=== PATIENT | female | born 1945 | race Caucasian/White ===

== ENCOUNTER 2020-01-14 10:13 | Emergency (ER) | payer MEDICARE, SELFPAY ==
--- NOTE | 2020-01-14 | ECG_ITS ---
Test Reason : SOB Blood Pressure : / mmHG Vent. Rate : 075 BPM Atrial Rate : 075 BPM P-R Int : 136 ms QRS Dur : 084 ms QT Int : 400 ms P-R-T Axes : 026 039 035 degrees QTc Int : 446 ms Normal sinus rhythm Nonspecific ST abnormality Abnormal ECG Heart rate has increased Referred By: Debi Joy Electronically Signed By:LINDA GONZALES MD
[2020-01-14 10:20] VITALS: BP 129/84; BP 142/75; PULSE 88; RESP 13; TEMP 36.6; O2SAT 100; O2SAT 99; BMI 34.0
--- NOTE | 2020-01-14 10:29 | CT_ITS ---
EXAMINATION: CT HEAD WITHOUT CONTRAST CLINICAL INFORMATION: Dizziness since Saturday. Palpitations. COMPARISON: Brain MRI from 12/04/2017. TECHNIQUE: Contiguous axial imaging was performed from the skull base to vertex without intravenous administration of contrast. This CT examination was performed using dose optimization techniques as appropriate, variously including the following: *Automated exposure control *Adjustment of mA and/or kV according to patient size (this includes techniques or standardized protocols for targeted exams where dose is matched to indication/reason for exam; i.e. extremities or head) *Use of iterative reconstruction technique DLP: 624 mGy-cm FINDINGS: The brain parenchyma has normal attenuation with well-preserved sheppard-white matter differentiation. No evidence of cerebral edema, hemorrhage, extra-axial fluid collection, focal mass effect or midline shift. The ventricles have normal size and configuration; no hydrocephalus. There is mild tonsillar ectopia, as noted on brain MRI of 12/04/2017. Otherwise, cerebellum and brainstem are unremarkable. The calvarium is intact. The visualized paranasal sinuses, mastoid air cells and middle ear cavities are well aerated. The orbits, globes and temporomandibular joints are unremarkable. CT/CT head/brain wo con IMPRESSION: No acute intracranial pathology compared to 12/04/2017.
--- NOTE | 2020-01-14 10:33 | XR_ITS ---
EXAMINATION: XR CHEST CLINICAL INFORMATION: Dizziness with associated palpitations. COMPARISON: Most recent chest radiograph is dated 08/12/2019 TECHNIQUE: 2 views of the chest were obtained. FINDINGS: The cardiomediastinal silhouette is unchanged. Heart size is not significantly enlarged. Redemonstration of tortuosity of the descending thoracic aorta. The hilar contours are unremarkable. The lungs are well expanded. No focal consolidation or pulmonary edema. No evidence of pleural effusion or pneumothorax. No acute osseous findings. There are surgical clips overlying the upper abdomen, possibly from prior cholecystectomy. XR/XR chest 2V IMPRESSION: No acute pulmonary disease.
--- NOTE | 2020-01-14 10:43 | ED.DIZZY ---
HPI - Dizziness General Chief Complaint: Dizziness Stated Complaint: dizzy, weakness Time Seen by Provider: 01/14/20 10:15 Source: patient and EMS Mode of arrival: EMS Limitations: no limitations History of Present Illness HPI Narrative: 73yoF c PMH of HTN, HLD, CKD stage 3, Meniere's disease, hypothyroidism, anxiety disorder, chronic GERD and Harper's esophagus presenting to the ED via EMS c c/o intermittent dizziness, pressure in the occipital aspect of her head and palpitations since Saturday. with associated nausea. Reports worse with standing. Patient reports she was recently seen by her pipefitter welder and had her atenolol changed to hydrochlorothiazide due to having low heart rate on the atenolol. Denies any fevers, changes in vision, vomiting, Jaw pain, paresthesias, chest pain, shortness of breath, dyspnea on exertion, extremity edema, abdominal pain, back pain, dysuria, diarrhea ear and constipation. Denies recent falls or head injury or any other symptoms complaints or concerns at this time. Denies being on any blood thinners. Reports is taking her medications as prescribed. Related Data Home Medications Medication Instructions Recorded Confirmed atenolol 25 mg tablet 25 mg PO DAILY 11/24/19 11/24/19 famotidine 20 mg tablet 20 mg PO BEDTIME 11/24/19 11/24/19 hydralazine 25 mg tablet 25 mg PO BID tab 11/24/19 11/24/19 lansoprazole 15 mg capsule,delayed 15 mg PO DAILY 11/24/19 11/24/19 release levothyroxine 75 mcg tablet 75 mcg PO DAILY 11/24/19 11/24/19 rosuvastatin 5 mg tablet 5 mg PO DAILY 11/24/19 11/24/19 Previous Rx's Medication Instructions Recorded buspirone 5 mg tablet 5 mg PO ONCE 30 Days #30 tab 11/24/19 lisinopril 30 mg tablet 30 mg PO DAILY #90 cap 12/24/19 Allergies Allergy/AdvReac Type Severity Reaction Status Date / Time Iodinated Contrast Media Allergy Severe TACHYCARDIA,DIFFICULTY Unverified 11/05/19 14:56 [IV CONTRAST] BREATHING amoxicillin [Prevpac] Allergy Unknown Verified 04/25/18 00:00 clarithromycin [Prevpac] Allergy Unknown Verified 04/25/18 00:00 escitalopram [From LEXAPRO] Allergy Unknown CHEST PAIN Unverified 11/05/19 14:56 lansoprazole [Prevpac] Allergy Unknown Verified 04/25/18 00:00 lovastatin Allergy Unknown myalgia Verified 08/26/19 00:00 omeprazole [From Prilosec] Allergy Unknown CHEST Unverified 11/05/19 14:56 PAIN,DIFFICULTY BREATHING pravastatin Allergy Unknown myalgia Verified 08/26/19 00:00 shellfish derived Allergy Unknown UNKOWN Unverified 11/05/19 14:56 [SHELLFISH DERIVED] iv contrast dye Allergy Unknown Uncoded 08/26/19 00:00 iv dye/ shellfish Allergy Unknown Uncoded 04/25/18 00:00 Prilosec Allergy Unknown Chest pain Uncoded 08/26/19 00:00 Review of Systems Review of Systems: Constitutional : No Fever, No Chills, No Night Sweats, No Fatigue, No Malaise ENT/Mouth : No Ear Pain, No Nasal Congestion, No Sinus Pain, No sore throat, No Rhinorrhea Eyes: No Eye Pain, No Swelling, No Redness, No Foreign Body, No Discharge, No Vision Changes Cardiovascular : No Chest Pain, No SOB, No Dyspnea on Exertion, No Orthopnea, + Palpitations Respiratory : No Cough, No Sputum, No Wheezing, No Dyspnea Gastrointestinal : + Nausea, No Vomiting, No Diarrhea, No Constipation, No abdominal Pain, No Hematochezia, No Melena Genitourinary : No Dysuria, No Urinary Frequency, No Urinary Incontinence, No Urgency, No Flank Pain Musculoskeletal : No joint pain, No Myalgias Skin : No lacerations Neuro : No Numbness, No Paresthesias, No Loss of Consciousness, + Dizziness, + Headache Yes all other systems are reviewed and are negative [facility] Past Medical History Attestation statement: The following information was validated with the patient. Medical History (Updated 01/14/20 @ 16:12 by SERGIO Martinez) Allergies Anxiety, generalized Chronic GERD Hypertension, essential Lipid disorder Surgical History H/O LEEP (2007) Family History Family History Father Heart disease Mother Heart disease Maternal Uncle Colon cancer Heart failure Social History Social History Smoking Status: Never smoker Use of substances other than those prescribed or required for medical reasons: No Advance Directives: No Advance Directives Information Provided: No Physical Exam Vital Signs: Vital Signs: Last Vital Signs Temp 98.0 F 01/14/20 14:20 Pulse 79 01/14/20 14:20 Resp 16 01/14/20 14:20 BP 141/60 H 01/14/20 14:20 Pulse Ox 98 01/14/20 14:20 Body Mass Index 34.0 Vital signs have been reviewed as normal and appeared to be correct. Blood pressure normal. Heart rate normal. Respiration rate normal. Temperature normal. Oxygen saturation normal. Appearance: Alert. Oriented X3. No acute distress. Head: Normal external exam. Normocephalic. Atraumatic. Able to rotate head bilaterally. Eyes: PERRLA. EOMI. No nystagmus noted. Conjunctiva and sclera normal. Eyelids normal. Corneal reflex normal. ENT: EAC normal. TM's Normal. Hearing normal. Pharynx normal. Uvula midline. tongue midline. Moist mucous membranes. No trismus noted. No drooling noted. No muffled voice noted. Neck: Normal inspection. Neck supple. FROM. No adenopathy. Thyroid Normal. No meningeal signs. No neck mass noted. CVS: Normal heart rate and rhythm. Heart sound normal. No murmurs noted. Pulses normal throughout. Respiratory: No respiratory distress. Painless inspiration. Breath sounds normal. No wheezes/rales/rhonchi noted. Chest nontender. No accessory muscle usage noted or decreased air movement noted. Abdomen: Soft and nontender. Bowel sounds normal in all 4 quadrants. No distention noted. No organomegaly noted. No visible injury noted. Back: No CVA tenderness. Full range of motion noted. Skin: Skin warm and dry. Normal skin color. Normal skin turgor. No rashes/lesions/lacerations noted. Extremities: No lower extremity edema. Extremities exhibit normal range of motion. Extremities nontender. Able to shrug shoulders bilaterally and keep up against resistance. Neuro: Oriented X 3. No motor deficit. No sensory deficit. Reflexes normal. Moving all extremities. No focal motor deficits. Cranial nerves II-XI intact bilaterally. Facial strength normal. Normal cognition. Speech normal. Gait normal. Strength 5/5 throughout. No pronator drift. No tremor noted. No fasciculations noted. Muscle tone normal throughout. No asterixis noted. Icolqh-lj-[id number] test normal. Heel to chavez test normal. Tandem gait normal. Does not sway with eyes open. Romberg test negative. Rapid alternating movement upper extremity normal. Rapid alternating movement lower extremity normal. Hand drop from overhead-Misses face. No rigidity noted. NIHSS score 0. Course Course Course Narrative: 10:46 - 73yoF c PMH of HTN, HLD, CKD stage 3, Meniere's disease, hypothyroidism, anxiety disorder, chronic GERD and Harper's esophagus presenting to the ED via EMS c c/o intermittent dizziness, pressure in the occipital aspect of her head and palpitations since Saturday c associated nausea and recent Blood pressure medication changed. Worse with standing. - on exam patient is neuro intact. Alert and oriented x3. No focal neuro deficits noted. NIH SS score 0. tPA not indicated as patient's symptoms started on Saturday therefore it has been 4 days. Also patient has non disabling symptoms. - Concern for CVA vs Vertigo vs electrolyte abnormalities - Plan: Labs, CT sca of brain, CXR, EKG, orthostatic vitals. provide a L of IV fluids and re-evaluate. Reevaluation(s) Reevaluation #1: - Patient's D-dimer elevated at 916. Patient's BUN and creatinine at 23/1.46. Last comparison was on 08/12/2019 which was 17/1.26. All other labs are within normal limits. EKG normal sinus rhythm no acute ischemic change in similar when compared to prior. - Therefore will give a L of IV fluids at this time. due to the patient's elevated D-dimer and being allergic to IV contrast will obtain a V/Q scan to evaluate for possible PE. Time: 11:50 Reevaluation #2: Patient just returned from V/Q scan awaiting results at this time. Time: 16:12 [facility] - Dizziness Medical Records Attestation: I reviewed the patient's medical records. Lab Data Attestation: I reviewed the patient's lab results. Result diagrams: 01/14/20 10:46 01/14/20 10:46 Labs: Lab Results 01/14/20 01/14/20 01/14/20 Range/Units 10:46 10:46 10:46 WBC 8.2 (4.8-10.8) X10*3/uL RBC 4.75 (4.20-5.50) X10*6/uL Hgb 14.1 (12.0-16.0) g/dl Hct 43.2 (37-47) % MCV 90.9 (80-98) fL MCH 29.7 (27.0-33.0) pg MCHC 32.6 (31.0-35.0) g/dl RDW 13.1 (11.0-16.0) % Plt Count 171 (160-400) X10*3/uL MPV 10.2 (9.4-12.3) fL Immature Gran % (Auto) 0.4 (0.0-0.4) % Neut % (Auto) 74.5 H (45-73) % Lymph % (Auto) 16.2 L (20-40) % Gillespie % (Auto) 7.8 (2-11) % Eos % (Auto) 0.6 (0-4) % Baso % (Auto) 0.5 (0-2) % Lymph # (Auto) 1.3 (1.2-4.9) X10*3/uL Gillespie # (Auto) 0.6 (0.1-1.2) X10*3/uL Eos # (Auto) 0.1 (0.0-0.4) X10*3/uL Baso # (Auto) 0.0 (0.0-0.2) X10*3/uL Abs Immat Gran (auto) 0.03 (0.00-0.03) X10*3/uL Absolute Neuts (auto) 6.1 (2.0-8.3) X10*3/uL Absolute Nucleated RBC 0.000 (0.0-0.012) X10*3/uL Nucleated RBC % (auto) 0.0 (0.0-0.2) /100WBC PT 12.7 (10.8-13.0) SEC INR 1.1 (0.9-1.1) APTT 29.7 (24.1-38.0) SEC D-Dimer NG/ML Sodium 141 (135-145) mmol/L Potassium 4.8 (3.3-5.1) mmol/l Chloride 104 (96-108) mmol/L Carbon Dioxide 28 (22-29) mmol/L Anion Gap 14 (12-20) BUN 23 H (9-16) mg/dL Creatinine 1.46 H (0.5-1.4) mg/dL Estim Creat Clear Calc 32.7 Estimated GFR 35 Random Glucose 105 (60-115) mg/dL Calcium 9.5 (8.4-10.2) mg/dL Total Bilirubin 0.5 (0.0-1.0) mg/dL AST 25 (5-31) U/L ALT 21 (0-31) U/L Alkaline Phosphatase 86 (39-117) U/L Troponin I High Sens (<3.5-17.0) ng/L Total Protein 6.7 (6.5-8.0) g/dL Albumin 3.9 (3.5-5.0) g/dL Urine Color Urine Appearance Urine pH (5.0-8.0) Ur Specific [place] (1.005-1.025) Urine Protein (NEG-TRACE) MG/DL Urine Glucose (UA) (NEG) MG/DL Urine Ketones (NEG) MG/DL Urine Blood (NEG) Urine Nitrite (NEG) Ur Leukocyte Esterase (NEG) 01/14/20 01/14/20 01/14/20 Range/Units 10:46 10:46 15:10 WBC (4.8-10.8) X10*3/uL RBC (4.20-5.50) X10*6/uL Hgb (12.0-16.0) g/dl Hct (37-47) % MCV (80-98) fL MCH (27.0-33.0) pg MCHC (31.0-35.0) g/dl RDW (11.0-16.0) % Plt Count (160-400) X10*3/uL MPV (9.4-12.3) fL Immature Gran % (Auto) (0.0-0.4) % Neut % (Auto) (45-73) % Lymph % (Auto) (20-40) % Gillespie % (Auto) (2-11) % Eos % (Auto) (0-4) % Baso % (Auto) (0-2) % Lymph # (Auto) (1.2-4.9) X10*3/uL [place]pie # (Auto) (0.1-1.2) X10*3/uL Eos # (Auto) (0.0-0.4) X10*3/uL Baso # (Auto) (0.0-0.2) X10*3/uL Abs Immat Gran (auto) (0.00-0.03) X10*3/uL Absolute Neuts (auto) (2.0-8.3) X10*3/uL Absolute Nucleated RBC (0.0-0.012) X10*3/uL Nucleated RBC % (auto) (0.0-0.2) /100WBC PT (10.8-13.0) SEC INR (0.9-1.1) APTT (24.1-38.0) SEC D-Dimer 916 NG/ML Sodium (135-145) mmol/L Potassium (3.3-5.1) mmol/l Chloride (96-108) mmol/L Carbon Dioxide (22-29) mmol/L Anion Gap (12-20) BUN (9-16) mg/dL Creatinine (0.5-1.4) mg/dL Estim Creat Clear Calc Estimated GFR Random Glucose (60-115) mg/dL Calcium (8.4-10.2) mg/dL Total Bilirubin (0.0-1.0) mg/dL AST (5-31) U/L ALT (0-31) U/L Alkaline Phosphatase (39-117) U/L Troponin I High Sens < 3.5 (<3.5-17.0) ng/L Total Protein (6.5-8.0) g/dL Albumin (3.5-5.0) g/dL Urine Color YELLOW Urine Appearance CLEAR Urine pH 6.0 (5.0-8.0) Ur Specific [place] 1.010 (1.005-1.025) Urine Protein NEG (NEG-TRACE) MG/DL Urine Glucose (UA) NEG (NEG) MG/DL Urine Ketones 5 (NEG) MG/DL Urine Blood NEG (NEG) Urine Nitrite NEG (NEG) Ur Leukocyte Esterase NEG (NEG) ECG Data Attestation: I personally reviewed and interpreted this ECG as follows: ECG interpretation date: 01/14/20 ECG interpretation time: 10:33 Interpretation: normal sinus rhythm with ventricular rate of [address] abnormality with a normal QRS QT/QTc no acute ischemic changes. Discharge Plan Discharge Clinical Impression: Dizziness Prescriptions: No Action lisinopril 30 mg tablet 30 mg PO DAILY Qty: 90 RF: 0 buspirone 5 mg tablet 5 mg PO ONCE 30 Days Qty: 30 RF: 1 famotidine [Pepcid] 20 mg tablet 20 mg PO BEDTIME RF: 0 lansoprazole [Prevacid] 15 mg capsule,delayed release(DR/EC) 15 mg PO DAILY RF: 0 hydralazine 25 mg tablet 25 mg PO BID RF: 0 atenolol 25 mg tablet 25 mg PO DAILY RF: 0 rosuvastatin [Crestor] 5 mg tablet 5 mg PO DAILY RF: 0 levothyroxine 75 mcg tablet 75 mcg PO DAILY RF: 0
[2020-01-14 10:58] LABS: Basophils Percent Auto 0.5 % (0-2); Eosinophils Absolute Auto 0.1 X10*3/uL (0.0-0.4); Eosinophils Percent Auto 0.6 % (0-4); Hematocrit 43.2 % (37-47); Hemoglobin 14.1 g/dl (12.0-16.0); Imm Gran Abs Auto 0.03 X10*3/uL (0.00-0.03); Imm Gran Pct Auto 0.4 % (0.0-0.4); Lymphocytes Absolute Auto 1.3 X10*3/uL (1.2-4.9); Lymphocytes Percent Auto 16.2 % (20-40); MANUAL DIFF FLAG NO; Mean Corpuscular HGB Conc 32.6 g/dl (31.0-35.0); Mean Corpuscular Hemoglobin 29.7 pg (27.0-33.0); Mean Corpuscular Volume 90.9 fL (80-98); Mean Platelet Volume 10.2 fL (9.4-12.3); Monocytes Absolute Auto 0.6 X10*3/uL (0.1-1.2); Monocytes Percent Auto 7.8 % (2-11); Neutrophils Absolute Auto 6.1 X10*3/uL (2.0-8.3); Neutrophils Percent Auto 74.5 % (45-73); Platelet Count 171 X10*3/uL (160-400); Red Blood Count 4.75 X10*6/uL (4.20-5.50); Red Cell Distribution Width 13.1 % (11.0-16.0); White Blood Count 8.2 X10*3/uL (4.8-10.8)
[2020-01-14 11:10] LABS: INTERNATIONAL NORM RATIO 1.1 (0.9-1.1); Prothrombin Time 12.7 SEC (10.8-13.0)
[2020-01-14 11:13] LABS: Partial Thromboplastin Time 29.7 SEC (24.1-38.0)
[2020-01-14 11:14] LABS: D Dimer 916 NG/ML
[2020-01-14 11:30] LABS: Alanine Aminotransferase 21 U/L (0-31); Albumin Level 3.9 g/dL (3.5-5.0); Alkaline Phosphatase 86 U/L (39-117); Anion Gap 14 (12-20); Aspartate Amino Transferase 25 U/L (5-31); Bilirubin Total 0.5 mg/dL (0.0-1.0); Blood Urea Nitrogen 23 mg/dL (9-16); Calcium 9.5 mg/dL (8.4-10.2); Carbon Dioxide 28 mmol/L (22-29); Chloride 104 mmol/L (96-108); Creatinine Clr Calc Pharmacy 32.7; Estimated Glomerular Filt Rate 35; Glucose Random 105 mg/dL (60-115); Potassium 4.8 mmol/l (3.3-5.1); Sodium 141 mmol/L (135-145); Total Protein 6.7 g/dL (6.5-8.0)
--- NOTE | 2020-01-14 11:33 | NM_ITS ---
EXAMINATION: KS LUNG IMAGE PERFUSION CLINICAL INFORMATION: Dizziness and palpitations. Elevated D-dimer. COMPARISON: Chest radiograph from 01/14/2020. TECHNIQUE: Perfusion scintigraphy examination was performed using 4.0 mCi of Tc-99m MAA intravenously. Multiplanar imaging performed. FINDINGS: There is normal distribution of the radiotracer within each lung. No evidence of small, moderate or large segmental defects. No evidence of pulmonary embolism. KS/KS pul perfusion IMPRESSION: Normal perfusion scan of the lungs.
[2020-01-14 11:36] LABS: Troponin-I High Sensitivity < 3.5 ng/L (<3.5-17.0)
[2020-01-14] MEDS: 0.9 % Sodium Chloride 1,000 ML 999 ML IVCONT (11:44)
[2020-01-14 12:00] VITALS: BP 149/74; PULSE 93; RESP 14; TEMP 36.7; O2SAT 98
[2020-01-14 13:02] VITALS: BP 145/88; BP 150/77; PULSE 85; PULSE 93
[2020-01-14 13:04] VITALS: BP 142/94; PULSE 100
[2020-01-14] MEDS: Meclizine HCl 25 MG TABLET 50 MG PO (13:11)
--- NOTE | 2020-01-14 13:23 | PC.NURSE ---
pt's family members updated in the waiting room area - per pt.
[2020-01-14 14:20] VITALS: BP 141/60; PULSE 79; RESP 16; TEMP 36.7; O2SAT 98
[2020-01-14 15:29] LABS: Glucose Urine UA NEG (NEG); Leukocyte Esterase Urine NEG (NEG); Nitrite Urine NEG (NEG); Urine Blood NEG (NEG); Urine Ketones 5 MG/DL (NEG); Urine Protein NEG (NEG-TRACE)
[2020-01-14 15:30] LABS: Appearance Urine CLEAR; Color Urine YELLOW
== END 2020-01-14 18:39 | disposition home or self-care (01) ==
PROVIDERS: Physician Assistant Medical; Emergency Provider Emergency Medicine Emergency Medical Services; PCP Internal Medicine
DX: H81.03 Meniere's disease, bilateral (principal); I12.9 Hypertensive chronic kidney disease with stage 1 through stage 4 chronic kidney disease, or unspecified chronic kidney disease; N18.30 Chronic kidney disease, stage 3 unspecified; F41.1 Generalized anxiety disorder; F43.0 Acute stress reaction; Z79.899 Other long term (current) drug therapy
CPT/HCPCS: 36415; 70450; 71046; 78580; 80053; 81003; 84484; 85025; 85379; 85610; 85730; 93005; 96361; 96374; 99284; A9540

== ENCOUNTER 2020-05-12 09:05 | Emergency (ER) | payer MEDICARE, SELFPAY ==
--- NOTE | ~2020-05-12 | CT_ITS ---
EXAMINATION: CT ABDOMEN AND PELVIS WITHOUT CONTRAST CLINICAL INFORMATION: Left-sided abdominal pain with history of diverticular disease COMPARISON: June 08, 2017 TECHNIQUE: Multidetector volumetric imaging was performed from the superior aspect of the liver through the pubic symphysis. Sagittal and coronal reformatted images were obtained on the technologist's workstation. This CT examination was performed using dose optimization techniques as appropriate, variously including the following: *Automated exposure control *Adjustment of mA and/or kV according to patient size (this includes techniques or standardized protocols for targeted exams where dose is matched to indication/reason for exam; i.e. extremities or head) *Use of iterative reconstruction technique DLP: 772 mGy-cm FINDINGS: LUNG BASES: No significant base disease identified. No pleural or pericardial effusion. LIVER, GALLBLADDER, AND BILIARY TREE: Pneumobilia is present. No focal mass or intrahepatic bile duct dilatation identified. Gallbladder is Surgically removed PANCREAS: Unremarkable. No mass or peripancreatic inflammatory change. SPLEEN: Unremarkable. ADRENAL GLANDS: Unremarkable. KIDNEYS AND URETERS: Right: There are 2, 2 mm nonobstructing calculi seen in the interpolar region of the right kidney. No hydronephrosis is evident. No focal mass appreciated. Right ureter appears unremarkable. There is an extrarenal pelvis. Left: Parapelvic cysts are present as well as extrarenal pelvis. No calculi or focal solid mass is identified. Left ureter appears unremarkable. BLADDER: Unremarkable. GASTROINTESTINAL TRACT: There is a small hiatal hernia. No dilated loops of large or small bowel are evident. No free air appreciated. There is prominent sigmoid diverticular disease with mild diverticulosis of the remainder of the colon. There is a small amount of fluid adjacent to the sigmoid colon without appreciable collection and may be related to acute or early sigmoid diverticulitis. The remainder of the colon does not have any pericolonic inflammatory change. No abscess collection appreciated. The appendix appears unremarkable. ABDOMINAL WALL: There is a small fat-containing umbilical hernia. LYMPH NODES: No lymphadenopathy appreciated. VASCULAR: There is mild calcified plaque within the aortoiliac system. No abdominal aortic aneurysm. PELVIC VISCERA: There is a 3 x 2.5 cm right adnexal cyst. OSSEOUS STRUCTURES: There is a T8 vertebral body hemangioma present. No suspicious destructive bony lesion identified. Degenerative change of both hips evident. Degenerative disc disease L5-S1 is seen. CT/CT abdomen pelvis wo con IMPRESSION: Mild,/early sigmoid acute diverticulitis. Prominent sigmoid diverticulosis. 3 x 2.5 cm right adnexal cyst for which follow-up is recommended with ultrasound Right nephrolithiasis without obstructive uropathy.
[2020-05-12 09:14] VITALS: BP 163/80; PULSE 105; RESP 16; TEMP 36.8; O2SAT 98; BMI 34.9
[2020-05-12 09:23] VITALS: BP 163/80; PULSE 98; RESP 16; TEMP 36.9; O2SAT 99
--- NOTE | 2020-05-12 09:25 | ED_ITS ---
HPI - Abdominal Pain General Chief Complaint: Abdominal Pain <Armani Sunshine NP - Last Filed: 05/27/20 14:15> Stated Complaint: abd pain <Armani Sunshine NP - Last Filed: 05/27/20 14:15> Time Seen by Provider: 05/12/20 09:24 <Armani Sunshine NP - Last Filed: 05/27/20 14:15> Source: patient <Armani Sunshine NP - Last Filed: 05/27/20 14:15> Mode of arrival: ambulatory <Armani Sunshine NP - Last Filed: 05/27/20 14:15> Limitations: no limitations <Armani Sunshine NP - Last Filed: 05/27/20 14:15> History of Present Illness HPI narrative: This is a pleasant 74-year-old female who presents ambulatory with past medical history as noted below including history of hypertension, hyperlipidemia , chronic kidney disease stage 3, Meniere's disease, hypothyroidism, anxiety disorder, chronic GERD and Harper's esophagus she presents epigastric/left side abdominal pain for the past couple days or so started have abdominal pain periumbilical region and the left side with some more and dry he meant states her symptoms consistent with her prior diverticular episode states she went to urgent care and was advised for home care and not come to the ED. denies diarrhea, vomiting positive dry heaving. <Armani Sunshine NP - Last Filed: 05/27/20 14:15> MD elicited complaint: abdominal pain <Armani Sunshine NP - Last Filed: 05/27/20 14:15> Onset (ago): day(s) <Armani Sunshine NP - Last Filed: 05/27/20 14:15> Location: diffuse <Armani Sunshine NP - Last Filed: 05/27/20 14:15> Severity: mild <Armani Sunshine NP - Last Filed: 05/27/20 14:15> Quality: aching <Armani Sunshine NP - Last Filed: 05/27/20 14:15> Radiation: none <Armani Sunshine NP - Last Filed: 05/27/20 14:15> Migration to: no migration <Armani Sunshine NP - Last Filed: 05/27/20 14:15> Exacerbating factors: nothing <Armani Sunshine NP - Last Filed: 05/27/20 14:15> Associated symptoms: denies other symptoms <Armani Sunshine NP - Last Filed: 05/27/20 14:15> Related Data Home Medications: Home Medications Medication Instructions Recorded Confirmed atenolol 25 mg tablet 25 mg PO DAILY 11/24/19 05/24/20 famotidine 20 mg tablet 20 mg PO BEDTIME 11/24/19 05/24/20 hydralazine 25 mg tablet 25 mg PO BID tab 11/24/19 05/24/20 lansoprazole 15 mg capsule,delayed 15 mg PO DAILY 11/24/19 05/24/20 release rosuvastatin 5 mg tablet 5 mg PO DAILY 11/24/19 05/24/20 rosuvastatin 10 mg tablet 10 mg PO DAILY 05/24/20 05/24/20 Previous Rx's Medication Instructions Recorded meclizine 50 mg PO BID PRN #14 tab 01/14/20 Levoxyl 75 mcg tablet 75 mcg PO QAM #90 cap NS 03/07/20 buspirone 5 mg tablet 5 mg PO DAILY #30 cap 03/07/20 lisinopril 30 mg tablet 30 mg PO DAILY #90 cap 03/22/20 levofloxacin 500 mg PO DAILY 7 Days #7 tab 05/12/20 metronidazole [Flagyl] 500 mg PO BID 7 Days #14 tab 05/12/20 ondansetron HCl [Zofran] 4 mg PO Q8H PRN #10 tab 05/12/20 <Armani Sunshine NP - Last Filed: 05/27/20 14:15> Allergies/Adverse Reactions: Allergies Allergy/AdvReac Type Severity Reaction Status Date / Time Iodinated Contrast Media Allergy Severe TACHYCARDIA,DIFFICULTY Unverified 08/08 15:36 [IV CONTRAST] BREATHING amoxicillin [Prevpac] Allergy Unknown Unknown Verified 05/24/20 15:36 clarithromycin [Prevpac] Allergy Unknown Unknown Verified 05/24/20 15:36 escitalopram [From LEXAPRO] Allergy Unknown CHEST PAIN Unverified 05/24/20 15:36 lansoprazole [Prevpac] Allergy Unknown unknown Verified 05/24/20 15:36 lovastatin Allergy Unknown myalgia Verified 05/24/20 15:36 omeprazole [From Prilosec] Allergy Unknown CHEST Unverified 05/24/20 15:36 PAIN,DIFFICULTY BREATHING pravastatin Allergy Unknown myalgia Verified 05/24/20 15:36 shellfish derived Allergy Unknown UNKOWN Unverified 05/24/20 15:36 [SHELLFISH DERIVED] iv contrast dye Allergy Unknown unknown Uncoded 05/24/20 15:36 iv dye/ shellfish Allergy Unknown unknown Uncoded 05/24/20 15:36 Prilosec Allergy Unknown Chest pain Uncoded 05/24/20 15:36 <Armani Sunshine NP - Last Filed: 05/27/20 14:15> Review of Systems Review of Systems Constitutional: No Weight loss, No Fever, No Chills, No Night Sweats, No Fatigue, No Malaise ENT/Mouth: No Hearing loss, No Ear Pain, No Nasal Congestion, No Sinus Pain, No Hoarseness, No sore throat, No Rhinorrhea, No Swallowing Difficulty Eyes: No Eye Pain, No Swelling, No Redness, No Foreign Body, No Discharge, No Vision Changes Cardiovascular: No Chest Pain, No SOB, No Dyspnea on Exertion, No Orthopnea, No Edema, No Palpitations Respiratory: No Cough, No Sputum, No Wheezing, No Smoke Exposure, No Dyspnea Gastrointestinal: + Nausea, No Vomiting, No Diarrhea, No Constipation, + abdominal Pain, No Hematochezia, No Melena Genitourinary: no irregular bleeding, No Dysuria, No Urinary Frequency, No Hematuria, No Urinary Incontinence, No Urgency, No Flank Pain, No Urinary Flow Changes, No Hesitancy Musculoskeletal: No joint pain, No Myalgias, No Joint Swelling Skin: No Skin Lesions, No rash Neuro: No Weakness, No Numbness, No Paresthesias, No Loss of Consciousness, No Dizziness, No Headache Psych: No Social Issues Heme/Lymph: No Bruising, No Bleeding,No Lymphadenopathy Endocrine: No Polyuria, No Polydipsia, No Temperature Intolerance <Armani Sunshine NP - Last Filed: 05/27/20 14:15> Yes all other systems are reviewed and are negative <Armani Sunshine NP - Last Filed: 05/27/20 14:15> Physical Exam Vital Signs: Vital Signs: Last Vital Signs Temp 98.3 F 05/12/20 13:48 Pulse 88 05/12/20 13:48 Resp 16 05/12/20 13:48 BP 137/68 05/12/20 13:48 Pulse Ox 98 05/12/20 13:48 Body Mass Index 34.9 Reviewed <Armani Sunshine NP - Last Filed: 05/27/20 14:15> Vital Signs: Last Vital Signs Temp 98.3 F 05/12/20 13:48 Pulse 88 05/12/20 13:48 Resp 16 05/12/20 13:48 BP 137/68 05/12/20 13:48 Pulse Ox 98 05/12/20 13:48 Body Mass Index 34.9 <Donald Hyde MD - Last Filed: 06/07/20 09:24> Const: General: cooperative and healthy appearing; No acute distress or intoxicated appearing <Armani Sunshine NP - Last Filed: 05/27/20 14:15> Nutritional Appearance: average body habitus <Armani Sunshine NP - Last Filed: 05/27/20 14:15> Orientation/consciousness: patient oriented x3 <Armani Sunshine NP - Last Filed: 05/27/20 14:15> HENMT: Head: Yes normal to inspection <Armani Sunshine NP - Last Filed: 05/27/20 14:15> Ears: hearing grossly normal bilaterally <Armani Sunshine NP - Last Filed: 05/27/20 14:15> Eyes: General: appearance normal, both eyes and all related structures <Armani Sunshine NP - Last Filed: 05/27/20 14:15> Visual Silva: normal visual silva by confrontation <Armani Sunshine NP - Last Filed: 05/27/20 14:15> Neck: Neck: Yes normal visual inspection, No positive Brudzinski's sign, No positive Kernig's sign and No tender <Armaniarcelia Sunshine NP - Last Filed: 05/27/20 14:15> Thyroid: Thyroid normal <Armani Sunshine NP - Last Filed: 05/27/20 14:15> Chest: Chest palpation & inspection: normal inspection of the chest <Armani Sunshine NP - Last Filed: 05/27/20 14:15> Resp: Effort & Inspection: normal respiratory effort <Armani Sunshine NP - Last Filed: 05/27/20 14:15> Auscultation: clear to auscultation bilaterally <[facility] Sunshine, MEAT STOCKER - Last Filed: 05/27/20 14:15> Cardio: Jugular venous distension: no JVD <[facility] Sunshine, ME[employer] STOCKER - Last Filed: 05/27/20 14:15> Rhythm: regular rhythm <[facility] Sunshine, ME[employer] STOCKER - Last Filed: 05/27/20 14:15> Heart sounds: S1 normal heart sound present and S2 normal heart sound present <[facility] Sunshine, ME[employer] STOCKER - Last Filed: 05/27/20 14:15> GI: Inspection: Yes normal to inspection <[facility] Sunshine, - Last Filed: 05/27/20 14:15> Palpation (GI): Soft to palpation <[facility] Bita - Last Filed: 05/27/20 14:15> Percussion: Yes normal to percussion <[facility] Bita - Last Filed: 05/27/20 14:15> Auscultation: normal bowel sounds <[facility] Bita MEAT STOCKER - Last Filed: 05/27/20 14: 15> : General: Yes no CVA tenderness <[facility] Sunshine, ME[employer] STOCKER - Last Filed: 05/27/20 14:15> Back/Spine/Pelvis: Back: no CVA tenderness <[facility] BERTHA Sunshine - Last Filed: 05/27/20 14:15> Skin: General skin exam: no rashes or lesions noted <[facility] Bita ME[employer] STOCKER - Last Filed: 05/27/20 14:15> Neuro: General: patient oriented x3 <Armani BERTHA Sunshine - Last Filed: 05/27/20 14:15> Extrem: General: Yes normal to inspection <[facility] Bita ME[employer] STOCKER - Last Filed: 05/27/20 14:15> Course Course Course Narrative: I have reviewed the chart <Donald Hyde MD - Last Filed: 06/07/20 09:24> MDM - Abdominal Pain MDM Narrative Medical decision making narrative: Feels better after IV fluids and antiemetic. No complaints of discomfort or pain. CT findings reviewed given history go ahead and empirically treat. Feels comfortable plan. Will discharge home include precaution return follow-up instructions. Stable for discharge. <Armaniarcelia Sunshine NP - Last Filed: 05/27/20 14:15> Differential Diagnosis Differential diagnosis: Likely abdominal pain, constipation, diverticulitis and gastroenteritis; Unlikely aortic dissection, acute appendicitis, bowel perforation, calculus of kidney, endometriosis, gastritis, mesenteric ischemia, ovarian cyst, pancreatitis, peptic ulcer disease, renal colic and small bowel obstruction <Armaniarcelia Sunshine NP - Last Filed: 05/27/20 14:15> Medical Records Attestation: I reviewed the patient's medical records. <Armani Sunshine NP - Last Filed: 05/27/20 14:15> Lab Data Attestation: I reviewed the patient's lab results. <Armani Sunshine NP - Last Filed: 05/27/20 14:15> Result diagrams: : 05/12/20 10:24 05/12/20 10:24 <Armani Sunshine NP - Last Filed: 05/27/20 14:15> Labs: Lab Results 05/12/20 05/12/20 05/12/20 Range/Units 10:24 10:24 10:24 WBC 7.1 (4.8-10.8) X10*3/uL RBC 4.60 (4.20-5.50) X10*6/uL Hgb 13.0 (12.0-16.0) g/dl Hct 41.1 (37-47) % MCV 89.3 (80-98) fL MCH 28.3 (27.0-33.0) pg MCHC 31.6 (31.0-35.0) g/dl RDW 13.0 (11.0-16.0) % Plt Count 184 (160-400) X10*3/uL MPV 9.9 (9.4-12.3) fL Immature Gran % (Auto) 0.3 (0.0-0.4) % Neut % (Auto) 79.3 H (45-73) % Lymph % (Auto) 13.0 L (20-40) % [place] % (Auto) 6.3 (2-11) % Eos % (Auto) 0.7 (0-4) % Baso % (Auto) 0.4 (0-2) % Lymph # (Auto) 0.9 L (1.2-4.9) X10*3/uL [place] # (Auto) 0.5 (0.1-1.2) X10*3/uL Eos # (Auto) 0.1 (0.0-0.4) X10*3/uL Baso # (Auto) 0.0 (0.0-0.2) X10*3/uL Abs Immat Gran (auto) 0.02 (0.00-0.03) X10*3/uL Absolute Neuts (auto) 5.7 (2.0-8.3) X10*3/uL Absolute Nucleated RBC 0.000 (0.0-0.012) X10*3/uL Nucleated RBC % (auto) 0.0 (0.0-0.2) /100WBC PT 12.7 (10.8-13.0) SEC INR 1.1 (0.9-1.1) APTT 30.3 (24.1-38.0) SEC Sodium 145 (135-145) mmol/L Potassium 4.8 (3.3-5.1) mmol/L Chloride 109 H (96-108) mmol/L Carbon Dioxide 25 (22-29) mmol/L Anion Gap 16 (12-20) BUN 19 H (9-16) mg/dL Creatinine 1.26 (0.5-1.4) mg/dL Estim Creat Clear Calc 38.4 Estimated GFR 42 Random Glucose 101 (60-115) mg/dL Calcium 9.2 (8.4-10.2) mg/dL Total Bilirubin 0.4 (0.0-1.0) mg/dL AST 33 H (5-31) U/L ALT 23 (0-31) U/L Alkaline Phosphatase 82 (39-117) U/L Troponin I High Sens (<3.5-17.0) ng/L Total Protein 6.5 (6.5-8.0) g/dL Albumin 3.8 (3.5-5.0) g/dL Urine Color Urine Appearance Urine pH (5.0-8.0) Ur Specific [place] (1.005-1.025) Urine Protein (NEG-TRACE) MG/DL Urine Glucose (UA) (NEG) MG/DL Urine Ketones (NEG) MG/DL Urine Blood (NEG) Urine Nitrite (NEG) Ur Leukocyte Esterase (NEG) Urine RBC (0) /HPF Urine WBC (0-4) /HPF Ur Squamous Epith Cells /LPF Urine Bacteria /LPF COVID-19 (LITA) (Negative) COVID-19 Clin Com 05/12/20 05/12/20 05/12/20 Range/Units 10:24 10:24 10:55 WBC (4.8-10.8) X10*3/uL RBC (4.20-5.50) X10*6/uL Hgb (12.0-16.0) g/dl Hct (37-47) % MCV (80-98) fL MCH (27.0-33.0) pg MCHC (31.0-35.0) g/dl RDW (11.0-16.0) % Plt Count (160-400) X10*3/uL MPV (9.4-12.3) fL Immature Gran % (Auto) (0.0-0.4) % Neut % (Auto) (45-73) % Lymph % (Auto) (20-40) % [place] % (Auto) (2-11) % Eos % (Auto) (0-4) % Baso % (Auto) (0-2) % Lymph # (Auto) (1.2-4.9) X10*3/uL [place] # (Auto) (0.1-1.2) X10*3/uL Eos # (Auto) (0.0-0.4) X10*3/uL Baso # (Auto) (0.0-0.2) X10*3/uL Abs Immat Gran (auto) (0.00-0.03) X10*3/uL Absolute Neuts (auto) (2.0-8.3) X10*3/uL Absolute Nucleated RBC (0.0-0.012) X10*3/uL Nucleated RBC % (auto) (0.0-0.2) /100WBC PT (10.8-13.0) SEC INR (0.9-1.1) APTT (24.1-38.0) SEC Sodium (135-145) mmol/L Potassium (3.3-5.1) mmol/L Chloride (96-108) mmol/L Carbon Dioxide (22-29) mmol/L Anion Gap (12-20) BUN (9-16) mg/dL Creatinine (0.5-1.4) mg/dL Estim Creat Clear Calc Estimated GFR Random Glucose (60-115) mg/dL Calcium (8.4-10.2) mg/dL Total Bilirubin (0.0-1.0) mg/dL AST (5-31) U/L ALT (0-31) U/L Alkaline Phosphatase (39-117) U/L Troponin I High Sens 5.6 D (<3.5-17.0) ng/L Total Protein (6.5-8.0) g/dL Albumin (3.5-5.0) g/dL Urine Color YELLOW Urine Appearance CLEAR Urine pH 7.0 (5.0-8.0) Ur Specific [place] 1.010 (1.005-1.025) Urine Protein NEG (NEG-TRACE) MG/DL Urine Glucose (UA) NEG (NEG) MG/DL Urine Ketones NEG (NEG) MG/DL Urine Blood NEG (NEG) Urine Nitrite NEG (NEG) Ur Leukocyte Esterase NEG (NEG) Urine RBC 0 (0) /HPF Urine WBC 0-2 (0-4) /HPF Ur Squamous Epith Cells 1+ /LPF Urine Bacteria NONE /LPF COVID-19 (LITA) Negative (Negative) COVID-19 Clin Com See Note 05/12/20 Range/Units 13:04 WBC (4.8-10.8) X10*3/uL RBC (4.20-5.50) X10*6/uL Hgb (12.0-16.0) g/dl Hct (37-47) % MCV (80-98) fL MCH (27.0-33.0) pg MCHC (31.0-35.0) g/dl RDW (11.0-16.0) % Plt Count (160-400) X10*3/uL MPV (9.4-12.3) fL Immature Gran % (Auto) (0.0-0.4) % Neut % (Auto) (45-73) % Lymph % (Auto) (20-40) % [place] % (Auto) (2-11) % Eos % (Auto) (0-4) % Baso % (Auto) (0-2) % Lymph # (Auto) (1.2-4.9) X10*3/uL [place] # (Auto) (0.1-1.2) X10*3/uL Eos # (Auto) (0.0-0.4) X10*3/uL Baso # (Auto) (0.0-0.2) X10*3/uL Abs Immat Gran (auto) (0.00-0.03) X10*3/uL Absolute Neuts (auto) (2.0-8.3) X10*3/uL Absolute Nucleated RBC (0.0-0.012) X10*3/uL Nucleated RBC % (auto) (0.0-0.2) /100WBC PT (10.8-13.0) SEC INR (0.9-1.1) APTT (24.1-38.0) SEC Sodium (135-145) mmol/L Potassium (3.3-5.1) mmol/L Chloride (96-108) mmol/L Carbon Dioxide (22-29) mmol/L Anion Gap (12-20) BUN (9-16) mg/dL Creatinine (0.5-1.4) mg/dL Estim Creat Clear Calc Estimated GFR Random Glucose (60-115) mg/dL Calcium (8.4-10.2) mg/dL Total Bilirubin (0.0-1.0) mg/dL AST (5-31) U/L ALT (0-31) U/L Alkaline Phosphatase (39-117) U/L Troponin I High Sens 7.1 (<3.5-17.0) ng/L Total Protein (6.5-8.0) g/dL Albumin (3.5-5.0) g/dL Urine Color Urine Appearance Urine pH (5.0-8.0) Ur Specific [place] (1.005-1.025) Urine Protein (NEG-TRACE) MG/DL Urine Glucose (UA) (NEG) MG/DL Urine Ketones (NEG) MG/DL Urine Blood (NEG) Urine Nitrite (NEG) Ur Leukocyte Esterase (NEG) Urine RBC (0) /HPF Urine WBC (0-4) /HPF Ur Squamous Epith Cells /LPF Urine Bacteria /LPF COVID-19 (LITA) (Negative) COVID-19 Clin Com <Armani Sunshine, MEAT STOCKER - Last Filed: 05/27/20 14:15> Lab Results 05/12/20 05/12/20 05/12/20 Range/Units 10:24 10:24 10:24 WBC 7.1 (4.8-10.8) X10*3/uL RBC 4.60 (4.20-5.50) X10*6/uL Hgb 13.0 (12.0-16.0) g/dl Hct 41.1 (37-47) % MCV 89.3 (80-98) fL MCH 28.3 (27.0-33.0) pg MCHC 31.6 (31.0-35.0) g/dl RDW 13.0 (11.0-16.0) % Plt Count 184 (160-400) X10*3/uL MPV 9.9 (9.4-12.3) fL Immature Gran % (Auto) 0.3 (0.0-0.4) % Neut % (Auto) 79.3 H (45-73) % Lymph % (Auto) 13.0 L (20-40) % [place] % (Auto) 6.3 (2-11) % Eos % (Auto) 0.7 (0-4) % Baso % (Auto) 0.4 (0-2) % Lymph # (Auto) 0.9 L (1.2-4.9) X10*3/uL [place] # (Auto) 0.5 (0.1-1.2) X10*3/uL Eos # (Auto) 0.1 (0.0-0.4) X10*3/uL Baso # (Auto) 0.0 (0.0-0.2) X10*3/uL Abs Immat Gran (auto) 0.02 (0.00-0.03) X10*3/uL Absolute Neuts (auto) 5.7 (2.0-8.3) X10*3/uL Absolute Nucleated RBC 0.000 (0.0-0.012) X10*3/uL Nucleated RBC % (auto) 0.0 (0.0-0.2) /100WBC PT 12.7 (10.8-13.0) SEC INR 1.1 (0.9-1.1) APTT 30.3 (24.1-38.0) SEC Sodium 145 (135-145) mmol/L Potassium 4.8 (3.3-5.1) mmol/L Chloride 109 H (96-108) mmol/L Carbon Dioxide 25 (22-29) mmol/L Anion Gap 16 (12-20) BUN 19 H (9-16) mg/dL Creatinine 1.26 (0.5-1.4) mg/dL Estim Creat Clear Calc 38.4 Estimated GFR 42 Random Glucose 101 (60-115) mg/dL Calcium 9.2 (8.4-10.2) mg/dL Total Bilirubin 0.4 (0.0-1.0) mg/dL AST 33 H (5-31) U/L ALT 23 (0-31) U/L Alkaline Phosphatase 82 (39-117) U/L Troponin I High Sens (<3.5-17.0) ng/L Total Protein 6.5 (6.5-8.0) g/dL Albumin 3.8 (3.5-5.0) g/dL Urine Color Urine Appearance Urine pH (5.0-8.0) Ur Specific [place] (1.005-1.025) Urine Protein (NEG-TRACE) MG/DL Urine Glucose (UA) (NEG) MG/DL Urine Ketones (NEG) MG/DL Urine Blood (NEG) Urine Nitrite (NEG) Ur Leukocyte Esterase (NEG) Urine RBC (0) /HPF Urine WBC (0-4) /HPF Ur Squamous Epith Cells /LPF Urine Bacteria /LPF COVID-19 (LITA) (Negative) COVID-19 Clin Com 05/12/20 05/12/20 05/12/20 Range/Units 10:24 10:24 10:55 WBC (4.8-10.8) X10*3/uL RBC (4.20-5.50) X10*6/uL Hgb (12.0-16.0) g/dl Hct (37-47) % MCV (80-98) fL MCH (27.0-33.0) pg MCHC (31.0-35.0) g/dl RDW (11.0-16.0) % Plt Count (160-400) X10*3/uL MPV (9.4-12.3) fL Immature Gran % (Auto) (0.0-0.4) % Neut % (Auto) (45-73) % Lymph % (Auto) (20-40) % [place] % (Auto) (2-11) % Eos % (Auto) (0-4) % Baso % (Auto) (0-2) % Lymph # (Auto) (1.2-4.9) X10*3/uL [place] # (Auto) (0.1-1.2) X10*3/uL Eos # (Auto) (0.0-0.4) X10*3/uL Baso # (Auto) (0.0-0.2) X10*3/uL Abs Immat Gran (auto) (0.00-0.03) X10*3/uL Absolute Neuts (auto) (2.0-8.3) X10*3/uL Absolute Nucleated RBC (0.0-0.012) X10*3/uL Nucleated RBC % (auto) (0.0-0.2) /100WBC PT (10.8-13.0) SEC INR (0.9-1.1) APTT (24.1-38.0) SEC Sodium (135-145) mmol/L Potassium (3.3-5.1) mmol/L Chloride (96-108) mmol/L Carbon Dioxide (22-29) mmol/L Anion Gap (12-20) BUN (9-16) mg/dL Creatinine (0.5-1.4) mg/dL Estim Creat Clear Calc Estimated GFR Random Glucose (60-115) mg/dL Calcium (8.4-10.2) mg/dL Total Bilirubin (0.0-1.0) mg/dL AST (5-31) U/L ALT (0-31) U/L Alkaline Phosphatase (39-117) U/L Troponin I High Sens 5.6 D (<3.5-17.0) ng/L Total Protein (6.5-8.0) g/dL Albumin (3.5-5.0) g/dL Urine Color YELLOW Urine Appearance CLEAR Urine pH 7.0 (5.0-8.0) Ur Specific [place] 1.010 (1.005-1.025) Urine Protein NEG (NEG-TRACE) MG/DL Urine Glucose (UA) NEG (NEG) MG/DL Urine Ketones NEG (NEG) MG/DL Urine Blood NEG (NEG) Urine Nitrite NEG (NEG) Ur Leukocyte Esterase NEG (NEG) Urine RBC 0 (0) /HPF Urine WBC 0-2 (0-4) /HPF Ur Squamous Epith Cells 1+ /LPF Urine Bacteria NONE /LPF COVID-19 (LITA) Negative (Negative) COVID-19 Clin Com See Note 05/12/20 Range/Units 13:04 WBC (4.8-10.8) X10*3/uL RBC (4.20-5.50) X10*6/uL Hgb (12.0-16.0) g/dl Hct (37-47) % MCV (80-98) fL MCH (27.0-33.0) pg MCHC (31.0-35.0) g/dl RDW (11.0-16.0) % Plt Count (160-400) X10*3/uL MPV (9.4-12.3) fL Immature Gran % (Auto) (0.0-0.4) % Neut % (Auto) (45-73) % Lymph % (Auto) (20-40) % [place] % (Auto) (2-11) % Eos % (Auto) (0-4) % Baso % (Auto) (0-2) % Lymph # (Auto) (1.2-4.9) X10*3/uL [place] # (Auto) (0.1-1.2) X10*3/uL Eos # (Auto) (0.0-0.4) X10*3/uL Baso # (Auto) (0.0-0.2) X10*3/uL Abs Immat Gran (auto) (0.00-0.03) X10*3/uL Absolute Neuts (auto) (2.0-8.3) X10*3/uL Absolute Nucleated RBC (0.0-0.012) X10*3/uL Nucleated RBC % (auto) (0.0-0.2) /100WBC PT (10.8-13.0) SEC INR (0.9-1.1) APTT (24.1-38.0) SEC Sodium (135-145) mmol/L Potassium (3.3-5.1) mmol/L Chloride (96-108) mmol/L Carbon Dioxide (22-29) mmol/L Anion Gap (12-20) BUN (9-16) mg/dL Creatinine (0.5-1.4) mg/dL Estim Creat Clear Calc Estimated GFR Random Glucose (60-115) mg/dL Calcium (8.4-10.2) mg/dL Total Bilirubin (0.0-1.0) mg/dL AST (5-31) U/L ALT (0-31) U/L Alkaline Phosphatase (39-117) U/L Troponin I High Sens 7.1 (<3.5-17.0) ng/L Total Protein (6.5-8.0) g/dL Albumin (3.5-5.0) g/dL Urine Color Urine Appearance Urine pH (5.0-8.0) Ur Specific [place] (1.005-1.025) Urine Protein (NEG-TRACE) MG/DL Urine Glucose (UA) (NEG) MG/DL Urine Ketones (NEG) MG/DL Urine Blood (NEG) Urine Nitrite (NEG) Ur Leukocyte Esterase (NEG) Urine RBC (0) /HPF Urine WBC (0-4) /HPF Ur Squamous Epith Cells /LPF Urine Bacteria /LPF COVID-19 (LITA) (Negative) COVID-19 Clin Com <Donald Hyde MD - Last Filed: 06/07/20 09:24> Imaging Data Abdominal/pelvis CT: Radiologist's impression: Lindsey Cotto 74 F [address] Scan ReportSigned with Addenda Patient: Contreras Cotto#: [id number]: 6Acct:[id number]/Sex: 74 / FADM Date: 05/12/20Loc: [facility] Rolle: Ordering Physician: Armani Sunshine NP Date of Service: 05/12/20 Procedure(s): CT abdomen pelvis wo con Accession Number(s): [id number] cc: Armani Sunshine [employer]~ ADDENDUMThere is bilateral facet arthropathy L4-S1. Addendum Dictated By:JAXON CARDENAS MDAddendum Signed By:<Electronically signed by JAXON CARDENAS MD in [place]>05/12/20 1103Addendum Cosigned By:DD/ /0935TD/TT: / EXAMINATION: CT ABDOMEN AND PELVIS WITHOUT CONTRAST CLINICAL INFORMATION: Left-sided abdominal pain with history of diverticular disease COMPARISON: June 08, 2017 TECHNIQUE: Multidetector volumetric imaging was performed from the superior aspect of the liver through the pubic symphysis. Sagittal and coronal reformatted images were obtained on the technologist's workstation. This CT examination was performed using dose optimization techniques as appropriate, variously including the following: *Automated exposure control *Adjustment of mA and/or kV according to patient size (this includes techniques or standardized protocols for targeted exams where dose is matched to indication/reason for exam; i.e. extremities or head) *Use of iterative reconstruction technique DLP: 772 mGy-cm FINDINGS: LUNG BASES: No significant base disease identified. No pleural or pericardial effusion. LIVER, GALLBLADDER, AND BILIARY TREE: Pneumobilia is present. No focal mass or intrahepatic bile duct dilatation identified. Gallbladder is Surgically removed PANCREAS: Unremarkable. No mass or peripancreatic inflammatory change. SPLEEN: Unremarkable. ADRENAL GLANDS: Unremarkable. KIDNEYS AND URETERS: Right: There are 2, 2 mm nonobstructing calculi seen in the interpolar region of the right kidney. No hydronephrosis is evident. No focal mass appreciated. Right ureter appears unremarkable. There is an extrarenal pelvis. Left: Parapelvic cysts are present as well as extrarenal pelvis. No calculi or focal solid mass is identified. Left ureter appears unremarkable. BLADDER: Unremarkable. GASTROINTESTINAL TRACT: There is a small hiatal hernia. No dilated loops of large or small bowel are evident. No free air appreciated. There is prominent sigmoid diverticular disease with mild diverticulosis of the remainder of the colon. There is a small amount of fluid adjacent to the sigmoid colon without appreciable collection and may be related to acute or early sigmoid diverticulitis. The remainder of the colon does not have any pericolonic inflammatory change. No abscess collection appreciated. The appendix appears unremarkable. ABDOMINAL WALL: There is a small fat-containing umbilical hernia. LYMPH NODES: No lymphadenopathy appreciated. VASCULAR: There is mild calcified plaque within the aortoiliac system. No abdominal aortic aneurysm. PELVIC VISCERA: There is a 3 x 2.5 cm right adnexal cyst. OSSEOUS STRUCTURES: There is a T8 vertebral body hemangioma present. No suspicious destructive bony lesion identified. Degenerative change of both hips evident. Degenerative disc disease L5-S1 is seen. CT/CT abdomen pelvis wo con IMPRESSION: Mild,/early sigmoid acute diverticulitis. Prominent sigmoid diverticulosis. 3 x 2.5 cm right adnexal cyst for which follow-up is recommended with ultrasound Right nephrolithiasis without obstructive uropathy. Dictated By:JAXON CARDENASigned By:<Electronically signed by JAXON CARDENAS MD in [place]>05/12/20 1044 DD/ 0935TD/TT: Centrifugal Station Operator: HENRY <Armani Sunshine NP - Last Filed: 05/27/20 14:15> Discharge Plan Discharge Clinical Impression: Diverticulitis <Armani Sunshine NP - Last Filed: 05/27/20 14:15> Patient Disposition: Home, Self-Care <Armani Sunshine NP - Last Filed: 05/27/20 14:15> Instructions: Diverticulitis (ED), Diverticulitis Diet (ED) <Armani Sunshine NP - Last Filed: 05/27/20 14:15> Additional Instructions: [place] diet Gradually increase her diet as tolerated Dietary precautions provided Take medication as prescribed Return if any concerns or worsening symptoms Schedule follow-up with primary care doctor as discussed Thank you <Armani Sunshine NP - Last Filed: 05/27/20 14:15> Prescriptions: New metronidazole [Flagyl] 500 mg tablet 500 mg PO BID 7 Days Qty: 14 RF: 0 levofloxacin 500 mg tablet 500 mg PO DAILY 7 Days Qty: 7 RF: 0 ondansetron HCl [Zofran] 4 mg tablet 4 mg PO Q8H PRN (Reason: nausea and vomiting) Qty: 10 RF: 0 No Action buspirone 5 mg tablet 5 mg PO DAILY Qty: 30 RF: 1 levothyroxine [Levoxyl] 75 mcg tablet 75 mcg PO QAM Qty: 90 RF: 1 lisinopril 30 mg tablet 30 mg PO DAILY Qty: 90 RF: 0 meclizine 25 mg tablet 50 mg PO BID PRN (Reason: dizziness) Qty: 14 RF: 0 rosuvastatin [Crestor] 10 mg tablet 10 mg PO DAILY RF: 0 famotidine [Pepcid] 20 mg tablet 20 mg PO BEDTIME RF: 0 lansoprazole [Prevacid] 15 mg capsule,delayed release(DR/EC) 15 mg PO DAILY RF: 0 hydralazine 25 mg tablet 25 mg PO BID RF: 0 atenolol 25 mg tablet 25 mg PO DAILY RF: 0 rosuvastatin [Crestor] 5 mg tablet 5 mg PO DAILY RF: 0 <Armani Sunshine NP - Last Filed: 05/27/20 14:15> Referrals: Jaret Louise MD [Primary Care Provider] - 3 days <Armani Sunshine NP - Last Filed: 05/27/20 14:15> Interventions: ED Discharge Assessment Last Done: 05/12/20 14:36 <Armani Sunshine NP - Last Filed: 05/27/20 14:15> Discharge Date/Time: 05/12/20 14:38 <Armani Sunshine NP - Last Filed: 05/27/20 14:15> [facility] Past Medical History Medical History: Medical History Allergies Anxiety, generalized Chronic GERD Hypertension, essential Lipid disorder <Armani Sunshine NP - Last Filed: 05/27/20 14:15> Surgical History: Surgical History H/O LEEP (2007) <Armani Sunshine NP - Last Filed: 05/27/20 14:15> Family History Family History: Family History Father Heart disease Mother Heart disease Maternal Uncle Colon cancer Heart failure <Armani Sunshine NP - Last Filed: 05/27/20 14:15> Social History Social History: Social History Alcohol intake: never Smoking Status: Never smoker <Armnai Sunshine NP - Last Filed: 05/27/20 14:15>
--- NOTE | 2020-05-12 09:35 | ECG_ITS ---
Test Reason : EPIGASTRIC PAIN Blood Pressure : / mmHG Vent. Rate : 092 BPM Atrial Rate : 092 BPM P-R Int : 136 ms QRS Dur : 082 ms QT Int : 370 ms P-R-T Axes : 046 042 027 degrees QTc Int : 457 ms Normal sinus rhythm Nonspecific ST abnormality Borderline ECG When compared with ECG of 14-JAN-2020 10:33, No significant change was found Referred By: Armani Sunshine Electronically Signed By:VICKI LEDESMA
--- NOTE | 2020-05-12 10:05 | PC.NURSE ---
pt arrives to ED with left sided abdominal pain. pt states she went to urgent care a few days ago and was sent back home and woke up this morning with worsening abdominal pain and dry heaving. pt is alert and oriented x3. verbal response and eye contact appropriate for setting. lung sounds clear bilaterally, respiratory rate is even and unlabored. abdominal sounds active x4. no evidence of discoloration or bruising on abdomen, no deformities or distension noted. abdomen is tender to touch in ULQ and LLQ. pt denies pain radiating to back, no rash or discoloration noted on back. pt denies any back pain. current abdominal pain level is 5/10. pt states she reveived the Donal&Donal covid vaccine on 04/30/2020. [employer] at bedside during assessment. pt aware of plan of care. call carrasco in reach.
[2020-05-12 10:31] LABS: MANUAL DIFF FLAG NO
[2020-05-12] MEDS: 0.9 % Sodium Chloride 500 ML IV (10:31)
[2020-05-12] MEDS: ondansetron HCL 4 MG/2 ML VIAL IVPUSH (10:32)
[2020-05-12 10:33] LABS: Basophils Percent Auto 0.4 % (0-2); Eosinophils Absolute Auto 0.1 X10*3/uL (0.0-0.4); Eosinophils Percent Auto 0.7 % (0-4); Hematocrit 41.1 % (37-47); Imm Gran Abs Auto 0.02 X10*3/uL (0.00-0.03); Imm Gran Pct Auto 0.3 % (0.0-0.4); Lymphocytes Absolute Auto 0.9 X10*3/uL (1.2-4.9); Mean Corpuscular HGB Conc 31.6 g/dl (31.0-35.0); Mean Corpuscular Hemoglobin 28.3 pg (27.0-33.0); Mean Corpuscular Volume 89.3 fL (80-98); Mean Platelet Volume 9.9 fL (9.4-12.3); Monocytes Absolute Auto 0.5 X10*3/uL (0.1-1.2); Monocytes Percent Auto 6.3 % (2-11); Neutrophils Absolute Auto 5.7 X10*3/uL (2.0-8.3); Neutrophils Percent Auto 79.3 % (45-73); Platelet Count 184 X10*3/uL (160-400); White Blood Count 7.1 X10*3/uL (4.8-10.8)
[2020-05-12 10:37] LABS: INTERNATIONAL NORM RATIO 1.1 (0.9-1.1); Prothrombin Time 12.7 SEC (10.8-13.0)
[2020-05-12 10:40] LABS: Partial Thromboplastin Time 30.3 SEC (24.1-38.0)
[2020-05-12 10:43] LABS: COVID-19 Test Negative (Negative)
[2020-05-12 11:04] LABS: Alanine Aminotransferase 23 U/L (0-31); Albumin Level 3.8 g/dL (3.5-5.0); Alkaline Phosphatase 82 U/L (39-117); Anion Gap 16 (12-20); Aspartate Amino Transferase 33 U/L (5-31); Bilirubin Total 0.4 mg/dL (0.0-1.0); Blood Urea Nitrogen 19 mg/dL (9-16); Calcium 9.2 mg/dL (8.4-10.2); Carbon Dioxide 25 mmol/L (22-29); Chloride 109 mmol/L (96-108); Creatinine Clr Calc Pharmacy 38.4; Estimated Glomerular Filt Rate 42; Glucose Random 101 mg/dL (60-115); Potassium 4.8 mmol/L (3.3-5.1); Sodium 145 mmol/L (135-145); Total Protein 6.5 g/dL (6.5-8.0)
[2020-05-12 11:08] LABS: Troponin-I High Sensitivity 5.6 ng/L (<3.5-17.0)
[2020-05-12 11:11] LABS: Glucose Urine UA NEG (NEG); Leukocyte Esterase Urine NEG (NEG); Nitrite Urine NEG (NEG); Urine Blood NEG (NEG); Urine Ketones NEG (NEG); Urine Protein NEG (NEG-TRACE)
[2020-05-12 11:14] LABS: Appearance Urine CLEAR; Color Urine YELLOW
[2020-05-12 11:21] LABS: RBC Urine 0 /HPF (0); Squamous Epithelial Cell Urine 1+ /LPF; WBC Urine 0-2 /HPF (0-4)
[2020-05-12 12:57] VITALS: BP 144/63; PULSE 100; RESP 16; TEMP 36.8; O2SAT 98
[2020-05-12 13:45] LABS: Troponin-I High Sensitivity 7.1 ng/L (<3.5-17.0)
[2020-05-12 13:48] VITALS: BP 137/68; PULSE 88; RESP 16; TEMP 36.8; O2SAT 98
== END 2020-05-12 14:38 | disposition home or self-care (01) ==
PROVIDERS: Nurse Practitioner Primary Care; Emergency Provider Emergency Medicine; PCP Internal Medicine
DX: K57.32 Diverticulitis of large intestine without perforation or abscess without bleeding (principal); Z20.822 Contact with and (suspected) exposure to COVID-19; I12.9 Hypertensive chronic kidney disease with stage 1 through stage 4 chronic kidney disease, or unspecified chronic kidney disease; N18.30 Chronic kidney disease, stage 3 unspecified; E78.5 Hyperlipidemia, unspecified; K21.9 Gastro-esophageal reflux disease without esophagitis; Z79.82 Long term (current) use of aspirin; Z79.899 Other long term (current) drug therapy
CPT/HCPCS: 36415; 74176; 80053; 81001; 84484; 85025; 85610; 85730; 87635; 93005; 96361; 96374; 99284; J2405

== ENCOUNTER 2020-05-31 15:46 | Outpatient (REF) | payer MEDICARE, SELFPAY ==
--- NOTE | ~2020-05-31 | US_ITS ---
EXAMINATION: US PELVIS CLINICAL INFORMATION: Cyst on the right side. COMPARISON: None TECHNIQUE: Ultrasound of the pelvis is performed using both transabdominal and transvaginal transducers along with Doppler. Transvaginal imaging is performed due to inadequate visualization transabdominally. FINDINGS: Uterus: The uterus is anteverted and anteflexed measuring 5.1 cm in length, 2.2 cm in AP and 2.9 cm in transverse dimension. The endometrium is not well visualized. Both ovaries are not seen well. There is a right adnexal cyst measuring 3.5 x 2.6 x 3.2 cm likely a paraovarian cyst. There is no free fluid in the cul-de-sac. US/US pelvic complete IMPRESSION: Endometrium is not seen. Otherwise the uterus is unremarkable. Both ovaries are not seen well. Right paraovarian 3.5 cm cyst.
== END 2020-05-31 15:47 | disposition home or self-care (01) ==
LOC: HO.US 15:46
PROVIDERS: PCP Internal Medicine; Visit Provider Internal Medicine
DX: N94.9 Unspecified condition associated with female genital organs and menstrual cycle (principal)
CPT/HCPCS: 76856

== ENCOUNTER 2020-07-06 10:12 | Outpatient (REF) | payer MEDICARE, SELFPAY ==
[2020-07-06 14:27] LABS: Free T4 (Free Thyroxine) 1.31 ng/dL (0.71-1.85); Thyroid Stimulating Hormone 0.79 uIU/mL (0.32-4.0)
== END 2020-07-06 10:13 | disposition home or self-care (01) ==
LOC: HO.10HDL 10:12
PROVIDERS: PCP Internal Medicine; Visit Provider Internal Medicine Endocrinology, Diabetes & Metabolism
DX: E03.8 Other specified hypothyroidism (principal); E06.3 Autoimmune thyroiditis; E04.2 Nontoxic multinodular goiter; Z79.899 Other long term (current) drug therapy
CPT/HCPCS: 36415; 84439; 84443; 99212

== ENCOUNTER 2020-07-13 13:21 | Outpatient (REF) | payer MEDICARE, SELFPAY ==
--- NOTE | ~2020-07-13 | US_ITS ---
EXAMINATION: US THYROID CLINICAL INFORMATION: Nontoxic multinodular goiter. COMPARISON: Thyroid ultrasound 11/04/2017 and 11/28/2016. TECHNIQUE: Linear transducer grayscale and color Doppler examination with attention to the region of the thyroid. FINDINGS: SIZE: Measurements of the thyroid lobes and nodules are given in sagittal, anteroposterior and transverse dimensions respectively. Right Thyroid Lobe: 3.9 x 1.3 x 1.1 cm, volume 2.8 mL. Previously 3.3 x 1.2 x 1.1 cm, volume 2.3 mL. Parenchyma: The gland echotexture is heterogeneous. Thyroid vascularity is normal. Left Thyroid Lobe: 3.4 x 2.4 x 0.9 cm, volume 3.7 mL. Previously 2.7 x 1.0 x 1.0 cm, volume 1.4 mL. Parenchyma: The gland echotexture is heterogeneous. Thyroid vascularity is normal. Isthmus: 0.3 cm in maximum AP dimension. Previously 0.2 cm. Comparison with previous exam is difficult. Estimated total number of nodules greater than or equal to 1 cm: 0. Chair Spring Assembler nodules are described as follows: 1. Location: Right mid pole. Size: 0.4 x 0.2 x 0.3 cm, volume 0.01 mL. Previously: Not documented. Nodule characteristics: Composition: Solid/almost completely solid (2). Echogenicity: Hypoechoic (2). Shape: Not taller than wide (0). Margins: Smooth (0). Echogenic Foci: None (0). ACR TI-RADS total points: 4 ACR TI-RADS category: 4 2. Location: Left upper pole. Size: 0.5 x 0.3 x 0.5 cm, volume 0.04 mL. Previously: Not documented. Nodule characteristics: Composition: Solid/almost completely solid (2). Echogenicity: Hypoechoic (2). Shape: Not taller than wide (0). Margins: Ill-defined (0). Echogenic Foci: None (0). ACR TI-RADS total points: 4 Previous: ACR TI-RADS category: 4 NODES: No lymphadenopathy is seen in the tissue surrounding the thyroid gland. US/US thyroid IMPRESSION: Small thyroid gland. Small bilateral thyroid nodules. ACR TI-RADS RECOMMENDATION REFERENCE: Ultrasound-guided fine-needle aspiration, followup ultrasound, no further follow up. * TR1 (0 point) and TR 2 (2 points): No FNA or follow up * TR3 (3 points): FNA if more than or equal to 2.5 cm in maximum dimension, followup ultrasound in 1, 3 and 5 years if 1.5 to 2.4 cm in maximum dimension. * TR4 (4-6 points): FNA if more than or equal to 1.5 cm in maximum dimension, followup ultrasound in 1, 2, 3 and 5 years if 1 to 1.4 cm in maximum dimension. * TR5 (more than or equal to 7 points): FNA if more than or equal to 1 cm in maximum dimension, followup ultrasound every year for 5 years if 0.5 to 0.9 cm in maximum dimension. * TR3, TR4 or TR5 nodules that are below the size threshold for follow up receive no follow up.
== END 2020-07-13 13:22 | disposition home or self-care (01) ==
LOC: HO.US 13:21
PROVIDERS: PCP Internal Medicine; Visit Provider Internal Medicine Endocrinology, Diabetes & Metabolism
DX: E04.2 Nontoxic multinodular goiter (principal)
CPT/HCPCS: 76536

== ENCOUNTER 2020-09-25 22:47 | Emergency (ER) | payer MEDICARE, SELFPAY | END 2020-09-25 23:45 | disposition left against medical advice (07) | PROVIDERS: Emergency Provider Emergency Medicine | DX: R10.9 Unspecified abdominal pain (principal) ==

== ENCOUNTER 2020-10-19 12:01 | Emergency (ER) | payer MEDICARE, SELFPAY ==
[2020-10-19 12:20] VITALS: BP 158/82; PULSE 99; RESP 16; TEMP 36.1; O2SAT 98; BMI 32.8
--- NOTE | 2020-10-19 13:11 | ED.ABDPAIN ---
HPI - Abdominal Pain General Chief Complaint: Abdominal Pain Stated Complaint: abd pain Time Seen by Provider: 10/19/20 12:26 Source: patient Mode of arrival: ambulatory Limitations: no limitations History of Present Illness HPI narrative: 75-year-old female who presents emergency department for evaluation of epigastric pain. Patient states that she has been having abdominal pain for 2-3 weeks. She states the pain is constant but waxes and wanes in intensity. She points to her epigastric area when asked to localize the pain. She describes the pain as an achiness. The pain ranges from 4/10 to 8/10. She states that she was constipated and did not have a bowel movement for several days but to do colitis yesterday and had a bowel movement. Patient states that she is on a Paleo diet since July of 2020 and has lost 20 lb intentionally. Patient does take Prevacid and Tylenol for pain but she states that she is not getting any relief. The patient was seen at [facility] on September 30, 2020 for epigastric pain and had a laboratory evaluation which was unremarkable. Patient states that she did have a CT scan of her abdomen pelvis several months ago secondary to diverticulitis but she states that the pain that she is experiencing now is different than her diverticulitis pain. Patient states she was up all night with her pain and was not getting any relief, therefore she came to the emergency department for evaluation. She denied fever, chills, nausea, vomiting, chest pain, shortness of breath, dyspnea on exertion. She has had some slight urgency but no dysuria. Patient does have a history of a hiatal hernia, stomach ulcers and Harper's esophagitis, she is followed by Dr. Brown and she states that she has an appointment to see Dr. Brown at the end of October. Related Data Home Medications Medication Instructions Recorded Confirmed hydralazine 25 mg tablet 25 mg PO BID tab 11/24/19 07/06/20 lansoprazole 15 mg capsule,delayed 15 mg PO DAILY 11/24/19 07/06/20 release (Prevacid) rosuvastatin 10 mg tablet (Crestor) 10 mg PO DAILY 05/24/20 07/06/20 Previous Rx's Medication Instructions Recorded meclizine 25 mg tablet 50 mg PO BID PRN #14 tab 01/14/20 ondansetron HCl 4 mg tablet 4 mg PO Q8H PRN #10 tab 05/12/20 (Zofran) sulfamethoxazole 800 1 tab PO BID #14 tab 08/11/20 mg-trimethoprim 160 mg tablet (Bactrim DS) buspirone 5 mg tablet 5 mg PO .daily 90 Days #90 tab 09/02/20 Levoxyl 75 mcg tablet 75 mcg PO QAM 90 Days #90 cap NS 09/08/20 (levothyroxine) lisinopril 30 mg tablet 30 mg PO DAILY #90 cap 09/20/20 Allergies Allergy/AdvReac Type Severity Reaction Status Date / Time Iodinated Contrast Media Allergy Severe TACHYCARDIA,DIFFICULTY Verified 10/19/20 13:29 [IV CONTRAST] BREATHING amoxicillin [Prevpac] Allergy Unknown Unknown Verified 10/19/20 13:29 clarithromycin [Prevpac] Allergy Unknown Unknown Verified 10/19/20 13:29 escitalopram [From LEXAPRO] Allergy Unknown CHEST PAIN Verified 10/19/20 13:29 lansoprazole [Prevpac] Allergy Unknown unknown Verified 10/19/20 13:29 lovastatin Allergy Unknown myalgia Verified 10/19/20 13:29 omeprazole [From Prilosec] Allergy Unknown CHEST Verified 10/19/20 13:29 PAIN,DIFFICULTY BREATHING pravastatin Allergy Unknown myalgia Verified 10/19/20 13:29 shellfish derived Allergy Unknown UNKOWN Verified 10/19/20 13:29 [SHELLFISH DERIVED] iv contrast dye Allergy Unknown unknown Uncoded 10/19/20 13:29 iv dye/ shellfish Allergy Unknown unknown Uncoded 10/19/20 13:29 Prilosec Allergy Unknown Chest pain Uncoded 10/19/20 13:29 Review of Systems Review of Systems Yes all other systems are reviewed and are negative Physical Exam Vital Signs: Vital Signs: Last Vital Signs Temp 97.9 F 10/19/20 13:42 Pulse 62 10/19/20 14:11 Resp 16 10/19/20 14:11 BP 149/74 H 10/19/20 14:11 Pulse Ox 98 10/19/20 14:11 Body Mass Index 32.8 Const: General: cooperative and no acute distress Orientation/consciousness: oriented to person and oriented to place Limitations: no limitations HENMT: Head: Yes normal to inspection, Yes normocephalic and Yes atraumatic Ears: external ears normal General nose exam: Normal external nose present Face and sinus: Yes normal facial exam Mouth: Normal oral and palatal mucosa present Throat: Yes posterior oropharynx normal Eyes: General: appearance normal, both eyes and all related structures Pupils: Equal, round and reactive pupils present Neck: Neck: Yes normal visual inspection, Yes no lymphadenopathy, Yes trachea midline and Yes supple Chest: Chest palpation & inspection: normal inspection of the chest and normal palpation of entire chest wall Resp: Effort & Inspection: normal respiratory effort and able to speak in complete sentences Auscultation: clear to auscultation bilaterally Cardio: Rate: regular rate Rhythm: regular rhythm Heart sounds: S1 normal heart sound present, S2 normal heart sound present and no murmurs GI: Inspection: Yes normal to inspection Palpation (GI): Soft to palpation, Tenderness to palpation present (GI) in the epigastrum (Moderate) and no guarding Auscultation: normal bowel sounds : General: Yes no CVA tenderness Back/Spine/Pelvis: Back: no CVA tenderness Skin: General skin exam: no rashes or lesions noted Neuro: General: oriented to person and oriented to place Cranial nerves: Yes CN's II-XII intact bilaterally and Yes Equal, round and reactive pupils present Cognition (Neuro): normal cognition Motor exam (neuro): 5/5 motor strength present throughout Extrem: General: Yes normal to inspection Psych: Appearance: grossly normal Speech and movement: Normal speech and movement present Affect: normal affect Attitude: cooperative Thought process: Normal thought process present Thought content: Normal thought content present Course Course Course Narrative: 75-year-old female who presents emergency department for evaluation of 2-3 weeks epigastric pain which has been constant but waxes and wanes in intensity. Patient's pain was worse overnight therefore she came to the emergency department for evaluation. She does have a history of Harper's esophagitis, stomach ulcers and GERD. Patient does take Prevacid and Tylenol with no relief for pain. Vital signs revealed an elevated blood pressure of 158/82 otherwise were unremarkable. Physical examination did reveal moderate epigastric tenderness otherwise was unremarkable. I did order laboratory evaluation on the patient. Patient's pain was treated with Maalox 30 cc orally, viscous lidocaine 10 cc orally and a 10 cc orally. 1500: The patient's laboratory evaluation was unremarkable with a normal H&H of 12.4 and 38.2. The patient did get improvement with the above medications. At this time I do not think that she needs any imaging studies, her symptoms are more consistent with gastritis versus esophagitis.. She was advised to continue taking her Prevacid. She was also advised to take Gaviscon 4 times a day as directed to see if this improves her symptoms. She was discharged home.The patient was given verbal and printed instructions prior to discharge. The patient was advised to follow-up with her PCP in 2 days and to return to the emergency department if her symptoms get worse or if she develops any new symptoms that are concerning to her. MDM - Abdominal Pain Lab Data Result diagrams: 10/19/20 13:26 10/19/20 13:26 Labs: Lab Results 10/19/20 10/19/20 10/19/20 Range/Units 13:26 13:26 13:46 WBC 5.5 (4.8-10.8) X10*3/uL RBC 4.21 (4.20-5.50) X10*6/uL Hgb 12.4 (12.0-16.0) g/dl Hct 38.2 (37-47) % MCV 90.7 (80-98) fL MCH 29.5 (27.0-33.0) pg MCHC 32.5 (31.0-35.0) g/dl RDW 13.2 (11.0-16.0) % Plt Count 180 (160-400) X10*3/uL MPV 9.9 (9.4-12.3) fL Immature Gran % (Auto) 0.4 (0.0-0.4) % Neut % (Auto) 75.7 H (45-73) % Lymph % (Auto) 14.0 L (20-40) % [place] % (Auto) 8.3 (2-11) % Eos % (Auto) 0.9 (0-4) % Baso % (Auto) 0.7 (0-2) % Lymph # (Auto) 0.8 L (1.2-4.9) X10*3/uL [place] # (Auto) 0.5 (0.1-1.2) X10*3/uL Eos # (Auto) 0.1 (0.0-0.4) X10*3/uL Baso # (Auto) 0.0 (0.0-0.2) X10*3/uL Abs Immat Gran (auto) 0.02 (0.00-0.03) X10*3/uL Absolute Neuts (auto) 4.2 (2.0-8.3) X10*3/uL Absolute Nucleated RBC 0.000 (0.0-0.012) X10*3/uL Nucleated RBC % (auto) 0.0 (0.0-0.2) /100WBC Sodium 142 (135-145) mmol/L Potassium 4.5 (3.3-5.1) mmol/L Chloride 109 H (96-108) mmol/L Carbon Dioxide 25 (22-29) mmol/L Anion Gap 13 (12-20) BUN 16 (9-16) mg/dL Creatinine 1.14 (0.5-1.4) mg/dL Estim Creat Clear Calc 40.5 Estimated GFR 46 Random Glucose 103 (60-115) mg/dL Calcium 9.6 (8.4-10.2) mg/dL Total Bilirubin 0.4 (0.0-1.0) mg/dL AST 21 (5-31) U/L ALT 14 (0-31) U/L Alkaline Phosphatase 79 (39-117) U/L Total Protein 6.1 L (6.5-8.0) g/dL Albumin 3.8 (3.5-5.0) g/dL Lipase 16 (8-78) U/L Urine Color YELLOW Urine Appearance CLEAR Urine pH 6.0 (5.0-8.0) Ur Specific [place] <= 1.005 (1.005-1.025) Urine Protein NEG (NEG-TRACE) MG/DL Urine Glucose (UA) NEG (NEG) MG/DL Urine Ketones NEG (NEG) MG/DL Urine Blood NEG (NEG) Urine Nitrite NEG (NEG) Ur Leukocyte Esterase NEG (NEG) Discharge Plan Discharge Clinical Impression: Abdominal pain Patient Disposition: Home, Self-Care Instructions: Gastritis (ED) Additional Instructions: Your laboratory evaluation was normal which is reassuring. Your exam did reveal tenderness with palpation of the epigastric area (the stomach area) suggesting that your pain is probably caused from your stomach for your esophagus Continue taking her Prevacid as prescribed by your doctor. Take Gaviscon extra-strength 4 times a day as directed. Follow-up with your doctor in 2 days. Please return to the emergency department if your symptoms get worse or if you develop any symptoms that are concerning to you. Prescriptions: No Action buspirone 5 mg tablet 5 mg PO .daily 90 Days Qty: 90 RF: 0 levothyroxine [Levoxyl] 75 mcg tablet 75 mcg PO QAM 90 Days Qty: 90 RF: 3 lisinopril 30 mg tablet 30 mg PO DAILY Qty: 90 RF: 0 meclizine 25 mg tablet 50 mg PO BID PRN (Reason: dizziness) Qty: 14 RF: 0 ondansetron HCl [Zofran] 4 mg tablet 4 mg PO Q8H PRN (Reason: nausea and vomiting) Qty: 10 RF: 0 rosuvastatin [Crestor] 10 mg tablet 10 mg PO DAILY RF: 0 lansoprazole [Prevacid] 15 mg capsule,delayed release(DR/EC) 15 mg PO DAILY RF: 0 hydralazine 25 mg tablet 25 mg PO BID RF: 0 sulfamethoxazole-trimethoprim [Bactrim DS] 800-160 mg tablet 1 tab PO BID Qty: 14 RF: 0 PMFSH Past Medical History PMFSH Narrative: Past surgical history: Cholecystectomy. Social history: She denies tobacco use. She denies alcohol use. She denies drug use. Medical History Allergies Anxiety, generalized Harper esophagus Chronic GERD Hypertension, essential Lipid disorder Non-toxic multinodular goiter Surgical History H/O GOLDY (2007) Family History Family History Father Heart disease Mother Heart disease Maternal Uncle Colon cancer Heart failure Social History Social History Alcohol intake: never Smoked in Last 30 Days: No Use of substances other than those prescribed or required for medical reasons: No Advance Directives: Yes Advance Directives Information Provided: Yes Advance Directives on File: No
[2020-10-19] MEDS: Magnesium Hydrox/Alum Hydrox 30 ML ORAL.SUSP PO (13:29)
[2020-10-19] MEDS: Lidocaine HCl Viscous 2 % 15 ML SOLUTION 10 ML MUCOUS MEM (13:29)
[2020-10-19] MEDS: PHENobarb/Hyoscy/Atropine/Scop 10 ML ELIXIR PO (13:30)
[2020-10-19 13:31] LABS: MANUAL DIFF FLAG NO
[2020-10-19 13:32] LABS: Basophils Percent Auto 0.7 % (0-2); Eosinophils Absolute Auto 0.1 X10*3/uL (0.0-0.4); Eosinophils Percent Auto 0.9 % (0-4); Hematocrit 38.2 % (37-47); Hemoglobin 12.4 g/dl (12.0-16.0); Imm Gran Abs Auto 0.02 X10*3/uL (0.00-0.03); Imm Gran Pct Auto 0.4 % (0.0-0.4); Lymphocytes Absolute Auto 0.8 X10*3/uL (1.2-4.9); Mean Corpuscular HGB Conc 32.5 g/dl (31.0-35.0); Mean Corpuscular Hemoglobin 29.5 pg (27.0-33.0); Mean Corpuscular Volume 90.7 fL (80-98); Mean Platelet Volume 9.9 fL (9.4-12.3); Monocytes Absolute Auto 0.5 X10*3/uL (0.1-1.2); Monocytes Percent Auto 8.3 % (2-11); Neutrophils Absolute Auto 4.2 X10*3/uL (2.0-8.3); Neutrophils Percent Auto 75.7 % (45-73); Platelet Count 180 X10*3/uL (160-400); Red Blood Count 4.21 X10*6/uL (4.20-5.50); Red Cell Distribution Width 13.2 % (11.0-16.0); White Blood Count 5.5 X10*3/uL (4.8-10.8)
[2020-10-19 13:42] VITALS: BP 169/88; PULSE 81; RESP 16; TEMP 36.6; O2SAT 99
[2020-10-19 13:54] LABS: Alanine Aminotransferase 14 U/L (0-31); Albumin Level 3.8 g/dL (3.5-5.0); Alkaline Phosphatase 79 U/L (39-117); Anion Gap 13 (12-20); Aspartate Amino Transferase 21 U/L (5-31); Bilirubin Total 0.4 mg/dL (0.0-1.0); Blood Urea Nitrogen 16 mg/dL (9-16); Calcium 9.6 mg/dL (8.4-10.2); Carbon Dioxide 25 mmol/L (22-29); Chloride 109 mmol/L (96-108); Creatinine Clr Calc Pharmacy 40.5; Estimated Glomerular Filt Rate 46; Glucose Random 103 mg/dL (60-115); Lipase 16 U/L (8-78); Potassium 4.5 mmol/L (3.3-5.1); Sodium 142 mmol/L (135-145); Total Protein 6.1 g/dL (6.5-8.0)
[2020-10-19 13:57] LABS: Glucose Urine UA NEG (NEG); Leukocyte Esterase Urine NEG (NEG); Nitrite Urine NEG (NEG); Specific Gravity - Urine <= 1.005 (1.005-1.025); Urine Blood NEG (NEG); Urine Ketones NEG (NEG); Urine Protein NEG (NEG-TRACE)
[2020-10-19 14:01] LABS: Appearance Urine CLEAR; Color Urine YELLOW
[2020-10-19 14:11] VITALS: BP 149/74; PULSE 62; RESP 16; O2SAT 98
== END 2020-10-19 15:41 | disposition home or self-care (01) ==
PROVIDERS: Emergency Provider Emergency Medicine Emergency Medical Services; PCP Nurse Practitioner Family
DX: R10.9 Unspecified abdominal pain (principal); I12.9 Hypertensive chronic kidney disease with stage 1 through stage 4 chronic kidney disease, or unspecified chronic kidney disease; N18.30 Chronic kidney disease, stage 3 unspecified; Z79.899 Other long term (current) drug therapy
CPT/HCPCS: 36415; 80053; 81003; 83690; 85025; 99283; 99284

== ENCOUNTER 2020-12-08 06:22 | Emergency (ER) | payer MEDICARE, SELFPAY ==
--- NOTE | ~2020-12-08 | CT_ITS ---
EXAMINATION: CT HEAD WITHOUT CONTRAST CLINICAL INFORMATION: Vision changes for 1 day. Headache. COMPARISON: Noncontrast CT head 01/14/2020. TECHNIQUE: Contiguous axial imaging was performed from the skull base to vertex without intravenous administration of contrast. Additional 2-D coronal and sagittal reformatted images are generated on the CT workstation and uploaded to PACS. This CT examination was performed using dose optimization techniques as appropriate, variously including the following: *Automated exposure control *Adjustment of mA and/or kV according to patient size (this includes techniques or standardized protocols for targeted exams where dose is matched to indication/reason for exam; i.e. extremities or head) *Use of iterative reconstruction technique DLP: 644 mGy-cm FINDINGS: There is no intracranial hemorrhage, hematoma, or extra-axial fluid collection. The ventricles are normal in size. There is no hydrocephalus, edema, or mass effect. The sheppard-white matter differentiation appears symmetric. The midbrain is stable. Suprasellar cistern unremarkable. The globes and retrobulbar soft tissues are unremarkable. There is no visible acute territorial infarct or mass lesion. The calvarium appears intact. There is no pneumocephalus or orbital emphysema. There is hyperostosis frontalis as incidental finding again seen. The sinuses and middle ears and mastoids show no air-fluid levels. No significant mucosal thickening. CT/CT head/brain wo con IMPRESSION: No acute intracranial abnormality on noncontrast CT.
[2020-12-08 06:26] VITALS: BP 176/85; PULSE 107; RESP 16; TEMP 37.1; O2SAT 97; BMI 33.4
[2020-12-08 06:53] LABS: COVID-19 Test Negative (Negative)
--- NOTE | 2020-12-08 08:23 | ED.HA ---
HPI - Headache General Chief Complaint: Headache Stated Complaint: Headache Dry Heaves Time Seen by Provider: 12/08/20 08:00 Source: patient Mode of arrival: ambulatory Limitations: no limitations History of Present Illness HPI Narrative: 75-year-old female past medical history significant for hypertension, TIA, migranes, hyperlipidemia, CKD stage 3, Meniere's disease, hypothyroidism, anxiety disorder, chronic GERD and Harper's esophagus presents to the emergency department with a headache that awoke her from her sleep this morning. She states last night she was feeling a bit dizzy, like she could not balance very well. However this morning she awoke with a severe 10/10 headache. She also states that she has been having blurred vision, and it feels like there is water coming down her eyes. She also states that there was a lot of pressure behind both eyes. She notes that this is not like her typical migraine, she states she usually gets nausea, vomiting, photophobia with her typical migraines, however this time she just feels nauseous. The pain is all over her head but mostly frontal. She denies chest pain, shortness of breath, fevers, chills, vomiting, diarrhea, abdominal pain, weakness. MD elicited complaint: headache Pertinent past history: migraines and hypertension Onset (ago): hour(s) (3) Onset description: suddenly Location: generalized Severity: severe Pain scale (0-10): 10 Quality & Timing: constant, progressively worsening and different than previous headaches (localized behind bilateral eyes and all over her head.) Exacerbating factors: none Relieving factors: nothing Context: occurred at rest Associated symptoms: nausea and other (anxiety, lacrimation) Treatments prior to arrival: none Related Data Home Medications Medication Instructions Recorded Confirmed hydralazine 25 mg tablet 25 mg PO BID tab 11/24/19 07/06/20 lansoprazole 15 mg capsule,delayed 15 mg PO DAILY 11/24/19 07/06/20 release (Prevacid) rosuvastatin 10 mg tablet (Crestor) 10 mg PO DAILY 05/24/20 07/06/20 Previous Rx's Medication Instructions Recorded meclizine 25 mg tablet 50 mg PO BID PRN #14 tab 01/14/20 ondansetron HCl 4 mg tablet 4 mg PO Q8H PRN #10 tab 05/12/20 (Zofran) sulfamethoxazole 800 1 tab PO BID #14 tab 08/11/20 mg-trimethoprim 160 mg tablet (Bactrim DS) buspirone 5 mg tablet 5 mg PO .daily 90 Days #90 tab 09/02/20 Levoxyl 75 mcg tablet 75 mcg PO QAM 90 Days #90 cap NS 09/08/20 (levothyroxine) lisinopril 30 mg tablet 30 mg PO DAILY #90 cap 09/20/20 hxupbkhxbm-zavjvefgwkgkz-dhewiqvy 1 cap PO Q8H PRN #14 cap 12/08/20 50 mg-300 mg-40 mg capsule (Fioricet) ondansetron 4 mg disintegrating 4 mg PO ONCE PRN #7 tab 12/08/20 tablet Allergies Allergy/AdvReac Type Severity Reaction Status Date / Time Iodinated Contrast Media Allergy Severe TACHYCARDIA,DIFFICULTY Verified 10/19/20 13:29 [IV CONTRAST] BREATHING amoxicillin [Prevpac] Allergy Unknown Unknown Verified 10/19/20 13:29 clarithromycin [Prevpac] Allergy Unknown Unknown Verified 10/19/20 13:29 escitalopram [From LEXAPRO] Allergy Unknown CHEST PAIN Verified 10/19/20 13:29 lansoprazole [Prevpac] Allergy Unknown unknown Verified 10/19/20 13:29 lovastatin Allergy Unknown myalgia Verified 10/19/20 13:29 omeprazole [From Prilosec] Allergy Unknown CHEST Verified 10/19/20 13:29 PAIN,DIFFICULTY BREATHING pravastatin Allergy Unknown myalgia Verified 10/19/20 13:29 shellfish derived Allergy Unknown UNKOWN Verified 10/19/20 13:29 [SHELLFISH DERIVED] iv contrast dye Allergy Unknown unknown Uncoded 10/19/20 13:29 iv dye/ shellfish Allergy Unknown unknown Uncoded 10/19/20 13:29 Prilosec Allergy Unknown Chest pain Uncoded 10/19/20 13:29 Review of Systems Review of Systems: Constitutional: No Fever, No Chills ENT/Mouth: No sore throat, No Rhinorrhea, No Swallowing Difficulty Eyes: No Eye Pain, No Swelling, No Redness, + lacrimation, +blurred vision Cardiovascular: No Chest Pain, No SOB, No Orthopnea, No Edema Respiratory: No Cough, No Sputum, No Wheezing, No dyspnea Gastrointestinal: + Nausea, No Vomiting, No Diarrhea, No abdominal Pain, No Hematochezia, No Melena Genitourinary: No Dysuria, No Urinary Frequency, No Hematuria Musculoskeletal: No joint pain, No Myalgias Skin: No Skin Lesions, No rash Neuro: No Weakness, No Numbness, + Dizziness, + Headache Psych: + Anxiety/Panic, No Depression [facility] Past Medical History Attestation statement: The following information was validated with the patient. Source: old records reviewed and nursing notes reviewed Medical History Allergies Anxiety, generalized Harper esophagus Chronic GERD Hypertension, essential Lipid disorder Non-toxic multinodular goiter Surgical History H/O YAMILKAP (2007) Family History Family History Father Heart disease Mother Heart disease Maternal Uncle Colon cancer Heart failure Social History Social History Alcohol intake: never Patient Tobacco Use Status: Never used Tobacco Use of substances other than those prescribed or required for medical reasons: No Advance Directives: Yes Advance Directives Information Provided: Yes Advance Directives on File: No Physical Exam Vital Signs: Vital Signs: Last Vital Signs Temp 98.7 F 12/08/20 06:26 Pulse 107 H 12/08/20 06:26 Resp 16 12/08/20 06:26 BP 176/85 H 12/08/20 06:26 Pulse Ox 97 12/08/20 06:26 Body Mass Index 33.4 Appearance: Alert. Oriented X3. No acute distress. Eyes: Pupils equal, round and reactive to light. ENT: Pharynx normal. Neck: Normal inspection. Neck supple. CVS: Normal heart rate and rhythm. Pulses normal. Respiratory: No respiratory distress. Breath sounds normal. Abdomen: Soft and nontender. +BS x4 Skin: Skin warm and dry. Normal skin color. Normal skin turgor. No rashes. Extremities: No lower extremity edema. 5/5 strength to upper and lower extremities. Neuro: Oriented X 3. No motor deficit. No sensory deficit. Finger to nose normal, tandem gate normal, heel to chavez normal Course Course Course Narrative: 75-year-old female presenting to the emergency department with headache that awoke her from her sleep accompanied with nausea, lacrimation, and pressure to bilateral eyes since this AM. No on blood thinners. Plan at this time is to obtain basic labs, EKG, CT of head and brain, UA. She will also be given Fioricet for the headache. An be given oxygen via nasal cannula 6L incase this is a cluster headache. Will rule out ICH with CT of head and brain. Reevaluation(s) Reevaluation #1: CT shows no acute findings. Lab workup is largely unremarkable. She reports her headache is significantly improved, now or 2 or 04/27. She is safe for discharge home, with follow-up with Dr. Louise. She will be discharged on Fioricet, and Zofran. MDM - Headache MDM Narrative Medical decision making narrative: Ventricular rate 95, NM interval normal QRS normal QT/QTC normal. EKG shows normal sinus rhythm. Q-wave noted in lead III, inverted T-wave in V1. NO ENRIKE. No acute ischemia. No significant changes when compared to EKG from 05/12/2020. Lab Data Result diagrams: 12/08/20 09:37 12/08/20 09:37 Labs: Lab Results 12/08/20 12/08/20 12/08/20 Range/Units 06:32 09:37 09:37 WBC 8.2 (4.8-10.8) X10*3/uL RBC 3.96 L (4.20-5.50) X10*6/uL Hgb 11.9 L (12.0-16.0) g/dl Hct 36.2 L (37-47) % MCV 91.4 (80-98) fL MCH 30.1 (27.0-33.0) pg MCHC 32.9 (31.0-35.0) g/dl RDW 12.8 (11.0-16.0) % Plt Count 190 (160-400) X10*3/uL MPV 10.0 (9.4-12.3) fL Immature Gran % (Auto) 0.2 (0.0-0.4) % Neut % (Auto) 83.1 H (45-73) % Lymph % (Auto) 11.4 L (20-40) % [place] % (Auto) 4.7 (2-11) % Eos % (Auto) 0.1 (0-4) % Baso % (Auto) 0.5 (0-2) % Lymph # (Auto) 0.9 L (1.2-4.9) X10*3/uL [place] # (Auto) 0.4 (0.1-1.2) X10*3/uL Eos # (Auto) 0.0 (0.0-0.4) X10*3/uL Baso # (Auto) 0.0 (0.0-0.2) X10*3/uL Abs Immat Gran (auto) 0.02 (0.00-0.03) X10*3/uL Absolute Neuts (auto) 6.8 (2.0-8.3) X10*3/uL Absolute Nucleated RBC 0.000 (0.0-0.012) X10*3/uL Nucleated RBC % (auto) 0.0 (0.0-0.2) /100WBC Sodium 142 (135-145) mmol/L Potassium 5.1 (3.3-5.1) mmol/L Chloride 111 H (96-108) mmol/L Carbon Dioxide 25 (22-29) mmol/L Anion Gap 11 L (12-20) BUN 18 H (9-16) mg/dL Creatinine 1.31 (0.5-1.4) mg/dL Estim Creat Clear Calc 35.5 Estimated GFR 40 Random Glucose 114 (60-115) mg/dL Calcium 9.1 (8.4-10.2) mg/dL Magnesium 1.9 (1.6-2.6) mg/dL COVID-19 (LITA) Negative (Negative) COVID-19 Clin Com See Note Discharge Plan Discharge Clinical Impression: Nausea Headache Qualifiers: Headache type: unspecified Headache chronicity pattern: unspecified pattern Intractability: not intractable Qualified Code(s): R51.9 - Headache, unspecified Patient Disposition: Home, Self-Care Instructions: Acute Headache (ED), Acute Nausea and Vomiting (ED) Additional Instructions: Follow-up with your primary care provider in 2 days. Follow up with Take your medications as prescribed Return to the emergency department new or worsening symptoms. Prescriptions: New ondansetron 4 mg tablet,disintegrating 4 mg PO ONCE PRN (Reason: nausea and vomiting) Qty: 7 RF: 0 vquodzsqtc-ubcvxbpzysdvi-scol [Fioricet] 50-300-40 mg capsule 1 cap PO Q8H PRN (Reason: pain) Qty: 14 RF: 0 No Action buspirone 5 mg tablet 5 mg PO .daily 90 Days Qty: 90 RF: 0 levothyroxine [Levoxyl] 75 mcg tablet 75 mcg PO QAM 90 Days Qty: 90 RF: 3 lisinopril 30 mg tablet 30 mg PO DAILY Qty: 90 RF: 0 meclizine 25 mg tablet 50 mg PO BID PRN (Reason: dizziness) Qty: 14 RF: 0 ondansetron HCl [Zofran] 4 mg tablet 4 mg PO Q8H PRN (Reason: nausea and vomiting) Qty: 10 RF: 0 rosuvastatin [Crestor] 10 mg tablet 10 mg PO DAILY RF: 0 lansoprazole [Prevacid] 15 mg capsule,delayed release(DR/EC) 15 mg PO DAILY RF: 0 hydralazine 25 mg tablet 25 mg PO BID RF: 0 sulfamethoxazole-trimethoprim [Bactrim DS] 800-160 mg tablet 1 tab PO BID Qty: 14 RF: 0 Referrals: Ruth Hamm, [facility] [Primary Care Provider] - 2 days Stand Alone Forms: Work/School Release Interventions: ED Discharge Assessment Last Done: 12/08/20 10:43 Discharge Date/Time: 12/08/20 10:44
--- NOTE | 2020-12-08 08:30 | ECG_ITS ---
Test Reason : FAUST Blood Pressure : / mmHG Vent. Rate : 095 BPM Atrial Rate : 095 BPM P-R Int : 150 ms QRS Dur : 080 ms QT Int : 358 ms P-R-T Axes : 034 037 024 degrees QTc Int : 449 ms Normal sinus rhythm Normal ECG No significant changes seen Referred By: Danita Gregg Electronically Signed By:LINDA GONZALES MD
[2020-12-08] MEDS: Ondansetron ODT 4 MG TAB.RAPDIS TRANSLINGU (08:49)
[2020-12-08] MEDS: Butalb/Acetamin/Caff 50/325/40 TABLET 1 TAB PO (08:49)
[2020-12-08 09:41] LABS: Basophils Percent Auto 0.5 % (0-2); Eosinophils Percent Auto 0.1 % (0-4); Hematocrit 36.2 % (37-47); Hemoglobin 11.9 g/dl (12.0-16.0); Imm Gran Abs Auto 0.02 X10*3/uL (0.00-0.03); Imm Gran Pct Auto 0.2 % (0.0-0.4); Lymphocytes Absolute Auto 0.9 X10*3/uL (1.2-4.9); Lymphocytes Percent Auto 11.4 % (20-40); MANUAL DIFF FLAG NO; Mean Corpuscular HGB Conc 32.9 g/dl (31.0-35.0); Mean Corpuscular Hemoglobin 30.1 pg (27.0-33.0); Mean Corpuscular Volume 91.4 fL (80-98); Monocytes Absolute Auto 0.4 X10*3/uL (0.1-1.2); Monocytes Percent Auto 4.7 % (2-11); Neutrophils Absolute Auto 6.8 X10*3/uL (2.0-8.3); Neutrophils Percent Auto 83.1 % (45-73); Platelet Count 190 X10*3/uL (160-400); Red Blood Count 3.96 X10*6/uL (4.20-5.50); Red Cell Distribution Width 12.8 % (11.0-16.0); White Blood Count 8.2 X10*3/uL (4.8-10.8)
[2020-12-08 10:08] LABS: Anion Gap 11 (12-20); Blood Urea Nitrogen 18 mg/dL (9-16); Calcium 9.1 mg/dL (8.4-10.2); Carbon Dioxide 25 mmol/L (22-29); Chloride 111 mmol/L (96-108); Creatinine Clr Calc Pharmacy 35.5; Estimated Glomerular Filt Rate 40; Glucose Random 114 mg/dL (60-115); Magnesium 1.9 mg/dL (1.6-2.6); Potassium 5.1 mmol/L (3.3-5.1); Sodium 142 mmol/L (135-145)
== END 2020-12-08 10:44 | disposition home or self-care (01) ==
PROVIDERS: Physician Assistant; Emergency Provider Emergency Medicine Emergency Medical Services; PCP Nurse Practitioner Family
DX: R51.9 Headache, unspecified (principal); R11.0 Nausea; Z20.822 Contact with and (suspected) exposure to COVID-19; Z79.899 Other long term (current) drug therapy
CPT/HCPCS: 36415; 70450; 80048; 83735; 85025; 87635; 93005; 99284; 99285

== ENCOUNTER 2021-02-07 22:48 | Observation (INO) | payer MEDICARE, SELFPAY ==
--- NOTE | ~2021-02-07 | NM_ITS ---
EXAMINATION: PULMONARY PERFUSION STUDY CLINICAL INFORMATION: Positive d-dimer COMPARISON: The previous lung scan dated 01/14/2020 is available for comparison. A radiograph the chest dated 02/08/2021, the same date as this lung scan, is also available for comparison. TECHNIQUE: Following the intravenous injection of 4.0 mCi Tc-99m MAA, an 8-view perfusion study was performed using a gamma scintillation camera. FINDINGS: No segmental perfusion defects are present. There is homogeneous distribution of activity bilaterally. There are no focal anatomic appearing perfusion defects present. Compared to the previous lung scan dated 01/14/2020 there has not been any change. NM/NM pul perfusion IMPRESSION: Normal radionuclide lung perfusion scan.
--- NOTE | ~2021-02-07 | XR_ITS ---
EXAMINATION: XR CHEST CLINICAL INFORMATION: Chest pain COMPARISON: 01/14/2020 TECHNIQUE: Frontal view of the chest was obtained. FINDINGS: Minor discoid atelectasis left base. Unfolding of thoracic aorta unchanged. No significant abnormality is noted involving the heart, lungs, mediastinum, bony thorax or soft tissues. XR/XR chest 1V IMPRESSION: No significant abnormality as above. No significant change from baseline.
[2021-02-07 22:59] VITALS: BP 153/78; PULSE 108; RESP 20; TEMP 36.6; O2SAT 98; BMI 33.6
--- NOTE | 2021-02-07 23:02 | ECG_ITS ---
Test Reason : chest pain Blood Pressure : / mmHG Vent. Rate : 097 BPM Atrial Rate : 097 BPM P-R Int : 106 ms QRS Dur : 088 ms QT Int : 362 ms P-R-T Axes : -15 043 025 degrees QTc Int : 459 ms Baseline artifact Normal sinus rhythm Likely normal EKG When compared with ECG of 08-DEC-2020 09:23, No significant change was found Referred By: Generic ED Physician Electronically Signed By:VICKI LEDESMA
--- NOTE | 2021-02-07 23:28 | PC.NURSE ---
Pt difficult blood draw, unable to obtain specimen. Pt has good veins in hands but no butterflies in department to use on patient.
[2021-02-08 00:53] VITALS: BP 161/75; PULSE 89; RESP 15; O2SAT 98
[2021-02-08 00:56] LABS: Basophils Absolute Auto 0.1 X10*3/uL (0.0-0.2); Basophils Percent Auto 0.7 % (0-2); Eosinophils Absolute Auto 0.1 X10*3/uL (0.0-0.4); Eosinophils Percent Auto 1.2 % (0-4); Hematocrit 41.9 % (37.0-47.0); Hemoglobin 13.4 g/dl (12.0-16.0); Imm Gran Abs Auto 0.01 X10*3/uL (0.00-0.03); Imm Gran Pct Auto 0.1 % (0.0-0.4); Lymphocytes Absolute Auto 2.1 X10*3/uL (1.2-4.9); Lymphocytes Percent Auto 24.9 % (20-40); MANUAL DIFF FLAG NO; Mean Corpuscular Volume 90.7 fL (80.0-98.0); Mean Platelet Volume 10.1 fL (9.4-12.3); Monocytes Absolute Auto 0.8 X10*3/uL (0.1-1.2); Monocytes Percent Auto 9.4 % (2-11); Neutrophils Absolute Auto 5.5 x10*3/uL (2.0-8.3); Neutrophils Percent Auto 63.7 % (45-73); Platelet Count 207 X10*3/uL (160-400); Red Blood Count 4.62 X10*6/uL (4.20-5.50); Red Cell Distribution Width 12.8 % (11.0-16.0); White Blood Count 8.6 X10*3/uL (4.8-10.8)
--- NOTE | 2021-02-08 01:04 | ED.GENADULT ---
HPI - General Adult General Chief complaint: General Medical Stated complaint: chest pain Time Seen by Provider: 02/08/21 01:04 Source: patient Mode of arrival: ambulatory Limitations: no limitations History of Present Illness HPI narrative: Patient history of frequent chest pains usually comes and goes which is happening for last few days but over last for 24 hours patient feel chest pain continuously had midsternal level feel like pressure does not increase on exertion or ambulation no pressure with respiration no radiation of the pain no jaw pain no diaphoresis or nausea vomiting no shortness of breath or cough patient been evaluated multiple times in the past including endoscopy and stress test was negative. Patient feels very anxious patient does have history of Harper's esophagus Related Data Home Medications Medication Instructions Recorded Confirmed buspirone 5 mg tablet 5 mg PO DAILY 02/08/21 02/08/21 hydralazine 50 mg tablet 50 mg PO DAILY 02/08/21 02/08/21 levothyroxine 75 mcg tablet 75 mcg PO QAM 02/08/21 02/08/21 (Levoxyl) lisinopril 30 mg tablet 30 mg PO DAILY 02/08/21 02/08/21 pantoprazole 20 mg tablet,delayed 20 mg PO DAILY 02/08/21 02/08/21 release Allergies Allergy/AdvReac Type Severity Reaction Status Date / Time Iodinated Contrast Media Allergy Severe TACHYCARDIA,DIFFICULTY Verified 10/19/20 13:29 [IV CONTRAST] BREATHING amoxicillin [Prevpac] Allergy Unknown Unknown Verified 10/19/20 13:29 clarithromycin [Prevpac] Allergy Unknown Unknown Verified 10/19/20 13:29 escitalopram [From LEXAPRO] Allergy Unknown CHEST PAIN Verified 10/19/20 13:29 lansoprazole [Prevpac] Allergy Unknown unknown Verified 10/19/20 13:29 lovastatin Allergy Unknown myalgia Verified 10/19/20 13:29 omeprazole [From Prilosec] Allergy Unknown CHEST Verified 10/19/20 13:29 PAIN,DIFFICULTY BREATHING pravastatin Allergy Unknown myalgia Verified 10/19/20 13:29 shellfish derived Allergy Unknown UNKOWN Verified 10/19/20 13:29 [SHELLFISH DERIVED] iv contrast dye Allergy Unknown unknown Uncoded 10/19/20 13:29 iv dye/ shellfish Allergy Unknown unknown Uncoded 10/19/20 13:29 Prilosec Allergy Unknown Chest pain Uncoded 10/19/20 13:29 Review of Systems Review of Systems: Yes all other systems are reviewed and are negative [facility] Past Medical History Medical History Allergies Anxiety, generalized Harper esophagus Chronic GERD Hypertension, essential Lipid disorder Non-toxic multinodular goiter Surgical History H/O LEEP (2008) Family History Family History Father Heart disease Mother Heart disease Maternal Uncle Colon cancer Heart failure Social History Social History Alcohol intake: never Patient Tobacco Use Status: Never used Tobacco Advance Directives: No Physical Exam Vital Signs: Vital Signs: Last Vital Signs Temp 97.8 F 02/07/21 22:59 Pulse 91 02/08/21 06:14 Resp 12 02/08/21 06:14 BP 140/72 H 02/08/21 06:14 Pulse Ox 97 02/08/21 06:14 BMI result Body Mass Index 33.6 Appearance: Alert. Oriented X3. No acute distress. Eyes: No pallor or icterus ENT: Pharynx normal. Oral Mucosa moist Neck: Normal inspection. Neck supple. CVS: Normal heart rate and rhythm. Pulses normal. Respiratory: No respiratory distress. Equal air entry bilateral, no wheezing/rales/rhonchi Abdomen: Soft and nontender. Bowel sounds are present, no mass palpable, no CVA tenderness Skin: Skin warm and dry. Normal skin color. Normal skin turgor. Extremities: No lower extremity edema. No calf tenderness Neuro: Oriented X 3. No motor deficit. Medical Decision Making MDM Narrative Medical decision making narrative: Patient with atypical midsternal chest pain etiology not very clear lab workup showed normal high sensitive troponin EKG without any acute ST T wave or ischemic changes D-dimer was elevated unable to do CTA chest as patient is allergic to IV contrast with significant shortness of breath. Will admit patient for chest pain and rule out PE will give prophylactic Lovenox patient already received 2 baby aspirin earlier Lab Data Lab results reviewed: Yes I reviewed the patient's lab results. Result diagrams: 02/08/21 04:22 02/08/21 04:22 Labs: Lab Results 02/08/21 02/08/21 02/08/21 Range/Units 00:48 00:48 00:48 WBC 8.6 (4.8-10.8) X10*3/uL RBC 4.62 (4.20-5.50) X10*6/uL Hgb 13.4 (12.0-16.0) g/dl Hct 41.9 (37.0-47.0) % MCV 90.7 (80.0-98.0) fL MCH 29.0 (27.0-33.0) pg MCHC 32.0 (31.0-35.0) g/dl RDW 12.8 (11.0-16.0) % Plt Count 207 (160-400) X10*3/uL MPV 10.1 (9.4-12.3) fL Immature Gran % (Auto) 0.1 (0.0-0.4) % Neut % (Auto) 63.7 (45-73) % Lymph % (Auto) 24.9 (20-40) % [place] % (Auto) 9.4 (2-11) % Eos % (Auto) 1.2 (0-4) % Baso % (Auto) 0.7 (0-2) % Lymph # (Auto) 2.1 (1.2-4.9) X10*3/uL [place] # (Auto) 0.8 (0.1-1.2) X10*3/uL Eos # (Auto) 0.1 (0.0-0.4) X10*3/uL Baso # (Auto) 0.1 (0.0-0.2) X10*3/uL Abs Immat Gran (auto) 0.01 (0.00-0.03) X10*3/uL Absolute Neuts (auto) 5.5 (2.0-8.3) x10*3/uL Absolute Nucleated RBC 0.000 (0.0-0.012) X10*3/uL Nucleated RBC % (auto) 0.0 (0.0-0.2) /100WBC PT (9.9-13.0) SEC INR (0.9-1.1) APTT (24.1-38.0) SEC D-Dimer High Sensitivty NG/ML Sodium 143 (135-145) mmol/L Potassium 4.3 (3.3-5.1) mmol/L Chloride 109 H (96-108) mmol/L Carbon Dioxide 23 (22-29) mmol/L Anion Gap 15 (12-20) BUN 20 H (9-16) mg/dL Creatinine 1.28 (0.5-1.4) mg/dL Estim Creat Clear Calc 36.6 Estimated GFR 41 Random Glucose 102 (60-115) mg/dL Calcium 9.7 D (8.4-10.2) mg/dL Total Bilirubin 0.3 (0.0-1.0) mg/dL AST 22 (5-31) U/L ALT 16 (0-31) U/L Alkaline Phosphatase 86 (39-117) U/L Troponin I High Sens < 3.5 (<3.5-17.0) ng/L Total Protein 7.0 (6.5-8.0) g/dL Albumin 4.2 (3.5-5.0) g/dL 02/08/21 Range/Units 02:02 WBC (4.8-10.8) X10*3/uL RBC (4.20-5.50) X10*6/uL Hgb (12.0-16.0) g/dl Hct (37.0-47.0) % MCV (80.0-98.0) fL MCH (27.0-33.0) pg MCHC (31.0-35.0) g/dl RDW (11.0-16.0) % Plt Count (160-400) X10*3/uL MPV (9.4-12.3) fL Immature Gran % (Auto) (0.0-0.4) % Neut % (Auto) (45-73) % Lymph % (Auto) (20-40) % [place] % (Auto) (2-11) % Eos % (Auto) (0-4) % Baso % (Auto) (0-2) % Lymph # (Auto) (1.2-4.9) X10*3/uL [place] # (Auto) (0.1-1.2) X10*3/uL Eos # (Auto) (0.0-0.4) X10*3/uL Baso # (Auto) (0.0-0.2) X10*3/uL Abs Immat Gran (auto) (0.00-0.03) X10*3/uL Absolute Neuts (auto) (2.0-8.3) x10*3/uL Absolute Nucleated RBC (0.0-0.012) X10*3/uL Nucleated RBC % (auto) (0.0-0.2) /100WBC PT 12.3 (9.9-13.0) SEC INR 1.1 (0.9-1.1) APTT 30.1 (24.1-38.0) SEC D-Dimer High Sensitivty 986 NG/ML Sodium (135-145) mmol/L Potassium (3.3-5.1) mmol/L Chloride (96-108) mmol/L Carbon Dioxide (22-29) mmol/L Anion Gap (12-20) BUN (9-16) mg/dL Creatinine (0.5-1.4) mg/dL Estim Creat Clear Calc Estimated GFR Random Glucose (60-115) mg/dL Calcium (8.4-10.2) mg/dL Total Bilirubin (0.0-1.0) mg/dL AST (5-31) U/L ALT (0-31) U/L Alkaline Phosphatase (39-117) U/L Troponin I High Sens (<3.5-17.0) ng/L Total Protein (6.5-8.0) g/dL Albumin (3.5-5.0) g/dL ECG Data Attestation: I personally reviewed and interpreted this ECG as follows: Interpretation: Normal sinus rhythm heart rate 97 beats per minute short MI interval, normal axis no acute STT wave changes no acute ischemia Discharge Plan Discharge Clinical Impression: Elevated d-dimer Chest pain Qualifiers: Chest pain type: precordial pain Qualified Code(s): R07.2 - Precordial pain Patient Disposition: Admitted As Inpatient
[2021-02-08 01:16] LABS: Troponin-I High Sensitivity < 3.5 ng/L (<3.5-17.0)
[2021-02-08 01:18] LABS: Alanine Aminotransferase 16 U/L (0-31); Albumin Level 4.2 g/dL (3.5-5.0); Alkaline Phosphatase 86 U/L (39-117); Anion Gap 15 (12-20); Aspartate Amino Transferase 22 U/L (5-31); Bilirubin Total 0.3 mg/dL (0.0-1.0); Blood Urea Nitrogen 20 mg/dL (9-16); Calcium 9.7 mg/dL (8.4-10.2); Carbon Dioxide 23 mmol/L (22-29); Chloride 109 mmol/L (96-108); Creatinine Clr Calc Pharmacy 36.6; Estimated Glomerular Filt Rate 41; Glucose Random 102 mg/dL (60-115); Potassium 4.3 mmol/L (3.3-5.1); Sodium 143 mmol/L (135-145)
[2021-02-08 02:16] LABS: INTERNATIONAL NORM RATIO 1.1 (0.9-1.1); Prothrombin Time 12.3 SEC (9.9-13.0)
[2021-02-08 02:18] LABS: D Dimer High Sensitivity 986 NG/ML
[2021-02-08 02:19] LABS: Partial Thromboplastin Time 30.1 SEC (24.1-38.0)
--- NOTE | 2021-02-08 03:09 | PM.IMHP ---
History of Present Illness Date of Service: 02/08/21 Chief Complaint: Chest pain 75-year-old female with a past medical history of hypertension, hyperlipidemia, GERD, Harper's esophagus, anxiety, CKD, hypothyroidism presented to the hospital today with a chief complaint of chest pain. Patient reports that she been having chest pain which is located in the center of the chest, pressure-like in nature, nonradiating, worsens with exertion; no associated lightheadedness dizziness sweating or diaphoresis. Mentions that she has intermittent episodes of chest pain but over the past 1 week; worse over the past day and has been having more frequent episodes.mentions that she has anxiety-> and atributes pain to anxiety. denies any relation to food. Denies any difficulty swallowing, denies any pain during swallowing. Denies any nausea vomiting or diarrhea. Denies any fever chills cough. Review of all other systems is negative except mentioned above ER course: Per ER team patient was given pain medications with no significant improvement in the pain; EKG was nonischemic; troponin was negative; admitted to the hospital to rule out ACS. Patient also noted to have elevated D-dimer; able to do CT scan given contrast allergy. Given therapeutic Lovenox for possible V/Q scan in the morning. [facility] Medical History Allergies Anxiety, generalized Harper esophagus Chronic GERD Hypertension, essential Lipid disorder Non-toxic multinodular goiter Family History Father Heart disease Mother Heart disease Maternal Uncle Colon cancer Heart failure Surgical History H/O LEEP (2007) Social History Alcohol intake: never Patient Tobacco Use Status: Never used Tobacco Advance Directives: No Meds Allergies Allergy/AdvReac Type Severity Reaction Status Date / Time Iodinated Contrast Media Allergy Severe TACHYCARDIA,DIFFICULTY Verified 10/19/20 13:29 [IV CONTRAST] BREATHING amoxicillin [Prevpac] Allergy Unknown Unknown Verified 10/19/20 13:29 clarithromycin [Prevpac] Allergy Unknown Unknown Verified 10/19/20 13:29 escitalopram [From LEXAPRO] Allergy Unknown CHEST PAIN Verified 10/19/20 13:29 lansoprazole [Prevpac] Allergy Unknown unknown Verified 10/19/20 13:29 lovastatin Allergy Unknown myalgia Verified 10/19/20 13:29 omeprazole [From Prilosec] Allergy Unknown CHEST Verified 10/19/20 13:29 PAIN,DIFFICULTY BREATHING pravastatin Allergy Unknown myalgia Verified 10/19/20 13:29 shellfish derived Allergy Unknown UNKOWN Verified 10/19/20 13:29 [SHELLFISH DERIVED] iv contrast dye Allergy Unknown unknown Uncoded 10/19/20 13:29 iv dye/ shellfish Allergy Unknown unknown Uncoded 10/19/20 13:29 Prilosec Allergy Unknown Chest pain Uncoded 10/19/20 13:29 Active Medications: Current Medications Acetaminophen (Acetaminophen 325 Mg Tablet) 650 mg PO Q6H PRN PRN Reason: Pain, Mild (Pain Scale 1-3) Enoxaparin Sodium (Enoxaparin Sodium 40 Mg/0.4 Ml Syringe) 80 mg SUBCUT Q12H NIRU Famotidine (Famotidine/Pf 20 Mg/2 Ml Vial) 20 mg IVPUSH BID NIRU Melatonin (Melatonin 3 Mg Tablet) 6 mg PO BEDTIME PRN PRN Reason: Insomnia Nitroglycerin (Nitroglycerin 0.4 Mg Tab.Subl) 0.4 mg SUBLINGUAL Q5MX3 PRN PRN Reason: Chest Pain Senna (Sennosides 8.6 Mg Tablet) 17.2 mg PO BEDTIME PRN PRN Reason: Constipation Sodium Chloride (0.9 % Sodium Chloride Flush 3 Ml Syringe) 3 ml IVFLUSH QSHIFT [facility] Home Medications Medication Instructions Recorded Confirmed Last Taken Type hydralazine 25 mg tablet 25 mg PO BID tab 11/24/19 07/06/20 Unknown History lansoprazole 15 mg capsule,delayed 15 mg PO DAILY 11/24/19 07/06/20 Unknown History release (Prevacid) rosuvastatin 10 mg tablet (Crestor) 10 mg PO DAILY 05/24/20 07/06/20 Unknown History Physical Exam Vital Signs and Narrative: Vital Signs: Last Vital Signs Temp 97.8 F 02/07/21 22:59 Pulse 89 02/08/21 00:53 Resp 15 02/08/21 00:53 BP 161/75 H 02/08/21 00:53 Pulse Ox 98 02/08/21 00:53 BMI result Body Mass Index 33.6 Results Labs CBC and Chem 7: 02/08/21 04:22 02/08/21 04:22 Labs: Laboratory Results - last 24 hr 02/08/21 02/08/21 02/08/21 00:48 00:48 00:48 MCV 90.7 MCH 29.0 MCHC 32.0 RDW 12.8 Plt Count 207 MPV 10.1 Immature Gran % (Auto) 0.1 Neut % (Auto) 63.7 Lymph % (Auto) 24.9 Dickens % (Auto) 9.4 Eos % (Auto) 1.2 Baso % (Auto) 0.7 Lymph # (Auto) 2.1 Dickens # (Auto) 0.8 Eos # (Auto) 0.1 Baso # (Auto) 0.1 Abs Immat Gran (auto) 0.01 Absolute Neuts (auto) 5.5 Absolute Nucleated RBC 0.000 Nucleated RBC % (auto) 0.0 PT INR APTT D-Dimer High Sensitivty Anion Gap 15 Estim Creat Clear Calc 36.6 Estimated GFR 41 Random Glucose 102 Calcium 9.7 D Total Bilirubin 0.3 AST 22 ALT 16 Alkaline Phosphatase 86 Troponin I High Sens < 3.5 Total Protein 7.0 Albumin 4.2 02/08/21 02:02 MCV MCH MCHC RDW Plt Count MPV Immature Gran % (Auto) Neut % (Auto) Lymph % (Auto) Dickens % (Auto) Eos % (Auto) Baso % (Auto) Lymph # (Auto) Dickens # (Auto) Eos # (Auto) Baso # (Auto) Abs Immat Gran (auto) Absolute Neuts (auto) Absolute Nucleated RBC Nucleated RBC % (auto) PT 12.3 INR 1.1 APTT 30.1 D-Dimer High Sensitivty 986 Anion Gap Estim Creat Clear Calc Estimated GFR Random Glucose Calcium Total Bilirubin AST ALT Alkaline Phosphatase Troponin I High Sens Total Protein Albumin Assessment and Plan (1) Chest pain: Qualifiers: Chest pain type: precordial pain Qualified Code(s): R07.2 - Precordial pain Status: Acute (2) Barretts esophagus: Status: Acute (3) Elevated d-dimer: Status: Acute 75-year-old female with a past medical history of hypertension, hyperlipidemia, GERD, Harper's esophagus, anxiety, CKD, hypothyroidism presented to the hospital today with a chief complaint of chest pain. Chest pain: Patient continued to have low-grade chest pain. EKG nonischemic. Initial troponins negative. Repeat troponin pending. Atypical. Cardiology consult: Sublingual nitroglycerin p.r.n. Elevated D-dimer: Patient on empiric Lovenox. V/Q scan in the morning. Patient has multiple allergies including contrast-unable to do CT scan. Anxiety: atarax prn History of GERD/Harper's esophagus: Patient denies any dysphagia or odynophagia. Given continued chest pain concern for any esophageal spasm. Patient on sublingual nitroglycerin p.r.n.. Will also consult Gastroenterology for further recommendations. History of hypothyroidism: Continue home levothyroxine. Hypertension/hyperlipidemia: Continue home lisinopril, statin (pending med rec) DVT prophylaxis: Patient on Lovenox GI prophylaxis: Pepcid Code status: Full code Quality Stroke Does the patient have a stroke diagnosis?: No VTE Prior VTE?: No VTE Risk Level:: Medical - moderate - high VTE Device Contraindication: Treatment Not Indicated VTE Drug Contraindication: N/A - Med Ordered
[2021-02-08 03:25] VITALS: BP 187/97; PULSE 105
[2021-02-08] MEDS: Nitroglycerin 2 % Oint 1 GM Packet 0.5 INCH TRANSDERMA (03:25)
[2021-02-08] MEDS: Enoxaparin Sodium 80 MG/0.8 ML SYRINGE SUBCUT (03:56)
[2021-02-08 04:16] LABS: COVID-19 Test Negative (Negative); IDNOW Serial# 9DD0AD1C
[2021-02-08 04:28] LABS: MANUAL DIFF FLAG NO
[2021-02-08 04:30] LABS: Basophils Percent Auto 0.5 % (0-2); Eosinophils Absolute Auto 0.1 X10*3/uL (0.0-0.4); Eosinophils Percent Auto 0.8 % (0-4); Hemoglobin 12.7 g/dl (12.0-16.0); Imm Gran Abs Auto 0.02 X10*3/uL (0.00-0.03); Imm Gran Pct Auto 0.2 % (0.0-0.4); Lymphocytes Absolute Auto 2.4 X10*3/uL (1.2-4.9); Lymphocytes Percent Auto 27.9 % (20-40); Mean Corpuscular HGB Conc 32.6 g/dl (31.0-35.0); Mean Corpuscular Hemoglobin 29.2 pg (27.0-33.0); Mean Corpuscular Volume 89.7 fL (80.0-98.0); Mean Platelet Volume 10.2 fL (9.4-12.3); Monocytes Absolute Auto 0.7 X10*3/uL (0.1-1.2); Monocytes Percent Auto 8.7 % (2-11); Neutrophils Absolute Auto 5.3 x10*3/uL (2.0-8.3); Neutrophils Percent Auto 61.9 % (45-73); Platelet Count 189 X10*3/uL (160-400); Red Blood Count 4.35 X10*6/uL (4.20-5.50); Red Cell Distribution Width 12.7 % (11.0-16.0); White Blood Count 8.5 X10*3/uL (4.8-10.8)
[2021-02-08 04:47] LABS: Anion Gap 14 (12-20); Blood Urea Nitrogen 19 mg/dL (9-16); Calcium 9.5 mg/dL (8.4-10.2); Carbon Dioxide 21 mmol/L (22-29); Chloride 112 mmol/L (96-108); Creatinine Clr Calc Pharmacy 37.4; Estimated Glomerular Filt Rate 42; Glucose Random 100 mg/dL (60-115); Potassium 4.4 mmol/L (3.3-5.1); Sodium 143 mmol/L (135-145)
[2021-02-08 04:57] LABS: Troponin-I High Sensitivity 5.3 ng/L (<3.5-17.0)
[2021-02-08 06:14] VITALS: BP 140/72; PULSE 91; RESP 12; O2SAT 97
--- NOTE | 2021-02-08 06:22 | PC.NURSE ---
Med rec completed with PT at bed side.
[2021-02-08] MEDS: LORazepam 0.5 MG TABLET PO (06:26)
[2021-02-08 08:35] VITALS: BP 141/85; PULSE 89; RESP 17; O2SAT 97
--- NOTE | 2021-02-08 09:04 | MHC.CM.PN ---
pt lives in apt c her daughter. she reports that she is independent in her care. she does not use any AD c ambulation and has no svcs in the home. she no longer drives a car so she depends on her children for transportation. in total she has 6 children all of which live in the area and can help her if she needs it. her daughter will provide transportation at home. pt would like [facility] to seen her for nsg when she is dc'd. a ref. has been made to [facility]. dc plan is for patient to return home c vna. cm to cont. to follow.
[2021-02-08] MEDS: hydrOXYzine HCL 25 MG TABLET PO (09:32)
--- NOTE | 2021-02-08 09:42 | PHA.MEDREC ---
Pharmacy Consult ? Medication Reconciliation Pharmacy has completed the medication reconciliation. Patient reports that she takes rosuvastatin only when she remembers instead of every night. Iva Eldridge, PharmD
--- NOTE | 2021-02-08 10:35 | PM.CNCAR ---
History of Present Illness History of Present Illness Date of Service: 02/08/21 Chief complaint: Chest pain Narrative: This is a cardiology consultation regarding chest pain. Patient states that she does have a lot of anxiety at baseline and gets chest pains. These are fairly random without any specific provoking factors. In fact when she tries to exert herself like vacuuming or climbing stairs she does not get them but when she is resting she may get a discomfort in the lower substernal area. She has had this for a long time but in the last few days she has felt this much more prominently and somewhat continuously which led to this hospitalization. However, workup including EKG as well as 2 sets of high sensitivity troponins are so far negative. No prior history of any coronary disease, myocardial infarction or any cardiomyopathy or in fact any other cardiac issues. Not a known diabetic but she has a history of hypertension. Nonsmoker. Review of Systems Review of Systems: Yes all other systems are reviewed and are negative Cardiovascular: Cardiovascular: Reports as per HPI, Reports no additional cardiovascular complaints, Denies acrocyanosis, Denies cool extremities, Denies painful fingertips, Reports chest pain, Reports chest pain at rest, Denies diaphoresis, Denies syncope, Denies irregular heart rhythm, Denies claudication, Denies leg edema, Denies lightheadedness, Denies palpitations and Denies dyspnea Respiratory: Respiratory: Denies dyspnea Neurologic: Denies syncope Endocrine: Endocrine: Denies palpitations PMFSH Past Medical History Medical History Allergies Anxiety, generalized Harper esophagus Chronic GERD Hypertension, essential Lipid disorder Non-toxic multinodular goiter Family History Family History Father Heart disease Mother Heart disease Maternal Uncle Colon cancer Heart failure Surgical History Surgical History H/O GOLDY (2007) Social History Social History Alcohol intake: never Patient Tobacco Use Status: Never used Tobacco Advance Directives: No service: No Current occupational status: retired Meds Allergies Allergy/AdvReac Type Severity Reaction Status Date / Time Iodinated Contrast Media Allergy Severe TACHYCARDIA,DIFFICULTY Verified 10/19/20 13:29 [IV CONTRAST] BREATHING amoxicillin [Prevpac] Allergy Unknown Unknown Verified 10/19/20 13:29 clarithromycin [Prevpac] Allergy Unknown Unknown Verified 10/19/20 13:29 escitalopram [From LEXAPRO] Allergy Unknown CHEST PAIN Verified 10/19/20 13:29 lansoprazole [Prevpac] Allergy Unknown unknown Verified 10/19/20 13:29 lovastatin Allergy Unknown myalgia Verified 10/19/20 13:29 omeprazole [From Prilosec] Allergy Unknown CHEST Verified 10/19/20 13:29 PAIN,DIFFICULTY BREATHING pravastatin Allergy Unknown myalgia Verified 10/19/20 13:29 shellfish derived Allergy Unknown UNKOWN Verified 10/19/20 13:29 [SHELLFISH DERIVED] iv contrast dye Allergy Unknown unknown Uncoded 10/19/20 13:29 iv dye/ shellfish Allergy Unknown unknown Uncoded 10/19/20 13:29 Prilosec Allergy Unknown Chest pain Uncoded 10/19/20 13:29 Active Medications: Current Medications Acetaminophen (Acetaminophen 325 Mg Tablet) 650 mg PO Q6H PRN PRN Reason: Pain, Mild (Pain Scale 1-3) Enoxaparin Sodium (Enoxaparin Sodium 40 Mg/0.4 Ml Syringe) 80 mg SUBCUT Q12H [facility] Famotidine (Famotidine/Pf 20 Mg/2 Ml Vial) 20 mg IVPUSH DAILY [facility] Last Admin: 02/08/21 09:33 Dose: Not Given Documented by: Hydroxyzine HCl (Hydroxyzine Hcl 25 Mg Tablet) 25 mg PO Q6H PRN PRN Reason: anxiety/restlessness Last Admin: 02/08/21 09:32 Dose: 25 mg Documented by: Melatonin (Melatonin 3 Mg Tablet) 6 mg PO BEDTIME PRN PRN Reason: Insomnia Nitroglycerin (Nitroglycerin 0.4 Mg Tab.Subl) 0.4 mg SUBLINGUAL Q5MX3 PRN PRN Reason: Chest Pain Pharmacy Consult (Consult Rx Perform Med Rec) 1 each MISCELLANE ONCE PRN PRN Reason: Consult order Senna (Sennosides 8.6 Mg Tablet) 17.2 mg PO BEDTIME PRN PRN Reason: Constipation Sodium Chloride (0.9 % Sodium Chloride Flush 3 Ml Syringe) 3 ml IVFLUSH QSHIFT [facility] Last Admin: 02/08/21 09:15 Dose: Not Given Documented by: Home Medications Medication Instructions Recorded Confirmed Last Taken Type buspirone 5 mg tablet 5 mg PO DAILY 02/08/21 02/08/21 02/07/21 History cholecalciferol (vitamin D3) 25 25 mcg PO DAILY 02/08/21 02/08/21 02/07/21 History mcg (1,000 unit) tablet (Vitamin D3) hydralazine 50 mg tablet 50 mg PO DAILY 02/08/21 02/08/21 02/07/21 History levothyroxine 75 mcg tablet 75 mcg PO DAILY@0600 02/08/21 02/08/21 02/07/21 History (Levoxyl) lisinopril 30 mg tablet 30 mg PO DAILY 02/08/21 02/08/21 02/07/21 History pantoprazole 20 mg tablet,delayed 20 mg PO DAILY 02/08/21 02/08/21 02/07/21 History release rosuvastatin 20 mg tablet 20 mg PO BEDTIME 02/08/21 02/08/21 Unknown History Physical Exam Vital Signs: Vital Signs: Last Vital Signs Temp 97.8 F 02/07/21 22:59 Pulse 89 02/08/21 08:35 Resp 17 02/08/21 08:35 BP 141/85 H 02/08/21 08:35 Pulse Ox 97 02/08/21 08:35 BMI result Body Mass Index 33.6 Const: General: no acute distress HENMT: Other: Unremarkable Neck: Neck: Yes normal visual inspection Chest: Chest palpation & inspection: normal inspection of the chest Resp: Auscultation: no crackles and no wheezes Cardio: Palpation: normal PMI Heart sounds: S1 normal heart sound present, S2 normal heart sound present, no gallops, no murmurs and no rubs GI: Palpation (GI): Soft to palpation Back/Spine/Pelvis: Other: unremarkable Skin: Lesions: other Neuro: Cranial nerves: Yes Other cranial nerve findings present Extrem: General: Yes other Psych: Mental Status: other Objective Labs and Meds Result diagrams: 02/08/21 04:22 02/08/21 04:22 Lab results: Laboratory Results - last 24 hr 02/08/21 02/08/21 02/08/21 00:48 00:48 00:48 WBC 8.6 RBC 4.62 Hgb 13.4 Hct 41.9 MCV 90.7 MCH 29.0 MCHC 32.0 RDW 12.8 Plt Count 207 MPV 10.1 Immature Gran % (Auto) 0.1 Neut % (Auto) 63.7 Lymph % (Auto) 24.9 Lea % (Auto) 9.4 Eos % (Auto) 1.2 Baso % (Auto) 0.7 Lymph # (Auto) 2.1 Lea # (Auto) 0.8 Eos # (Auto) 0.1 Baso # (Auto) 0.1 Abs Immat Gran (auto) 0.01 Absolute Neuts (auto) 5.5 Absolute Nucleated RBC 0.000 Nucleated RBC % (auto) 0.0 PT INR APTT D-Dimer High Sensitivty Sodium 143 Potassium 4.3 Chloride 109 H Carbon Dioxide 23 Anion Gap 15 BUN 20 H Creatinine 1.28 Estim Creat Clear Calc 36.6 Estimated GFR 41 Random Glucose 102 Calcium 9.7 D Total Bilirubin 0.3 AST 22 ALT 16 Alkaline Phosphatase 86 Troponin I High Sens < 3.5 Total Protein 7.0 Albumin 4.2 COVID-19 (LITA) COVID-19 Clin Com 02/08/21 02/08/21 02/08/21 02:02 03:54 04:22 WBC RBC Hgb Hct MCV MCH MCHC RDW Plt Count MPV Immature Gran % (Auto) Neut % (Auto) Lymph % (Auto) Lea % (Auto) Eos % (Auto) Baso % (Auto) Lymph # (Auto) Lea # (Auto) Eos # (Auto) Baso # (Auto) Abs Immat Gran (auto) Absolute Neuts (auto) Absolute Nucleated RBC Nucleated RBC % (auto) PT 12.3 INR 1.1 APTT 30.1 D-Dimer High Sensitivty 986 Sodium Potassium Chloride Carbon Dioxide Anion Gap BUN Creatinine Estim Creat Clear Calc Estimated GFR Random Glucose Calcium Total Bilirubin AST ALT Alkaline Phosphatase Troponin I High Sens 5.3 D Total Protein Albumin COVID-19 (LITA) Negative COVID-19 Clin Com See Note 02/08/21 02/08/21 04:22 04:22 WBC 8.5 RBC 4.35 Hgb 12.7 Hct 39.0 MCV 89.7 MCH 29.2 MCHC 32.6 RDW 12.7 Plt Count 189 MPV 10.2 Immature Gran % (Auto) 0.2 Neut % (Auto) 61.9 Lymph % (Auto) 27.9 Lea % (Auto) 8.7 Eos % (Auto) 0.8 Baso % (Auto) 0.5 Lymph # (Auto) 2.4 Lea # (Auto) 0.7 Eos # (Auto) 0.1 Baso # (Auto) 0.0 Abs Immat Gran (auto) 0.02 Absolute Neuts (auto) 5.3 Absolute Nucleated RBC 0.000 Nucleated RBC % (auto) 0.0 PT INR APTT D-Dimer High Sensitivty Sodium 143 Potassium 4.4 Chloride 112 H Carbon Dioxide 21 L Anion Gap 14 BUN 19 H Creatinine 1.25 Estim Creat Clear Calc 37.4 Estimated GFR 42 Random Glucose 100 Calcium 9.5 Total Bilirubin AST ALT Alkaline Phosphatase Troponin I High Sens Total Protein Albumin COVID-19 (LITA) COVID-19 Clin Com ECG Interpretation: EKG shows sinus rhythm at 97/Min; no significant ST-T changes and otherwise unremarkable. Imaging Radiologist's impression: Impressions Pulmonary Perfusion Imaging 02/08/21 08:25 IMPRESSION: Normal radionuclide lung perfusion scan. Chest X-Ray 02/08/21 10:00 IMPRESSION: No significant abnormality as above. No significant change from baseline. Assessment and Plan (1) Precordial chest pain: Status: Acute (2) Hypertensive urgency: Status: Acute Based on EKG and troponins as well as somewhat atypical nature of symptoms, do not believe this is acute coronary syndrome. However at her age and poorly controlled blood pressure, we can do an outpatient stress test and echocardiogram to clarify this further. Patient states that she did undergo workup with the above about 4 years ago and was told to be within normal limits although we will have the results of the same as it was performed elsewhere. Otherwise, her blood pressures suboptimal. We can add some beta-blockers to her regimen. Procedures Date of Service Date of Service: 02/08/21
--- NOTE | 2021-02-08 11:40 | P.DS_ITS ---
DS: Providers Provider Date of Service: 02/08/21 Date of admission: 02/08/21 03:04 Primary care physician: Ruth Hamm NP Consults: 02/08/21 03:04 Consult to Cardiology Routine Consulting Provider: Adama Martell Reason for consultation: chest pain 02/08/21 03:06 Consult to Gastroenterology Routine Consulting Provider: Deandre Brown Reason for consultation: hx barretts; p/w chest pain; ? EGD DS: Diagnosis Discharge Diagnosis (1) Precordial chest pain: Status: Acute (2) Hypertensive urgency: Status: Acute DS: Summary Hospital Course Hospital Course: Chief Complaint: Chest pain 75-year-old female with a past medical history of hypertension, hyperlipidemia, GERD, Harper's esophagus, anxiety, CKD, hypothyroidism presented to the hosp ital today with a chief complaint of chest pain.? Patient reports that she been having chest pain which is located in the center of the chest, pressure-like in nature, nonradiating, worsens with exertion; no associated lightheadedness dizziness sweating or diaphoresis.? Mentions that she has intermittent episodes of chest pain but over the past 1 week; worse over the past day and? has been having more frequent episodes.mentions that she has anxiety-> and atributes pain to anxiety. denies any relation to food. ?b vDenies any difficulty swallowing, denies any pain during swallowing.? Denies any nausea vomiting or diarrhea.? Denies any fever chills cough.? Review of all other systems is negative except mentioned above ER course: Per ER team patient was given pain medications with no significant improvement in the pain; EKG was nonischemic; troponin was negative; admitted to the hospital to rule out ACS. Patient also noted to have elevated D-dimer; able to do CT scan given contrast allergy.? Given therapeutic Lovenox for possible V/Q scan in the morning. Hospital course: She presented with chest pain, cardiac work is negative with serial troponin I and ECG, cardiology has seen him and recommends outpatient Stress and Echo. Chest pain resolved High DDmier 986.. VQ scan was negative and there is no hypoxia. ? Esophageal she was assess by GI and is not believed to be the cause of her pain. She will follow up with Dr. Brown in the office Time Spent with Patient Time attestation: Total time spent providing and/or coordinating discharge services: Discharge coordination time: Greater than 30 minutes Quality: Stroke Does the patient have a stroke diagnosis?: No Physical Exam Vital Signs: Vital Signs: Last Vital Signs Temp 97.8 F 02/07/21 22:59 Pulse 89 02/08/21 08:35 Resp 17 02/08/21 08:35 BP 141/85 H 02/08/21 08:35 Pulse Ox 97 02/08/21 08:35 BMI result Body Mass Index 33.6 DS: Data Data Completed and Pending Labs on day of discharge: Laboratory Results - last 24 hr 02/08/21 02/08/21 02/08/21 00:48 00:48 00:48 WBC 8.6 RBC 4.62 Hgb 13.4 Hct 41.9 MCV 90.7 MCH 29.0 MCHC 32.0 RDW 12.8 Plt Count 207 MPV 10.1 Immature Gran % (Auto) 0.1 Neut % (Auto) 63.7 Lymph % (Auto) 24.9 Mcpherson % (Auto) 9.4 Eos % (Auto) 1.2 Baso % (Auto) 0.7 Lymph # (Auto) 2.1 [place]pherson # (Auto) 0.8 Eos # (Auto) 0.1 Baso # (Auto) 0.1 Abs Immat Gran (auto) 0.01 Absolute Neuts (auto) 5.5 Absolute Nucleated RBC 0.000 Nucleated RBC % (auto) 0.0 PT INR APTT D-Dimer High Sensitivty Sodium 143 Potassium 4.3 Chloride 109 H Carbon Dioxide 23 Anion Gap 15 BUN 20 H Creatinine 1.28 Estim Creat Clear Calc 36.6 Estimated GFR 41 Random Glucose 102 Calcium 9.7 D Total Bilirubin 0.3 AST 22 ALT 16 Alkaline Phosphatase 86 Troponin I High Sens < 3.5 Total Protein 7.0 Albumin 4.2 COVID-19 (LITA) COVID-19 Clin Com 02/08/21 02/08/21 02/08/21 02:02 03:54 04:22 WBC RBC Hgb Hct MCV MCH MCHC RDW Plt Count MPV Immature Gran % (Auto) Neut % (Auto) Lymph % (Auto) Mcpherson % (Auto) Eos % (Auto) Baso % (Auto) Lymph # (Auto) [place]pherson # (Auto) Eos # (Auto) Baso # (Auto) Abs Immat Gran (auto) Absolute Neuts (auto) Absolute Nucleated RBC Nucleated RBC % (auto) PT 12.3 INR 1.1 APTT 30.1 D-Dimer High Sensitivty 986 Sodium Potassium Chloride Carbon Dioxide Anion Gap BUN Creatinine Estim Creat Clear Calc Estimated GFR Random Glucose Calcium Total Bilirubin AST ALT Alkaline Phosphatase Troponin I High Sens 5.3 D Total Protein Albumin COVID-19 (LITA) Negative COVID-19 Clin Com See Note 02/08/21 02/08/21 04:22 04:22 WBC 8.5 RBC 4.35 Hgb 12.7 Hct 39.0 MCV 89.7 MCH 29.2 MCHC 32.6 RDW 12.7 Plt Count 189 MPV 10.2 Immature Gran % (Auto) 0.2 Neut % (Auto) 61.9 Lymph % (Auto) 27.9 Mcpherson % (Auto) 8.7 Eos % (Auto) 0.8 Baso % (Auto) 0.5 Lymph # (Auto) 2.4 [place]pherson # (Auto) 0.7 Eos # (Auto) 0.1 Baso # (Auto) 0.0 Abs Immat Gran (auto) 0.02 Absolute Neuts (auto) 5.3 Absolute Nucleated RBC 0.000 Nucleated RBC % (auto) 0.0 PT INR APTT D-Dimer High Sensitivty Sodium 143 Potassium 4.4 Chloride 112 H Carbon Dioxide 21 L Anion Gap 14 BUN 19 H Creatinine 1.25 Estim Creat Clear Calc 37.4 Estimated GFR 42 Random Glucose 100 Calcium 9.5 Total Bilirubin AST ALT Alkaline Phosphatase Troponin I High Sens Total Protein Albumin COVID-19 (LITA) COVID-19 Clin Com Discharge Plan Discharge Anticipated Discharge Date/Time: 02/08/21 11:36 Patient Disposition: Home, Self-Care Discharge Diagnosis: Chest pain, elevate blood pressure Referrals: Ruth aHmm NP [Primary Care Provider] - 1 Week Discharge Medications: New metoprolol tartrate 25 mg tablet 25 mg PO BID Qty: 60 RF: 0 Continued buspirone 5 mg tablet 5 mg PO DAILY RF: 0 pantoprazole 20 mg tablet,delayed release (DR/EC) 20 mg PO DAILY RF: 0 levothyroxine [Levoxyl] 75 mcg tablet 75 mcg PO DAILY@0600 RF: 0 lisinopril 30 mg tablet 30 mg PO DAILY RF: 0 hydralazine 50 mg tablet 50 mg PO DAILY RF: 0 rosuvastatin 20 mg tablet 20 mg PO BEDTIME RF: 0 cholecalciferol (vitamin D3) [Vitamin D3] 25 mcg (1,000 unit) Tablet 25 mcg PO DAILY RF: 0 Discharge Orders: Discharge Order (Routine); Ordered 02/08/21 Ordered By: Tobias Suarez Diet: advance to usual diet and low salt diet Activity on Discharge: As tolerated Stand Alone Forms: Patient Portal Discharge page Care Plan Goals: prevent hospitalization and outpatient cardiac work up Health Concerns: chest pain Plan of Treatment: Metoprolol added to your medication control blood pressure, follow up with Dr. Martell for cardiac work up (stress and echo) Assessment: Yevgeniy jacobs
--- NOTE | 2021-02-08 12:07 | MHC.CM.PN ---
pt lives in apt c her daughter. she reports that she is independent in her care. she does not use any AD c ambulation and has no svcs in the home. she no longer drives a car so she depends on her children for transportation. in total she has 6 children all of which live in the area and can help her if she needs it. her daughter will provide transportation at home. dc plan is for patient to return home no svcs. cm to cont. to follow.
[2021-02-08 12:18] VITALS: BP 131/72; PULSE 69; RESP 12; O2SAT 97
--- NOTE | 2021-02-08 12:24 | PC.NURSE ---
Report rec'd from Rose Mary, pt is A&Ox3, no complaints of pain at this time, states anxiety is normal. Awaiting bed assignment or dispo at this time.
--- NOTE | 2021-02-08 13:45 | PM.EVENT ---
Event Note Date of Service: 02/08/21 Event Note: GI consult dictated Pt reports good control of reflux on pantoprazole, no dysphagia, hematemesis or melena. EGD 07/07 showed Harper's changes without dysplasia and no significant esophagitis on endoscopy. Chest pain seems to be associated with anxiety, and does not appear to be GI related at this time. Continue present GI regimen, she has outpatient f/u arranged.
--- NOTE | 2021-02-08 16:21 | CONS_ITS ---
DATE OF SERVICE: 02/08/2021 REFERRING PHYSICIAN: Derek Torres MD REASON FOR CONSULTATION: Chest pain and history of Harper esophagus. HISTORY OF PRESENT ILLNESS: The patient is a pleasant 75-year-old woman known to me from prior evaluation. She was admitted to the hospital on February 08, after presenting to the emergency room with complaints of chest pain. She has a history of Harper esophagus and underwent upper endoscopy in June 2019, which showed no endoscopic esophagitis and a 2 cm length of Harper esophagus with no raised lesions or ulcerated areas. Biopsies were negative for dysplasia. She has had no dysphagia, hematemesis, or melena. She reports reflux symptoms are well-controlled on her present regimen of pantoprazole and [id number] simethicone as well as some Metamucil for constipation. She was admitted to the hospital after about a week of intermittent episodes of tightness in the center of the chest with no associated worsening with exertion or diaphoresis. She did have some anxiety associated with this. PAST MEDICAL HISTORY: 1. Harper esophagus. 2. Colon polyps. 3. Diverticulosis. 4. Hypertension. 5. Hypothyroidism. 6. Kidney disease, stage 3. 7. Anxiety. 8. Goiter. CURRENT MEDICATIONS: Current medication list is reviewed in the chart. ALLERGIES: MULTIPLE MEDICATION ALLERGIES ARE REVIEWED. FAMILY HISTORY: This is reviewed with the patient and is positive for stomach cancer in maternal aunt. SOCIAL HISTORY: She does not smoke and does not drink alcohol. REVIEW OF SYSTEMS: SKIN: No pruritus. HEENT: Negative. CARDIOPULMONARY: No shortness of breath or chest pain. GASTROINTESTINAL: As above. GENITOURINARY: Negative. NEUROPSYCHIATRIC: Negative. PAST SURGICAL HISTORY: Includes cholecystectomy, LEEP, and ERCP. PHYSICAL EXAMINATION: GENERAL: A pleasant female, lying comfortably in bed. VITAL SIGNS: Reviewed in the electronic medical record and are stable. She had been hypertensive on admission and has been started on a beta wyatt. SKIN: Anicteric. HEENT: No scleral icterus. NECK: Without lymphadenopathy or thyromegaly. LUNGS: Clear. HEART: Regular rate and rhythm. S1, S2. No murmur. ABDOMEN: Soft without focal masses or tenderness. Bowel sounds are present. No organomegaly is noted. EXTREMITIES: Without edema. LABORATORY DATA: Reviewed. Hematocrit is 39. Troponins have been negative. IMPRESSION: 1. Harper esophagus. 2. Chest pain. PLAN: Her chest pain seems associated with anxiety and may be in part related to this. She has been evaluated from a cardiac standpoint and has further testing planned as an outpatient. At this time, her chest discomfort appears unrelated to her GI issues, which are well controlled on her present regimen and I would recommend continuing this. She has outpatient followup already scheduled and can follow up as planned. I do not think she needs repeat endoscopy at this time based on the findings at her last endoscopy and her current symptoms. Thank you for asking me to see her. I will follow her in the hospital as needed. MD MARILYN Mccarty/VIV / [phone]
[2021-02-08 16:47] VITALS: BP 135/71; PULSE 68; RESP 14; TEMP 36.9; O2SAT 95
== END 2021-02-08 17:39 | disposition home or self-care (01) ==
LOC: HO.ED 02-08 03:04 → HO.EDOVER 02-08 04:09
PROVIDERS: Admitting Provider Hospitalist; Emergency Provider Internal Medicine; PCP Nurse Practitioner Family; Visit Provider Internal Medicine
DX: R07.2 Precordial pain (principal); I16.0 Hypertensive urgency; K22.70 Barrett's esophagus without dysplasia; K21.9 Gastro-esophageal reflux disease without esophagitis; I10 Essential (primary) hypertension; N18.30 Chronic kidney disease, stage 3 unspecified; E04.2 Nontoxic multinodular goiter; F41.9 Anxiety disorder, unspecified; Z20.822 Contact with and (suspected) exposure to COVID-19; Z82.49 Family history of ischemic heart disease and other diseases of the circulatory system; Z88.8 Allergy status to other drugs, medicaments and biological substances; Z88.1 Allergy status to other antibiotic agents; Z91.041 Radiographic dye allergy status; Z88.0 Allergy status to penicillin; Z91.013 Allergy to seafood; Z79.899 Other long term (current) drug therapy
CPT/HCPCS: 36415; 71045; 78580; 80048; 80053; 84484; 85025; 85379; 85610; 85730; 87635; 93005; 96372; 99205; 99219; 99284; 99285; A9540; J1650

== ENCOUNTER → 2021-03-09 14:17 | Outpatient (BNVA) | payer MEDICARE, SELFPAY | PROVIDERS: PCP Nurse Practitioner Family; Visit Provider Nurse Practitioner Family | DX: R07.89 Other chest pain (principal); I10 Essential (primary) hypertension; E78.9 Disorder of lipoprotein metabolism, unspecified; F41.1 Generalized anxiety disorder; Z82.49 Family history of ischemic heart disease and other diseases of the circulatory system | CPT/HCPCS: 99212 ==

== ENCOUNTER → 2021-04-12 12:46 | Outpatient (REF) | payer MEDICARE, SELFPAY ==
--- NOTE | 2021-04-12 12:54 | CA_ITS ---
Transthoracic Echocardiogram Patient (Last, First, Middle): Lindsey Cotto, Gender: Female Date of : 1945 Age: 75 Procedure Date: 04/12/2021 Procedure Type: Transthoracic Echocardiogram Location: OP Height: 154.94 cm Weight: 81.65 kg BSA: 1.81 m2 Heart Rate: bpm BP: 140 / 67 mmHg Synthetic Chemist: DIA Referring MD: Adama Martell MD Symptoms: R07.2 - Precordial pain Study Quality: Fair ECG Rhythm: Sinus Conclusions: - The left ventricular systolic function is normal. The calculated ejection fraction is 65% by biplane method. - No obvious valvular pathology seen on this study. Findings Left Ventricle Normal left ventricular cavity size. There is normal left ventricular wall thickness. The left ventricular systolic function is normal. The calculated ejection fraction is 65% by biplane method. There is no evidence of regional wall motion abnormalities. E/E prime ratio is between 8 and 15 consistent with indeterminate filling pressures. Evidence suggests grade I (mild) diastolic dysfunction. Right Ventricle Normal right ventricular cavity size and systolic function. Atria Both atria are normal in size. Aortic Valve There is a normal trileaflet aortic valve. There is no aortic valve stenosis. There is trace (trivial) aortic valve regurgitation. Mitral Valve The mitral valve appears normal. There is mild mitral annular calcification. There is no mitral valve regurgitation. There is no mitral valve stenosis. Pulmonic Valve The pulmonic valve is likely normal. Tricuspid Valve There is trace tricuspid valve regurgitation. The pulmonary artery systolic pressure is normal. Great Vessels The aortic annulus, sinuses of valsalva, asc aorta, and aortic arch are normal in size. Venous The inferior vena cava is normal in size and collapses greater than 50% with inspiration. Pericardium/Pleural There is no evidence of pericardial effusion. Prior Study Comparison No prior study available for comparison. Recommendations, Care & Conclusions No obvious valvular pathology seen on this study. Measurements 2D Linear Measurements IVSd: 1.10 0.6-0.9/0.6-1.0 cm LVIDd: 3.57 3.9-5.3/4.2-5.9 cm LVIDd Index: 1.97 2.4-3.2/2.2-3.1 cm/m2 LVIDs: 2.17 2.0-3.6 cm LVPWd: 1.16 0.7-1.1 cm Ao Root: 3.60 2.1-3.5 cm LA Diam: 3.50 2.7-3.8/3.0-4.0 cm LAIDs Index: 1.93 1.5-2.3 cm/m2 LV Mass: 158.76 67-162/88-224 g LV Mass Index: 87.71 43-95/49-115 g/m2 LVOT Diam: 2.00 3.0+(-)1.3 cm 2D Systolic Function EF 4C: 64.90 >55% EF 2C: 65.40 >55% EF BiP: 65.40 >55% Mitral Valve MV Pk E: 1.11 MV PK A: 1.29 MV Decel Time: 258.00 E/A: 0.90 E'Lateral: 7.62 E'Medial: 6.85 E/E' Med: 16.20 E/E' Lat: 14.60 PHT: 76.00 MVA PHT: 2.89 Decel Union: 4.31 Aortic Valve AoV Pk Onur: 1.64 AoV Mn Onur: 1.18 AoV VTI: 0.36 AoV Pk Grad: 11.00 Aov Mn Grad: 6.00 PERLA Cont.VTI: 2.55 LVOT LVOT Pk Onur: 1.45 LVOT Mn Onur: 0.94 LVOT VTI: 0.30 LVOT Pk Grad: 8.00 LVOT Mn Grad: 4.00 LVOT Diam: 2.00 LVOT Area: 3.14 Diastolic Function MV Pk E: 1.11 MV Pk A: 1.29 E/A: 0.90 E'Medial: 6.85 E/E' Med: 16.20 E' Laterial: 7.62 E/E' Lat: 14.60 Right Ventricle TAPSE (mm): 21.30 TVS' Onur: 16.30 Tricuspid Valve TR Pk Onur: 2.29 TR Pk Grad: 21.00 RA Press: 3.00 RVSP: 24.00 Great Vessels Aorta Ao Root-2D: 3.60 2.0-3.7 cm Ao Asc: 3.30 2.1-3.4 cm Ao Arch: 2.80 Updated in Other Vendor System with Status of Final Adama Martell MD electronically signed on 04/14/2021 1:11:22 PM with status of Final
== END ==
LOC: HO.CARD 12:46
PROVIDERS: PCP Nurse Practitioner Family; Visit Provider Internal Medicine
DX: R07.2 Precordial pain (principal)
CPT/HCPCS: 93306

== ENCOUNTER → 2021-04-14 07:42 | Outpatient (REF) | payer MEDICARE, SELFPAY ==
--- NOTE | ~2021-04-14 | NM_ITS ---
Exercise Myocardial perfusion study Indication: Precordial chest pain to evaluate for myocardial ischemia Technique: The patient was brought in for an exercise perfusion study on 04/14/2021. Patient performed exercise as per Thor protocol and was injected 25 mCi of sestamibi was given intravenously one target HR was achieved. Images were obtained using the SPECT gamma camera interlaced with the gating device. Images were obtained in supine position. Resting perfusion study was performed on 04/18/2021. Patient was administered 25 mCi of sestamibi intravenously at rest. Images were then obtained in supine position. Images were obtained with and without CT attenuation. Total DLP 103 mGy-cm. Images were processed with the software and compared side to side in short axis, horizontal long axis and vertical long axis views. Findings: The stress perfusion study showed non attenuated images show normal uptake of radiotracer in all segments of LV myocardium. Attenuation corrected images show minimally reduced uptake in the apex of the LV myocardium.. The gated study shows normal LV systolic function with calculated LVEF of 69%. LV cavity is normal in size. The gated study shows normal systolic wall thickening and contraction of all segments. There is no transient ischemic dilation. Resting study shows attenuated corrected images show minimally reduced uptake in the apex of the LV myocardium. Gating at rest reveals normal systolic wall motion with ejection fraction at 68%. The findings are consistent with normal myocardial perfusion. NM/NM cardiolite stress test Impression: 1. Normal myocardial perfusion 2. Gated LVEF is 69% 3. Transient ischemic dilatation not present Stress EKG is negative for ischemia
--- NOTE | 2021-04-14 07:45 | CA_ITS ---
Acquisition Time: 2021-04-14 07:46:56 Total Exercise Time: 00:05:01 Test Indications: Chest Pain Medications: SEE H Protocol: MAGDALENA Max HR: 169 BPM 116% of Pred: 145 BPM Max BP: 182/070 mmHG Max Work Load: 4.6 METS Exercise stress test with exercise 5 min 1 sec of Magdalena stage 1, ( stage held due to heart rate at 99% MPHR after 3 min), with moderate shortness of breath, no chest discomfort, with isolated PAC, short runs of atrial tach, PVC, one ventricular cuplet and one ventricular triplet, with normtensive response to exercise, without EKG changes meeting criteria for ischemia. Nuclear images pending. Test reviewed with Dr Martell. Holter monitor ordered to further evaluate for arrythmia. Referred By: Adama Martell Overread By: DISHA ORLANDO
== END ==
LOC: HO.CARD 07:42
PROVIDERS: Visit Provider Internal Medicine
DX: R07.2 Precordial pain (principal)
CPT/HCPCS: 78452; 93017; A9500

== ENCOUNTER → 2021-04-18 07:00 | Outpatient (REF) | payer MEDICARE, SELFPAY ==
--- NOTE | 2021-04-18 07:04 | HM_ITS ---
Conclusion: 1. Patient was monitored for total period of 3 days and 5 hours 2. Baseline was normal sinus rhythm with average heart of 55 beats per minute on bradycardic side. Frequent sinus bradycardia noted 3. No significant pauses noted 4. Total of 2961 PVCs accounting for 1.14% total burden account for frequent PVCs 5. Total of 3813 PACs accounting for 1.47% total burden account for frequent PACs 6. Multiple short burst of supraventricular episodes consistent with SVT longest episode lasting 15 beats. 7. No patient reported events MTDD
== END ==
LOC: HO.CARD 07:00
PROVIDERS: Visit Provider Nurse Practitioner Family
DX: I49.1 Atrial premature depolarization (principal); I49.3 Ventricular premature depolarization
CPT/HCPCS: 93242

== ENCOUNTER → 2021-05-17 14:08 | Outpatient (BNVA) | payer MEDICARE, SELFPAY | PROVIDERS: PCP Nurse Practitioner Family; Visit Provider Nurse Practitioner Family | DX: R07.89 Other chest pain (principal); I10 Essential (primary) hypertension; E78.9 Disorder of lipoprotein metabolism, unspecified; F41.1 Generalized anxiety disorder; I47.1 Supraventricular tachycardia; I49.1 Atrial premature depolarization; I49.3 Ventricular premature depolarization | CPT/HCPCS: 99212; Q3014 ==

== ENCOUNTER 2021-06-18 12:33 | Emergency (ER) | payer MEDICARE, SELFPAY ==
--- NOTE | ~2021-06-18 | CT_ITS ---
EXAMINATION: CT ABDOMEN AND PELVIS WITHOUT CONTRAST CLINICAL INFORMATION: Abdominal pain. COMPARISON: CT scan of the abdomen and pelvis dated 05/12/2020. TECHNIQUE: Multidetector volumetric imaging was performed from the superior aspect of the liver through the pubic symphysis. Sagittal and coronal reformatted images were obtained on the technologist's workstation. This CT examination was performed using dose optimization techniques as appropriate, variously including the following: *Automated exposure control *Adjustment of mA and/or kV according to patient size (this includes techniques or standardized protocols for targeted exams where dose is matched to indication/reason for exam; i.e. extremities or head) *Use of iterative reconstruction technique DLP: 652 mGy-cm FINDINGS: LUNG BASES: The visualized lung bases are unremarkable. LIVER, GALLBLADDER, AND BILIARY TREE: No hepatic abnormality. Status post cholecystectomy. Mild pneumobilia without associated abnormality. PANCREAS: Unremarkable. SPLEEN: Unremarkable. ADRENAL GLANDS: Unremarkable. KIDNEYS AND URETERS: Small peripelvic cysts and mild pelvocaliectasis bilaterally without abnormality. No nephrolithiasis. No ureterectasis. BLADDER: Mildly distended with mild diffuse mural thickening. GASTROINTESTINAL TRACT: The stomach is unremarkable. A small to moderate second segment as well as third/fourth segment small diverticulum are seen in the duodenum without associated abnormality or change. The remainder the small bowel is unremarkable. The appendix is unremarkable without surrounding abnormality. Mild to moderate diverticulosis is seen in the colon most pronounced distally in the sigmoid colon. Mild infiltrative changes surround the cecum with mild mural thickening. Additionally there is increased mural thickening and pericolonic infiltrative changes surrounding the proximal one third of the sigmoid colon. No evidence for perforation or abscess formation. The rectum is unremarkable. ABDOMINAL WALL: Small fat-containing umbilical hernia. LYMPH NODES: No lymphadenopathy. VASCULAR: Unremarkable. PELVIC VISCERA: Anteverted/anteflexed uterus. Noncalcified fluid attenuation right ovarian cyst measuring up to 2.8 cm without significant change (image 49, series 5. No left adnexal abnormality. OSSEOUS STRUCTURES: L5-S1 mild degenerative changes. CT/CT abdomen pelvis wo con IMPRESSION: 1. Mild to moderate colonic diverticulosis. Mural thickening and mild pericolonic infiltrative changes are seen in the proximal sigmoid colon most consistent with acute diverticulitis. Mild infiltrative changes surrounding the cecum are nonspecific. A definitive diverticulum is not seen in this region, but mild diverticulitis at this level cannot be excluded. This appears separate from the appendix which appears otherwise normal. Given the cecal findings, a short-term repeat CT scan of the abdomen and pelvis preferably with intravenous and oral contrast is recommended following termination treatment for diverticulitis to assess for resolution. 2. Several incidental findings detailed above without significant interval change.
[2021-06-18 12:45] VITALS: BP 134/84; BP 143/62; PULSE 61; PULSE 64; RESP 16; TEMP 36.6; O2SAT 99; BMI 32.3
--- NOTE | 2021-06-18 12:54 | ED_ITS ---
HPI - General Adult General Chief complaint: Abdominal Pain Stated complaint: abd pain Time Seen by Provider: 06/18/21 12:42 Source: patient Mode of arrival: ambulatory Limitations: no limitations History of Present Illness HPI narrative: 75-year-old female history of diverticulitis, Harper's esophagus, chronic kidney disease stage 3, PVC, hypothyroidism, nontoxic goiter, presents to ED for 10 days of epigastric mid abdominal pain radiating to left lower quadrant. Patient denies any nausea, vomiting, chest pain, shortness of breath, rectal bleeding, vomiting blood, black stool, leg swelling, calf pain, fever, chills, chest pain, shortness of breath, or constipation. Related Data Home Medications Medication Instructions Recorded Confirmed buspirone 5 mg tablet 5 mg PO DAILY 02/08/21 05/17/21 cholecalciferol (vitamin D3) 25 25 mcg PO DAILY 02/08/21 05/17/21 mcg (1,000 unit) tablet (Vitamin D3) hydralazine 50 mg tablet 50 mg PO DAILY 02/08/21 05/17/21 levothyroxine 75 mcg tablet 75 mcg PO DAILY@0600 02/08/21 05/17/21 (Levoxyl) lisinopril 30 mg tablet 30 mg PO DAILY 02/08/21 05/17/21 pantoprazole 20 mg tablet,delayed 20 mg PO DAILY 02/08/21 05/17/21 release rosuvastatin 20 mg tablet 20 mg PO BEDTIME 02/08/21 05/17/21 Previous Rx's Medication Instructions Recorded amoxicillin 875 mg-potassium 1 tab PO Q12H 7 Days #14 tab 06/18/21 clavulanate 125 mg tablet metronidazole 500 mg tablet 500 mg PO Q12H 7 Days #14 tab 06/18/21 Allergies Allergy/AdvReac Type Severity Reaction Status Date / Time Iodinated Contrast Media Allergy Severe TACHYCARDIA,DIFFICULTY Verified 10/19/20 13:29 [IV CONTRAST] BREATHING amoxicillin [Prevpac] Allergy Unknown Unknown Verified 10/19/20 13:29 clarithromycin [Prevpac] Allergy Unknown Unknown Verified 10/19/20 13:29 escitalopram [From LEXAPRO] Allergy Unknown CHEST PAIN Verified 10/19/20 13:29 lansoprazole [Prevpac] Allergy Unknown unknown Verified 10/19/20 13:29 lovastatin Allergy Unknown myalgia Verified 10/19/20 13:29 omeprazole [From Prilosec] Allergy Unknown CHEST Verified 10/19/20 13:29 PAIN,DIFFICULTY BREATHING pravastatin Allergy Unknown myalgia Verified 10/19/20 13:29 shellfish derived Allergy Unknown UNKOWN Verified 10/19/20 13:29 [SHELLFISH DERIVED] iv contrast dye Allergy Unknown unknown Uncoded 10/19/20 13:29 iv dye/ shellfish Allergy Unknown unknown Uncoded 10/19/20 13:29 Prilosec Allergy Unknown Chest pain Uncoded 10/19/20 13:29 Review of Systems Review of Systems: Abdominal pain for 10 days Yes all other systems are re viewed and are negative [facility] Past Medical History Medical History Allergies Anxiety, generalized Harper esophagus Barretts esophagus Chronic GERD Hypertension, essential Hypertensive urgency Lipid disorder Non-toxic multinodular goiter Surgical History H/O GOLDY (2007) Family History Family History Father Heart disease Mother Heart disease Maternal Uncle Colon cancer Heart failure Social History Social History Alcohol intake: never Patient Tobacco Use Status: Never used Tobacco Advance Directives: Yes Advance Directives Information Provided: No Advance Directives on File: No service: No Current occupational status: retired Physical Exam ED Vital Signs: Vital Signs - 24 hr 06/18/21 12:45 06/18/21 16:12 06/18/21 20:05 Temperature 97.8 F 98.3 F 98.0 F Pulse Rate 61 76 70 Respiratory Rate 16 17 16 Blood Pressure 143/62 H 134/70 139/74 Pulse Oximetry 99 96 98 BMI result Body Mass Index 32.3 Const General: cooperative, healthy appearing, comfortable, no acute distress, well developed, alert, awake and Physically active Orientation/consciousness: oriented to time and patient oriented x3 HENMT Head: Yes normal to inspection, Yes No palpable skull fracture present, Yes normocephalic, Yes atraumatic and No abrasion Eyes General: appearance normal, both eyes and all related structures Neck Neck: Yes normal visual inspection, Yes full ROM, Yes no lymphadenopathy, Yes no meningeal signs, Yes trachea midline, Yes supple, No anterior neck swelling and No tender Chest Chest palpation & inspection: normal inspection of the chest and normal palp ation of entire chest wall Resp Effort & Inspection: normal respiratory effort and able to speak in complete sentences Auscultation: clear to auscultation bilaterally Cardio Jugular venous distension: no JVD Heart sounds: S1 normal heart sound present and S2 normal heart sound present GI Inspection: Yes normal to inspection and No abdominal wall ecchymosis Palpation (GI): Tenderness to palpation present (GI) in the epigastrum and in the LLQ, no guarding and not rigid General: No CVA tenderness and Yes no CVA tenderness Back/Spine/Pelvis Back: no CVA tenderness, No CVA tenderness and No back tenderness Skin General skin exam: no rashes or lesions noted and elasticity normal Neuro General: oriented to time, patient oriented x3, gait normal, no meningeal signs and CN's II-XI intact bilaterally Cranial nerves: Yes CN's II-XII intact bilaterally Extrem Other: Rue extremity negative for swelling, pitting edema, calf tenderness. General: Yes normal to inspection and Yes full ROM Psych Appearance: grossly normal, well kempt and not disheveled Course Course Course Narrative: Although patient denies any chest pain due to age will do EKG and at least 1 troponin. Labs will be ordered. GI cocktail ordered. Patient will be sent for abdominal CT scan to rule out diverticulitis or bowel obstruction Reevaluation(s) Reevaluation #1: CT scan shows diverticulitis. patient given oral antibiotics levaquin in the ED and than informed ED staff she developed tendinitis and primary care provider told to stop using the floriquinolone due to possible tendon rupture. Patient states states she has been prescribed Augmentin and Flagyl in the past for diverticulitis without any adverse reaction. Patient denies never ever having a reaction to Augmentin. Patient states her primary care provider informed her never to use fluoroquinolones. Patient given copy of labs and imaging for follow-up primary care provider. patient states history of chronic kidney disease and her last creatinine was 1.4 at her primary care provider. Patient given fluids before discharge. Time: 15:[address] [facility] Narrative Medical decision making narrative: Diverticulitis Lab Data Result diagrams: 06/18/21 13:45 06/18/21 14:10 Labs: Lab Results 06/18/21 06/18/21 06/18/21 Range/Units 13:45 13:45 14:10 WBC 9.6 (4.8-10.8) X10*3/uL RBC 4.67 (4.20-5.50) X10*6/uL Hgb 13.4 (12.0-16.0) g/dl Hct 41.7 (37.0-47.0) % MCV 89.3 (80.0-98.0) fL MCH 28.7 (27.0-33.0) pg MCHC 32.1 (31.0-35.0) g/dl RDW 13.2 (11.0-16.0) % Plt Count 172 (160-400) X10*3/uL MPV 10.6 (9.4-12.3) fL Immature Gran % (Auto) 0.2 (0.0-0.4) % Neut % (Auto) 79.7 H (45-73) % Lymph % (Auto) 11.4 L (20-40) % Otero % (Auto) 8.0 (2-11) % Eos % (Auto) 0.5 (0-4) % Baso % (Auto) 0.2 (0-2) % Lymph # (Auto) 1.1 L (1.2-4.9) X10*3/uL Otero # (Auto) 0.8 (0.1-1.2) X10*3/uL Eos # (Auto) 0.1 (0.0-0.4) X10*3/uL Baso # (Auto) 0.0 (0.0-0.2) X10*3/uL Abs Immat Gran (auto) 0.02 (0.00-0.03) X10*3/uL Absolute Neuts (auto) 7.6 (2.0-8.3) x10*3/uL Absolute Nucleated RBC 0.000 (0.0-0.012) X10*3/uL Nucleated RBC % (auto) 0.0 (0.0-0.2) /100WBC PT 13.0 (9.9-13.0) SEC INR 1.1 (0.9-1.1) APTT 28.0 (24.1-38.0) SEC Sodium (135-145) mmol/L Potassium (3.3-5.1) mmol/L Chloride (96-108) mmol/L Carbon Dioxide (22-29) mmol/L Anion Gap (12-20) BUN (9-16) mg/dL Creatinine (0.5-1.4) mg/dL Estim Creat Clear Calc Estimated GFR Random Glucose (60-115) mg/dL Calcium (8.4-10.2) mg/dL Total Bilirubin (0.0-1.0) mg/dL AST (5-31) U/L ALT (0-31) U/L Alkaline Phosphatase (39-117) U/L Troponin I High Sens < 3.5 (<3.5-17.0) ng/L Total Protein (6.5-8.0) g/dL Albumin (3.5-5.0) g/dL Lipase (8-78) U/L Urine Color Urine Appearance Urine pH (5.0-8.0) Ur Specific Moriah (1.005-1.025) Urine Protein (NEG-TRACE) MG/DL Urine Glucose (UA) (NEG) MG/DL Urine Ketones (NEG) MG/DL Urine Blood (NEG) Urine Nitrite (NEG) Ur Leukocyte Esterase (NEG) 06/18/21 06/18/21 Range/Units 14:10 15:27 WBC (4.8-10.8) X10*3/uL RBC (4.20-5.50) X10*6/uL Hgb (12.0-16.0) g/dl Hct (37.0-47.0) % MCV (80.0-98.0) fL MCH (27.0-33.0) pg MCHC (31.0-35.0) g/dl RDW (11.0-16.0) % Plt Count (160-400) X10*3/uL MPV (9.4-12.3) fL Immature Gran % (Auto) (0.0-0.4) % Neut % (Auto) (45-73) % Lymph % (Auto) (20-40) % Otero % (Auto) (2-11) % Eos % (Auto) (0-4) % Baso % (Auto) (0-2) % Lymph # (Auto) (1.2-4.9) X10*3/uL Otero # (Auto) (0.1-1.2) X10*3/uL Eos # (Auto) (0.0-0.4) X10*3/uL Baso # (Auto) (0.0-0.2) X10*3/uL Abs Immat Gran (auto) (0.00-0.03) X10*3/uL Absolute Neuts (auto) (2.0-8.3) x10*3/uL Absolute Nucleated RBC (0.0-0.012) X10*3/uL Nucleated RBC % (auto) (0.0-0.2) /100WBC PT (9.9-13.0) SEC INR (0.9-1.1) APTT (24.1-38.0) SEC Sodium 142 (135-145) mmol/L Potassium 4.7 (3.3-5.1) mmol/L Chloride 108 (96-108) mmol/L Carbon Dioxide 23 (22-29) mmol/L Anion Gap 16 (12-20) BUN 23 H (9-16) mg/dL Creatinine 1.47 H (0.5-1.4) mg/dL Estim Creat Clear Calc 31.1 Estimated GFR 35 Random Glucose 99 (60-115) mg/dL Calcium 9.5 (8.4-10.2) mg/dL Total Bilirubin 0.5 (0.0-1.0) mg/dL AST 26 (5-31) U/L ALT 17 (0-31) U/L Alkaline Phosphatase 82 (39-117) U/L Troponin I High Sens (<3.5-17.0) ng/L Total Protein 6.5 (6.5-8.0) g/dL Albumin 3.7 (3.5-5.0) g/dL Lipase 21 (8-78) U/L Urine Color YELLOW Urine Appearance CLEAR Urine pH 6.0 (5.0-8.0) Ur Specific Moriah <= 1.005 (1.005-1.025) Urine Protein NEG (NEG-TRACE) MG/DL Urine Glucose (UA) NEG (NEG) MG/DL Urine Ketones NEG (NEG) MG/DL Urine Blood NEG (NEG) Urine Nitrite NEG (NEG) Ur Leukocyte Esterase NEG (NEG) ECG Data Interpretation: sinus rhythm. Reticular rate 77. . The 136. QRS 84. QTC 466. Negative STEMI Discharge Plan Discharge Clinical Impression: Diverticulitis Patient Disposition: Home, Self-Care Instructions: Diverticulitis (ED) Additional Instructions: your abdominal CT scan shows diverticulitis. You will be discharged with Augmentin and Flagyl. Tylenol over the counter can be taking for pain medication. Return to the ED immediately for abdominal pain, blood in stool, fever, chills, nausea, vomiting, weakness, or any other concerning symptoms. Please follow-up with primary care provider Prescriptions: New amoxicillin-pot clavulanate 875-125 mg tablet 1 tab PO Q12H 7 Days Qty: 14 0RF metronidazole 500 mg tablet 500 mg PO Q12H 7 Days Qty: 14 0RF No Action buspirone 5 mg tablet 5 mg PO DAILY 0RF pantoprazole 20 mg tablet,delayed release (DR/EC) 20 mg PO DAILY 0RF levothyroxine [Levoxyl] 75 mcg tablet 75 mcg PO DAILY@0600 0RF lisinopril 30 mg tablet 30 mg PO DAILY 0RF hydralazine 50 mg tablet 50 mg PO DAILY 0RF rosuvastatin 20 mg tablet 20 mg PO BEDTIME 0RF cholecalciferol (vitamin D3) [Vitamin D3] 25 mcg (1,000 unit) Tablet 25 mcg PO DAILY 0RF Interventions: ED Discharge Assessment Last Done: 06/18/21 20:08 Discharge Date/Time: 06/18/21 20:11 Print Language: Gibraltarian
[2021-06-18 13:50] LABS: MANUAL DIFF FLAG NO
[2021-06-18 13:52] LABS: Basophils Percent Auto 0.2 % (0-2); Eosinophils Absolute Auto 0.1 X10*3/uL (0.0-0.4); Eosinophils Percent Auto 0.5 % (0-4); Hematocrit 41.7 % (37.0-47.0); Hemoglobin 13.4 g/dl (12.0-16.0); Imm Gran Abs Auto 0.02 X10*3/uL (0.00-0.03); Imm Gran Pct Auto 0.2 % (0.0-0.4); Lymphocytes Absolute Auto 1.1 X10*3/uL (1.2-4.9); Lymphocytes Percent Auto 11.4 % (20-40); Mean Corpuscular HGB Conc 32.1 g/dl (31.0-35.0); Mean Corpuscular Hemoglobin 28.7 pg (27.0-33.0); Mean Corpuscular Volume 89.3 fL (80.0-98.0); Mean Platelet Volume 10.6 fL (9.4-12.3); Monocytes Absolute Auto 0.8 X10*3/uL (0.1-1.2); Neutrophils Absolute Auto 7.6 x10*3/uL (2.0-8.3); Neutrophils Percent Auto 79.7 % (45-73); Platelet Count 172 X10*3/uL (160-400); Red Blood Count 4.67 X10*6/uL (4.20-5.50); Red Cell Distribution Width 13.2 % (11.0-16.0); White Blood Count 9.6 X10*3/uL (4.8-10.8)
[2021-06-18] MEDS: Lidocaine HCl Viscous 2 % 15 ML SOLUTION MUCOUS MEM (13:55)
[2021-06-18] MEDS: Magnesium Hydrox/Alum Hydrox 30 ML ORAL.SUSP PO (13:55)
[2021-06-18] MEDS: Famotidine/PF 20 MG/2 ML VIAL IVPUSH (13:55)
[2021-06-18 14:11] LABS: Troponin-I High Sensitivity < 3.5 ng/L (<3.5-17.0)
--- NOTE | 2021-06-18 14:16 | ECG_ITS ---
Test Reason : ABDOMINAL PAIN Blood Pressure : / mmHG Vent. Rate : 077 BPM Atrial Rate : 077 BPM P-R Int : 136 ms QRS Dur : 084 ms QT Int : 412 ms P-R-T Axes : 040 037 053 degrees QTc Int : 466 ms Sinus rhythm with marked sinus arrhythmia Otherwise normal ECG When compared with ECG of 07-FEB-2021 23:13, No significant change was found Referred By: Lucas Garcia Electronically Signed By:Sukh Handy
[2021-06-18 14:20] LABS: INTERNATIONAL NORM RATIO 1.1 (0.9-1.1)
[2021-06-18 14:39] LABS: Alanine Aminotransferase 17 U/L (0-31); Albumin Level 3.7 g/dL (3.5-5.0); Alkaline Phosphatase 82 U/L (39-117); Anion Gap 16 (12-20); Aspartate Amino Transferase 26 U/L (5-31); Bilirubin Total 0.5 mg/dL (0.0-1.0); Blood Urea Nitrogen 23 mg/dL (9-16); Calcium 9.5 mg/dL (8.4-10.2); Carbon Dioxide 23 mmol/L (22-29); Chloride 108 mmol/L (96-108); Creatinine Clr Calc Pharmacy 31.1; Estimated Glomerular Filt Rate 35; Glucose Random 99 mg/dL (60-115); Lipase 21 U/L (8-78); Potassium 4.7 mmol/L (3.3-5.1); Sodium 142 mmol/L (135-145); Total Protein 6.5 g/dL (6.5-8.0)
[2021-06-18] MEDS: Acetaminophen 325 MG TABLET 650 MG PO (14:55)
[2021-06-18] MEDS: metroNIDAZOLE 500 MG TABLET PO (15:15)
[2021-06-18] MEDS: levoFLOXacin 750 MG TABLET PO (15:15)
[2021-06-18 15:33] LABS: Appearance Urine CLEAR; Color Urine YELLOW; Glucose Urine UA NEG (NEG); Leukocyte Esterase Urine NEG (NEG); Nitrite Urine NEG (NEG); Specific Gravity - Urine <= 1.005 (1.005-1.025); Urine Blood NEG (NEG); Urine Ketones NEG (NEG); Urine Protein NEG (NEG-TRACE)
[2021-06-18 16:12] VITALS: BP 134/70; PULSE 76; RESP 17; TEMP 36.8; O2SAT 96
[2021-06-18] MEDS: 0.9 % Sodium Chloride 1,000 ML 999 ML IV (17:38)
[2021-06-18 20:05] VITALS: BP 139/74; PULSE 70; RESP 16; TEMP 36.7; O2SAT 98
== END 2021-06-18 20:11 | disposition home or self-care (01) ==
PROVIDERS: Physician Assistant; Emergency Provider Emergency Medicine; PCP Nurse Practitioner Family
DX: K57.32 Diverticulitis of large intestine without perforation or abscess without bleeding (principal); I12.9 Hypertensive chronic kidney disease with stage 1 through stage 4 chronic kidney disease, or unspecified chronic kidney disease; N18.30 Chronic kidney disease, stage 3 unspecified
CPT/HCPCS: 36415; 74176; 80053; 81003; 83690; 84484; 85025; 85610; 85730; 93005; 96361; 96374; 96375; 99284; 99285

== ENCOUNTER 2021-07-07 07:50 | Outpatient (REF) | payer MEDICARE, SELFPAY ==
[2021-07-07 11:57] LABS: Free T4 (Free Thyroxine) 1.27 ng/dL (0.71-1.85); Thyroid Stimulating Hormone 2.03 uIU/mL (0.32-4.0)
== END 2021-07-07 07:51 | disposition home or self-care (01) ==
LOC: HO.HMGCLDS 07:50
PROVIDERS: PCP Nurse Practitioner Family; Visit Provider Internal Medicine Endocrinology, Diabetes & Metabolism
DX: E03.8 Other specified hypothyroidism (principal); E04.2 Nontoxic multinodular goiter; E06.3 Autoimmune thyroiditis
CPT/HCPCS: 36415; 84439; 84443; 99212

== ENCOUNTER 2021-08-10 12:53 | Outpatient (REF) | payer MEDICARE, SELFPAY ==
--- NOTE | ~2021-08-10 | US_ITS ---
EXAMINATION: US THYROID CLINICAL INFORMATION: Nontoxic multinodular goiter. COMPARISON: US thyroid 07/13/2020 and 11/04/2017. TECHNIQUE: Linear transducer grayscale and color Doppler examination with attention to the region of the thyroid. FINDINGS: SIZE: Measurements of the thyroid lobes and nodules are given in sagittal, anteroposterior and transverse dimensions respectively. Right Thyroid Lobe: 3.8 x 1.1 x 1.1 cm, volume 2.4 mL. Previously 3.9 x 1.3 x 1.1 cm, volume 2.8 mL. Parenchyma: The gland echotexture is homogeneous. Thyroid vascularity is normal. Left Thyroid Lobe: 3.4 x 0.8 x 0.7 cm, volume 1.0 mL. Previously 3.4 x 2.4 x 0.9 cm, volume 3.7 mL. Parenchyma: The gland echotexture is homogeneous. Thyroid vascularity is normal. Isthmus: 0.3 cm in maximum AP dimension. Previously 0.3 cm. Estimated total number of nodules greater than or equal to 1 cm: 0. Presiding Judge nodules are described as follows: 1. Location: Right superior/mid. Size: 0.5 x 0.4 x 0.3 cm, volume 0.03 mL. Previously: 0.4 x 0.2 x 0.3 cm, volume 0.01 mL. Nodule characteristics: Composition: Solid/almost completely solid (2). Echogenicity: Hypoechoic (2). Shape: Not taller than wide (0). Margins: Smooth (0). Echogenic Foci: None (0). ACR TI-RADS total points: 4 Previous: 4 ACR TI-RADS category: 4 Previous: 4 Change: No significant change in size, features, or TI-RADS category. 2. Location: Left superior/mid. Size: 0.5 x 0.6 x 0.4 cm, volume 0.1 mL. Previously: 0.5 x 0.3 x 0.5 cm, volume 0.1 mL. Nodule characteristics: Composition: Solid/almost completely solid (2). Echogenicity: Hypoechoic (2). Shape: Not taller than wide (0). Margins: Smooth (0). Echogenic Foci: None (0). ACR TI-RADS total points: 4 Previous: 4 ACR TI-RADS category: 4 Previous: 4 Change: No significant change in size, features, or TI-RADS category. NODES: No lymphadenopathy is seen in the tissue surrounding the thyroid gland. US/US thyroid IMPRESSION: -No significant change in size or features bilateral solitary nodules, both under 1 cm. -No new nodule. No adenopathy. Reference: ACR TI-RADS RECOMMENDATION: TR4 (4-6 points) -FNA if 1.5 cm or greater maximal dimension. -US followup in 1, 2, 3, and 5 years if 1.0 - 1.4 cm maximal dimension. -No followup if under 1.0 cm maximal dimension.
== END 2021-08-10 12:54 | disposition home or self-care (01) ==
LOC: HO.US 12:53
PROVIDERS: Visit Provider Internal Medicine Endocrinology, Diabetes & Metabolism
DX: E04.2 Nontoxic multinodular goiter (principal)
CPT/HCPCS: 76536

== ENCOUNTER → 2021-08-16 15:21 | Outpatient (BNVA) | payer MEDICARE, SELFPAY | PROVIDERS: PCP Nurse Practitioner Family; Visit Provider Obstetrics & Gynecology | DX: Q50.5 Embryonic cyst of broad ligament (principal) | CPT/HCPCS: 99202 ==

== ENCOUNTER 2021-09-07 06:35 | Emergency (ER) | payer MEDICARE, SELFPAY ==
--- NOTE | 2021-09-07 | ECG_ITS ---
Test Reason : cp Blood Pressure : / mmHG Vent. Rate : 075 BPM Atrial Rate : 075 BPM P-R Int : 134 ms QRS Dur : 086 ms QT Int : 380 ms P-R-T Axes : 019 041 045 degrees QTc Int : 424 ms Normal sinus rhythm with sinus arrhythmia Normal ECG When compared with ECG of 18-JUN-2021 15:07, No significant change was found Referred By: Generic ED Physician Electronically Signed By:Sukh Handy
--- NOTE | ~2021-09-07 | XR_ITS ---
EXAMINATION: XR CHEST CLINICAL INFORMATION: Chest pain COMPARISON: Chest radiograph 02/08/2021 TECHNIQUE: 2 views of the chest were obtained. FINDINGS: No significant abnormality is noted involving the heart, lungs, mediastinum, bony thorax or soft tissues. The aorta is unfolded. No infiltrates, effusions or lung masses are seen. Appearances are stable when compared to the prior study. XR/XR chest 2V IMPRESSION: No acute intrathoracic disease.
[2021-09-07 06:39] VITALS: BP 184/103; PULSE 97; RESP 16; TEMP 36.4; O2SAT 98; BMI 34.0
[2021-09-07 09:52] VITALS: BP 186/83; PULSE 74; RESP 14; TEMP 36.5; O2SAT 97
--- NOTE | 2021-09-07 10:15 | ED.CHESTPAIN ---
HPI - Chest Pain General Chief Complaint: Chest Pain Stated Complaint: CP, arm tingling sensation Time Seen by Provider: 09/07/21 10:06 Source: patient, RN notes reviewed and old records reviewed Mode of arrival: ambulatory Limitations: no limitations History of Present Illness HPI narrative: This is a 76-year-old female, with a past medical history anxiety, Harper's esophagus, chronic GERD, hypertension, hyperlipidemia, hypothyroidism with nontoxic multinodular goiter, who presents today with complaints of midsternal burning chest pain that started at 03:00AM this morning. Patient states that she was awoke in the middle the night with a burning sensation in the middle of her chest that radiated into her arms. She states that she was not short of breath, did not have any palpitations, however felt her heart racing and took her pulse which was 115bpm. She took antacids for her symptoms, however did not have any relief. She states that she has had constant pain since this episode, reports that she also has associated nausea, denies any vomiting, diarrhea or constipation. she states that her anxiety has been poorly controlled, and has been following up with her primary care who recently took her off of Buspar and is now taking Zoloft. She states that she has noticed no improvement in her anxiety. She denies any SI or HI. She states that she is very anxious and is upset that she has been evaluated in the ED multiple times for chest discomfort and has been seen by Cardiology without any definitive diagnosis. She also reports that over the last couple weeks she has had an itchy rash to her abdominal skin fold. No other complaints or concerns at this time. MD complaint: chest pain Onset (ago): hour(s) Timing of current episode: constant Prior episodes: Yes Onset: during rest and awoke with symptoms Pain location: substernal Pain radiation: right arm, left arm, left shoulder and right shoulder Severity: moderate Pain scale (0-10): 8 Quality: burning Relieving factors: nothing Exacerbating factors: nothing Context: new medications ( Zoloft) Associated symptoms: nausea Treatment prior to arrival: none Risk Factors Coronary artery disease risk factors: hyperlipidemia and hypertension Related Data On Oral Contraceptives: No Home Medications Medication Instructions Recorded Confirmed buspirone 5 mg tablet 5 mg PO DAILY 02/08/21 05/17/21 hydralazine 50 mg tablet 50 mg PO DAILY 02/08/21 05/17/21 levothyroxine 75 mcg tablet 75 mcg PO DAILY@0600 02/08/21 05/17/21 (Levoxyl) lisinopril 30 mg tablet 30 mg PO DAILY 02/08/21 05/17/21 rosuvastatin 20 mg tablet 20 mg PO BEDTIME 02/08/21 05/17/21 Previous Rx's Medication Instructions Recorded loratadine 10 mg tablet (Allergy 10 mg PO DAILY #30 tabs 08/04/21 Relief (loratadine)) hydroxyzine HCl 50 mg tablet 50 mg PO Q8H PRN for anxiety #20 09/07/21 tabs Allergies Allergy/AdvReac Type Severity Reaction Status Date / Time Iodinated Contrast Media Allergy Severe TACHYCARDIA,DIFFICULTY Verified 08/16/21 15:47 [IV CONTRAST] BREATHING amoxicillin [Prevpac] Allergy Unknown Unknown Verified 08/16/21 15:47 clarithromycin [Prevpac] Allergy Unknown Unknown Verified 08/16/21 15:47 escitalopram [From LEXAPRO] Allergy Unknown CHEST PAIN Verified 08/16/21 15:47 lansoprazole [Prevpac] Allergy Unknown unknown Verified 08/16/21 15:47 lovastatin Allergy Unknown myalgia Verified 08/16/21 15:47 omeprazole [From Prilosec] Allergy Unknown CHEST Verified 08/16/21 15:47 PAIN,DIFFICULTY BREATHING pravastatin Allergy Unknown myalgia Verified 08/16/21 15:47 shellfish derived Allergy Unknown UNKOWN Verified 08/16/21 15:47 [SHELLFISH DERIVED] iv contrast dye Allergy Unknown unknown Uncoded 08/16/21 15:47 iv dye/ shellfish Allergy Unknown unknown Uncoded 08/16/21 15:47 Prilosec Allergy Unknown Chest pain Uncoded 08/16/21 15:47 Review of Systems Review of Systems: Constitutional : No Weight loss, No Fever, No Chills, No Night Sweats, No Fatigue, No Malaise ENT/Mouth : No Hearing loss, No Ear Pain, No Nasal Congestion, No Sinus Pain, No Hoarseness, No sore throat, No Rhinorrhea, No Swallowing Difficulty Eyes: No Eye Pain, No Swelling, No Redness, No Foreign Body, No Discharge, No Vision Changes Cardiovascular : +Chest pain, No SOB, no Dyspnea on Exertion, No Orthopnea, No Edema, No extremity swelling, No Palpitations Respiratory : No Cough, No Sputum, No Wheezing, No Dyspnea Gastrointestinal : + Nausea, No Vomiting, No Diarrhea, No abdominal Pain, No Hematochezia, No Melena Genitourinary : No irregular bleeding, No Dysuria, No Urinary Frequency, No Hematuria, No Urinary Incontinence, No Urgency, No Flank Pain, No Urinary Flow Changes, No Hesitancy Musculoskeletal : No joint pain, No Myalgias, No Joint Swelling Skin : +Rash No Skin Lesions Neuro : No Weakness, No Numbness, No Paresthesias, No Loss of Consciousness, No Dizziness, No Headache Psych : +Anxiety, No Panic, No Depression, No SI/HI/AH/VH Heme/Lymph: No Bruising, No Bleeding,No Lymphadenopathy Endocrine : No Polyuria, No Polydipsia, No Temperature Intolerance Yes all other systems are reviewed and are negative [facility] Past Medical History Attestation statement: The following information was validated with the patient. Medical History Allergies Anxiety, generalized Harper esophagus Barretts esophagus Chronic GERD Hypertension, essential Hypertensive urgency Lipid disorder Non-toxic multinodular goiter Surgical History H/O LEEP (2007) Family History Family History Father Heart disease Mother Heart disease Maternal Uncle Colon cancer Heart failure Social History Social History Alcohol intake: never Patient Tobacco Use Status: Never used Tobacco Use of substances other than those prescribed or required for medical reasons: No Advance Directives: No Advance Directives Information Provided: Yes service: No Current occupational status: retired Physical Exam Vital Signs: Vital Signs: Last Vital Signs Temp 97.7 F 09/07/21 09:52 Pulse 60 09/07/21 12:33 Resp 18 09/07/21 12:33 BP 144/80 H 09/07/21 12:33 Pulse Ox 997 H 09/07/21 12:33 O2 Del Method 09/07/21 12:33 BMI result Body Mass Index 34.0 Vital signs have been reviewed as normal and appeared to be correct. Blood pressure 174/79 Heart rate normal. Respiration rate normal. Temperature normal. Oxygen saturation normal. Appearance: Alert. Oriented X3. Anxious appearing Head: Normal external exam. Normocephalic. Atraumatic. Eyes: PERRLA. EOMI. Conjunctiva and sclera normal. Eyelids normal. ENT: EAC normal. TM's Normal. No septal hematoma noted. No hemotympanum noted. Pharynx normal. Uvula midline. Moist mucous membranes. No lesions/ulcerations or masses noted on the tongue. Normal voice. No trismus noted. No drooling noted. No muffled voice noted. Neck: Normal inspection. Neck supple. FROM. No adenopathy. Thyroid Normal. No tracheal deviation noted. No crepitus is noted. No meningeal signs. No neck mass noted. No signs of trauma noted. CVS: Tenderness to palpation over the anterior chest wall. Normal heart rate and rhythm. Heart sound normal. Pulses normal throughout. No murmurs/rales/gallops. Respiratory: No respiratory distress. Painless inspiration. Breath sounds normal. No wheezes/rales/rhonchi noted. Chest nontender. No crepitus is noted. No signs of trauma noted. No accessory muscle usage noted or decreased air movement noted. No signs of trauma. Abdomen: Soft and nontender. Bowel sounds normal in all 4 quadrants. No distention noted. No organomegaly noted. No visible injury noted. Back: No CVA tenderness. Full range of motion noted. Tenderness to palpation over the paraspinous muscles and trapezial muscles. No signs of trauma. Patient neuro intact bilaterally and distally on all 4 extremities. Patient's reflexes intact bilaterally and distally on all 4 extremities. No rashes/lesion/induration/fluctuance or signs of infection noted. Skin: There is a beafy, shiny, linear area of erythema with scant white purulence and scattered macularpapular rash noted to the abdominal skin fold, no surrounding erythema, edema, fluctance or warmth. Normal skin color. Normal skin turgor. Extremities: No lower extremity edema. No calf tenderness is noted. Extremities exhibit normal range of motion and nontender. Neuro: Oriented X 3. No motor deficit. No sensory deficit. Reflexes normal. Normal steady gait. No focal neuro deficits noted. CN's II-XII intact bilaterally? Vascular: + radial pulses/+ 2 distal pedal pulses/+2 dorsalis pedis b/l. Normal cap refill. No cyanosis noted to upper extremity nails and lower extremity toes nails. Course Course Course Narrative: 1000 This is a 76-year-old female who presents today with chest pain which started at 03:00AM this morning. blood pressure 184/103, all other vital signs are within normal limits. Patient has been seen multiple times [place] [facility] [place]. She has no history of myocardial infarction. She has cardiac risk factors of hypertension, hyperlipidemia, family history, and age she had an echocardiogram on 04/12/2021 which showed an ejection fraction of 65%, was no valve abnormalities, and a grade 1 diastolic dysfunction. Exercise nuclear stress test done on 04/14/2021 showing exercise 5 minutes with moderate shortness of breath, short atrial tach runs, ventricular ectopy, no EKG changes of ischemia and normal myocardial perfusion imaging. She then had a Holter monitor for 3 days showing no concerning findings according to public information officer Dr. Almazan on 05/17/2021. Dr. Almazan at that time had some concerns for ?Costochondritis. She is extremely anxious in regards to her chest pain and has been seen by her primary care who switched her off of Buspar to Zoloft 1.5 weeks ago. Patient has a candidal infection to her abdominal fold, will treat with topical nystatin ointment. Plan: Labs, EKG, and Chest x-ray ordered. Reevaluation(s) Reevaluation #1: Chest x-ray is unremarkable. EKG shows no evidence of acute ischemia, Troponin is 3.5. Patient's symptoms have been constant for > 6 hours, do not need to trend troponin. All other labwork reassuring and unremarkable. Flexeril 5mg PO ordered to treat for costochondritis for muscle spasms on chest and back. Will be seen by the care team to help facilitate with outpatient psychiatric services to help with her anxiety. Time: 12:05 Reevaluation #2: Patient evaluated by the care team at bedside. They will give patient recommendations and referrals to outpatient psychiatric and therapy services. Patient is comfortable going home. Patient advised to follow-up with her primary care physician. Time: 13:03 MDM - Chest Pain Differential Diagnosis Differential diagnosis: Likely stable angina, atypical chest pain, costochondritis and chest pain Medical Records Data Attestation: I reviewed the patient's medical records. Lab Data Attestation: I reviewed the patient's lab results. Result diagrams: 09/07/21 10:42 09/07/21 10:42 Labs: Lab Results 09/07/21 09/07/21 09/07/21 Range/Units 10:42 10:42 10:42 WBC 6.2 (4.8-10.8) X10*3/uL RBC 4.53 (4.20-5.50) X10*6/uL Hgb 13.2 (12.0-16.0) g/dl Hct 40.5 (37.0-47.0) % MCV 89.4 (80.0-98.0) fL MCH 29.1 (27.0-33.0) pg MCHC 32.6 (31.0-35.0) g/dl RDW 13.3 (11.0-16.0) % Plt Count 155 L (160-400) X10*3/uL MPV Not Reportable Immature Gran % (Auto) 0.2 (0.0-0.4) % Neut % (Auto) 75.6 H (45-73) % Lymph % (Auto) 16.5 L (20-40) % Alcorn % (Auto) 6.6 (2-11) % Eos % (Auto) 0.3 (0-4) % Baso % (Auto) 0.8 (0-2) % Lymph # (Auto) 1.0 L (1.2-4.9) X10*3/uL Alcorn # (Auto) 0.4 (0.1-1.2) X10*3/uL Eos # (Auto) 0.0 (0.0-0.4) X10*3/uL Baso # (Auto) 0.1 (0.0-0.2) X10*3/uL Abs Immat Gran (auto) 0.01 (0.00-0.03) X10*3/uL Absolute Neuts (auto) 4.7 (2.0-8.3) x10*3/uL Absolute Nucleated RBC 0.000 (0.0-0.012) X10*3/uL Nucleated RBC % (auto) 0.0 (0.0-0.2) /100WBC Smear [facility]'s Comments VERIFIED PT 12.1 (10.0-13.1) SEC INR 1.1 (0.9-1.1) Sodium 140 (135-145) mmol/L Potassium 4.7 (3.3-5.1) mmol/L Chloride 108 (96-108) mmol/L Carbon Dioxide 22 (22-29) mmol/L Anion Gap 15 (12-20) BUN 19 H (9-16) mg/dL Creatinine 1.24 (0.5-1.4) mg/dL Estim Creat Clear Calc 37.3 Estimated GFR 42 Random Glucose 102 (60-115) mg/dL Calcium 9.1 (8.4-10.2) mg/dL Magnesium 1.8 (1.6-2.6) mg/dL Total Bilirubin 0.5 (0.0-1.0) mg/dL AST 26 (5-31) U/L ALT 15 (0-31) U/L Alkaline Phosphatase 82 (39-117) U/L Troponin I High Sens (<3.5-17.0) ng/L B-Natriuretic Peptide (<100) pg/mL Total Protein 6.8 (6.5-8.0) g/dL Albumin 4.0 (3.5-5.0) g/dL TSH (0.32-4.0) uIU/mL 09/07/21 09/07/21 Range/Units 10:42 10:42 WBC (4.8-10.8) X10*3/uL RBC (4.20-5.50) X10*6/uL Hgb (12.0-16.0) g/dl Hct (37.0-47.0) % MCV (80.0-98.0) fL MCH (27.0-33.0) pg MCHC (31.0-35.0) g/dl RDW (11.0-16.0) % Plt Count (160-400) X10*3/uL MPV Immature Gran % (Auto) (0.0-0.4) % Neut % (Auto) (45-73) % Lymph % (Auto) (20-40) % Alcorn % (Auto) (2-11) % Eos % (Auto) (0-4) % Baso % (Auto) (0-2) % Lymph # (Auto) (1.2-4.9) X10*3/uL Alcorn # (Auto) (0.1-1.2) X10*3/uL Eos # (Auto) (0.0-0.4) X10*3/uL Baso # (Auto) (0.0-0.2) X10*3/uL Abs Immat Gran (auto) (0.00-0.03) X10*3/uL Absolute Neuts (auto) (2.0-8.3) x10*3/uL Absolute Nucleated RBC (0.0-0.012) X10*3/uL Nucleated RBC % (auto) (0.0-0.2) /100WBC Smear Tech's Comments PT (10.0-13.1) SEC INR (0.9-1.1) Sodium (135-145) mmol/L Potassium (3.3-5.1) mmol/L Chloride (96-108) mmol/L Carbon Dioxide (22-29) mmol/L Anion Gap (12-20) BUN (9-16) mg/dL Creatinine (0.5-1.4) mg/dL Estim Creat Clear Calc Estimated GFR Random Glucose (60-115) mg/dL Calcium (8.4-10.2) mg/dL Magnesium (1.6-2.6) mg/dL Total Bilirubin (0.0-1.0) mg/dL AST (5-31) U/L ALT (0-31) U/L Alkaline Phosphatase (39-117) U/L Troponin I High Sens 3.5 (<3.5-17.0) ng/L B-Natriuretic Peptide 24 (<100) pg/mL Total Protein (6.5-8.0) g/dL Albumin (3.5-5.0) g/dL TSH 1.70 (0.32-4.0) uIU/mL Imaging Data Chest x-ray: Attestation: I personally reviewed and interpreted this imaging study as follows: Radiologist's impression: cc: Flaca Castro~ EXAMINATION: XR CHEST CLINICAL INFORMATION: Chest pain COMPARISON: Chest radiograph 02/08/2021 TECHNIQUE: 2 views of the chest were obtained. FINDINGS: No significant abnormality is noted involving the heart, lungs, mediastinum, bony thorax or soft tissues. The aorta is unfolded. No infiltrates, effusions or lung masses are seen. Appearances are stable when compared to the prior study. XR/XR chest 2V IMPRESSION: No acute intrathoracic disease. Dictated By: Donald Nichole MD ECG Data ECG #1: Attestation: I personally reviewed and interpreted this ECG as follows: ECG interpretation date: 09/07/21 ECG interpretation time: 06:39 Prior ECG tracings: available for review Interpretation: Normal sinus rhythm with sinus arrhythmia with a ventricular rate of 75 beats per minute, IL interval 134, QRS [address] elevation or depression, no acute ischemic changes. No changes from previous EKG on 06/18/2021. Discharge Plan Discharge Clinical Impression: Anxiety Patient Disposition: Home, Self-Care Instructions: Anxiety (ED) Prescriptions: New hydroxyzine HCl 50 mg tablet 50 mg PO Q8H PRN (Reason: for anxiety) Qty: 20 0RF No Action buspirone 5 mg tablet 5 mg PO DAILY levothyroxine [Levoxyl] 75 mcg tablet 75 mcg PO DAILY@0600 lisinopril 30 mg tablet 30 mg PO DAILY hydralazine 50 mg tablet 50 mg PO DAILY rosuvastatin 20 mg tablet 20 mg PO BEDTIME loratadine [Allergy Relief (loratadine)] 10 mg tablet 10 mg PO DAILY Qty: 30 0RF Referrals: [facility] [Other] [facility] [Other] [facility] [Other] Physician,Unknown J [Primary Care Provider] - 2 days (your pcp)
[2021-09-07 10:32] VITALS: BP 174/79; PULSE 60; RESP 18; O2SAT 99
[2021-09-07] MEDS: Aspirin 81 MG TAB.CHEW 324 MG PO (10:47)
[2021-09-07] MEDS: Fluconazole 150 MG TABLET PO (10:48)
[2021-09-07 10:51] LABS: Basophils Absolute Auto 0.1 X10*3/uL (0.0-0.2); Basophils Percent Auto 0.8 % (0-2); Eosinophils Percent Auto 0.3 % (0-4); Hematocrit 40.5 % (37.0-47.0); Hemoglobin 13.2 g/dl (12.0-16.0); Imm Gran Abs Auto 0.01 X10*3/uL (0.00-0.03); Imm Gran Pct Auto 0.2 % (0.0-0.4); Lymphocytes Percent Auto 16.5 % (20-40); MANUAL DIFF FLAG SCAN; Mean Corpuscular HGB Conc 32.6 g/dl (31.0-35.0); Mean Corpuscular Hemoglobin 29.1 pg (27.0-33.0); Mean Corpuscular Volume 89.4 fL (80.0-98.0); Monocytes Absolute Auto 0.4 X10*3/uL (0.1-1.2); Monocytes Percent Auto 6.6 % (2-11); Neutrophils Absolute Auto 4.7 x10*3/uL (2.0-8.3); Neutrophils Percent Auto 75.6 % (45-73); PLT CLUMP 1; Red Blood Count 4.53 X10*6/uL (4.20-5.50); Red Cell Distribution Width 13.3 % (11.0-16.0); SCAN SMEAR FLAG 1
--- NOTE | 2021-09-07 10:56 | PC.NURSE ---
pt is alert and oriented, skin pwd, respirations even and unlabored, pt reports being woken up around 0300 by burning feeling all across her chest and down both of her arms that did resolve but now having a dull pain in her chest about 5/10, ns on the monitor. pt also reports having a rash in her abd fold, rash is present but not excoriated look, look pretty dry.
[2021-09-07 10:57] LABS: INTERNATIONAL NORM RATIO 1.1 (0.9-1.1); Prothrombin Time 12.1 SEC (10.0-13.1)
[2021-09-07 11:04] LABS: Alanine Aminotransferase 15 U/L (0-31); Alkaline Phosphatase 82 U/L (39-117); Anion Gap 15 (12-20); Aspartate Amino Transferase 26 U/L (5-31); Bilirubin Total 0.5 mg/dL (0.0-1.0); Blood Urea Nitrogen 19 mg/dL (9-16); Calcium 9.1 mg/dL (8.4-10.2); Carbon Dioxide 22 mmol/L (22-29); Chloride 108 mmol/L (96-108); Creatinine Clr Calc Pharmacy 37.3; Estimated Glomerular Filt Rate 42; Glucose Random 102 mg/dL (60-115); Magnesium 1.8 mg/dL (1.6-2.6); Potassium 4.7 mmol/L (3.3-5.1); Sodium 140 mmol/L (135-145); Total Protein 6.8 g/dL (6.5-8.0)
[2021-09-07 11:09] LABS: B Type Natriuretic Peptide 24 pg/mL (<100); Troponin-I High Sensitivity 3.5 ng/L (<3.5-17.0)
[2021-09-07 11:11] LABS: Platelet Count 155 X10*3/uL (160-400); White Blood Count 6.2 X10*3/uL (4.8-10.8)
[2021-09-07 11:13] LABS: SLIDE REVIEW VERIFIED
[2021-09-07] MEDS: Cyclobenzaprine HCl 5 MG TABLET PO (12:32)
[2021-09-07 12:33] VITALS: BP 144/80; PULSE 60; RESP 18; O2SAT 997
--- NOTE | 2021-09-07 13:08 | PC.NURSE ---
continuing on pharmacy to bring up the nystatin
[2021-09-07 13:26] VITALS: BP 144/80; PULSE 66; RESP 18
== END 2021-09-07 13:25 | disposition home or self-care (01) ==
PROVIDERS: Physician Assistant Medical; Emergency Provider Emergency Medicine Emergency Medical Services
DX: F41.9 Anxiety disorder, unspecified (principal); B37.2 Candidiasis of skin and nail; M94.0 Chondrocostal junction syndrome [Tietze]; R06.02 Shortness of breath; I10 Essential (primary) hypertension; E78.5 Hyperlipidemia, unspecified; Z79.899 Other long term (current) drug therapy; Z79.02 Long term (current) use of antithrombotics/antiplatelets
CPT/HCPCS: 36415; 71046; 80053; 83735; 83880; 84443; 84484; 85025; 85610; 93005; 99284; 99285

== ENCOUNTER → 2021-10-03 12:49 | Outpatient (BNVA) | payer MEDICARE, SELFPAY | PROVIDERS: PCP Nurse Practitioner Family; Visit Provider Internal Medicine | DX: R07.89 Other chest pain (principal); I49.3 Ventricular premature depolarization; I49.1 Atrial premature depolarization; I10 Essential (primary) hypertension | CPT/HCPCS: 99212 ==

== ENCOUNTER 2022-01-07 03:07 | Emergency (ER) | payer MEDICARE, SELFPAY ==
--- NOTE | 2022-01-07 | ECG_ITS ---
Test Reason : ABD PAIN Blood Pressure : / mmHG Vent. Rate : 113 BPM Atrial Rate : 113 BPM P-R Int : 134 ms QRS Dur : 088 ms QT Int : 338 ms P-R-T Axes : 053 040 043 degrees QTc Int : 463 ms Sinus tachycardia with Premature supraventricular complexes Intra-ventricular conduction delay Nonspecific ST abnormality Lateral leads Abnormal ECG When compared with ECG of 07-SEP-2021 06:39, Premature supraventricular complexes are now Present Vent. rate has increased BY 38 BPM Referred By: Generic ED Physician Electronically Signed By:LINDA GONZALES MD
--- NOTE | ~2022-01-07 | CT_ITS ---
EXAMINATION: CT ABDOMEN AND PELVIS WITHOUT CONTRAST CLINICAL INFORMATION: LLQ pain, hx diverticulitis COMPARISON: 06/18/2021 TECHNIQUE: Multidetector volumetric imaging was performed from the superior aspect of the liver through the pubic symphysis. Sagittal and coronal reformatted images were obtained on the technologist's workstation. This CT examination was performed using dose optimization techniques as appropriate, variously including the following: *Automated exposure control *Adjustment of mA and/or kV according to patient size (this includes techniques or standardized protocols for targeted exams where dose is matched to indication/reason for exam; i.e. extremities or head) *Use of iterative reconstruction technique DLP: 734 mGy-cm FINDINGS: LUNG BASES: The visualized lung bases are unremarkable. LIVER, GALLBLADDER, AND BILIARY TREE: A 4 mm focus of hypoattenuation in the posterior aspect of the right hepatic lobe is too small to characterize, statistically favored to correspond to a small cyst. No recommended imaging follow up. The liver is normal in size, shape, and attenuation. No suspicious focal hepatic lesion or biliary ductal dilatation is present. Mild pneumobilia. Gallbladder is surgically absent. Common bile duct is normal in caliber. PANCREAS: Unremarkable. SPLEEN: Unremarkable. ADRENAL GLANDS: Unremarkable. KIDNEYS AND URETERS: Multiple small subcentimeter parapelvic cysts are evident bilaterally. No recommend imaging follow-up. The kidneys are normal in size, shape, and attenuation. No hydronephrosis or hydroureter. A few 1 mm calculi are evident within calyces in the right interpolar region. No perinephric stranding. BLADDER: Unremarkable. GASTROINTESTINAL TRACT: Marked colonic diverticulosis is again seen in the descending and sigmoid colon. Previously seen pericolonic fat stranding has significantly improved as compared to prior. Mild wall thickening is likely related to muscular hypertrophy. No clear sites of acute diverticulitis are identified. More mild diverticulosis in the remainder of the colon. Stomach, small bowel, and colon are normal in caliber. A few duodenal diverticula are identified. No intraperitoneal free air or free fluid. Normal appendix. ABDOMINAL WALL: No significant hernia is appreciated. LYMPH NODES: Normal. VASCULAR: Atherosclerotic calcifications are present in the abdominal aorta. No aneurysmal dilatation. PELVIC VISCERA: A 2.8 cm right adnexal cyst is simple in appearance and fluid attenuation, unchanged from prior. Anteverted uterus is within normal limits in size. No left adnexal abnormalities. OSSEOUS STRUCTURES: No acute osseous findings. Moderate facet arthropathy in the lower lumbar spine. Moderate osteophytes in the hips and more mild osteophytes in the SI joints and pubic symphysis. CT/CT abdomen pelvis wo IV con IMPRESSION: 1. No acute intra-abdominal or intrapelvic abnormalities are identified. 2. Marked colonic diverticulosis without evidence of acute diverticulitis. The previously seen inflammatory findings from the sigmoid colon have resolved. 3. A few 1 mm nonobstructing right renal calculi. Fleischner guidelines were followed.
[2022-01-07 03:23] VITALS: BP 160/83; PULSE 134; RESP 16; TEMP 36.6; O2SAT 99; BMI 34.0
--- NOTE | 2022-01-07 03:36 | ED_ITS ---
HPI - Abdominal Pain General Chief Complaint: Abdominal Pain Stated Complaint: diverticulitis Time Seen by Provider: 01/07/22 03:30 Source: patient Mode of arrival: ambulatory Limitations: no limitations History of Present Illness HPI narrative: Patient comes to the emergency room complaining of abdominal pain for 3 days. Patient states that she has had diverticulitis in the past and feels very similar. Patient call her primary care physician, it was a telemedicine visit, she was asked to come to emergency room for further evaluation. Patient denies nausea vomiting or diarrhea. No fever chills, no URI or UTI symptoms, no chest pain. Related Data Home Medications Medication Instructions Recorded Confirmed hydralazine 50 mg tablet 50 mg PO DAILY 02/08/21 10/03/21 levothyroxine 75 mcg tablet 75 mcg PO DAILY@0600 02/08/21 10/03/21 (Levoxyl) lisinopril 30 mg tablet 30 mg PO DAILY 02/08/21 10/03/21 rosuvastatin 20 mg tablet 20 mg PO BEDTIME 02/08/21 10/03/21 cyclobenzaprine 5 mg tablet 5 mg PO TID 10/03/21 10/03/21 sertraline 25 mg tablet 25 mg PO DAILY 10/03/21 10/03/21 Previous Rx's Medication Instructions Recorded nystatin 100,000 unit/gram topical 1 appl topical TID 14 days #30 09/07/21 ointment grams Allergies Allergy/AdvReac Type Severity Reaction Status Date / Time Iodinated Contrast Media Allergy Severe TACHYCARDIA,DIFFICULTY Verified 10/03/21 12:53 [IV CONTRAST] BREATHING amoxicillin [Prevpac] Allergy Unknown Unknown Verified 10/03/21 12:53 clarithromycin [Prevpac] Allergy Unknown Unknown Verified 10/03/21 12:53 escitalopram [From LEXAPRO] Allergy Unknown CHEST PAIN Verified 10/03/21 12:53 lansoprazole [Prevpac] Allergy Unknown unknown Verified 10/03/21 12:53 lovastatin Allergy Unknown myalgia Verified 10/03/21 12:53 omeprazole [From Prilosec] Allergy Unknown CHEST Verified 10/03/21 12:53 PAIN,DIFFICULTY BREATHING pravastatin Allergy Unknown myalgia Verified 10/03/21 12:53 shellfish derived Allergy Unknown UNKOWN Verified 10/03/21 12:53 [SHELLFISH DERIVED] iv contrast dye Allergy Unknown unknown Uncoded 10/03/21 12:53 iv dye/ shellfish Allergy Unknown unknown Uncoded 10/03/21 12:53 Prilosec Allergy Unknown Chest pain Uncoded 10/03/21 12:53 Review of Systems Review of Systems Constitutional : No Weight loss, No Fever, No Chills, No Night Sweats, No Fatigue, No Malaise ENT/Mouth : No Hearing loss, No Ear Pain, No Nasal Congestion, No Sinus Pain, No Hoarseness, No sore throat, No Rhinorrhea, No Swallowing Difficulty Eyes: No Eye Pain, No Swelling, No Redness, No Foreign Body, No Discharge, No Vision Changes Cardiovascular : No Chest Pain, No SOB, No Dyspnea on Exertion, No Orthopnea, No Edema, No Palpitations Respiratory : No Cough, No Sputum, No Wheezing, No Smoke Exposure, No Dyspnea Gastrointestinal : No Nausea, No Vomiting, No Diarrhea, No Constipation, complaining of constant nonradiating left lower quadrant pain, no blood in stool Genitourinary : no irregular bleeding, No Dysuria, No Urinary Frequency, No Hematuria, No Urinary Incontinence, No Urgency, No Flank Pain, No Urinary Flow Changes, No Hesitancy Musculoskeletal : No joint pain, No Myalgias, No Joint Swelling Skin : No Skin Lesions, No rash Neuro : No Weakness, No Numbness, No Paresthesias, No Loss of Consciousness, No Dizziness, No Headache Psych : No Anxiety/Panic, No Depression, No SI/HI/AH/VH, No Social Issues, Heme/Lymph: No Bruising, No Bleeding,No Lymphadenopathy Endocrine : No Polyuria, No Polydipsia, No Temperature Intolerance [facility] Past Medical History Medical History Allergies Anxiety, generalized Harper esophagus Barretts esophagus Chronic GERD Hypertension, essential Hypertensive urgency Lipid disorder Non-toxic multinodular goiter Surgical History H/O YAMILKAP (2007) Family History Family History Father Heart disease Mother Heart disease Maternal Uncle Colon cancer Heart failure Social History Social History Alcohol intake: never Patient Tobacco Use Status: Never used Tobacco Smoked in Last 30 Days: No Use of substances other than those prescribed or required for medical reasons: No Advance Directives: No Advance Directives Information Provided: Yes service: No Current occupational status: retired Physical Exam ED Vital Signs: Vital Signs - 24 hr 01/07/22 03:23 01/07/22 04:02 01/07/22 06:09 Temperature 98 F 98.1 F 97.9 F Pulse Rate 134 H 111 H 80 Respiratory Rate 16 13 10 L Blood Pressure 160/83 H 148/87 H 116/56 L Pulse Oximetry 99 99 100 Oxygen Delivery Method Room Air Room Air Room Air BMI result Body Mass Index 34.0 Const Other: Appearance: Alert. Oriented X3. No acute distress. Eyes: Pupils equal, round and reactive to light. ENT: Pharynx normal. Neck: Normal inspection. Neck supple. No lymph nodes noted. No crepitus CVS: Normal heart rate and rhythm. Pulses normal. Normal S1 and S2 Respiratory: No respiratory distress. Breath sounds normal. No Wheezing. No rales Abdomen: Soft , nondistended, no rigidity, tenderness to palpation especially over the left lower quadrant, no guarding, no rebound Skin: Skin warm and dry. Normal skin color. Normal skin turgor. Extremities: No lower extremity edema. No Lacerations. No Rash Neuro: Oriented X 3. No motor deficit. No sensory deficit. Moving all extremities. No slurred speech. CN 2 through 12 grossly intact Psych: calm, cooperative, anxious Course Course Course Narrative: Patient being given fluids, morphine and Zofran. All of patient's labs and imaging pending. Patient's white blood cell count within normal limits, urine negative. Patient's lactic acid was slightly elevated. Creatinine slightly bumped. Patient states that in the last 2 days, she has been trying to consume a clear liquid diet but at the same time she has not been drinking much. Lactic acid likely secondary to dehydration. After that 2 L of fluids, we will recheck lactic acid. CT scan is negative for diverticulitis. However, patient has several 1 mm kidney stones. Patient states that she has never been told that she has kidney stones. It is possible that she passed a kidney stone and her pain is likely secondary to a renal colic. This time, patient is comfortable, states the pain is 1/10, no nausea vomiting. Lactic acid to be taken after the 2 L of IV fluids, likely to be at 07:00. Sign-out given to Dr. Figueroa Medications Administered Discontinued Medications Generic Name Dose Route Start Last Admin Trade Name Sanjay PRN Reason Stop Dose Admin Sodium Chloride 1,000 mls @ 999 mls/hr 01/07/22 03:31 01/07/22 04:04 Ns IVCONT 01/07/22 04:31 999 mls/hr .Q1H1M ONE Administration Sodium Chloride 1,000 mls @ 999 mls/hr 01/07/22 04:50 01/07/22 05:05 Ns IVCONT 01/07/22 05:50 999 mls/hr .Q1H1M ONE Administration Morphine Sulfate 4 mg 01/07/22 03:31 01/07/22 04:03 Morphine Sulfate 4 Mg/Ml Cartridge IVPUSH 01/07/22 03:32 4 mg ONCE ONE Administration Protocol Ondansetron HCl 4 mg 01/07/22 03:31 01/07/22 04:04 Ondansetron Hcl 4 Mg/2 Ml Vial IVPUSH 01/07/22 03:32 4 mg ONCE ONE Administration MDM - Abdominal Pain Lab Data Result diagrams: 01/07/22 03:49 01/07/22 03:44 Labs: Lab Results 01/07/22 01/07/22 01/07/22 Range/Units 03:44 03:44 03:44 WBC (4.8-10.8) X10*3/uL RBC (4.20-5.50) X10*6/uL Hgb (12.0-16.0) g/dl Hct (37.0-47.0) % MCV (80.0-98.0) fL MCH (27.0-33.0) pg MCHC (31.0-35.0) g/dl RDW (11.0-16.0) % Plt Count (160-400) X10*3/uL MPV (9.4-12.3) fL Immature Gran % (Auto) (0.0-0.4) % Neut % (Auto) (45-73) % Lymph % (Auto) (20-40) % Dickenson % (Auto) (2-11) % Eos % (Auto) (0-4) % Baso % (Auto) (0-2) % Lymph # (Auto) (1.2-4.9) X10*3/uL Dickenson # (Auto) (0.1-1.2) X10*3/uL Eos # (Auto) (0.0-0.4) X10*3/uL Baso # (Auto) (0.0-0.2) X10*3/uL Abs Immat Gran (auto) (0.00-0.03) X10*3/uL Absolute Neuts (auto) (2.0-8.3) x10*3/uL Absolute Nucleated RBC (0.0-0.012) X10*3/uL Nucleated RBC % (auto) (0.0-0.2) /100WBC Sodium 143 Cancelled (135-145) mmol/L Potassium 4.6 Cancelled (3.3-5.1) mmol/L Chloride 104 Cancelled (96-108) mmol/L Carbon Dioxide 24 Cancelled (22-29) mmol/L Anion Gap 20 Cancelled (12-20) BUN 18 H Cancelled (9-16) mg/dL Creatinine 1.43 H Cancelled (0.5-1.4) mg/dL Estim Creat Clear Calc 32.4 Cancelled Estimated GFR 36 Cancelled Random Glucose 113 Cancelled (60-115) mg/dL Lactic Acid (0.5-2.0) mmol/L Calcium 10.0 D Cancelled (8.4-10.2) mg/dL Magnesium 1.7 (1.6-2.6) mg/dL Total Bilirubin 0.6 (0.0-1.0) mg/dL Direct Bilirubin 0.3 (0.0-0.5) mg/dL AST 31 (5-31) U/L ALT 22 (0-31) U/L Alkaline Phosphatase 91 (39-117) U/L Troponin I High Sens (<3.5-17.0) ng/L Total Protein 7.1 (6.5-8.0) g/dL Albumin 4.2 (3.5-5.0) g/dL Lipase 19 (8-78) U/L Urine Color Urine Appearance Urine pH (5.0-9.0) Ur Specific Talmage (1.005-1.025) Urine Protein (Neg-Trace) mg/dL Urine Glucose (UA) (Negative) mg/dL Urine Ketones (Negative) mg/dL Urine Blood (Negative) Urine Nitrite (Negative) Ur Leukocyte Esterase (Negative) COVID-19 (LITA) Negative (Negative) COVID-19 Clin Com See Note 01/07/22 01/07/22 01/07/22 Range/Units 03:49 03:49 03:49 WBC 7.9 (4.8-10.8) X10*3/uL RBC 4.71 (4.20-5.50) X10*6/uL Hgb 13.9 (12.0-16.0) g/dl Hct 42.4 (37.0-47.0) % MCV 90.0 (80.0-98.0) fL MCH 29.5 (27.0-33.0) pg MCHC 32.8 (31.0-35.0) g/dl RDW 12.6 (11.0-16.0) % Plt Count 194 D (160-400) X10*3/uL MPV 10.0 (9.4-12.3) fL Immature Gran % (Auto) 0.1 (0.0-0.4) % Neut % (Auto) 61.5 (45-73) % Lymph % (Auto) 29.2 (20-40) % Dickenson % (Auto) 7.7 (2-11) % Eos % (Auto) 0.9 (0-4) % Baso % (Auto) 0.6 (0-2) % Lymph # (Auto) 2.3 (1.2-4.9) X10*3/uL Dickenson # (Auto) 0.6 (0.1-1.2) X10*3/uL Eos # (Auto) 0.1 (0.0-0.4) X10*3/uL Baso # (Auto) 0.1 (0.0-0.2) X10*3/uL Abs Immat Gran (auto) 0.01 (0.00-0.03) X10*3/uL Absolute Neuts (auto) 4.8 (2.0-8.3) x10*3/uL Absolute Nucleated RBC 0.000 (0.0-0.012) X10*3/uL Nucleated RBC % (auto) 0.0 (0.0-0.2) /100WBC Sodium (135-145) mmol/L Potassium (3.3-5.1) mmol/L Chloride (96-108) mmol/L Carbon Dioxide (22-29) mmol/L Anion Gap (12-20) BUN (9-16) mg/dL Creatinine (0.5-1.4) mg/dL Estim Creat Clear Calc Estimated GFR Random Glucose (60-115) mg/dL Lactic Acid 3.0 H* (0.5-2.0) mmol/L Calcium (8.4-10.2) mg/dL Magnesium (1.6-2.6) mg/dL Total Bilirubin (0.0-1.0) mg/dL Direct Bilirubin (0.0-0.5) mg/dL AST (5-31) U/L ALT (0-31) U/L Alkaline Phosphatase (39-117) U/L Troponin I High Sens 4.7 (<3.5-17.0) ng/L Total Protein (6.5-8.0) g/dL Albumin (3.5-5.0) g/dL Lipase (8-78) U/L Urine Color Urine Appearance Urine pH (5.0-9.0) Ur Specific Talmage (1.005-1.025) Urine Protein (Neg-Trace) mg/dL Urine Glucose (UA) (Negative) mg/dL Urine Ketones (Negative) mg/dL Urine Blood (Negative) Urine Nitrite (Negative) Ur Leukocyte Esterase (Negative) COVID-19 (LITA) (Negative) COVID-19 Clin Com 01/07/22 Range/Units 05:33 WBC (4.8-10.8) X10*3/uL RBC (4.20-5.50) X10*6/uL Hgb (12.0-16.0) g/dl Hct (37.0-47.0) % MCV (80.0-98.0) fL MCH (27.0-33.0) pg MCHC (31.0-35.0) g/dl RDW (11.0-16.0) % Plt Count (160-400) X10*3/uL MPV (9.4-12.3) fL Immature Gran % (Auto) (0.0-0.4) % Neut % (Auto) (45-73) % Lymph % (Auto) (20-40) % Dickenson % (Auto) (2-11) % Eos % (Auto) (0-4) % Baso % (Auto) (0-2) % Lymph # (Auto) (1.2-4.9) X10*3/uL Dickenson # (Auto) (0.1-1.2) X10*3/uL Eos # (Auto) (0.0-0.4) X10*3/uL Baso # (Auto) (0.0-0.2) X10*3/uL Abs Immat Gran (auto) (0.00-0.03) X10*3/uL Absolute Neuts (auto) (2.0-8.3) x10*3/uL Absolute Nucleated RBC (0.0-0.012) X10*3/uL Nucleated RBC % (auto) (0.0-0.2) /100WBC Sodium (135-145) mmol/L Potassium (3.3-5.1) mmol/L Chloride (96-108) mmol/L Carbon Dioxide (22-29) mmol/L Anion Gap (12-20) BUN (9-16) mg/dL Creatinine (0.5-1.4) mg/dL Estim Creat Clear Calc Estimated GFR Random Glucose (60-115) mg/dL Lactic Acid (0.5-2.0) mmol/L Calcium (8.4-10.2) mg/dL Magnesium (1.6-2.6) mg/dL Total Bilirubin (0.0-1.0) mg/dL Direct Bilirubin (0.0-0.5) mg/dL AST (5-31) U/L ALT (0-31) U/L Alkaline Phosphatase (39-117) U/L Troponin I High Sens (<3.5-17.0) ng/L Total Protein (6.5-8.0) g/dL Albumin (3.5-5.0) g/dL Lipase (8-78) U/L Urine Color Yellow Urine Appearance Clear Urine pH 7.0 (5.0-9.0) Ur Specific Talmage <= 1.005 (1.005-1.025) Urine Protein Negative (Neg-Trace) mg/dL Urine Glucose (UA) Negative (Negative) mg/dL Urine Ketones Trace (Negative) mg/dL Urine Blood Negative (Negative) Urine Nitrite Negative (Negative) Ur Leukocyte Esterase Negative (Negative) COVID-19 (LITA) (Negative) COVID-19 Clin Com Critical Care Time Critical Care Time Critical Care Time: Yes Total Critical Care Time: 30 Attestation: I have personally provided critical care time. Time includes review of lab data, radiology results, discussion with consultants, and monitoring for potential decompensation. Intervention performed as documented. Discharge Plan Discharge Clinical Impression: Renal colic, Acute dehydration Patient Disposition: Still a Patient Instructions: Renal Colic (ED) Additional Instructions: Please follow-up with your primary care physician tomorrow. If you have any worsening or new symptoms, please return to the emergency room or call 911 Prescriptions: No Action levothyroxine [Levoxyl] 75 mcg tablet 75 mcg PO DAILY@0600 lisinopril 30 mg tablet 30 mg PO DAILY hydralazine 50 mg tablet 50 mg PO DAILY rosuvastatin 20 mg tablet 20 mg PO BEDTIME nystatin 100,000 unit/gram ointment 1 appl topical TID 14 Days Qty: 30 0RF cyclobenzaprine 5 mg tablet 5 mg PO TID sertraline 25 mg tablet 25 mg PO DAILY
[2022-01-07 03:54] LABS: MANUAL DIFF FLAG NO
[2022-01-07 03:56] LABS: Basophils Absolute Auto 0.1 X10*3/uL (0.0-0.2); Basophils Percent Auto 0.6 % (0-2); Eosinophils Absolute Auto 0.1 X10*3/uL (0.0-0.4); Eosinophils Percent Auto 0.9 % (0-4); Hematocrit 42.4 % (37.0-47.0); Hemoglobin 13.9 g/dl (12.0-16.0); Imm Gran Abs Auto 0.01 X10*3/uL (0.00-0.03); Imm Gran Pct Auto 0.1 % (0.0-0.4); Lymphocytes Absolute Auto 2.3 X10*3/uL (1.2-4.9); Lymphocytes Percent Auto 29.2 % (20-40); Mean Corpuscular HGB Conc 32.8 g/dl (31.0-35.0); Mean Corpuscular Hemoglobin 29.5 pg (27.0-33.0); Monocytes Absolute Auto 0.6 X10*3/uL (0.1-1.2); Monocytes Percent Auto 7.7 % (2-11); Neutrophils Absolute Auto 4.8 x10*3/uL (2.0-8.3); Neutrophils Percent Auto 61.5 % (45-73); Platelet Count 194 X10*3/uL (160-400); Red Blood Count 4.71 X10*6/uL (4.20-5.50); Red Cell Distribution Width 12.6 % (11.0-16.0); White Blood Count 7.9 X10*3/uL (4.8-10.8)
[2022-01-07 04:00] LABS: COVID-19 Test Negative (Negative); IDNOW Serial# BCCEAD1C
[2022-01-07 04:02] VITALS: BP 148/87; PULSE 111; RESP 13; TEMP 36.7; O2SAT 99
[2022-01-07] MEDS: Morphine Sulfate 4 MG/ML CARTRIDGE IVPUSH (04:03)
[2022-01-07] MEDS: 0.9 % Sodium Chloride 1,000 ML 999 ML IVCONT ×2 (04:04→05:05)
[2022-01-07] MEDS: ondansetron HCL 4 MG/2 ML VIAL IVPUSH (04:04)
[2022-01-07 04:17] LABS: Alanine Aminotransferase 22 U/L (0-31); Albumin Level 4.2 g/dL (3.5-5.0); Alkaline Phosphatase 91 U/L (39-117); Anion Gap 20 (12-20); Aspartate Amino Transferase 31 U/L (5-31); Bilirubin Direct 0.3 mg/dL (0.0-0.5); Bilirubin Total 0.6 mg/dL (0.0-1.0); Blood Urea Nitrogen 18 mg/dL (9-16); Carbon Dioxide 24 mmol/L (22-29); Chloride 104 mmol/L (96-108); Creatinine Clr Calc Pharmacy 32.4; Estimated Glomerular Filt Rate 36; Glucose Random 113 mg/dL (60-115); Lipase 19 U/L (8-78); Magnesium 1.7 mg/dL (1.6-2.6); Potassium 4.6 mmol/L (3.3-5.1); Sodium 143 mmol/L (135-145); Total Protein 7.1 g/dL (6.5-8.0)
[2022-01-07 04:20] LABS: Troponin-I High Sensitivity 4.7 ng/L (<3.5-17.0)
--- NOTE | 2022-01-07 04:20 | PC.NURSE ---
pt is very worried and scared , i told her its gona be ok we are here to help her feel better, pt and daughter are teary eyed
[2022-01-07 05:41] LABS: Appearance Urine Clear; Color Urine Yellow; Glucose Urine UA Negative (Negative); Leukocyte Esterase Urine Negative (Negative); Nitrite Urine Negative (Negative); Specific Gravity - Urine <= 1.005 (1.005-1.025); Urine Blood Negative (Negative); Urine Ketones Trace mg/dL (Negative); Urine Protein Negative (Neg-Trace)
[2022-01-07 05:53] LABS: Reflex Lactate? Lactic Acid Added
--- NOTE | 2022-01-07 05:58 | PC.NURSE ---
two 1 liter bag of NS running through [address] in L hand[address] per dr Childress request both bags placed in pressure bags. Repeat Lactic Acid order reflexed by lab
[2022-01-07 06:09] VITALS: BP 116/56; PULSE 80; RESP 10; TEMP 36.6; O2SAT 100
[2022-01-07 08:01] LABS: ~Lactic Acid-LAB USE ONLY 0.8 mmol/L (0.5-2.0)
[2022-01-07 08:06] VITALS: BP 148/79; PULSE 90; RESP 12; TEMP 36.4; O2SAT 99
[2022-01-07] MEDS: Amoxicillin/Potassium Clav 875 MG TABLET PO (08:51)
[2022-01-07 08:52] VITALS: BP 144/67; PULSE 92; RESP 17; O2SAT 97
== END 2022-01-07 09:04 | disposition home or self-care (01) ==
PROVIDERS: Emergency Medicine; Emergency Provider Emergency Medicine Emergency Medical Services; PCP Nurse Practitioner Family
DX: K57.32 Diverticulitis of large intestine without perforation or abscess without bleeding (principal); N23 Unspecified renal colic; E86.0 Dehydration; Z20.822 Contact with and (suspected) exposure to COVID-19; Z79.899 Other long term (current) drug therapy
CPT/HCPCS: 36415; 74176; 80048; 80076; 81003; 83605; 83690; 83735; 84484; 85025; 87040; 87635; 93005; 96374; 96375; 99285; J2270; J2405

== ENCOUNTER 2022-02-15 13:34 | Outpatient (REF) | payer MEDICARE, SELFPAY ==
--- NOTE | ~2022-02-15 | US_ITS ---
EXAMINATION: US PELVIS CLINICAL INFORMATION: Embryonic cyst of broad ligament. COMPARISON: CT abdomen and pelvis 01/07/2022. TECHNIQUE: Ultrasound of the pelvis is performed using both transabdominal and transvaginal transducers along with Doppler. Transvaginal imaging is performed due to inadequate visualization transabdominally. FINDINGS: UTERUS: The uterus is anteverted and measures 5.4 x 2.9 x 3.9 cm. The double wall endometrial thickness is 0.2 mm. Echogenic foci are seen throughout the uterus similar to the recent CT scan. No visible fibroid. Nabothian cysts are present in the cervix. ADNEXA: Neither ovary could be seen. There is a simple cyst present in the right adnexa measuring 3.1 x 2.7 x 2.3 cm (previously 3.5 x 2.6 x 3.2 cm). This was also imaged on the CT scan just under one month ago and appears unchanged. No free fluid is seen. US/US pelvic and transvaginal IMPRESSION: 1. No significant uterine abnormality is seen. 2. Neither ovary could be seen. 3. Stable right adnexal cyst.
== END 2022-02-15 13:35 | disposition home or self-care (01) ==
LOC: HO.US 13:34
PROVIDERS: Visit Provider Obstetrics & Gynecology
DX: Q50.5 Embryonic cyst of broad ligament (principal)
CPT/HCPCS: 76830; 76856

== ENCOUNTER → 2022-03-01 14:04 | Outpatient (BNVA) | payer MEDICARE, SELFPAY | PROVIDERS: PCP Nurse Practitioner Family; Visit Provider Obstetrics & Gynecology | DX: N94.89 Other specified conditions associated with female genital organs and menstrual cycle (principal); N95.8 Other specified menopausal and perimenopausal disorders | CPT/HCPCS: 99212 ==

== ENCOUNTER 2023-04-02 07:00 | Emergency (ER) | payer MEDICARE, SELFPAY ==
[2023-04-02 07:17] VITALS: BP 200/103; PULSE 117; RESP 20; TEMP 37.2; O2SAT 96; BMI 35.4
--- NOTE | 2023-04-02 07:25 | ECG_ITS ---
Test Reason : general weakness Blood Pressure : / mmHG Vent. Rate : 111 BPM Atrial Rate : 111 BPM P-R Int : 122 ms QRS Dur : 086 ms QT Int : 332 ms P-R-T Axes : 007 040 033 degrees QTc Int : 451 ms Sinus tachycardia with Premature supraventricular complexes Otherwise normal ECG When compared with ECG of 07-JAN-2022 03:28, No significant change was found Referred By: Generic ED Physician Electronically Signed By:Sukh Handy
[2023-04-02 07:39] LABS: MANUAL DIFF FLAG NO
[2023-04-02 07:43] LABS: Basophils Percent Auto 0.5 % (0-2); Eosinophils Absolute Auto 0.2 X10*3/uL (0.0-0.4); Eosinophils Percent Auto 2.6 % (0-4); Hematocrit 41.9 % (37.0-47.0); Hemoglobin 13.7 g/dl (12.0-16.0); Imm Gran Abs Auto 0.02 X10*3/uL (0.00-0.03); Imm Gran Pct Auto 0.3 % (0.0-0.4); Lymphocytes Absolute Auto 2.1 X10*3/uL (1.2-4.9); Lymphocytes Percent Auto 27.9 % (20-40); Mean Corpuscular HGB Conc 32.7 g/dl (31.0-35.0); Mean Corpuscular Hemoglobin 29.4 pg (27.0-33.0); Mean Corpuscular Volume 89.9 fL (80.0-98.0); Mean Platelet Volume 10.3 fL (9.4-12.3); Monocytes Absolute Auto 0.6 X10*3/uL (0.1-1.2); Monocytes Percent Auto 7.8 % (2-11); Neutrophils Absolute Auto 4.5 x10*3/uL (2.0-8.3); Neutrophils Percent Auto 60.9 % (45-73); Platelet Count 188 X10*3/uL (160-400); Red Blood Count 4.66 X10*6/uL (4.20-5.50); Red Cell Distribution Width 12.4 % (11.0-16.0); White Blood Count 7.4 X10*3/uL (4.8-10.8)
[2023-04-02 08:00] LABS: IDNOW Serial# 9DB6401D
[2023-04-02 08:01] LABS: Appearance Urine Clear; Color Urine Yellow; Glucose Urine UA Negative (Negative); Leukocyte Esterase Urine Trace (Negative); Nitrite Urine Negative (Negative); UMIC TRIGGER UACC YES; Urine Blood Negative (Negative); Urine Ketones Negative (Negative); Urine Protein Negative (Neg-Trace)
[2023-04-02 08:01] LABS: Influenza A Negative (Negative); Influenza B2 Negative (Negative)
[2023-04-02 08:02] LABS: Alanine Aminotransferase 20 U/L (0-31); Albumin Level 3.9 g/dL (3.5-5.0); Alkaline Phosphatase 79 U/L (39-117); Anion Gap 13 (12-20); Aspartate Amino Transferase 28 U/L (5-31); Bilirubin Direct 0.2 mg/dL (0.0-0.5); Bilirubin Total 0.3 mg/dL (0.0-1.0); Blood Urea Nitrogen 17 mg/dL (9-16); Calcium 9.5 mg/dL (8.4-10.2); Carbon Dioxide 25 mmol/L (22-29); Chloride 109 mmol/L (96-108); Creatinine Clr Calc Pharmacy 37.8; Estimated Glomerular Filt Rate 42; Glucose Random 107 mg/dL (60-115); Lipase 22 U/L (8-78); Potassium 4.4 mmol/L (3.3-5.1); Sodium 143 mmol/L (135-145)
[2023-04-02 08:13] LABS: Bacteria Urine Trace (None Seen); Hyaline Casts Urine 0-2 /LPF (0-2); RBC Urine 0-2 /HPF (0-2); Squamous Epithelial Cell Urine 0-2 /HPF (0-2); WBC Urine 0-5 /HPF (0-5)
[2023-04-02 08:19] LABS: COVID-19 Test Negative (Negative); IDNOW Serial# 9DB6401D
[2023-04-02 08:46] VITALS: BP 178/107; PULSE 108; RESP 20; O2SAT 94
[2023-04-02 11:46] VITALS: BP 164/100; PULSE 102; RESP 20; TEMP 36.2; O2SAT 94
--- NOTE | 2023-04-02 13:05 | ED_ITS ---
HPI - Nausea/Vomiting/Diarrhea General Chief complaint: Nausea/Vomiting/Diarrhea Stated complaint: continuing UTI? Time Seen by Provider: 04/02/23 13:03 Source: patient and family Mode of arrival: ambulatory Limitations: no limitations History of Present Illness HPI Narrative: 77-year-old female with a history of hypertension, GERD, anxiety, atrial tachycardia, CKD III, hypothyroidism, diverticulitis who presents emergency department for evaluation of nausea vomiting , soft diarrheal stools and weakness. Patient states that on Saturday03/29/2023 she developed urinary frequency, burning with urination and bloody urine. The next day she went to an urgent care in [place] was diagnosed with a urinary tract infection and started on Macrobid twice a day. She states she took this medication for 2 days and called her doctor yesterday who told her that her tests were negative and she could stop taking her antibiotic. Patient states this morning at 04:00 hours she woke up with dry heaves. She states that since that time she has not been able to eat or drink. She states she is feeling very fatigued. She has not been able to eat food but has been able to drink water. She was able to take her medications this morning. She denied fever, chills, rhinorrhea, sore throat, cough, chest pain, shortness of breath. She does have nausea with mainly dry heaves but occasionally vomits after drinking. She states she has had 3-4 soft stools with no bloody or dark stools. She is complaining of abdominal pain but states that is consistent with a GERD and she points to her epigastric area. Related Data Home Medications Medication Instructions Recorded Confirmed hydralazine 50 mg tablet 50 mg PO DAILY 02/08/21 10/03/21 levothyroxine 75 mcg tablet 75 mcg PO DAILY@0600 02/08/21 10/03/21 (Levoxyl) lisinopril 30 mg tablet 30 mg PO DAILY 02/08/21 10/03/21 rosuvastatin 20 mg tablet 20 mg PO BEDTIME 02/08/21 10/03/21 cyclobenzaprine 5 mg tablet 5 mg PO TID 10/03/21 10/03/21 sertraline 25 mg tablet 25 mg PO DAILY 10/03/21 10/03/21 Previous Rx's Medication Instructions Recorded nystatin 100,000 unit/gram topical 1 appl topical TID 14 days #30 09/07/21 ointment grams ondansetron 4 mg disintegrating 4 mg PO Q6-8H PRN nausea and 04/02/23 tablet vomiting #14 tabs Allergies Allergy/AdvReac Type Severity Reaction Status Date / Time Iodinated Contrast Media Allergy Severe TACHYCARDIA,DIFFICULTY Verified 04/02/23 07:23 [IV CONTRAST] BREATHING amoxicillin [Prevpac] Allergy Unknown Unknown Verified 04/02/23 07:23 clarithromycin [Prevpac] Allergy Unknown Unknown Verified 04/02/23 07:23 escitalopram [From LEXAPRO] Allergy Unknown CHEST PAIN Verified 04/02/23 07:23 lansoprazole [Prevpac] Allergy Unknown unknown Verified 04/02/23 07:23 lovastatin Allergy Unknown myalgia Verified 04/02/23 07:23 omeprazole [From Prilosec] Allergy Unknown CHEST Verified 04/02/23 07:23 PAIN,DIFFICULTY BREATHING pravastatin Allergy Unknown myalgia Verified 04/02/23 07:23 shellfish derived Allergy Unknown UNKOWN Verified 04/02/23 07:23 [SHELLFISH DERIVED] iv contrast dye Allergy Unknown unknown Uncoded 04/02/23 07:23 iv dye/ shellfish Allergy Unknown unknown Uncoded 04/02/23 07:23 Prilosec Allergy Unknown Chest pain Uncoded 04/02/23 07:23 Review of Systems 2 Review of Systems: Yes all other systems are reviewed and are negative [facility] Past Medical History [facility] Narrative: Social history: She denies tobacco, alcohol and drug use. Medical History Hypertensive urgency Harper esophagus Non-toxic multinodular goiter Barretts esophagus Allergies Chronic GERD Lipid disorder Hypertension, essential Anxiety, generalized Surgical History H/O LEEP (2007) Family History Family History Father Heart disease Mother Heart disease Maternal Uncle Colon cancer Heart failure Social History Social History Alcohol intake: never Patient Tobacco Use Status: Never used Tobacco Smoked in Last 30 Days: No Advance Directives: No Advance Directives Information Provided: No service: No Current occupational status: retired Physical Exam 2 Vital Signs: Vital Signs: Last Vital Signs Temp 98.2 F 04/02/23 13:49 Pulse 95 04/02/23 13:49 Resp 16 04/02/23 13:49 BP 155/74 H 04/02/23 13:49 Pulse Ox 96 04/02/23 13:49 O2 Del Method Room Air 04/02/23 13:49 BMI result Body Mass Index 35.4 Vital signs did reveal an elevated blood pressure otherwise unremarkable. Exam: General: Awake, alert in no distress Head: Normocephalic, atraumatic EENT: PERRL, Lids normal, sclera normal, conjunctiva normal, nose normal , ears normal, throat without erythema or exudates Neck: Supple, no adenopathy Lung: breath sounds symmetric, no wheezing, rales or rhonchi Chest: symmetric movement, nontender Heart: regular rate and rhythm, normal S1, S2 no murmurs or rubs Abdomen: soft, mild epigastric tenderness, nondistended, normal bowel sounds Back: no vertebral tenderness, no CVAT Extremities: no deformities, moves all extremities symmetrically Neuro: Awake, alert, oriented, normal speech, cranial nerves intact, moves all extremities symmetrically Psych: Pleasant, cooperative Medications Administered Discontinued Medications Generic Name Dose Route Start Last Admin Trade Name Freq PRN Reason Stop Dose Admin Ondansetron HCl 4 mg 04/02/23 13:32 04/02/23 13:48 Ondansetron Odt 4 Mg Tab.Lindseydis TRANSLINGU 04/02/23 13:33 4 mg ONCE STA Administration Medical Decision Making Medical Decision Making [facility] Narrative: 77-year-old female with a history of hypertension, GERD, anxiety, atrial tachycardia, CKD III, hypothyroidism, diverticulitis who presents emergency department for evaluation of nausea vomiting , soft diarrheal stools and weakness. She was diagnosed on Saturday03/30/2023 with urinary tract infection and started on Macrobid twice a day for 2 days. She was told by her doctor that her tests were negative and she could stop taking her antibiotic. Today and 04:00 hours she woke up with nausea and dry heaves, unable to eat or drink and fatigue. Vital signs were normal physical examination was unremarkable. Differential diagnosis: Urinary tract infection, pyelonephritis, viral syndrome, adverse drug reaction to nitrofurantoin My interpretation patient's laboratory evaluation is as follows: CBC was normal. BMP was normal. Liver tests were normal. COVID-19 and influenza were negative. Urinalysis revealed trace leukocyte esterase but microscopic revealed 0-2 WBCs and trace bacteria-not consistent with a urinary tract infection. At this time, I do not have a clear etiology for the patient's symptoms. I doubt that she has urinary tract infection based on lack symptoms and negative urinalysis. Patient most likely has a viral syndrome versus adverse reaction to the nitrofurantoin. She was given Zofran 4 mg ODT, this was prescribed for her as well every 6 hours as needed. She was given printed and verbal instructions discharged home Admission/Observation Consideration of admission/observation: Escalation of care including admission/observation considered Lab Data MDM Lab Attestation statement: I reviewed the patient's lab results. 04/02/23 07:32 04/02/23 07:32 Labs: Lab Results 04/02/23 04/02/23 Range/Units 07:32 07:40 WBC 7.4 (4.8-10.8) X10*3/uL RBC 4.66 (4.20-5.50) X10*6/uL Hgb 13.7 (12.0-16.0) g/dl Hct 41.9 (37.0-47.0) % MCV 89.9 (80.0-98.0) fL MCH 29.4 (27.0-33.0) pg MCHC 32.7 (31.0-35.0) g/dl RDW 12.4 (11.0-16.0) % Plt Count 188 (160-400) X10*3/uL MPV 10.3 (9.4-12.3) fL Immature Gran % (Auto) 0.3 (0.0-0.4) % Neut % (Auto) 60.9 (45-73) % Lymph % (Auto) 27.9 (20-40) % [place] % (Auto) 7.8 (2-11) % Eos % (Auto) 2.6 (0-4) % Baso % (Auto) 0.5 (0-2) % Lymph # (Auto) 2.1 (1.2-4.9) X10*3/uL [place] # (Auto) 0.6 (0.1-1.2) X10*3/uL Eos # (Auto) 0.2 (0.0-0.4) X10*3/uL Baso # (Auto) 0.0 (0.0-0.2) X10*3/uL Abs Immat Gran (auto) 0.02 (0.00-0.03) X10*3/uL Absolute Neuts (auto) 4.5 (2.0-8.3) x10*3/uL Absolute Nucleated RBC 0.000 (0.0-0.012) X10*3/uL Nucleated RBC % (auto) 0.0 (0.0-0.2) /100WBC Sodium 143 (135-145) mmol/L Potassium 4.4 (3.3-5.1) mmol/L Chloride 109 H (96-108) mmol/L Carbon Dioxide 25 (22-29) mmol/L Anion Gap 13 (12-20) BUN 17 H (9-16) mg/dL Creatinine 1.23 (0.5-1.4) mg/dL Estim Creat Clear Calc 37.8 Estimated GFR 42 Random Glucose 107 (60-115) mg/dL Calcium 9.5 (8.4-10.2) mg/dL Total Bilirubin 0.3 (0.0-1.0) mg/dL Direct Bilirubin 0.2 (0.0-0.5) mg/dL AST 28 (5-31) U/L ALT 20 (0-31) U/L Alkaline Phosphatase 79 (39-117) U/L Total Protein 7.0 (6.5-8.0) g/dL Albumin 3.9 (3.5-5.0) g/dL Lipase 22 (8-78) U/L Urine Color Yellow Urine Appearance Clear Urine pH 6.0 (5.0-9.0) Ur Specific [place] 1.010 (1.005-1.025) Urine Protein Negative (Neg-Trace) mg/dL Urine Glucose (UA) Negative (Negative) mg/dL Urine Ketones Negative (Negative) mg/dL Urine Blood Negative (Negative) Urine Nitrite Negative (Negative) Ur Leukocyte Esterase Trace H (Negative) Urine RBC 0-2 (0-2) /HPF Urine WBC 0-5 (0-5) /HPF Ur Squamous Epith Cells 0-2 (0-2) /HPF Urine Bacteria Trace (None Seen) Hyaline Casts 0-2 (0-2) /LPF COVID-19 (LITA) Negative (Negative) COVID-19 Clin Com See Note Influenza Type A (CHUY) Negative (Negative) Influenza Type B (CHUY) Negative (Negative) Influenza A & B Note See Note Independent Interpretation I performed an independent interpretation of an: EKG Interpretation: My independent interpretation patient's 12 EKG done at 07:27 hours is as follows: Sinus tachycardia with a rate of 111, occasional PAC, no ST segment elevation, no ST segment depression, no T-wave abnormalities, no Q-waves, compared to EKG dated 01/07/2022 no significant change, the patient sinus tachycardia with a rate of 113 and PACs on the previous EKG as well. Independent Historian Clinical information obtained from an independent historian. History obtained from or confirmed by: Other (Family) Prescription Management I considered prescription management with: Other (Antiemetics) Chronic Conditions Patient?s care impacted by: Hypertension and Other (Chronic kidney disease) Discharge Plan Discharge Clinical Impression: Weakness Vomiting Qualifiers: Vomiting type: unspecified Nausea presence: with nausea Qualified Code(s): R 11.2 - Nausea with vomiting, unspecified Patient Disposition: Home, Self-Care Instructions: Viral Syndrome (ED) Additional Instructions: Your blood work was unremarkable which is reassuring. Your kidney function was normal and at your baseline Your COVID-19 and influenza tests were negative. Your urine today did not reveal any evidence for urinary tract infection which is also reassuring You may have had an adverse reaction to nitrofurantoin (Macrobid) or you may have an early viral infection that explain your symptoms. Take Zofran ODT 4 mg pills, 1 pill dissolved in your mouth every 8 hours as needed for nausea and vomiting. 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 Do not take your blood pressure more than once a day and do not worry about any of your blood pressure readings even if they are very high. You are taking these readings to show them to your doctor to help your doctor decide if they need to adjust your medications. We do not treat individual blood pressure readings. Follow-up with your doctor in 2 days. Please return to the emergency department if your symptoms get worse or if you develop any symptoms that are concerning to you. Prescriptions: New ondansetron 4 mg tablet,disintegrating 4 mg PO Q6-8H PRN (Reason: nausea and vomiting) Qty: 14 0RF No Action levothyroxine [Levoxyl] 75 mcg tablet 75 mcg PO DAILY@0600 lisinopril 30 mg tablet 30 mg PO DAILY hydralazine 50 mg tablet 50 mg PO DAILY rosuvastatin 20 mg tablet 20 mg PO BEDTIME nystatin 100,000 unit/gram ointment 1 appl topical TID 14 Days Qty: 30 0RF cyclobenzaprine 5 mg tablet 5 mg PO TID sertraline 25 mg tablet 25 mg PO DAILY Interventions: ED Discharge Assessment Last Done: 04/02/23 14:03 Discharge Date/Time: 04/02/23 14:04
[2023-04-02] MEDS: Ondansetron ODT 4 MG TAB.RAPDIS TRANSLINGU (13:48)
[2023-04-02 13:49] VITALS: BP 155/74; PULSE 95; RESP 16; TEMP 36.8; O2SAT 96
== END 2023-04-02 14:04 | disposition home or self-care (01) ==
PROVIDERS: Emergency Provider Emergency Medicine Emergency Medical Services; PCP Nurse Practitioner Family
DX: R11.2 Nausea with vomiting, unspecified (principal); R00.0 Tachycardia, unspecified; F45.8 Other somatoform disorders; Z79.899 Other long term (current) drug therapy; Z11.52 Encounter for screening for COVID-19
CPT/HCPCS: 36415; 80048; 80076; 81001; 81003; 83690; 85025; 87502; 87635; 93005; 99283; 99284

== ENCOUNTER → 2023-04-02 07:25 | Outpatient (BNV) | payer MEDICARE, SELFPAY | PROVIDERS: Emergency Provider Emergency Medicine Emergency Medical Services; PCP Nurse Practitioner Family; Visit Provider Internal Medicine Cardiovascular Disease | DX: I47.10 Supraventricular tachycardia, unspecified (principal) | CPT/HCPCS: 93010 ==

== ENCOUNTER 2023-04-03 18:42 | Inpatient (IN) | payer MEDICARE, SELFPAY ==
--- NOTE | ~2023-04-03 | CT_ITS ---
EXAMINATION: CT ABDOMEN AND PELVIS WITHOUT CONTRAST CLINICAL INFORMATION: Abdominal pain. History of diverticulitis. COMPARISON: Previous CT of the abdomen and pelvis most recent December 2021 TECHNIQUE: Multidetector volumetric imaging was performed from the superior aspect of the liver through the pubic symphysis. Sagittal and coronal reformatted images were obtained on the technologist's workstation. This CT examination was performed using dose optimization techniques as appropriate, variously including the following: *Automated exposure control *Adjustment of mA and/or kV according to patient size (this includes techniques or standardized protocols for targeted exams where dose is matched to indication/reason for exam; i.e. extremities or head) *Use of iterative reconstruction technique DLP: 679 mGy-cm FINDINGS: LUNG BASES: The visualized lung bases are unremarkable. LIVER, GALLBLADDER, AND BILIARY TREE: The liver is normal in size, shape, and attenuation. No focal hepatic lesion. The gallbladder has been removed. There is no biliary biliary duct dilatation. PANCREAS: Unremarkable. SPLEEN: Unremarkable. ADRENAL GLANDS: Unremarkable. KIDNEYS AND URETERS: The kidneys are normal in size, shape, and attenuation. No hydronephrosis, hydroureter, or calculi seen. No perinephric stranding. BLADDER: Unremarkable. GASTROINTESTINAL TRACT: There is severe diverticulosis of the colon. There is wall thickening of the distal left and proximal sigmoid colon and stranding of the adjacent fat suggestive of diverticulitis. No evidence of obstruction, perforation or abscess. Small duodenal diverticulum adjacent to the head of pancreas. Small bowel is otherwise unremarkable. The appendix is unremarkable. ABDOMINAL WALL: Small umbilical hernia. LYMPH NODES: Normal. VASCULAR: Unremarkable. PELVIC VISCERA: Right adnexal 3 cm cyst that is stable. Most likely represents a benign cyst and no follow-up recommended. Uterus and left adnexa unremarkable. OSSEOUS STRUCTURES: Degenerative changes of the spine and joints. CT/CT abdomen pelvis wo IV con IMPRESSION: Distal left and sigmoid colon diverticulitis. Fleischner guidelines were followed.
--- NOTE | 2023-04-03 18:50 | ECG_ITS ---
Test Reason : ABD PAIN Blood Pressure : / mmHG Vent. Rate : 060 BPM Atrial Rate : 060 BPM P-R Int : 108 ms QRS Dur : 080 ms QT Int : 406 ms P-R-T Axes : 016 043 042 degrees QTc Int : 406 ms Sinus rhythm with short [place] Otherwise normal ECG When compared with ECG of 02-APR-2023 07:27, Premature supraventricular complexes are no longer Present Vent. rate has decreased BY 51 BPM Referred By: Sue Jacobsen Electronically Signed By:Sukh Handy
[2023-04-03 19:05] VITALS: BP 146/85; BP 148/86; PULSE 69; PULSE 76; RESP 20; TEMP 36.5; O2SAT 97; O2SAT 99; BMI 34.5
--- NOTE | 2023-04-03 19:28 | ED_ITS ---
HPI - Abdominal Pain General Chief Complaint: Abdominal Pain Stated Complaint: Abd pain Time Seen by Provider: 04/03/23 18:50 Source: patient and old records reviewed Mode of arrival: EMS Limitations: no limitations History of Present Illness HPI narrative: 77 yo female with PMH of hypothyroidism, CKD, PAC, PVCs, diverticultis, HTN, HLD, was seen yesterday following possible UTI and UA was negative so PCP held macrobid she came in with n/v and viral like illness had no pain until 5pm tonight now has waves of pain in LLQ pain that make her feel as if she is going to pass out or have BM but no BM happens. She has n/v as well. MD elicited complaint: abdominal pain Pertinent past history: diverticulitis Onset (ago): hour(s) (5pm) Pain Consistency: constant Location: LLQ Severity: severe Quality: stabbing Radiation: none Migration to: no migration Exacerbating factors: movement Relieving factors: nothing Associated symptoms: nausea and vomiting Related Data Home Medications Medication Instructions Recorded Confirmed hydralazine 50 mg tablet 50 mg PO DAILY 02/08/21 10/03/21 levothyroxine 75 mcg tablet 75 mcg PO DAILY@0600 02/08/21 10/03/21 (Levoxyl) lisinopril 30 mg tablet 30 mg PO DAILY 02/08/21 10/03/21 rosuvastatin 20 mg tablet 20 mg PO BEDTIME 02/08/21 10/03/21 cyclobenzaprine 5 mg tablet 5 mg PO TID 10/03/21 10/03/21 sertraline 25 mg tablet 25 mg PO DAILY 10/03/21 10/03/21 Previous Rx's Medication Instructions Recorded nystatin 100,000 unit/gram topical 1 appl topical TID 14 days #30 09/07/21 ointment grams ondansetron 4 mg disintegrating 4 mg PO Q6-8H PRN nausea and 04/02/23 tablet vomiting #14 tabs Allergies Allergy/AdvReac Type Severity Reaction Status Date / Time Iodinated Contrast Media Allergy Severe TACHYCARDIA,DIFFICULTY Verified 04/03/23 19:05 [IV CONTRAST] BREATHING amoxicillin [Prevpac] Allergy Unknown Unknown Verified 04/03/23 19:05 clarithromycin [Prevpac] Allergy Unknown Unknown Verified 04/03/23 19:05 escitalopram [From LEXAPRO] Allergy Unknown CHEST PAIN Verified 04/03/23 19:05 lansoprazole [Prevpac] Allergy Unknown unknown Verified 04/03/23 19:05 lovastatin Allergy Unknown myalgia Verified 04/03/23 19:05 omeprazole [From Prilosec] Allergy Unknown CHEST Verified 04/03/23 19:05 PAIN,DIFFICULTY BREATHING pravastatin Allergy Unknown myalgia Verified 04/03/23 19:05 shellfish derived Allergy Unknown UNKOWN Verified 04/03/23 19:05 [SHELLFISH DERIVED] iv contrast dye Allergy Unknown unknown Uncoded 04/03/23 19:05 iv dye/ shellfish Allergy Unknown unknown Uncoded 04/03/23 19:05 Prilosec Allergy Unknown Chest pain Uncoded 04/03/23 19:05 Review of Systems Review of Systems Constitutional : No Weight loss, No Fever, No Chills ENT/Mouth : No sore throat, No Rhinorrhea Eyes: No Swelling, No Redness Cardiovascular : No Chest Pain, No SOB, NoEdema Respiratory : No Cough, No Sputum, No Wheezing Gastrointestinal : Positive Nausea, Positive Vomiting, no Diarrhea, positive abdominal Pain, No Hematochezia, No Melena Genitourinary : No Dysuria, No Urinary Frequency, No Hematuria, No Urgency Musculoskeletal : No joint pain, No Myalgias, No Joint Swelling Skin : No Skin Lesions, No rash Neuro : No Weakness, No Numbness, No Dizziness, No Headache Psych : No Anxiety/Panic, No Depression Heme/Lymph: No Bruising, No Lymphadenopathy Endocrine : No Polyuria, No Polydipsia All other systems reviewed and are negative. [facility] Past Medical History Attestation statement: The following information was validated with the patient. Source: old records reviewed Medical History Hypertensive urgency Harper esophagus Non-toxic multinodular goiter Barretts esophagus Allergies Chronic GERD Lipid disorder Hypertension, essential Anxiety, generalized Surgical History H/O LEEP (2007) Family History Family History Father Heart disease Mother Heart disease Maternal Uncle Colon cancer Heart failure Social History Social History Alcohol intake: never Patient Tobacco Use Status: Never used Tobacco Advance Directives: No Advance Directives Information Provided: No service: No Current occupational status: retired Physical Exam ED Vital Signs: Vital Signs - 24 hr 04/03/23 19:05 04/03/23 19:30 Temperature 97.7 F Pulse Rate 69 Respiratory Rate 20 18 Blood Pressure 146/85 H Pulse Oximetry 97 Oxygen Delivery Method Room Air BMI result Body Mass Index 34.5 Appearance: Alert. Oriented X3. in pain mild acute distress. Eyes: Pupils equal, round and reactive to light. ENT: Pharynx normal. Neck: Normal inspection. Neck supple. CVS: Normal heart rate and rhythm. Pulses normal. Respiratory: No respiratory distress. Breath sounds normal. Abdomen: Soft and mild LLQ pain Skin: Skin warm and dry. Normal skin color. Normal skin turgor. Extremities: No lower extremity edema. No calf ttp Neuro: Oriented X 3. No motor deficit. No sensory deficit. Course Course Course Narrative: possible infection suspected 824pm Medical Decision Making Medical Decision Making MDM Narrative: 77 yo female with PMH of hypothyroidism, CKD, PAC, PVCs, diverticultis, HTN, HLD at this time she was just seen yesterday for n/v and viral like illness labs and UA reassuring now with abrupt onset LLQ pain 5pm - at this time will need labs, UA, IV morphine for pain, CT scan for diverticulitis, renal colic, obstruction Differential Diagnosis Differential Diagnoses: The differential diagnosis associated with the presentation includes diverticulitis, renal colic, obstruction Admission/Observation Consideration of admission/observation: Escalation of care including admission/observation considered admit for further workup and pain control Consult Healthcare Provider Management of the patient was discussed with: Hospitalist (will admit) Lab Data [facility] Lab Attestation statement: I reviewed the patient's lab results. 04/03/23 19:36 04/03/23 19:36 Labs: Lab Results 04/03/23 04/03/23 Range/Units 19:20 19:36 WBC 11.3 H (4.8-10.8) X10*3/uL RBC 4.55 (4.20-5.50) X10*6/uL Hgb 13.3 (12.0-16.0) g/dl Hct 40.3 (37.0-47.0) % MCV 88.6 (80.0-98.0) fL MCH 29.2 (27.0-33.0) pg MCHC 33.0 (31.0-35.0) g/dl RDW 12.7 (11.0-16.0) % Plt Count 187 (160-400) X10*3/uL MPV 9.9 (9.4-12.3) fL Immature Gran % (Auto) 0.4 (0.0-0.4) % Neut % (Auto) 76.5 H (45-73) % Lymph % (Auto) 15.0 L (20-40) % [place] % (Auto) 7.1 (2-11) % Eos % (Auto) 0.5 (0-4) % Baso % (Auto) 0.5 (0-2) % Lymph # (Auto) 1.7 (1.2-4.9) X10*3/uL [place] # (Auto) 0.8 (0.1-1.2) X10*3/uL Eos # (Auto) 0.1 (0.0-0.4) X10*3/uL Baso # (Auto) 0.1 (0.0-0.2) X10*3/uL Abs Immat Gran (auto) 0.04 H (0.00-0.03) X10*3/uL Absolute Neuts (auto) 8.7 H (2.0-8.3) x10*3/uL Absolute Nucleated RBC 0.000 (0.0-0.012) X10*3/uL Nucleated RBC % (auto) 0.0 (0.0-0.2) /100WBC Sodium 143 (135-145) mmol/L Potassium 4.3 (3.3-5.1) mmol/L Chloride 109 H (96-108) mmol/L Carbon Dioxide 23 (22-29) mmol/L Anion Gap 15 (12-20) BUN 22 H (9-16) mg/dL Creatinine 1.48 H (0.5-1.4) mg/dL Estim Creat Clear Calc 31.0 Estimated GFR 34 Random Glucose 110 (60-115) mg/dL Lactic Acid 3.6 H* (0.5-2.0) mmol/L Calcium 9.8 (8.4-10.2) mg/dL Magnesium 1.7 (1.6-2.6) mg/dL Total Bilirubin 0.3 (0.0-1.0) mg/dL Direct Bilirubin 0.2 (0.0-0.5) mg/dL AST 29 (5-31) U/L ALT 20 (0-31) U/L Alkaline Phosphatase 78 (39-117) U/L Troponin I High Sens 3.4 (<3.5-17.0) ng/L Total Protein 6.7 (6.5-8.0) g/dL Albumin 3.7 (3.5-5.0) g/dL Lipase 20 (8-78) U/L Independent Interpretation I performed an independent interpretation of an: EKG and CT Scan (+ diverticulitis) Interpretation: Rate: 60 Rhythm: NSR [place]: normal Normal P waves. Normal VINC[place]. Normal QRS complex. ST T wave : normal no ENRIKE qTC: 406 prior studies: no acute ischemia The study has been interpreted contemporaneously by me. . Radiology Impression Discussion of test interpretation with radiology: I have reviewed the radiologist's reading. Independent Historian Clinical information obtained from an independent historian. History obtained from or confirmed by: EMS External Record Review External record reviewed: Inpatient record Medications Administered Discontinued Medications Generic Name Dose Route Start Last Admin Trade Name Freq PRN Reason Stop Dose Admin Sodium Chloride 1,000 mls @ 999 mls/hr 04/03/23 19:00 04/03/23 19:30 Ns IV 04/03/23 20:00 999 mls/hr .Q1H1M NIRU Administration Morphine Sulfate 4 mg 04/03/23 18:50 04/03/23 19:30 Morphine Sulfate 4 Mg/Ml Cartridge IVPUSH 04/03/23 18:51 4 mg ONCE ONE Administration Protocol Ondansetron HCl 4 mg 04/03/23 18:50 04/03/23 19:31 Ondansetron Hcl 4 Mg/2 Ml Vial IVPUSH 04/03/23 18:51 4 mg ONCE ONE Administration Critical Care Time Critical Care Time Critical Care Time: Yes Total Critical Care Time: 35 Attestation: pain improved with IV morphine, admission, IVF I attest to this time spent taking care of the patient Discharge Plan Discharge Clinical Impression: Diverticulitis, Acidosis, lactic Abdominal pain Qualifiers: Abdominal location: left lower quadrant Qualified Code(s): R10.32 - Left lower quadrant pain Patient Disposition: Admitted As Inpatient Prescriptions: No Action levothyroxine [Levoxyl] 75 mcg tablet 75 mcg PO DAILY@0600 lisinopril 30 mg tablet 30 mg PO DAILY hydralazine 50 mg tablet 50 mg PO DAILY rosuvastatin 20 mg tablet 20 mg PO BEDTIME nystatin 100,000 unit/gram ointment 1 appl topical TID 14 Days Qty: 30 0RF ondansetron 4 mg tablet,disintegrating 4 mg PO Q6-8H PRN (Reason: nausea and vomiting) Qty: 14 0RF cyclobenzaprine 5 mg tablet 5 mg PO TID sertraline 25 mg tablet 25 mg PO DAILY
[2023-04-03 19:30] VITALS: RESP 18
[2023-04-03] MEDS: Morphine Sulfate 4 MG/ML CARTRIDGE IVPUSH (19:30)
[2023-04-03] MEDS: 0.9 % Sodium Chloride 1,000 ML 999 ML IV (19:30)
[2023-04-03] MEDS: ondansetron HCL 4 MG/2 ML VIAL IVPUSH (19:31)
[2023-04-03 19:42] LABS: MANUAL DIFF FLAG NO
[2023-04-03 19:43] LABS: Basophils Absolute Auto 0.1 X10*3/uL (0.0-0.2); Basophils Percent Auto 0.5 % (0-2); Eosinophils Absolute Auto 0.1 X10*3/uL (0.0-0.4); Eosinophils Percent Auto 0.5 % (0-4); Hematocrit 40.3 % (37.0-47.0); Hemoglobin 13.3 g/dl (12.0-16.0); Imm Gran Abs Auto 0.04 X10*3/uL (0.00-0.03); Imm Gran Pct Auto 0.4 % (0.0-0.4); Lymphocytes Absolute Auto 1.7 X10*3/uL (1.2-4.9); Mean Corpuscular Hemoglobin 29.2 pg (27.0-33.0); Mean Corpuscular Volume 88.6 fL (80.0-98.0); Mean Platelet Volume 9.9 fL (9.4-12.3); Monocytes Absolute Auto 0.8 X10*3/uL (0.1-1.2); Monocytes Percent Auto 7.1 % (2-11); Neutrophils Absolute Auto 8.7 x10*3/uL (2.0-8.3); Neutrophils Percent Auto 76.5 % (45-73); Platelet Count 187 X10*3/uL (160-400); Red Blood Count 4.55 X10*6/uL (4.20-5.50); Red Cell Distribution Width 12.7 % (11.0-16.0); White Blood Count 11.3 X10*3/uL (4.8-10.8)
[2023-04-03 20:07] LABS: Alanine Aminotransferase 20 U/L (0-31); Albumin Level 3.7 g/dL (3.5-5.0); Alkaline Phosphatase 78 U/L (39-117); Anion Gap 15 (12-20); Aspartate Amino Transferase 29 U/L (5-31); Bilirubin Direct 0.2 mg/dL (0.0-0.5); Bilirubin Total 0.3 mg/dL (0.0-1.0); Blood Urea Nitrogen 22 mg/dL (9-16); Calcium 9.8 mg/dL (8.4-10.2); Carbon Dioxide 23 mmol/L (22-29); Chloride 109 mmol/L (96-108); Estimated Glomerular Filt Rate 34; Glucose Random 110 mg/dL (60-115); Lipase 20 U/L (8-78); Magnesium 1.7 mg/dL (1.6-2.6); Potassium 4.3 mmol/L (3.3-5.1); Sodium 143 mmol/L (135-145); Total Protein 6.7 g/dL (6.5-8.0)
[2023-04-03 20:14] LABS: Troponin-I High Sensitivity 3.4 ng/L (<3.5-17.0)
[2023-04-03 20:23] LABS: Lactic Acid 3.6 mmol/L (0.5-2.0)
[2023-04-03] MEDS: cefTRIAXone sodium 1 GM in 0.9 % Sodium Chloride 50 ML IV (20:38)
--- NOTE | 2023-04-03 20:41 | PHA.MEDREC ---
Addendum entered by Iva Eldridge RPh 04/03/23 22:37: Patient now reporting only taking a half tablet of the amitriptyline 10 mg tablet. Original Note: Pharmacy Consult ? Medication Reconciliation Pharmacy has completed the medication reconciliation. Patient reported medications. Report taking 1/2 tablet of buspar once a day. Reported taking hydralazin once a day instead of twice a day. Patient has not picked up zofran yet from the [facility]. Iva Eldridge, PharmD
--- NOTE | 2023-04-03 20:58 | PM.IMHP ---
History of Present Illness Date of Service: 04/03/23 Chief Complaint: Abdominal pain This is a 77-year-old female with pertinent history of essential hypertension, mood disorder, hypothyroidism, history of diverticulitis, chronic kidney disease presents to the emergency department for evaluation of abdominal discomfort. Patient presented to the ER 1 day prior to the presentation with nausea and vomiting and was discharged due to likely viral illness. Patient states she developed abdominal discomfort around 17:00 on the day of presentation. It was in the lower left quadrant, intermittent, progressive and nonradiating. It was associated with nausea and dry heaving. No fever, chills. Patient states last episode of diverticulitis was more than a year ago. No chest discomfort, palpitations, shortness of breath, changes in urinary habits. Has had a couple of loose stools, nonbloody since the pain began. In the emergency department, imaging with diverticulitis. Review of Systems Constitutional: Constitutional: Reports no additional constitutional complaints Cardiovascular: Cardiovascular: Reports no additional cardiovascular complaints Respiratory: Respiratory: Reports no additional respiratory complaints Gastrointestinal: Gastrointestinal: Reports abdominal pain and Reports nausea Genitourinary: Genitourinary: Reports no additional female genitourinary complaints [facility] Medical History Hypertensive urgency Harper esophagus Non-toxic multinodular goiter Barretts esophagus Allergies Chronic GERD Lipid disorder Hypertension, essential Anxiety, generalized Family History Father Heart disease Mother Heart disease Maternal Uncle Colon cancer Heart failure Surgical History H/O LEEP (2007) Social History Alcohol intake: never Patient Tobacco Use Status: Never used Tobacco Advance Directives: No Advance Directives Information Provided: No service: No Current occupational status: retired Meds Allergies Allergy/AdvReac Type Severity Reaction Status Date / Time Iodinated Contrast Media Allergy Severe TACHYCARDIA,DIFFICULTY Verified 04/03/23 19:05 [IV CONTRAST] BREATHING amoxicillin [Prevpac] Allergy Unknown Unknown Verified 04/03/23 19:05 clarithromycin [Prevpac] Allergy Unknown Unknown Verified 04/03/23 19:05 escitalopram [From LEXAPRO] Allergy Unknown CHEST PAIN Verified 04/03/23 19:05 lansoprazole [Prevpac] Allergy Unknown unknown Verified 04/03/23 19:05 lovastatin Allergy Unknown myalgia Verified 04/03/23 19:05 omeprazole [From Prilosec] Allergy Unknown CHEST Verified 04/03/23 19:05 PAIN,DIFFICULTY BREATHING pravastatin Allergy Unknown myalgia Verified 04/03/23 19:05 shellfish derived Allergy Unknown UNKOWN Verified 04/03/23 19:05 [SHELLFISH DERIVED] iv contrast dye Allergy Unknown unknown Uncoded 04/03/23 19:05 iv dye/ shellfish Allergy Unknown unknown Uncoded 04/03/23 19:05 Prilosec Allergy Unknown Chest pain Uncoded 04/03/23 19:05 Active Medications: Current Medications Metronidazole (Flagyl) 500 mg in 100 mls @ 100 mls/hr IV ONCE ONE Stop: 04/03/23 21:25 Home Medications Medication Instructions Recorded Confirmed Last Taken Type levothyroxine 75 mcg tablet 75 mcg PO DAILY@0600 02/08/21 04/03/23 04/03/23 History (Levoxyl) lisinopril 30 mg tablet 30 mg PO DAILY 02/08/21 04/03/23 04/03/23 History Probiotic 1 cap PO DAILY 04/03/23 04/03/23 04/03/23 History amitriptyline 10 mg tablet 10 mg PO BEDTIME 04/03/23 04/03/23 04/02/23 History buspirone 5 mg tablet 2.5 mg PO DAILY 04/03/23 04/03/23 04/03/23 History hydralazine 25 mg tablet 25 mg PO DAILY 04/03/23 04/03/23 04/03/23 History lansoprazole 15 mg capsule,delayed 15 mg PO DAILY@1630 04/03/23 04/03/23 04/02/23 History release multivitamin 1 tab PO DAILY 04/03/23 04/03/23 04/03/23 History nystatin 100,000 unit/gram topical 1 appl topical TID PRN Rash 04/03/23 04/03/23 Unknown History cream Physical Exam Vital Signs and Narrative: Vital Signs: Last Vital Signs Temp 97.7 F 04/03/23 19:05 Pulse 69 04/03/23 19:05 Resp 18 04/03/23 19:30 BP 146/85 H 04/03/23 19:05 Pulse Ox 97 04/03/23 19:05 O2 Del Method Room Air 04/03/23 19:05 BMI result Body Mass Index 34.5 Elderly female lying in bed in no distress Neck supple, no JVD Regular rate and rhythm, S1-S2 heard Regular breath sounds bilaterally, no wheezing or crackles appreciated Abdomen with left lower quadrant tenderness, no guarding, no rigidity, no rebound tenderness Patient is awake, alert and oriented to self, place, time and person ; no focal motor deficit Psych: Normal mood No pedal edema Results Labs 04/03/23 19:36 04/03/23 19:36 Labs: Laboratory Results - last 24 hr 04/03/23 04/03/23 19:20 19:36 MCV 88.6 MCH 29.2 MCHC 33.0 RDW 12.7 Plt Count 187 MPV 9.9 Immature Gran % (Auto) 0.4 Neut % (Auto) 76.5 H Lymph % (Auto) 15.0 L [place] % (Auto) 7.1 Eos % (Auto) 0.5 Baso % (Auto) 0.5 Lymph # (Auto) 1.7 [place] # (Auto) 0.8 Eos # (Auto) 0.1 Baso # (Auto) 0.1 Abs Immat Gran (auto) 0.04 H Absolute Neuts (auto) 8.7 H Absolute Nucleated RBC 0.000 Nucleated RBC % (auto) 0.0 Anion Gap 15 Estim Creat Clear Calc 31.0 Estimated GFR 34 Random Glucose 110 Lactic Acid 3.6 H* Calcium 9.8 Magnesium 1.7 Total Bilirubin 0.3 Direct Bilirubin 0.2 AST 29 ALT 20 Alkaline Phosphatase 78 Troponin I High Sens 3.4 Total Protein 6.7 Albumin 3.7 Lipase 20 Imaging Radiologist's Impressions: Impressions Abdomen/Pelvis CT 04/03/23 19:56 IMPRESSION: Distal left and sigmoid colon diverticulitis. Fleischner guidelines were followed. Assessment and Plan (1) Diverticulitis: Status: Acute Plan This is a a 77-year-old female with pertinent history of essential hypertension, mood disorder, hypothyroidism, history of diverticulitis, chronic kidney disease presents to the emergency department for evaluation of abdominal discomfort. #. Acute uncomplicated diverticulitis: Will admit patient for significant abdominal discomfort. Resuscitated with IV crystalloids. Initiating IV opioids p.r.n. for analgesia. Empiric IV antibiotics. Will need outpatient GI follow-up. #. Acute lactic acidosis: Not due to sepsis #. Chronic kidney disease: Creatinine at baseline #. Mood disorder: Continue home mood stabilizers #. Hypothyroidism: On Synthroid #. Essential hypertension: On hydralazine and lisinopril DVT prophylaxis: Farheenx Full code Admit as inpatient and will require two night minimum hospital stay for IV antibiotics, IV opioids p.r.n. (as above), which is not possible in a lesser acute setting. Quality Stroke Does the patient have a stroke diagnosis?: No VTE Prior VTE?: No VTE Risk Level:: Medical - moderate - high VTE Device Contraindication: Treatment Not Indicated VTE Drug Contraindication: N/A - Med Ordered
[2023-04-03] MEDS: metroNIDAZOLE/NS 500 MG/100 ML PIGGYBACK 100 MG IV (21:09)
[2023-04-03 21:11] VITALS: BP 158/75; PULSE 82; RESP 16; TEMP 36.5; O2SAT 99
[2023-04-03 22:13] LABS: Reflex Lactate? Lactic Acid Added
[2023-04-03] MEDS: Enoxaparin Sodium 40 MG/0.4 ML SYRINGE SUBCUT (22:24)
[2023-04-03] MEDS: Amitriptyline HCl 10 MG TABLET 5 MG PO (22:42)
[2023-04-03 23:06] VITALS: BP 150/66; PULSE 96; RESP 16; TEMP 37.1; O2SAT 99
[2023-04-03 23:13] LABS: Appearance Urine Clear; Color Urine Dark Yellow; Glucose Urine UA Negative (Negative); Leukocyte Esterase Urine Trace (Negative); Nitrite Urine Negative (Negative); PH 7.5 (5.0-9.0); UMIC TRIGGER UACC YES; Urine Blood Negative (Negative); Urine Ketones Trace mg/dL (Negative); Urine Protein Negative (Neg-Trace)
[2023-04-03 23:20] LABS: Bacteria Urine None Seen (None Seen); Hyaline Casts Urine 0-2 /LPF (0-2); RBC Urine 0-2 /HPF (0-2); Squamous Epithelial Cell Urine 0-2 /HPF (0-2); WBC Urine 0-5 /HPF (0-5)
[2023-04-03 23:21] LABS: ~Lactic Acid-LAB USE ONLY 1.1 mmol/L (0.5-2.0)
[2023-04-04] VITALS (8 sets, daily range): BP systolic 123–141; BP diastolic 60–72; PULSE 81–94; RESP 14–20; TEMP 36.3–37.2; O2SAT 95–98
[2023-04-04] MEDS: 0.9 % Sodium Chloride Flush 3 ML SYRINGE IVFLUSH ×2 (00:09→09:33)
[2023-04-04] MEDS: Morphine Sulfate 4 MG/ML CARTRIDGE IVPUSH (00:17)
[2023-04-04] MEDS: metroNIDAZOLE/NS 500 MG/100 ML PIGGYBACK 100 MG IV ×3 (05:19→20:03)
[2023-04-04] MEDS: Levothyroxine Sodium 75 MCG TABLET PO (05:19)
[2023-04-04 05:29] LABS: MANUAL DIFF FLAG NO
[2023-04-04 05:32] LABS: Basophils Percent Auto 0.3 % (0-2); Eosinophils Percent Auto 0.1 % (0-4); Hematocrit 40.4 % (37.0-47.0); Hemoglobin 12.9 g/dl (12.0-16.0); Imm Gran Abs Auto 0.05 X10*3/uL (0.00-0.03); Imm Gran Pct Auto 0.4 % (0.0-0.4); Lymphocytes Absolute Auto 1.2 X10*3/uL (1.2-4.9); Lymphocytes Percent Auto 9.5 % (20-40); Mean Corpuscular HGB Conc 31.9 g/dl (31.0-35.0); Mean Corpuscular Hemoglobin 29.2 pg (27.0-33.0); Mean Corpuscular Volume 91.4 fL (80.0-98.0); Mean Platelet Volume 10.6 fL (9.4-12.3); Monocytes Absolute Auto 0.9 X10*3/uL (0.1-1.2); Monocytes Percent Auto 7.1 % (2-11); Neutrophils Absolute Auto 10.7 x10*3/uL (2.0-8.3); Neutrophils Percent Auto 82.6 % (45-73); Platelet Count 187 X10*3/uL (160-400); Red Blood Count 4.42 X10*6/uL (4.20-5.50); Red Cell Distribution Width 12.9 % (11.0-16.0); White Blood Count 12.9 X10*3/uL (4.8-10.8)
[2023-04-04 05:51] LABS: Anion Gap 16 (12-20); Blood Urea Nitrogen 21 mg/dL (9-16); Calcium 8.9 mg/dL (8.4-10.2); Carbon Dioxide 24 mmol/L (22-29); Chloride 110 mmol/L (96-108); Creatinine Clr Calc Pharmacy 34.3; Estimated Glomerular Filt Rate 38; Glucose Random 115 mg/dL (60-115); Potassium 5.5 mmol/L (3.3-5.1); Sodium 144 mmol/L (135-145)
--- NOTE | 2023-04-04 06:33 | PC.NURSE ---
Patient is alert and oriented x4. She is able to make her needs known and uses a call carrasco appropriately. Patient ambulates to a restroom with 1 assist. VSS. LLQ abdominal pain 2/10-at tolerable level, no nausea/vomiting at present. Patient is aware of NPO diet and compliant. 20 G IV line in R hand is patent.
--- NOTE | 2023-04-04 09:05 | PC.NURSE ---
HOSP [facility] ([facility]) AT BEDSIDE, PT/FAMILY AWARE OF PLAN OF CARE. PT IS ADMITTED TO HOSP.
[2023-04-04] MEDS: busPIRone HCl 5 MG TABLET 2.5 MG PO (09:33)
[2023-04-04] MEDS: Multivitamin TABLET 1 TAB PO (09:33)
[2023-04-04] MEDS: hydrALAZINE HCl 25 MG TABLET PO (09:33)
--- NOTE | 2023-04-04 10:38 | MHC.CM.PN ---
IMM 04/04/23, Pt lives with her daughter, she has a HCP which names her daughter and son: Yuki Gasca, and Phill Cotto, copy requested. Pt. does not have any home health services or medical equipment, she has not used [facility] or been to [facility]. She said that she could use help at home, and in the past has looked into [facility] and was told she is not eligible for services. Family to transport home upon DC. CM to follow and assist with DC plan.
[2023-04-04 11:17] LABS: Potassium 4.3 mmol/L (3.3-5.1)
--- NOTE | 2023-04-04 11:38 | HO.PM.IMPN ---
Subjective Subjective Date of Service: 04/04/23 Interval History: seen and examined this morning follow up for diverticulitis still with LLQ pain, but improving no nausea or vomiting Review of Systems Review of Systems: Yes all other systems are reviewed and are negative Constitutional Constitutional: Denies chills and Denies fever(s) Cardiovascular Cardiovascular: Denies chest pain, Denies palpitations and Denies dyspnea Respiratory Respiratory: Denies cough and Denies dyspnea Gastrointestinal Gastrointestinal: Reports abdominal pain, Denies nausea and Denies vomiting Endocrine Endocrine: Denies palpitations Physical Exam Vital Signs: Vital Signs: Last Vital Signs Temp 98.9 F 04/04/23 09:29 Pulse 81 04/04/23 09:29 Resp 17 04/04/23 09:29 BP 131/71 04/04/23 09:29 Pulse Ox 95 04/04/23 09:29 O2 Del Method Room Air 04/04/23 09:29 BMI result Body Mass Index 34.5 Const: General: cooperative, comfortable, no acute distress, alert and awake Nutritional Appearance: overweight Orientation/consciousness: patient oriented x3 Resp: Effort & Inspection: normal respiratory effort, able to speak in complete sentences, no respiratory distress and no use of accessory muscles Auscultation: clear to auscultation bilaterally Cardio: Rate: regular rate GI: Other: mild LLQ abdominal tender to palpation, +BS no rebound Inspection: No distended Palpation (GI): Soft to palpation Neuro: General: patient oriented x3 and moves all extremities Extrem: General: Yes no pedal edema Objective Data Active Medications Acetaminophen (Acetaminophen 325 Mg Tablet) 650 mg PO Q6H PRN PRN Reason: Pain, Mild (Pain Scale 1-3) Amitriptyline HCl (Amitriptyline Hcl 10 Mg Tablet) 5 mg PO BEDTIME [facility] Last Admin: 04/03/23 22:42 Dose: 5 mg Documented By: PETRA Buspirone HCl (Buspirone Hcl 5 Mg Tablet) 2.5 mg PO DAILY [facility] Last Admin: 04/04/23 09:33 Dose: 2.5 mg Documented By: EDMOND Enoxaparin Sodium (Enoxaparin Sodium 40 Mg/0.4 Ml Syringe) 40 mg SUBCUT Q24H [facility] Last Admin: 04/03/23 22:24 Dose: 40 mg Documented By: PETRA Hydralazine HCl (Hydralazine Hcl 25 Mg Tablet) 25 mg PO DAILY [facility]; Protocol Last Admin: 04/04/23 09:33 Dose: 25 mg Documented By: EDMOND Ceftriaxone Sodium 2 gm/ (Sodium Chloride) 50 mls @ 100 mls/hr IV Q24H [facility] Metronidazole (Flagyl) 500 mg in 100 mls @ 100 mls/hr IV Q8H [facility] Last Infusion: 04/04/23 06:20 Dose: Infused Documented By: PETRA Levothyroxine Sodium (Levothyroxine Sodium 75 Mcg Tablet) 75 mcg PO DAILY@0600 [facility] Last Admin: 04/04/23 05:19 Dose: 75 mcg Documented By: PETRA Melatonin (Melatonin 3 Mg Tablet) 6 mg PO BEDTIME PRN PRN Reason: Insomnia Morphine Sulfate (Morphine Sulfate 4 Mg/Ml Cartridge) 4 mg IVPUSH Q4H PRN; Protocol PRN Reason: Pain, Severe (Pain Scale 7-10) Last Admin: 04/04/23 00:17 Dose: 4 mg Documented By: PETRA Multivitamins/Vitamin C (Multivitamin Tablet) 1 tab PO DAILY [facility] Last Admin: 04/04/23 09:33 Dose: 1 tab Documented By: EDMOND Nystatin (Nystatin Cream 15 Gm Tube) 1 appl TOPICAL TID PRN; Protocol PRN Reason: Rash Ondansetron HCl (Ondansetron Hcl 4 Mg/2 Ml Vial) 4 mg IVPUSH Q8H PRN PRN Reason: Nausea and Vomiting Sodium Chloride (0.9 % Sodium Chloride Flush 3 Ml Syringe) [facility] Last Admin: 04/04/23 09:33 Dose: 3 ml Documented By: EDMOND Labs 04/04/23 04:48 04/04/23 10:52 Labs: Laboratory Results - last 24 hr 04/03/23 04/03/23 04/03/23 19:20 19:36 23:02 MCV 88.6 MCH 29.2 MCHC 33.0 RDW 12.7 Plt Count 187 MPV 9.9 Immature Gran % (Auto) 0.4 Neut % (Auto) 76.5 H Lymph % (Auto) 15.0 L [place] % (Auto) 7.1 Eos % (Auto) 0.5 Baso % (Auto) 0.5 Lymph # (Auto) 1.7 [place] # (Auto) 0.8 Eos # (Auto) 0.1 Baso # (Auto) 0.1 Abs Immat Gran (auto) 0.04 H Absolute Neuts (auto) 8.7 H Absolute Nucleated RBC 0.000 Nucleated RBC % (auto) 0.0 Anion Gap 15 Estim Creat Clear Calc 31.0 Estimated GFR 34 Random Glucose 110 Lactic Acid 3.6 H* Lactic Acid F/U @ 2Hr Calcium 9.8 Magnesium 1.7 Total Bilirubin 0.3 Direct Bilirubin 0.2 AST 29 ALT 20 Alkaline Phosphatase 78 Troponin I High Sens 3.4 Total Protein 6.7 Albumin 3.7 Lipase 20 Urine Color Dark Yellow Urine Appearance Clear Urine pH 7.5 Ur Specific [place] 1.010 Urine Protein Negative Urine Glucose (UA) Negative Urine Ketones Trace Urine Blood Negative Urine Nitrite Negative Ur Leukocyte Esterase Trace H Urine RBC 0-2 Urine WBC 0-5 Ur Squamous Epith Cells 0-2 Urine Bacteria None Seen Hyaline Casts 0-2 04/03/23 04/04/23 23:04 04:48 MCV 91.4 MCH 29.2 MCHC 31.9 RDW 12.9 Plt Count 187 MPV 10.6 Immature Gran % (Auto) 0.4 Neut % (Auto) 82.6 H Lymph % (Auto) 9.5 L [place] % (Auto) 7.1 Eos % (Auto) 0.1 Baso % (Auto) 0.3 Lymph # (Auto) 1.2 [place] # (Auto) 0.9 Eos # (Auto) 0.0 Baso # (Auto) 0.0 Abs Immat Gran (auto) 0.05 H Absolute Neuts (auto) 10.7 H Absolute Nucleated RBC 0.000 Nucleated RBC % (auto) 0.0 Anion Gap 16 Estim Creat Clear Calc 34.3 Estimated GFR 38 Random Glucose 115 Lactic Acid Lactic Acid F/U @ 2Hr 1.1 Calcium 8.9 D Magnesium Total Bilirubin Direct Bilirubin AST ALT Alkaline Phosphatase Troponin I High Sens Total Protein Albumin Lipase Urine Color Urine Appearance Urine pH Ur Specific [place] Urine Protein Urine Glucose (UA) Urine Ketones Urine Blood Urine Nitrite Ur Leukocyte Esterase Urine RBC Urine WBC Ur Squamous Epith Cells Urine Bacteria Hyaline Casts Assessment and Plan (1) Diverticulitis: Status: Acute Plan This is a a 77-year-old female with pertinent history of essential hypertension, mood disorder, hypothyroidism, history of diverticulitis, chronic kidney disease presents to the emergency department for evaluation of abdominal discomfort. Acute uncomplicated diverticulitis abdominal pain improving continue IV ceftriaxone and flagyl will advance to clear liquids blood cultures pending has been evaluated in the past and was recommended against surgery. has outpatient follow up with GI next month Acute lactic acidosis: Not due to sepsis, improvedc with IVF CKD3 baseline SCr appears to be 1.2-1.4 at baseline hyperkalemia ?falsely elevated, repeat normal at 4.3 lisinopril on hold for now Mood disorder: Continue home meds Hypothyroidism: continue Synthroid Essential hypertension: bp uncontrolled on arrival, likely due to pain, now improved continue hydralazine lisinopril held for hyperkalemia, will hold for now. resume as indicated DVT prophylaxis: Lovenox Full code Admit as inpatient and will require two night minimum hospital stay for IV antibiotics, IV opioids p.r.n. (as above), which is not possible in a lesser acute setting. Quality Stroke Does the patient have a stroke diagnosis?: No VTE Prior VTE?: No VTE Risk Level:: Medical - moderate - high VTE Device Contraindication: Treatment Not Indicated VTE Drug Contraindication: N/A - Med Ordered
--- NOTE | 2023-04-04 12:27 | P.CDIM_ITS ---
PROVIDER RESPONSE TEXT: To clarify, the appropriate diagnosis supported by the clinical indicators: CKD, please provide stage QUERY TEXT: PHYSICIAN'S DOCUMENTATION REQUEST Date of Query: 04/04/2023 12:08 PM EST Patient Name: Lindsey Cotto Admit Date: 04/04/2023 Dear Simran Willard, A review of the medical record indicates additional documentation may be needed. Please review below and update the documentation accordingly. Clinical Indicators: Progress note and H&P: Chronic kidney disease Creatinine at baseline Please clarify which of the following accurately represents the patient's stage of the documented CKD : CKD, please provide stage Other Other (explain) Clinically unable to determine (explain) Thank you, Reshma Marley, CCS, CDIS Use of terms such as suspected, likely, concern for, or probable (associated with a specific diagnosi s that is being evaluated, monitored, or treated as if it exists) are acceptable and can be coded in the inpatient se tting, when documented at the time of discharge. Please use your independent medical judgment in providing your response. THIS QUERY IS PART OF THE PERMANENT MEDICAL RECORD
[2023-04-04] MEDS: Enoxaparin Sodium 40 MG/0.4 ML SYRINGE SUBCUT (20:03)
[2023-04-04] MEDS: Amitriptyline HCl 10 MG TABLET 5 MG PO (20:09)
[2023-04-04] MEDS: cefTRIAXone sodium 2 GM in 0.9 % Sodium Chloride 50 ML IV (21:02)
[2023-04-05 03:13] VITALS: BP 136/63; PULSE 79; RESP 18; TEMP 36.6; O2SAT 98
[2023-04-05] MEDS: metroNIDAZOLE/NS 500 MG/100 ML PIGGYBACK 100 MG IV (05:29)
[2023-04-05] MEDS: Levothyroxine Sodium 75 MCG TABLET PO (05:46)
[2023-04-05 06:41] LABS: Hematocrit 35.6 % (37.0-47.0); Hemoglobin 11.7 g/dl (12.0-16.0); Mean Corpuscular HGB Conc 32.9 g/dl (31.0-35.0); Mean Corpuscular Hemoglobin 29.3 pg (27.0-33.0); Mean Corpuscular Volume 89.2 fL (80.0-98.0); Mean Platelet Volume 10.6 fL (9.4-12.3); Platelet Count 161 X10*3/uL (160-400); Red Blood Count 3.99 X10*6/uL (4.20-5.50); Red Cell Distribution Width 12.9 % (11.0-16.0)
[2023-04-05 06:51] LABS: Anion Gap 12 (12-20); Blood Urea Nitrogen 17 mg/dL (9-16); Calcium 8.6 mg/dL (8.4-10.2); Carbon Dioxide 24 mmol/L (22-29); Chloride 108 mmol/L (96-108); Creatinine Clr Calc Pharmacy 41.1; Estimated Glomerular Filt Rate 47; Glucose Random 83 mg/dL (60-115); Potassium 4.1 mmol/L (3.3-5.1); Sodium 140 mmol/L (135-145)
[2023-04-05 08:00] VITALS: BP 132/83; PULSE 88; RESP 16; TEMP 36.1; O2SAT 97
[2023-04-05] MEDS: hydrALAZINE HCl 25 MG TABLET PO (09:55)
[2023-04-05] MEDS: busPIRone HCl 5 MG TABLET 2.5 MG PO (09:55)
[2023-04-05] MEDS: Multivitamin TABLET 1 TAB PO (09:55)
[2023-04-05] MEDS: 0.9 % Sodium Chloride Flush 3 ML SYRINGE IVFLUSH (09:59)
[2023-04-05 11:35] VITALS: BP 148/73; PULSE 93
[2023-04-05] MEDS: lisinopriL 10 MG TABLET 30 MG PO (11:36)
--- NOTE | 2023-04-05 11:57 | PM.DS ---
DS: Providers Provider Date of Service: 04/05/23 Date of admission: 04/03/23 20:55 Date of discharge: 04/05/23 Primary care physician: Ruth Hamm NP Attending physician on discharge: Alec New Discharging clinician: Simran Willard DS: Diagnosis Discharge Diagnosis (1) Diverticulitis: Status: Acute DS: Summary Hospital Course Hospital Course: From H&P on the day of admission This is a 77-year-old female with pertinent history of essential hypertension, mood disorder, hypothyroidism, history of diverticulitis, chronic kidney disease presents to the emergency department for evaluation of abdominal discomfort. Patient presented to the ER 1 day prior to the presentation with nausea and vomiting and was discharged due to likely viral illness. Patient states she developed abdominal discomfort around 17:00 on the day of presentation. It was in the lower left quadrant, intermittent, progressive and nonradiating. It was associated with nausea and dry heaving. No fever, chills. Patient states last episode of diverticulitis was more than a year ago. No chest discomfort, palpitations, shortness of breath, changes in urinary habits. Has had a couple of loose stools, nonbloody since the pain began. In the emergency department, imaging with diverticulitis. Acute uncomplicated diverticulitis . She was admitted to the medical floor and started on clear liquid diet as well as IV ceftriaxone and flagyl. Her abdominal pain has resolved and her diet has been advanced, she is tolerating a full diet. Blood cultures have remained negative. has been evaluated in the past due to multiple episodes of diverticulitis and was recommended against surgery. has outpatient follow up with GI next month. She has remained afebrile and is stable for discharge home. She will be discharged to complete course of antibiotics. Acute lactic acidosis: Not due to sepsis, improved with IVF CKD3 baseline SCr appears to be 1.2-1.4 hyperkalemia ?falsely elevated, repeat normal at 4.3. can resume lisinopril. Has follow up with director security risk management on Saturday. Time Attestation Discharge coordination time: Greater than 30 minutes Quality: Safe Use of Opioids Does Pt have an Active Cancer Diagnosis on the Problem List?: No Quality: Stroke Does the patient have a stroke diagnosis?: No Physical Exam Vital Signs: Vital Signs: Last Vital Signs Temp 96.9 F 04/05/23 08:00 Pulse 93 04/05/23 11:35 Resp 16 04/05/23 08:00 BP 148/73 H 04/05/23 11:35 Pulse Ox 97 04/05/23 08:00 O2 Del Method Room Air 04/05/23 08:00 BMI result Body Mass Index 34.5 Const: General: cooperative, comfortable, no acute distress, alert and awake Nutritional Appearance: overweight Orientation/consciousness: patient oriented x3 Resp: Effort & Inspection: normal respiratory effort, able to speak in complete sentences, no respiratory distress and no use of accessory muscles Auscultation: clear to auscultation bilaterally Cardio: Rate: regular rate GI: Other: nontender +BS no rebound Inspection: No distended Palpation (GI): Soft to palpation Neuro: General: patient oriented x3 and moves all extremities Extrem: General: Yes no pedal edema DS: Data Data Completed and Pending Labs on day of discharge: Laboratory Results - last 24 hr 04/05/23 06:09 WBC 11.0 H RBC 3.99 L Hgb 11.7 L Hct 35.6 L MCV 89.2 MCH 29.3 MCHC 32.9 RDW 12.9 Plt Count 161 MPV 10.6 Absolute Nucleated RBC 0.000 Nucleated RBC % (auto) 0.0 Sodium 140 Potassium 4.1 Chloride 108 Carbon Dioxide 24 Anion Gap 12 BUN 17 H Creatinine 1.12 Estim Creat Clear Calc 41.1 Estimated GFR 47 Random Glucose 83 Calcium 8.6 Preliminary micro results at discharge 04/03/23 19:35 Blood Culture - Preliminary Blood - Venous No growth after 24 hours. 04/03/23 19:20 Blood Culture - Preliminary Blood - Venous No growth after 24 hours. Discharge Plan Discharge Anticipated Discharge Date/Time: 04/05/23 12:06 Patient Disposition: Home, Self-Care Discharge Diagnosis: acute uncomplicated diverticulitis hyperkalemia acute lactic acidosis Referrals: Ruth Hamm NP [Primary Care Provider] - 1 Week Discharge Medications: New cefuroxime axetil 500 mg tablet 500 mg PO Q12H 8 Days Qty: 16 0RF metronidazole 500 mg tablet 500 mg PO Q8H 8 Days Qty: 24 0RF Continued levothyroxine [Levoxyl] 75 mcg tablet 75 mcg PO DAILY@0600 lisinopril 30 mg tablet 30 mg PO DAILY hydralazine 25 mg tablet 25 mg PO DAILY amitriptyline 10 mg tablet 5 mg PO BEDTIME nystatin 100,000 unit/gram cream 1 appl topical TID PRN (Reason: Rash) multivitamin Tablet 1 tab PO DAILY buspirone 5 mg tablet 2.5 mg PO DAILY lansoprazole 15 mg Capsule,Delayed Release(Dr/Ec) 15 mg PO DAILY@1630 Rx Instructions: TAKE BEFORE DINNER Probiotic 1 cap PO DAILY ondansetron 4 mg tablet,disintegrating 4 mg PO Q6-8H PRN (Reason: nausea and vomiting) Qty: 14 0RF Discharge Orders: Discharge Order (Routine); Ordered 04/05/23 Ordered By: Simran Willard Activity on Discharge: As tolerated Stand Alone Forms: Patient Portal Discharge page Care Plan Goals: see below Health Concerns: acute diverticulitis hyperkalemia - likely false reading Plan of Treatment: complete course of antibiotics for diverticulitis follow up at your scheduled appointment with nephrology. will defer need for repeat labs to nephrology call to schedule follow up appointment with PCP as needed Assessment: see discharge summary Discharge Date/Time: 04/05/23 15:09
--- NOTE | 2023-04-05 14:50 | MHC.CM.PN ---
PT WILL DC HOME TODAY WITH NO SERVICES VIA PRIVATE TRANSPORT
== END 2023-04-05 15:09 | disposition home or self-care (01) | DRG 392 ==
LOC: HO.ED 20:31 → HO.EDOVER 21:02 → HO.S3 04-04 12:40
PROVIDERS: Admitting Provider Student in an Organized Health Care Education/Training Program; Emergency Provider Emergency Medicine; PCP Nurse Practitioner Family; Visit Provider Physician Assistant Medical
DX: K57.32 Diverticulitis of large intestine without perforation or abscess without bleeding (principal); E87.21 Acute metabolic acidosis; E03.9 Hypothyroidism, unspecified; I12.9 Hypertensive chronic kidney disease with stage 1 through stage 4 chronic kidney disease, or unspecified chronic kidney disease; N18.30 Chronic kidney disease, stage 3 unspecified; F39 Unspecified mood [affective] disorder; Z91.041 Radiographic dye allergy status; Z79.890 Hormone replacement therapy; Z79.899 Other long term (current) drug therapy
CPT/HCPCS: 36415; 74176; 80048; 80076; 81001; 83605; 83690; 83735; 84132; 84484; 85025; 85027; 87040; 93005; 99285; J0696; J1650; J1836; J2270; J2405

== ENCOUNTER → 2023-04-03 18:50 | Outpatient (BNV) | payer MEDICARE, SELFPAY | PROVIDERS: Admitting Provider Student in an Organized Health Care Education/Training Program; Emergency Provider Emergency Medicine; PCP Nurse Practitioner Family; Visit Provider Internal Medicine Cardiovascular Disease | DX: R10.9 Unspecified abdominal pain (principal) | CPT/HCPCS: 93010 ==

== ENCOUNTER → 2023-04-03 20:55 | Outpatient (BNV) | payer MEDICARE, SELFPAY | PROVIDERS: Admitting Provider Student in an Organized Health Care Education/Training Program; Emergency Provider Emergency Medicine; Visit Provider Student in an Organized Health Care Education/Training Program | DX: K57.92 Diverticulitis of intestine, part unspecified, without perforation or abscess without bleeding (principal); N18.30 Chronic kidney disease, stage 3 unspecified; E87.29 Other acidosis | CPT/HCPCS: 99223; 99233; 99238 ==

== ENCOUNTER 2023-05-23 12:59 | Outpatient (REF) | payer MEDICARE, SELFPAY ==
[2023-05-23 16:13] LABS: B Type Natriuretic Peptide 30 pg/mL (<100)
[2023-05-23 16:19] LABS: Anion Gap 14 (12-20); Blood Urea Nitrogen 17 mg/dL (9-16); Calcium 9.6 mg/dL (8.4-10.2); Carbon Dioxide 27 mmol/L (22-29); Chloride 108 mmol/L (96-108); Estimated Glomerular Filt Rate 47; Glucose Random 95 mg/dL (60-115); Potassium 4.5 mmol/L (3.3-5.1); Sodium 144 mmol/L (135-145)
== END 2023-05-23 13:00 | disposition home or self-care (01) ==
LOC: HO.HMGCLDS 12:59
PROVIDERS: PCP Nurse Practitioner Family; Visit Provider Nurse Practitioner Family
DX: R06.02 Shortness of breath (principal); R00.0 Tachycardia, unspecified; I49.1 Atrial premature depolarization
CPT/HCPCS: 36415; 80048; 83880; 93005; 99212

== ENCOUNTER 2023-05-23 12:59 | Outpatient (AMB) | payer MEDICARE, SELFPAY ==
[2023-05-23 13:14] VITALS: BP 130/62; PULSE 106; BMI 33.9
--- NOTE | 2023-05-23 13:14 | A.OFFVIS_ITS ---
Intake Vital Signs 05/23/23 13:14 Height 5 ft 1 in Weight 179 lb 7.3 oz BMI 33.9 BP 130/62 Blood Pressure Location Lt brachial Position Sitting Pulse 106 H Pulse Source Monitor Intake Visit Reasons: Chest pain Billing Collections Specialist Required: No Allergies Iodinated Contrast Media [IV CONTRAST] Allergy (Severe, Verified 05/23/23 13:16) TACHYCARDIA,DIFFICULTY BREATHING amoxicillin [Prevpac] Allergy (Unknown, Verified 05/23/23 13:16) Unknown clarithromycin [Prevpac] Allergy (Unknown, Verified 05/23/23 13:16) Unknown escitalopram [From LEXAPRO] Allergy (Unknown, Verified 05/23/23 13:16) CHEST PAIN lansoprazole [Prevpac] Allergy (Unknown, Verified 05/23/23 13:16) unknown lovastatin Allergy (Unknown, Verified 05/23/23 13:16) myalgia omeprazole [From Prilosec] Allergy (Unknown, Verified 05/23/23 13:16) CHEST PAIN,DIFFICULTY BREATHING pravastatin Allergy (Unknown, Verified 05/23/23 13:16) myalgia shellfish derived [SHELLFISH DERIVED] Allergy (Unknown, Verified 05/23/23 13:16) UNKOWN iv contrast dye Allergy (Unknown, Uncoded 05/23/23 13:16) unknown iv dye/ shellfish Allergy (Unknown, Uncoded 05/23/23 13:16) unknown Prilosec Allergy (Unknown, Uncoded 05/23/23 13:16) Chest pain Medication List - Last Reconciled 05/23/23 by HEATH ElliottC amitriptyline 5 mg PO BEDTIME buspirone 2.5 mg PO DAILY hydralazine 25 mg PO DAILY lansoprazole 15 mg PO DAILY@1630 levothyroxine (Levoxyl) 75 mcg PO DAILY@0600 lisinopril 30 mg PO DAILY multivitamin 1 tab PO DAILY [Probiotic 1 cap PO DAILY] HPI Chest pain HPI Details Lindsey is a 77-year-old female with past medical history of hypertension, hyperlipidemia, chronic kidney disease who presents for follow-up. Her last prior visit to our office was 10/03/2021 when she had been seen for noncardiac chest pain. Today she reports that she has been noticing shortness of breath with activity. She recently had a chest x-ray at [facility] and tells me that the report showed aortic ectasia which is causing her concern. She denies having recent chest discomfort at rest or with activity. No shortness of breath at rest, PND, orthopnea or edema. No concerning heart palpitations. She tells me her hydralazine medicine makes her heartbeat faster. She is intolerant to many other blood pressure medications including beta-blockers, calcium channel blockers. She follows with Nephrology for her blood pressure. She tells me she recently had blood test showing elevated potassium. She has been trying to reach her accountant auditor but has been unable. At this time she continues on lisinopril 30 mg daily. She tells me she has been on lisinopril for approximately 30 years. Takes meds as directed. Does not engage in routine exercise. REPLACED BY [facility] Medical History Hypertensive urgency Harper esophagus Non-toxic multinodular goiter Barretts esophagus Allergies Chronic GERD Lipid disorder Hypertension, essential Anxiety, generalized Surgical History H/O LEEP (2007) Family History Father Heart disease Mother Heart disease Maternal Uncle Colon cancer Heart failure Social History Household Members: Children Housing: Apartment Do you presently have visiting nurse or other home services: No Alcohol intake: never Patient Tobacco Use Status: Never used Tobacco service: No Current occupational status: retired Review of Systems Const All systems reviewed & are unremarkable except as noted in HPI and below ENT Denies dizziness Card Denies chest pain, Denies chest pain at rest, Denies chest pain with activity, Reports rapid heart rate, Denies pedal edema, Denies edema, Denies leg edema, Denies lightheadedness, Denies palpitations, Reports dyspnea, Reports dyspnea on exertion and Denies orthopnea Resp Denies cough, Reports dyspnea and Reports dyspnea on exertion GI Denies hematochezia and Denies change in stool character Musc Denies abnormal gait, Denies limited range of motion, Denies muscle cramps, Denies muscle weakness, Denies numbness, Denies radiating pain into limb, Denies stiffness and Denies tingling Neuro Denies abnormal gait, Denies dizziness, Denies numbness and Denies tingling Endo Denies palpitations Physical Exam Vital Signs: Last Vital Signs Pulse 106 H 05/23/23 13:14 BP 130/62 05/23/23 13:14 BMI result Body Mass Index 33.9 Const General: cooperative, healthy appearing, comfortable and no acute distress Orientation/consciousness: patient oriented x3 Neck Neck: Yes normal visual inspection and Yes no JVD Resp Effort & Inspection: normal respiratory effort Auscultation: clear to auscultation bilaterally, no rales, no rhonchi and no wheezes Cardio Jugular venous distension: no JVD Rate: regular rate Rhythm: regular rhythm Heart sounds: S1 normal heart sound present, S2 normal heart sound present, no murmurs and no rubs Neuro General: patient oriented x3 Extrem General: Yes normal to inspection and No no pedal edema Psych Appearance: grossly normal Mental Status: mental status grossly normal Speech and movement: Normal speech and movement present Office Procedures EKG Details: Today, read by me, sinus tachycardia with PACs, nonspecific ST abnormality, rate 106, QTC 433 milliseconds [id number], Complete Assessment & Plan Assessment & Plan (1) Shortness of breath: Code(s): R06.02 - Shortness of breath Plan: Reports of shortness of breath with activity. States this is a newer finding for her. No PND, orthopnea or edema. She previously had normal nuclear stress test 04/18/2021. Echocardiogram 04/12/2021 showed EF 65 %, no valve abnormalities. She has no known CAD. Cardiac risks of hypertension, hyperlipidemia and obesity. Expresses concern about recent chest x-ray stating aortic ectasia. She also states that her heart rate is frequently elevated 90s to low 100s. She believes this is due to hydralazine. Will update her echocardiogram to evaluate EF and wall motion, aorta size. If echo does show abnormalities then a nuclear stress test will be ordered. No signs of heart failure on exam. Checking labs today, BMP and BNP. Cardiology follow-up 2 months, sooner if needed (2) Sinus tachycardia: Code(s): R00.0 - Tachycardia, unspecified Plan: EKG done today showing sinus tachycardia with PACs. She denies feeling heart palpitations. She tells me her heart rate does range 90s to low 100s. She is on hydralazine 25 mg b.i.d. and believes this is causing her symptom. She tells me that she had previously stopped hydralazine and her heart rate improved. She had to go back on it as she is intolerant to many blood pressure medications and this 1 she did tolerate. Checking echo as above to make sure EF is normal. Reported intolerance to beta-wyatt, calcium channel wyatt. Tells me she has had slow heart rates in the past with meds. (3) PAC (premature atrial contraction): Code(s): I49.1 - Atrial premature depolarization Plan: As above (4) Hypertension, essential: Code(s): I10 - Essential (primary) hypertension Plan: Normal range today. She says home blood pressures are frequently elevated. She follows with Nephrology for kidneys and blood pressure. She reports recent labs at [facility] showed potassium 5.5. She has not been able to get hold of her accountant auditor. Normally her potassium is in the normal range but it has been as high as 5.5 on one other occasion. She says she has been on lisinopril for about 30-35 years. At this time will have her continue on lisinopril. Continue current dose of hydralazine. Will recheck BMP and plan to call her with results. Plan Time spent on chart review, documentation, interview and assessment Orders: Orders B Type Natriuretic Peptide Today I49.1 - Atrial premature depolarization, R00.0 - Tachycardia, unspecified, R06.02 - Shortness of breath CA echo transthoracic complete Today I49.1 - Atrial premature depolarization, R00.0 - Tachycardia, unspecified, R06.02 - Shortness of breath Basic Metabolic Panel Today R00.0 - Tachycardia, unspecified, R06.02 - Shortness of breath Coding Level of Care Code Est Pt Level 4 (77419) Diagnoses Shortness of breath R06.02 Sinus tachycardia R00.0 PAC (premature atrial contraction) I49.1 Hypertension, essential I10 CPT Codes EKG - CPT: [id number], Complete ([id number]) Time Spent (min) 28
== END 2023-05-23 13:54 | disposition home or self-care (01) ==
PROVIDERS: PCP Nurse Practitioner Family; Visit Provider Nurse Practitioner Family
DX: R06.02 Shortness of breath (principal); R00.0 Tachycardia, unspecified; I49.1 Atrial premature depolarization; I10 Essential (primary) hypertension
CPT/HCPCS: 93010; 99214

== ENCOUNTER → 2023-06-11 14:44 | Outpatient (REF) | payer MEDICARE, SELFPAY ==
--- NOTE | 2023-06-11 14:46 | CA_ITS ---
Transthoracic Echocardiogram Patient (Last, First, Middle): Lindsey Cotto, Gender: Female Date of : 1945 Age: 77 Procedure Date: 06/11/2023 Procedure Type: Transthoracic Echocardiogram Location: OP Height: 154.94 cm Weight: 81.65 kg BSA: 1.81 m2 Heart Rate: bpm BP: 116 / 56 mmHg Store Planner: VAUGHN Referring MD: Charlee Hamm RENEWABLE ENERGY PROJECT MANAGER-[place] Manager Summer: Eric Lewis MD Symptoms: R06.02 - Shortness of breath Study Quality: Adequate ECG Rhythm: Sinus with extra beats Conclusions: - 1. Normal LV ejection fraction 55-60% with impaired relaxation filling pattern 2. Mild aortic regurgitation 3. Normal RV systolic pressure 4. No gross pericardial effusion Findings Left Ventricle Normal left ventricular size, thickness, and systolic function. The visually estimated ejection fraction is between 55-60%. Spectral Doppler is indicative of an impaired relaxation filling pattern. E/E prime ratio is between 8 and 15 consistent with indeterminate filling pressures. Right Ventricle Normal right ventricular cavity size and systolic function. Atria The left atrium is normal in size. Interatrial shunt cannot be excluded. The right atrium is normal in size. Aortic Valve The aortic valve was not well visualized. There is mild calcification of the aortic valve. There is no aortic valve stenosis. There is mild aortic valve regurgitation. Mitral Valve There is mild anterior and posterior mitral leaflet thickening. There is mild mitral annular calcification. There is trace mitral valve regurgitation. There is no mitral valve stenosis. Pulmonic Valve The pulmonic valve was not well visualized. Tricuspid Valve Likely normal tricuspid valve structure and function. There is trace tricuspid valve regurgitation. The right ventricular systolic pressure is normal. The right ventricular systolic pressure is 28 mmHg. Normal right atrial pressure. There is no evidence of pulmonary hypertension. Great Vessels All visible segments of the aorta are normal in size. The pulmonary artery was not well visualized. There is no dilatation of the ascending aorta measuring 3.10 cm. Venous The inferior vena cava is normal in size and collapses greater than 50% with inspiration. Pericardium/Pleural There is no evidence of pericardial effusion. Measurements 2D Linear Measurements IVSd: 0.99 0.6-0.9/0.6-1.0 cm LVIDd: 4.57 3.9-5.3/4.2-5.9 cm LVIDd Index: 2.52 2.4-3.2/2.2-3.1 cm/m2 LVIDs: 3.20 2.0-3.6 cm LVPWd: 1.05 0.7-1.1 cm Ao Root: 3.50 2.1-3.5 cm LA Diam: 3.60 2.7-3.8/3.0-4.0 cm LAIDs Index: 1.99 1.5-2.3 cm/m2 LV Mass: 200.41 67-162/88-224 g LV Mass Index: 110.73 43-95/49-115 g/m2 LVOT Diam: 2.00 3.0+(-)1.3 cm 2D Systolic Function EF 4C: 57.20 >55% EF 2C: 59.30 >55% EF BiP: 55.80 >55% Mitral Valve MV VTI: 0.35 MV Pk Onur: 1.26 MV Mn Onur: 0.62 MV Pk Grad: 6.00 MV Mn Grad: 2.00 MV Pk E: 0.87 MV PK A: 1.17 MV Decel Time: 228.00 E/A: 0.70 E'Lateral: 4.46 E'Medial: 5.98 E/E' Med: 14.50 E/E' Lat: 19.40 PHT: 67.00 MVA PHT: 3.28 MVA Continuity: 2.65 Decel [place]: 3.80 Aortic Valve AoV Pk Onur: 1.40 AoV Mn Onur: 0.83 AoV VTI: 0.30 AoV Pk Grad: 8.00 Aov Mn Grad: 3.00 PERLA Cont.VTI: 3.15 AI Pk Onur: 4.74 AI [place]: 3.43 LVOT LVOT Pk Onur: 1.25 LVOT Mn Onur: 0.82 LVOT VTI: 0.30 LVOT Pk Grad: 6.00 LVOT Mn Grad: 4.00 LVOT Diam: 2.00 LVOT Area: 3.14 Diastolic Function MV Pk E: 0.87 MV Pk A: 1.17 E/A: 0.70 E'Medial: 5.98 E/E' Med: 14.50 E' Laterial: 4.46 E/E' Lat: 19.40 Right Ventricle TAPSE (mm): 20.00 TVS' Onur: 16.00 Tricuspid Valve TR Pk Onur: 2.52 TR Pk Grad: 25.00 RA Press: 3.00 RVSP: 28.00 Great Vessels Aorta Ao Root-2D: 3.50 2.0-3.7 cm Ao Asc: 3.10 2.1-3.4 cm Pulmonary Valve PV Pk Onur: 1.12 Peak PV Grad: 5.00 Updated in Other Vendor System with Status of Final Eric Lewis MD electronically signed on 06/12/2023 2:23:44 PM with status of Final
== END ==
LOC: HO.CARD 14:44
PROVIDERS: PCP Nurse Practitioner Family; Visit Provider Nurse Practitioner Family
DX: R06.02 Shortness of breath (principal); R00.0 Tachycardia, unspecified; I49.1 Atrial premature depolarization
CPT/HCPCS: 93306

== ENCOUNTER → 2023-06-11 14:46 | Outpatient (BNV) | payer MEDICARE, SELFPAY | PROVIDERS: PCP Nurse Practitioner Family; Visit Provider Internal Medicine Cardiovascular Disease | DX: I35.1 Nonrheumatic aortic (valve) insufficiency (principal); I34.81 Nonrheumatic mitral (valve) annulus calcification | CPT/HCPCS: 93306 ==

== ENCOUNTER 2023-08-01 12:53 | Outpatient (AMB) | payer MEDICARE, SELFPAY ==
--- NOTE | 2023-08-01 13:06 | MHC.OFFVIS ---
Vital Signs 08/01/23 13:07 Height 5 ft 1 in Weight 183 lb 6.793 oz BMI 34.7 BP 132/60 Blood Pressure Location Lt brachial Position Sitting Pulse 101 H Pulse Source Pulse Oximeter Intake Visit Reasons: 2m follow up Casting Inspector Required: No Allergies Iodinated Contrast Media [IV CONTRAST] Allergy (Severe, Verified 08/01/23 13:10) TACHYCARDIA,DIFFICULTY BREATHING amoxicillin [Prevpac] Allergy (Unknown, Verified 08/01/23 13:10) Unknown clarithromycin [Prevpac] Allergy (Unknown, Verified 08/01/23 13:10) Unknown escitalopram [From LEXAPRO] Allergy (Unknown, Verified 08/01/23 13:10) CHEST PAIN lansoprazole [Prevpac] Allergy (Unknown, Verified 08/01/23 13:10) unknown lovastatin Allergy (Unknown, Verified 08/01/23 13:10) myalgia omeprazole [From Prilosec] Allergy (Unknown, Verified 08/01/23 13:10) CHEST PAIN,DIFFICULTY BREATHING pravastatin Allergy (Unknown, Verified 08/01/23 13:10) myalgia shellfish derived [SHELLFISH DERIVED] Allergy (Unknown, Verified 08/01/23 13:10) UNKOWN iv contrast dye Allergy (Unknown, Uncoded 08/01/23 13:10) unknown iv dye/ shellfish Allergy (Unknown, Uncoded 08/01/23 13:10) unknown Prilosec Allergy (Unknown, Uncoded 08/01/23 13:10) Chest pain Medication List - Last Reconciled 08/02/23 by Charlee Hamm NP-C amitriptyline 5 mg PO BEDTIME buspirone 2.5 mg PO DAILY hydralazine 25 mg PO BID lansoprazole 15 mg PO DAILY@1630 levothyroxine (Levoxyl) 75 mcg PO DAILY@0600 lisinopril 30 mg PO DAILY multivitamin 1 tab PO DAILY [Probiotic 1 cap PO DAILY] rosuvastatin 20 mg PO BEDTIME HPI HPI 2m follow up: Details: Lindsey is a 77-year-old female with past medical history of hypertension, hyperlipidemia, chronic kidney disease, atypical chest discomfort who was recently noticed shortness of breath with activity. She had echocardiogram and now presents for follow-up. Today she reports that she her shortness of breath with activity has improved some since last visit. She denies having recent chest discomfort at rest or with activity. No shortness of breath at rest, PND, orthopnea or edema. No concerning heart palpitations. She tells me her hydralazine medicine makes her heartbeat faster. She is intolerant to many other blood pressure medications including beta-blockers, calcium channel blockers. She follows with Nephrology for her blood pressure. Takes meds as directed. Does not engage in routine exercise. [facility] Medical History Hypertensive urgency Harper esophagus Non-toxic multinodular goiter Barretts esophagus Allergies Chronic GERD Lipid disorder Hypertension, essential Anxiety, generalized Surgical History H/O YAMILKAP (2007) Family History Father Heart disease Mother Heart disease Maternal Uncle Colon cancer Heart failure Social History Household Members: Children Housing: Apartment Do you presently have visiting nurse or other home services: No Alcohol intake: never Patient Tobacco Use Status: Never used Tobacco service: No Current occupational status: retired Review of Systems Const All systems reviewed & are unremarkable except as noted in HPI and below ENT Reports dizziness Card Denies chest pain, Denies chest pain at rest, Denies chest pain with activity, Reports rapid heart rate, Denies pedal edema, Denies edema, Denies leg edema, Denies lightheadedness, Denies palpitations, Denies dyspnea, Denies dyspnea on exertion and Denies orthopnea Resp Denies cough, Denies dyspnea and Denies dyspnea on exertion GI Denies hematochezia and Denies change in stool character Musc Denies abnormal gait, Denies limited range of motion, Denies muscle cramps, Denies muscle weakness, Denies numbness, Denies radiating pain into limb, Denies stiffness and Denies tingling Neuro Denies abnormal gait, Reports dizziness, Denies numbness and Denies tingling Endo Denies palpitations Physical Exam Vital Signs: Last Vital Signs Pulse 101 H 08/01/23 13:07 BP 132/60 08/01/23 13:07 BMI result Body Mass Index 34.7 Const General: cooperative, healthy appearing, comfortable and no acute distress Orientation/consciousness: patient oriented x3 Neck Neck: Yes normal visual inspection and Yes no JVD Resp Effort & Inspection: normal respiratory effort Auscultation: clear to auscultation bilaterally, no rales, no rhonchi and no wheezes Cardio Jugular venous distension: no JVD Rate: tachycardic Rhythm: regular rhythm Heart sounds: S1 normal heart sound present, S2 normal heart sound present, no murmurs and no rubs Neuro General: patient oriented x3 Extrem General: Yes normal to inspection and No no pedal edema Psych Appearance: grossly normal Mental Status: mental status grossly normal Speech and movement: Normal speech and movement present Assessment & Plan Assessment & Plan (1) Shortness of breath: Code(s): R06.02 - Shortness of breath Category: Medical Plan: Prior reports of shortness of breath with activity. States this is a newer finding for her. No PND, orthopnea or edema. She previously had normal nuclear stress test 04/18/2021. Echocardiogram 04/12/2021 showed EF 65 %,. Repeat echocardiogram done 06/11/2023 showing EF 55-60%, mild aortic regurgitation, normal RV. She has no known CAD. Cardiac risks of hypertension, hyperlipidemia and obesity. Today she reports her symptom of shortness of breath has improved. No strong indication for repeat nuclear stress test at this time. She has no signs of heart failure on examination. Continue with risk factor modification. (2) Sinus tachycardia: Code(s): R00.0 - Tachycardia, unspecified Category: Medical Plan: More recently she has noted elevated heart rate which she relates to her hydralazine medication. EKG done last visit showed sinus tachycardia with PACs. She denies feeling heart palpitations. She tells me her heart rate does range 90s to low 100s. She previously has stopped hydralazine and had improvement in her heart rate. She had to go back on it as she is intolerant to many blood pressure medications and this one she did tolerate. Echocardiogram shows normal EF. Will check labs including CBC, BMP, TSH. Discussed reduction in caffeinated beverages, need for good hydration. She tells me she is intolerant to beta-blockers and calcium channel blockers. Unclear if hydralazine is actually causing her elevated heart rate. Will check a Holter monitor to assess. Cardiology follow-up in office 3 months, sooner if needed (3) PAC (premature atrial contraction): Code(s): I49.1 - Atrial premature depolarization Category: Medical Plan: As above (4) Hypertension, essential: Code(s): I10 - Essential (primary) hypertension Category: Medical Plan: Normal range today. She follows with Nephrology for kidneys and blood pressure. No med changes made today Plan Time spent on chart review, documentation, interview and assessment Orders: Orders Comprehensive Met. Panel Today R00.0 - Tachycardia, unspecified ECG 3 day holter monitor Today R00.0 - Tachycardia, unspecified Complete Blood Count Auto Diff Today R00.0 - Tachycardia, unspecified TSH reflex Free T4 Today R00.0 - Tachycardia, unspecified Coding Level of Care Code Est Pt Level 3 (39675) Diagnoses Shortness of breath R06.02 Sinus tachycardia R00.0 PAC (premature atrial contraction) I49.1 Hypertension, essential I10 Time Spent (min) 24
[2023-08-01 13:07] VITALS: BP 132/60; PULSE 101; BMI 34.7
== END 2023-08-01 13:42 | disposition home or self-care (01) ==
PROVIDERS: PCP Nurse Practitioner Family; Visit Provider Nurse Practitioner Family
DX: R06.02 Shortness of breath (principal); R00.0 Tachycardia, unspecified; I49.1 Atrial premature depolarization; I10 Essential (primary) hypertension
CPT/HCPCS: 99213

== ENCOUNTER → 2023-08-01 12:53 | Outpatient (BNVA) | payer MEDICARE, SELFPAY | PROVIDERS: PCP Nurse Practitioner Family; Visit Provider Nurse Practitioner Family | DX: R06.02 Shortness of breath (principal); R00.0 Tachycardia, unspecified; I49.1 Atrial premature depolarization; I10 Essential (primary) hypertension | CPT/HCPCS: 99212 ==

== ENCOUNTER → 2023-08-08 10:24 | Outpatient (REF) | payer MEDICARE, SELFPAY ==
--- NOTE | 2023-08-08 10:26 | HM_ITS ---
* Total monitoring time 3 days. * Underlying rhythm is sinus with an average rate of 68/Min. * Frequent supraventricular ectopy with a burden of about 3%. * Rare ventricular ectopy. * No significant pauses or high-grade AV blocks. * Patient marker used in association with sinus rhythm and supraventricular ectopy. * Shortness of breath in patient diary correlates with sinus rhythm/supraventricular ectopy. MTDD
== END ==
LOC: HO.CARD 10:24
PROVIDERS: PCP Nurse Practitioner Family; Visit Provider Nurse Practitioner Family
DX: Z13.89 Encounter for screening for other disorder (principal)
CPT/HCPCS: 93242

== ENCOUNTER → 2023-08-08 10:26 | Outpatient (BNV) | payer MEDICARE, SELFPAY | PROVIDERS: PCP Nurse Practitioner Family; Visit Provider Internal Medicine | DX: I47.10 Supraventricular tachycardia, unspecified (principal) | CPT/HCPCS: 93244 ==

== ENCOUNTER 2023-08-08 11:06 | Outpatient (REF) | payer MEDICARE, SELFPAY ==
[2023-08-08 13:12] LABS: MANUAL DIFF FLAG NO
[2023-08-08 13:18] LABS: Basophils Absolute Auto 0.1 X10*3/uL (0.0-0.2); Basophils Percent Auto 0.8 % (0-2); Eosinophils Absolute Auto 0.3 X10*3/uL (0.0-0.4); Eosinophils Percent Auto 4.6 % (0-4); Hematocrit 39.4 % (37.0-47.0); Hemoglobin 12.7 g/dl (12.0-16.0); Imm Gran Abs Auto 0.01 X10*3/uL (0.00-0.03); Imm Gran Pct Auto 0.2 % (0.0-0.4); Lymphocytes Absolute Auto 1.9 X10*3/uL (1.2-4.9); Lymphocytes Percent Auto 31.1 % (20-40); Mean Corpuscular HGB Conc 32.2 g/dl (31.0-35.0); Mean Corpuscular Hemoglobin 29.5 pg (27.0-33.0); Mean Corpuscular Volume 91.6 fL (80.0-98.0); Mean Platelet Volume 11.4 fL (9.4-12.3); Monocytes Absolute Auto 0.5 X10*3/uL (0.1-1.2); Monocytes Percent Auto 8.8 % (2-11); Neutrophils Absolute Auto 3.4 x10*3/uL (2.0-8.3); Neutrophils Percent Auto 54.5 % (45-73); Platelet Count 174 X10*3/uL (160-400); Red Cell Distribution Width 12.8 % (11.0-16.0); White Blood Count 6.1 X10*3/uL (4.8-10.8)
[2023-08-08 14:08] LABS: Alanine Aminotransferase 16 U/L (0-31); Albumin Level 3.6 g/dL (3.5-5.0); Alkaline Phosphatase 66 U/L (39-117); Anion Gap 13 (12-20); Aspartate Amino Transferase 26 U/L (5-31); Bilirubin Total 0.3 mg/dL (0.0-1.0); Blood Urea Nitrogen 18 mg/dL (9-16); Calcium 9.6 mg/dL (8.4-10.2); Carbon Dioxide 25 mmol/L (22-29); Chloride 108 mmol/L (96-108); Estimated Glomerular Filt Rate 44; Glucose Random 92 mg/dL (60-115); Potassium 4.8 mmol/L (3.3-5.1); Sodium 141 mmol/L (135-145); Total Protein 6.6 g/dL (6.5-8.0)
== END 2023-08-08 11:07 | disposition home or self-care (01) ==
LOC: HO.HMGCLDS 11:06
PROVIDERS: PCP Nurse Practitioner Family; Visit Provider Nurse Practitioner Family
DX: R00.0 Tachycardia, unspecified (principal)
CPT/HCPCS: 36415; 80053; 84443; 85025; 93242

== ENCOUNTER 2023-09-24 15:03 | Emergency (ER) | payer MEDICARE, SELFPAY ==
--- NOTE | ~2023-09-24 | XR_ITS ---
EXAMINATION: XR CHEST CLINICAL INFORMATION: Patient states high blood pressure readings this morning and experiencing chest tightness. COMPARISON: Chest x-ray dated 09/07/2021 and 02/08/2021. TECHNIQUE: 2 views of the chest were obtained. FINDINGS: The cardiomediastinal silhouette is within normal limits in size. Tortuosity of the aorta is seen. Lungs bilaterally are symmetrically hyperinflated. No focal consolidation, effusion or pneumothorax is seen. Diffuse osteopenia noted. Mild S-shaped thoracic scoliosis. Degenerative spurring in the lower cervical spine. XR/XR chest 2V IMPRESSION: * Hyperinflated lungs, raising the suspicion of underlying obstructive lung disease. Clinical correlation requested. * No acute pulmonary process.
[2023-09-24 15:30] VITALS: BP 161/81; PULSE 128; RESP 18; TEMP 36.3; O2SAT 96; BMI 33.5
--- NOTE | 2023-09-24 15:32 | ED_ITS ---
HPI - General Adult General Chief complaint: Chest Pain Stated complaint: High blood pressure Time Seen by Provider: 09/24/23 16:47 Source: patient Mode of arrival: ambulatory Limitations: no limitations History of Present Illness HPI narrative: This is a 78-year-old woman with a past medical history of hypertension, mood disorder, hypothyroidism, history of diverticulitis, CKD, PAC, PVC, atrial tachycardia presents for evaluation of hypertension. Patient states that she was recommended to monitor her blood pressure at home due to difficult to control high blood pressure. She states this morning she noted it was 216/115. She states that she took her blood pressure medications and states that it was still elevated. She states she called her primary care doctor who then recommended she come to the emergency room as she was complaining of chest tightness. She states no pleuritic chest pain. She states no exertional chest pain. She reports being able to walk up and down the steps without developing chest pain or dyspnea. She states otherwise no sensation lightheadedness or syncope. She states no dyspnea. She states no recent fevers, chills, cough or hemoptysis. She states no abdominal pain or back pain. She states no associated vomiting. Related Data Home Medications ?Medication ?Instructions ?Recorded ?Confirmed levothyroxine 75 mcg tablet 75 mcg PO DAILY@0600 02/08/21 08/02/23 (Levoxyl) lisinopril 30 mg tablet 30 mg PO DAILY 02/08/21 08/02/23 Probiotic 1 cap PO DAILY 04/03/23 08/02/23 amitriptyline 10 mg tablet 5 mg PO BEDTIME 04/03/23 08/02/23 buspirone 5 mg tablet 2.5 mg PO DAILY 04/03/23 08/02/23 lansoprazole 15 mg capsule,delayed 15 mg PO DAILY@1630 04/03/23 08/02/23 release multivitamin 1 tab PO DAILY 04/03/23 08/02/23 hydralazine 25 mg tablet 25 mg PO BID 08/01/23 08/02/23 rosuvastatin 20 mg tablet 20 mg PO BEDTIME 08/01/23 08/02/23 Allergies Allergy/AdvReac Type Severity Reaction Status Date / Time Iodinated Contrast Media Allergy Severe TACHYCARDIA,DIFFICULTY Verified 09/24/23 15:33 [IV CONTRAST] BREATHING amoxicillin [Prevpac] Allergy Unknown Unknown Verified 09/24/23 15:33 clarithromycin [Prevpac] Allergy Unknown Unknown Verified 09/24/23 15:33 escitalopram [From LEXAPRO] Allergy Unknown CHEST PAIN Verified 09/24/23 15:33 lansoprazole [Prevpac] Allergy Unknown unknown Verified 09/24/23 15:33 lovastatin Allergy Unknown myalgia Verified 09/24/23 15:33 omeprazole [From Prilosec] Allergy Unknown CHEST Verified 09/24/23 15:33 PAIN,DIFFICULTY BREATHING pravastatin Allergy Unknown myalgia Verified 09/24/23 15:33 shellfish derived Allergy Unknown UNKOWN Verified 09/24/23 15:33 [SHELLFISH DERIVED] iv contrast dye Allergy Unknown unknown Uncoded 08/01/23 13:10 iv dye/ shellfish Allergy Unknown unknown Uncoded 08/01/23 13:10 Prilosec Allergy Unknown Chest pain Uncoded 08/01/23 13:10 Review of Systems 2 Review of Systems: ROS as per HPI [facility] Past Medical History Medical History Hypertensive urgency Harper esophagus Non-toxic multinodular goiter Barretts esophagus Allergies Chronic GERD Lipid disorder Hypertension, essential Anxiety, generalized Surgical History H/O GOLDY (2007) Family History Family History Father Heart disease Mother Heart disease Maternal Uncle Colon cancer Heart failure Social History Social History Household Members: Children Housing: Apartment Do you presently have visiting nurse or other home services: No Alcohol intake: never Patient Tobacco Use Status: Never used Tobacco Use of substances other than those prescribed or required for medical reasons: No Advance Directives: Yes Advance Directives Information Provided: No Advance Directives on File: No Do you have a plan to hurt others: No Plan service: No Current occupational status: retired Physical Exam ED Vital Signs: Vital Signs - 24 hr 09/24/23 15:30 09/24/23 16:00 09/24/23 18:00 Temperature 97.3 F 98.3 F Pulse Rate 128 H 109 H 95 Respiratory Rate 18 17 12 Blood Pressure 161/81 H 177/84 H 159/79 H Pulse Oximetry 96 97 98 Oxygen Delivery Method Room Air Room Air BMI result Body Mass Index 33.5 Gen: NAD, AOx3 HEENT: NCAT, EOMI, normal conjunctiva CV: RRR, no murmurs appreciated, 2+ bilateral radial pulses Pulm: CTAB, no increased work of breathing GI: Soft, NTND, no rebound, guarding or rigidity Neuro: Grossly non focal Course Course Course Narrative: This is a Rapid Medical Examination (RME) performed by Mariela Garcia PA-C in triage. Full HPI, ROS, assessment and treatment plan per primary provider in the Main ED. 78 yo female hx of barretts esophagus, GERD, anxiety, CKD, PAC, PVCs, HDL, essential HTN, hypertensive urgency, here for eval of elevated BP. Reports her BP at home this morning was 189/108. took bps meds and repeat BP noted to be 216/115. admits to assoc chest tightness. denies FAUST, dizziness, vision changes. no hx of afib. + well appearing. irregularly irregular HR. lungs clear. Plan: labs, ekg, cxr ordered Medical Decision Making Medical Decision Making MDM Narrative: Differential diagnosis includes, but is not limited to hypertensive urgency, anxiety, arrhythmia. This is not hypertensive emergency. Patient is afebrile and hemodynamically stable on room air. Exam is benign and reassuring. I reviewed and interpreted labs, which are noncontributory including high sensitivity troponin (2.7 -> 5.1 with reassuring delta) effectively ruling out acute coronary syndrome. I independently interpreted EKG and chest x-ray as below. Of note, patient's triage note states that patient has no history of cardiac arrhythmia was found to have an irregular heart rate in triage. However, she does have a well documented history of sinus tachycardia, atrial tachycardia, PVCs and PACs per chart review. She was again noted to have PVCs and sinus tachycardia here in the emergency room. I considered pulmonary embolism as etiology of the patient's symptoms, but she has no tachypnea, pleuritic chest pain or hypoxia to suggest this etiology and she has a well documented history as aforementioned of sinus tachycardia with premature atrial/ventricular contractions. Thus, this is considered to be of extremely low clinical suspicion at this time. Further, patient's symptoms have resolved, which would not be expected with pulmonary embolism. Review of the medical record demonstrates the patient had a normal nuclear stress test 04/18/2021 an echocardiogram 06/11/2023 with LVEF 55-60%, mild aortic regurgitation and normal RV. On re-examination, patient is well-appearing and in no acute distress. ?Patient states symptoms have resolved. ?There is no indication for further emergent evaluation in this otherwise well-appearing patient as above. ?Patient is provided written and verbal instructions, educational materials, recommendations for outpatient follow-up, strict return precautions and teach back is performed. ?Patient states understanding and agreement with plan of care. ?Patient is discharged home in stable and improved condition. Admission/Observation Consideration of admission/observation: Escalation of care including admission/observation considered Lab Data MDM Lab Attestation statement: I reviewed the patient's lab results. 09/24/23 16:21 09/24/23 16:21 Labs: Lab Results 09/24/23 09/24/23 Range/Units 16:21 18:11 WBC 8.9 (4.8-10.8) X10*3/uL RBC 4.81 (4.20-5.50) X10*6/uL Hgb 14.3 (12.0-16.0) g/dl Hct 43.5 (37.0-47.0) % MCV 90.4 (80.0-98.0) fL MCH 29.7 (27.0-33.0) pg MCHC 32.9 (31.0-35.0) g/dl RDW 12.9 (11.0-16.0) % Plt Count 194 (160-400) X10*3/uL MPV 10.1 (9.4-12.3) fL Immature Gran % (Auto) 0.2 (0.0-0.4) % Neut % (Auto) 75.9 H (45-73) % Lymph % (Auto) 16.0 L (20-40) % Hardeman % (Auto) 6.7 (2-11) % Eos % (Auto) 0.8 (0-4) % Baso % (Auto) 0.4 (0-2) % Lymph # (Auto) 1.4 (1.2-4.9) X10*3/uL Hardeman # (Auto) 0.6 (0.1-1.2) X10*3/uL Eos # (Auto) 0.1 (0.0-0.4) X10*3/uL Baso # (Auto) 0.0 (0.0-0.2) X10*3/uL Abs Immat Gran (auto) 0.02 (0.00-0.03) X10*3/uL Absolute Neuts (auto) 6.8 (2.0-8.3) x10*3/uL Absolute Nucleated RBC 0.000 (0.0-0.012) X10*3/uL Nucleated RBC % (auto) 0.0 (0.0-0.2) /100WBC PT 12.1 (11.1-13.3) SEC INR 1.0 (0.9-1.1) Sodium 142 (135-145) mmol/L Potassium 4.4 (3.3-5.1) mmol/L Chloride 109 H (96-108) mmol/L Carbon Dioxide 22 (22-29) mmol/L Anion Gap 15 (12-20) BUN 15 (9-16) mg/dL Creatinine 1.26 (0.5-1.4) mg/dL Estim Creat Clear Calc 35.4 Estimated GFR 41 Random Glucose 113 (60-115) mg/dL Calcium 10.4 H D (8.4-10.2) mg/dL Magnesium 1.8 (1.6-2.6) mg/dL Total Bilirubin 0.4 (0.0-1.0) mg/dL AST 27 (5-31) U/L ALT 20 (0-31) U/L Alkaline Phosphatase 73 (39-117) U/L Troponin I High Sens < 2.7 5.1 D (<3.5-17.0) ng/L B-Natriuretic Peptide 51 (<100) pg/mL Total Protein 7.4 (6.5-8.0) g/dL Albumin 4.1 (3.5-5.0) g/dL Lipase 15 (8-78) U/L TSH 0.57 (0.32-4.0) uIU/mL Independent Interpretation I performed an independent interpretation of an: EKG and Plain X-Ray Interpretation: Independently reviewed and interpreted the patient's EKG demonstrates sinus tachycardia at 113 beats per minute, ID 140, QRS 84, QTC 463, PVCs, no STEMI. I reviewed and interpreted the patient's chest x-ray which demonstrates no focal consolidation or pneumothorax. Radiology Impression Discussion of test interpretation with radiology: I have reviewed the radiologist's reading. Radiologist Impression: XR/XR chest 2V IMPRESSION: * Hyperinflated lungs, raising the suspicion of underlying obstructive lung disease. Clinical correlation requested. * No acute pulmonary process. Dictated By: Radha Milligan MD Signed By: <Electronically signed by Radha Milligan MD in OV> 09/24/23 1611 Discharge Plan Discharge Clinical Impression: Chest pain Patient Disposition: Home, Self-Care Instructions: Chest Pain (ED) Additional Instructions: You were seen and evaluated in the emergency room. Your vital signs showed elevated blood pressure. Please be sure to follow up with her primary care doctor for close ongoing blood pressure monitoring. Your blood work was normal. Your chest x-ray was normal. Your EKG was normal. Please follow-up with your primary care doctor in the next 5-7 days. ? Please return to the emergency room if you develop any worsening symptoms including, but not limited to chest pain or difficulty breathing. ? Prescriptions: No Action levothyroxine [Levoxyl] 75 mcg tablet 75 mcg PO DAILY@0600 lisinopril 30 mg tablet 30 mg PO DAILY amitriptyline 10 mg tablet 5 mg PO BEDTIME multivitamin Tablet 1 tab PO DAILY buspirone 5 mg tablet 2.5 mg PO DAILY lansoprazole 15 mg Capsule,Delayed Release(Dr/Ec) 15 mg PO DAILY@1630 Rx Instructions: TAKE BEFORE DINNER Probiotic 1 cap PO DAILY hydralazine 25 mg tablet 25 mg PO BID rosuvastatin 20 mg tablet 20 mg PO BEDTIME Print Language: Liberian
--- NOTE | 2023-09-24 15:33 | ECG_ITS ---
Test Reason : chest pain Blood Pressure : / mmHG Vent. Rate : 113 BPM Atrial Rate : 113 BPM P-R Int : 140 ms QRS Dur : 084 ms QT Int : 338 ms P-R-T Axes : 071 043 028 degrees QTc Int : 463 ms Sinus tachycardia with Premature supraventricular complexes Otherwise normal ECG When compared with ECG of 03-APR-2023 19:06, Premature supraventricular complexes are now Present Vent. rate has increased BY 53 BPM Referred By: Lottie Garcia Electronically Signed By:JUVE THURMAN MD
[2023-09-24 16:00] VITALS: BP 177/84; PULSE 109; RESP 17; TEMP 36.8; O2SAT 97
[2023-09-24 16:27] LABS: MANUAL DIFF FLAG NO
[2023-09-24 16:32] LABS: Basophils Percent Auto 0.4 % (0-2); Eosinophils Absolute Auto 0.1 X10*3/uL (0.0-0.4); Eosinophils Percent Auto 0.8 % (0-4); Hematocrit 43.5 % (37.0-47.0); Hemoglobin 14.3 g/dl (12.0-16.0); Imm Gran Abs Auto 0.02 X10*3/uL (0.00-0.03); Imm Gran Pct Auto 0.2 % (0.0-0.4); Lymphocytes Absolute Auto 1.4 X10*3/uL (1.2-4.9); Mean Corpuscular HGB Conc 32.9 g/dl (31.0-35.0); Mean Corpuscular Hemoglobin 29.7 pg (27.0-33.0); Mean Corpuscular Volume 90.4 fL (80.0-98.0); Mean Platelet Volume 10.1 fL (9.4-12.3); Monocytes Absolute Auto 0.6 X10*3/uL (0.1-1.2); Monocytes Percent Auto 6.7 % (2-11); Neutrophils Absolute Auto 6.8 x10*3/uL (2.0-8.3); Neutrophils Percent Auto 75.9 % (45-73); Platelet Count 194 X10*3/uL (160-400); Red Blood Count 4.81 X10*6/uL (4.20-5.50); Red Cell Distribution Width 12.9 % (11.0-16.0); White Blood Count 8.9 X10*3/uL (4.8-10.8)
[2023-09-24 16:40] LABS: Prothrombin Time 12.1 SEC (11.1-13.3)
[2023-09-24 16:48] LABS: B Type Natriuretic Peptide 51 pg/mL (<100)
[2023-09-24 16:49] LABS: Alanine Aminotransferase 20 U/L (0-31); Albumin Level 4.1 g/dL (3.5-5.0); Alkaline Phosphatase 73 U/L (39-117); Anion Gap 15 (12-20); Aspartate Amino Transferase 27 U/L (5-31); Bilirubin Total 0.4 mg/dL (0.0-1.0); Blood Urea Nitrogen 15 mg/dL (9-16); Calcium 10.4 mg/dL (8.4-10.2); Carbon Dioxide 22 mmol/L (22-29); Chloride 109 mmol/L (96-108); Creatinine Clr Calc Pharmacy 35.4; Estimated Glomerular Filt Rate 41; Glucose Random 113 mg/dL (60-115); Lipase 15 U/L (8-78); Magnesium 1.8 mg/dL (1.6-2.6); Potassium 4.4 mmol/L (3.3-5.1); Sodium 142 mmol/L (135-145); Total Protein 7.4 g/dL (6.5-8.0)
[2023-09-24 16:50] LABS: Troponin-I High Sensitivity < 2.7 ng/L (<3.5-17.0)
[2023-09-24 17:03] LABS: TSH reflex Free T4 0.57 uIU/mL (0.32-4.0)
[2023-09-24 18:00] VITALS: BP 159/79; PULSE 95; RESP 12; O2SAT 98
[2023-09-24 18:44] LABS: Troponin-I High Sensitivity 5.1 ng/L (<3.5-17.0)
[2023-09-24 19:10] VITALS: BP 167/84; PULSE 91; RESP 18; TEMP 36.8; O2SAT 96
== END 2023-09-24 19:11 | disposition home or self-care (01) ==
PROVIDERS: Physician Assistant Medical; Emergency Provider Emergency Medicine; PCP Nurse Practitioner Family
DX: R07.9 Chest pain, unspecified (principal); E03.9 Hypothyroidism, unspecified; F39 Unspecified mood [affective] disorder; I12.9 Hypertensive chronic kidney disease with stage 1 through stage 4 chronic kidney disease, or unspecified chronic kidney disease; N18.9 Chronic kidney disease, unspecified; K22.70 Barrett's esophagus without dysplasia; K21.9 Gastro-esophageal reflux disease without esophagitis; E04.9 Nontoxic goiter, unspecified; Z79.899 Other long term (current) drug therapy
CPT/HCPCS: 36415; 71046; 80053; 83690; 83735; 83880; 84443; 84484; 85025; 85610; 93005; 99283; 99285

== ENCOUNTER → 2023-09-24 15:33 | Outpatient (BNV) | payer MEDICARE, SELFPAY | PROVIDERS: Emergency Provider Emergency Medicine; PCP Nurse Practitioner Family; Visit Provider Internal Medicine Cardiovascular Disease | DX: R00.0 Tachycardia, unspecified (principal) | CPT/HCPCS: 93010 ==

== ENCOUNTER 2023-11-07 12:40 | Outpatient (AMB) | payer MEDICARE, SELFPAY ==
--- NOTE | 2023-11-07 12:52 | MHC.OFFVIS ---
Vital Signs 11/07/23 12:53 Height 5 ft 1 in Weight 180 lb 12.465 oz BMI 34.2 BP 134/62 Blood Pressure Location Lt brachial Position Sitting Pulse 69 Pulse Source Pulse Oximeter Intake Visit Reasons: follow up Sql Ssrs Ssis Developer Required: No Allergies Iodinated Contrast Media [IV CONTRAST] Allergy (Severe, Verified 11/07/23 12:56) TACHYCARDIA,DIFFICULTY BREATHING amoxicillin [Prevpac] Allergy (Unknown, Verified 11/07/23 12:56) Unknown clarithromycin [Prevpac] Allergy (Unknown, Verified 11/07/23 12:56) Unknown escitalopram [From LEXAPRO] Allergy (Unknown, Verified 11/07/23 12:56) CHEST PAIN lansoprazole [Prevpac] Allergy (Unknown, Verified 11/07/23 12:56) unknown lovastatin Allergy (Unknown, Verified 11/07/23 12:56) myalgia omeprazole [From Prilosec] Allergy (Unknown, Verified 11/07/23 12:56) CHEST PAIN,DIFFICULTY BREATHING pravastatin Allergy (Unknown, Verified 11/07/23 12:56) myalgia shellfish derived [SHELLFISH DERIVED] Allergy (Unknown, Verified 11/07/23 12:56) UNKOWN iv contrast dye Allergy (Unknown, Uncoded 11/07/23 12:56) unknown iv dye/ shellfish Allergy (Unknown, Uncoded 11/07/23 12:56) unknown Prilosec Allergy (Unknown, Uncoded 11/07/23 12:56) Chest pain Medication List - Last Reconciled 11/07/23 by HEATH ElliottC amitriptyline 5 mg PO BEDTIME buspirone 2.5 mg PO DAILY hydralazine 25 mg PO BID lansoprazole 15 mg PO DAILY@1630 levothyroxine (Levoxyl) 75 mcg PO DAILY@0600 lisinopril 30 mg PO DAILY multivitamin 1 tab PO DAILY [Probiotic 1 cap PO DAILY] rosuvastatin 20 mg PO BEDTIME HPI HPI follow up: Details: Lindsey is a 78-year-old female with past medical history of hypertension, hyperlipidemia, chronic kidney disease, atypical chest discomfort, shortness of breath with activity who presents for follow up. She had been seen in the [facility] on 09/23 with elevated BP and ruled out for ACS. No med changes were made. Today she reports that she has been feeling well with no concerning shortness of breath or chest discomfort at rest or with activity. No PND, orthopnea or edema. No concerning heart palpitations. She previously thought her hydralazine made the heart beat faster but now feels that it may be just anxiety. She is intolerant to many other blood pressure medications including beta-blockers, calcium channel blockers. She follows with Nephrology for her blood pressure. Takes meds as directed. Does not engage in routine exercise. [facility] Medical History Hypertensive urgency Harper esophagus Non-toxic multinodular goiter Barretts esophagus Allergies Chronic GERD Lipid disorder Hypertension, essential Anxiety, generalized Surgical History H/O LEEP (2007) Family History Father Heart disease Mother Heart disease Maternal Uncle Colon cancer Heart failure Social History Household Members: Children Housing: Apartment Do you presently have visiting nurse or other home services: No Alcohol intake: never Patient Tobacco Use Status: Never used Tobacco service: No Current occupational status: retired Review of Systems Const All systems reviewed & are unremarkable except as noted in HPI and below ENT Denies dizziness Card Denies chest pain, Denies chest pain at rest, Denies chest pain with activity, Denies rapid heart rate, Denies pedal edema, Denies edema, Denies leg edema, Denies lightheadedness, Denies palpitations, Denies dyspnea, Denies dyspnea on exertion and Denies orthopnea Resp Denies cough, Denies dyspnea and Denies dyspnea on exertion GI Denies hematochezia and Denies change in stool character Musc Denies abnormal gait, Reports limited range of motion (knee pain), Denies muscle cramps, Denies muscle weakness, Denies numbness, Denies radiating pain into limb, Denies stiffness and Denies tingling Neuro Denies abnormal gait, Denies dizziness, Denies numbness and Denies tingling Endo Denies palpitations Physical Exam Vital Signs: Last Vital Signs Pulse 69 09/19/24 12:53 BP 134/62 11/07/23 12:53 BMI result Body Mass Index 34.2 Const General: cooperative, healthy appearing, comfortable and no acute distress Orientation/consciousness: patient oriented x3 Neck Neck: Yes normal visual inspection Resp Effort & Inspection: normal respiratory effort Auscultation: clear to auscultation bilaterally, no crackles, no rales, no rhonchi and no wheezes Cardio Jugular venous distension: no JVD Rate: regular rate Rhythm: regular rhythm Heart sounds: S1 normal heart sound present, S2 normal heart sound present, no murmurs and no rubs Neuro General: patient oriented x3 Extrem General: Yes normal to inspection Psych Appearance: grossly normal Mental Status: mental status grossly normal Speech and movement: Normal speech and movement present Assessment & Plan Assessment & Plan (1) Shortness of breath: Code(s): R06.02 - Shortness of breath Category: Medical Plan: Prior reports of shortness of breath with activity. She previously had normal nuclear stress test 04/18/2021. Echocardiogram 04/12/2021 showed EF 65 %,. Repeat echocardiogram done 06/11/2023 showing EF 55-60%, mild aortic regurgitation, normal RV. She has no known CAD. Labs were done showing normal BNP, hematocrit. Her shortness of breath symptom has since resolved. Unclear what caused her to feel that way previously. Currently no shortness of breath at rest or with activity. She has no signs of heart failure on examination. Continue with risk factor modification. (2) Sinus tachycardia: Code(s): R00.0 - Tachycardia, unspecified Category: Medical Plan: Patient reported elevated heart rate which she believes was related to her hydralazine. EKG done prior visit showed sinus tachycardia with PACs. She denies feeling heart palpitations.Echocardiogram shows normal EF. Recent labs show normal TSH, no anemia, creatinine 1.26. Holter monitor done 08/08/2023 for 3 days shows sinus rhythm with average heart rate 68, frequent PACs, 3%, rare VE. Test results reviewed with her. She does not drink caffeinated beverages. Continue good hydration. She is intolerant to beta-blockers and calcium channel blockers. It does not seem that hydralazine is elevating her heart rate like she previously thought. Cardiology follow-up 6 months, sooner if needed (3) PAC (premature atrial contraction): Code(s): I49.1 - Atrial premature depolarization Category: Medical Plan: As above (4) Hypertension, essential: Code(s): I10 - Essential (primary) hypertension Category: Medical Plan: Normal range today. She follows with Nephrology for kidneys and blood pressure. No med changes made today Plan Time spent on chart review, documentation, interview and assessment Coding Level of Care Code Est Pt Level 3 (87824) Diagnoses Shortness of breath R06.02 Sinus tachycardia R00.0 PAC (premature atrial contraction) I49.1 Hypertension, essential I10 Time Spent (min) 24
[2023-11-07 12:53] VITALS: BP 134/62; PULSE 69; BMI 34.2
== END 2023-11-07 13:25 | disposition home or self-care (01) ==
PROVIDERS: PCP Nurse Practitioner Family; Visit Provider Nurse Practitioner Family
DX: R06.02 Shortness of breath (principal); R00.0 Tachycardia, unspecified; I49.1 Atrial premature depolarization; I10 Essential (primary) hypertension
CPT/HCPCS: 99213

== ENCOUNTER → 2023-11-07 12:40 | Outpatient (BNVA) | payer MEDICARE, SELFPAY | PROVIDERS: PCP Nurse Practitioner Family; Visit Provider Nurse Practitioner Family | DX: R06.02 Shortness of breath (principal); R00.0 Tachycardia, unspecified; I49.1 Atrial premature depolarization; I10 Essential (primary) hypertension | CPT/HCPCS: 99212 ==

== ENCOUNTER 2024-01-21 14:28 | Emergency (ER) | payer MEDICARE, SELFPAY | END 2024-01-21 17:43 | disposition left against medical advice (07) | PROVIDERS: Emergency Provider Emergency Medicine Emergency Medical Services; PCP Nurse Practitioner Family | DX: R10.2 Pelvic and perineal pain (principal) ==

== ENCOUNTER 2024-04-30 13:52 | Outpatient (AMB) | payer MEDICARE, SELFPAY ==
[2024-04-30 14:01] VITALS: BP 142/60; PULSE 97; BMI 33.5
--- NOTE | 2024-04-30 14:01 | A.OFFVIS_ITS ---
Vital Signs 04/30/24 14:01 Height 5 ft 1 in Weight 177 lb 4.026 oz BMI 33.5 BP 142/60 H Blood Pressure Location Lt brachial Position Sitting Pulse 97 Pulse Source Monitor Intake Visit Reasons: 6m follow up Allergies Iodinated Contrast Media [IV CONTRAST] Allergy (Severe, Verified 04/30/24 14:03) TACHYCARDIA,DIFFICULTY BREATHING amoxicillin [Prevpac] Allergy (Unknown, Verified 04/30/24 14:03) Unknown clarithromycin [Prevpac] Allergy (Unknown, Verified 04/30/24 14:03) Unknown escitalopram [From LEXAPRO] Allergy (Unknown, Verified 04/30/24 14:03) CHEST PAIN lansoprazole [Prevpac] Allergy (Unknown, Verified 04/30/24 14:03) unknown lovastatin Allergy (Unknown, Verified 04/30/24 14:03) myalgia omeprazole [From Prilosec] Allergy (Unknown, Verified 04/30/24 14:03) CHEST PAIN,DIFFICULTY BREATHING pravastatin Allergy (Unknown, Verified 04/30/24 14:03) myalgia shellfish derived [SHELLFISH DERIVED] Allergy (Unknown, Verified 04/30/24 14:03) UNKOWN iv contrast dye Allergy (Unknown, Uncoded 04/30/24 14:03) unknown iv dye/ shellfish Allergy (Unknown, Uncoded 04/30/24 14:03) unknown Prilosec Allergy (Unknown, Uncoded 04/30/24 14:03) Chest pain Medication List - Last Reconciled 04/30/24 by Charlee Hamm, ASSISTANT PROFESSOR OF SPANISH-C amitriptyline 5 mg PO BEDTIME buspirone 2.5 mg PO DAILY hydralazine 25 mg PO BID lansoprazole 15 mg PO DAILY@1630 levothyroxine (Levoxyl) 75 mcg PO DAILY@0600 lisinopril 30 mg PO DAILY multivitamin 1 tab PO DAILY [Probiotic 1 cap PO DAILY] rosuvastatin 20 mg PO BEDTIME HPI HPI 6m follow up: Details: Lindsey is a 78-year-old female with past medical history of hypertension, hyperlipidemia, chronic kidney disease, atypical chest discomfort, shortness of breath with activity who presents for follow up. Today she reports that she has been feeling well overall. She has not been experiencing shortness of breath like she had previously reported. She has no PND, orthopnea or edema. No chest discomfort at rest or with activity. No PND, orthopnea or edema. No concerning heart palpitations. She has been experiencing abdominal discomfort and follows with GI. She is tolerating hydralazine without issues. She says she is intolerant to many other blood pressure medications including beta-blockers, calcium channel blockers. She follows with Nephrology for her blood pressure. Takes meds as directed. Does not engage in routine exercise. [facility] Medical History Hypertensive urgency Harper esophagus Non-toxic multinodular goiter Barretts esophagus Allergies Chronic GERD Lipid disorder Hypertension, essential Anxiety, generalized Surgical History H/O GOLDY (2007) Family History Father Heart disease Mother Heart disease Maternal Uncle Colon cancer Heart failure Social History Household Members: Children Housing: Apartment Do you presently have visiting nurse or other home services: No Alcohol intake: never Patient Tobacco Use Status: Never used Tobacco service: No Current occupational status: retired Review of Systems Const All systems reviewed & are unremarkable except as noted in HPI and below ENT Denies dizziness Card Denies chest pain, Denies chest pain at rest, Denies chest pain with activity, Denies rapid heart rate, Denies pedal edema, Denies edema, Denies leg edema, Denies lightheadedness, Denies palpitations, Denies dyspnea, Denies dyspnea on exertion and Denies orthopnea Resp Denies cough, Denies dyspnea and Denies dyspnea on exertion GI Reports abdominal pain, Denies hematochezia and Denies change in stool character Musc Denies abnormal gait, Denies limited range of motion, Reports muscle cramps, Denies muscle weakness, Denies numbness, Denies radiating pain into limb, Denies stiffness and Denies tingling Neuro Denies abnormal gait, Denies dizziness, Denies numbness and Denies tingling Endo Denies palpitations Physical Exam Vital Signs: Last Vital Signs Pulse 97 04/30/24 14:01 BP 142/60 H 04/30/24 14:01 BMI result Body Mass Index 33.5 Const General: cooperative, healthy appearing, comfortable and no acute distress Orientation/consciousness: patient oriented x3 Neck Neck: Yes normal visual inspection Resp Effort & Inspection: normal respiratory effort Auscultation: clear to auscultation bilaterally, no crackles, no rales, no rhonchi and no wheezes Cardio Jugular venous distension: no JVD Rate: regular rate Rhythm: regular rhythm Heart sounds: S1 normal heart sound present, S2 normal heart sound present, no murmurs and no rubs Neuro General: patient oriented x3 Extrem General: Yes normal to inspection Psych Appearance: grossly normal Mental Status: mental status grossly normal Speech and movement: Normal speech and movement present Office Procedures EKG Details: today, read by me, sinus rhythm with PACs and 1 PVC, rate 97, QTC 444 milliseconds [id number], Complete Assessment & Plan Assessment & Plan (1) Shortness of breath: Code(s): R06.02 - Shortness of breath Category: Medical Plan: Prior reports of shortness of breath with activity. She previously had normal nuclear stress test 04/18/2021. Echocardiogram 04/12/2021 showed EF 65 %,. Repeat echocardiogram done 06/11/2023 showing EF 55-60%, mild aortic regurgitation, normal RV. She has no known CAD. Labs were done showing normal BNP, hematocrit. Her shortness of breath symptom has since resolved. Unclear what caused her to feel that way previously. Currently no shortness of breath at rest or with activity. She has no signs of heart failure on examination. Continue with risk factor modification. (2) Sinus tachycardia: Code(s): R00.0 - Tachycardia, unspecified Category: Medical Plan: EKG done prior visit showed sinus tachycardia with PACs. She thought hydralazine was giving her tachycardia. Echocardiogram showed normal EF. Labs show normal TSH, no anemia, creatinine 1.26. Holter monitor done 08/08/2023 for 3 days shows sinus rhythm with average heart rate 68, frequent PACs, 3%, rare VE. EKG done today showing sinus rhythm with PACs and 1 PVC, rate 97. She has no heart palpitations. She does not drink caffeinated beverages. She is intolerant to beta-blockers and calcium channel blockers. She continues on hydralazine and is doing well. (3) PAC (premature atrial contraction): Code(s): I49.1 - Atrial premature depolarization Category: Medical Plan: Frequent PACs as above. Informed her that in some cases frequent PACs can lead to atrial fibrillation. Last echo shows atria are normal size. Instructed to notify this office if she has any concerning heart Palpitations. Cardiology follow-up in 1 year, sooner if needed. (4) Hypertension, essential: Code(s): I10 - Essential (primary) hypertension Category: Medical Plan: Mild elevation today, blood pressure 142/60. She follows with Nephrology for kidneys and blood pressure. No med changes made today Plan Time spent on chart review, documentation, interview and assessment Coding Level of Care Code Est Pt Level 4 (67341) Complex EM visit Add On G2211 Diagnoses Shortness of breath R06.02 Sinus tachycardia R00.0 PAC (premature atrial contraction) I49.1 Hypertension, essential I10 CPT Codes EKG - CPT: 40888-[id number], Complete ([id number]) Time Spent (min) 30
--- OUTSIDE RECORDS SUMMARY | 2024-04-30 17:35 | XMS_ITS | Encounter Summary ---
Author Organization [facility] Address [address] [place] [address] Phone Care Team Providers Care Sales Associate Cashier Name Role Phone Ruth Hamm BERTHA Primary Care Provider [phone] Reason for Visit * Reason Onset Date Comments Med Refill 04/09/2024 Encounter Details Date Type Department Care Team (Late st Contact Info) Description 04/09/2024 Refill [facility] [address] [place] [address] Dionisio Gonzáles MD [address] [place] [address] Social History Tobacco Use Types Packs/Day Years Used Date Smoking Tobacco: Never Smokeless Tobacco: Never Alcohol Use Standard Drinks/Week Comments No 0 (1 standard drink = 0.6 oz pur e alcohol) Comments Unknown Sex and Gender Information Value Date Recorded Sex Assigned at Not on file Legal Sex Female 4:30 PM EST Gender Identity Not on file Sexual Orientation Not on file documented as of this encounter Plan of Treatment Upcoming Encounters Date Type Department Care Team (Late st Contact Info) Description 07/08/2024 10:20 AM EDT Office Visit [facility] [address] [place] [address] Dionisio Gonzáles MD [address] [place] [address] documented as of this encounter Visit Diagnoses Not on filedocumented in this encounter Care Teams Sales Associate Cashier Relationship Specialty Start Date End Date Ruth Hamm NP [address] [place] [phone] PCP - General Nurse Practitioner 02/28/22 documented as of this encounter
--- OUTSIDE RECORDS SUMMARY | 2024-04-30 17:35 | XMS_ITS | Patient Health Record ---
Author Organization [facility] Address [address] [place] [phone] Care Team Providers Care Photographer Model Name Role Phone Noris Ruth Primary Care Provider ANNAMARIE Smith Unavailable [phone] Dionisio Gonzáles Unavailable Unavailable Reason For Referral No Information Problems Problem Type SNOMED Code ICD Code Onset Dates Problem Status W/U Status Risk Notes Problem Chronic kidney disease stage 3A (disorder) (453307213) Chronic kidney disease, stage 3a (N18.31) Active confirmed Encounters Encounter Location Date Provider Diagnosis [facility] [address] [place] [phone] 05/20/2023 ANNAMARIE VALDES Chronic kidney disease, stage 3a N18.31 and Hyperkalemia E87.5 [facility] [address] [place] [phone] 05/01/2023 ANNAMARIE VALDES [facility] [address] [place] [phone] 05/01/2023 ANNAMARIE VALDES [facility] [address] [place] [phone] 05/02/2023 ANNAMARIE VALDES [facility] [address] [place] [address] 05/06/2023 ANNAMARIE VALDES [facility] [address] [place] [phone] 05/09/2023 ANNAMARIE VALDES [facility] [address] [place] [phone] 05/20/2023 ANNAMARIE VALDES [facility] [address] [place] [phone] 05/21/2023 ANNAMARIE VALDES [facility] [address] [place] [phone] 05/27/2023 ANNAMARIE Melo [facility] [address] [place] [phone] 05/28/2023 ANNAMARIE [facility] [address] [place] [phone] 06/25/2023 [facility] [address] [place] [phone] 08/09/2023 [facility] [address] [place] [phone] 10/16/2023 [facility] [address] [place] [phone] 11/14/2023 [facility] [address] [place] [phone] 04/23/2024 ANNAMARIE Melo [facility] [address] [place] [phone] 04/27/2024 ANNAMARIE VÍCTOR Assessments Encounter Date Diagnosis (ICD Code) Assessment Notes Treatment Notes Treatment Clinical Notes Section Notes 05/20/2023 Hyperkalemia (ICD-10 - E87.5) We spent the first part of our discussion talking about [facility] [employer] and our goals. I emphasized that we focus on education and support for patients with kidney issues by connecting them with our navigators, who have personal and family experience with kidney disease. I explained that while we will discuss the status of his/her kidneys, nothing we are doing is a substitute for visits to nephrology and/or primary care physician. 1. CKD 3a. Cause is unknown. She has regular follow up with Dr. Gonzáles and has had CT imaging. Her kidney function as measured by GFR has been stable for some time. 2. Kidney Failure Risk: need a UACR to calculate the KFRE. She believes she has had this and will work with Deepa to find the result on her portal. 3. Kidney transplant candidacy: I have identified no contraindication to kidney txp though given her kidney function and age, it's unlikely this will become an issues 4. Hypertension: she will do more home monitoring and bring the numbers to her May visit with Dr. Gonzáles. 5. Hyperkalemia: she will meet again with Carmelita the [facility] metal fence erector and make her aware of this issue. They have met before to discuss reduced protein diet. We discussed that there are potassium binders available as medications that Dr. Gonzáles might consider. Our education and discussion will focus on: The importance of monitoring kidney function: GFR and Urine Albumin Creatinine Ratio Preventing progression of kidney disease through diet, and avoidance of nephrotoxins like IV contrast dye and other stressors such as dehydration that can cause Acute kidney injury Acidosis Management: keeping CO2 > 20-21 with plant based eating, Bicarbonate supplementation. Use of medications,on the basis of reduced GFR Importance of ongoing exercise Importance of regular follow up with primary gamma facilities operator Should renal function deteriorate, we can expand our discussion to: Transplant as a method of treating kidney failure vs living donor transplant Techniques to reduce waiting time: (1) Living donor search; (2) acceptance of KDPI >85% kidneys; (3) acceptance of HCV+ kidneys; (4) listing out of region. Postponing dialysis Pro's and con's of different forms of dialysis Indications to start dialysis Avoiding crash dialysis Incremental dialysis: twice a week vs three times per week Importance of preserving renal function even after dialysis starts Conservative management of advanced CKD, without dialysis Value of Support Groups Annamarie aVldes MD 05/20/2023 Chronic kidney disease, stage 3a (ICD-10 - N18.31) We spent the first part of our discussion talking about [facility] and our goals. I emphasized that we focus on education and support for patients with kidney issues by connecting them with our navigators, who have personal and family experience with kidney disease. I explained that while we will discuss the status of his/her kidneys, nothing we are doing is a substitute for visits to nephrology and/or primary care physician. 1. CKD 3a. Cause is unknown. She has regular follow up with Dr. Gonzáles and has had CT imaging. Her kidney function as measured by GFR has been stable for some time. 2. Kidney Failure Risk: need a UACR to calculate the KFRE. She believes she has had this and will work with Deepa to find the result on her portal. 3. Kidney transplant candidacy: I have identified no contraindication to kidney txp though given her kidney function and age, it's unlikely this will become an issues 4. Hypertension: she will do more home monitoring and bring the numbers to her May visit with Dr. Gonzáles. 5. Hyperkalemia: she will meet again with Carmelita the [facility] metal fence erector and make her aware of this issue. They have met before to discuss reduced protein diet. We discussed that there are potassium binders available as medications that Dr. Gonzáles might consider. Our education and discussion will focus on: The importance of monitoring kidney function: GFR and Urine Albumin Creatinine Ratio Preventing progression of kidney disease through diet, and avoidance of nephrotoxins like IV contrast dye and other stressors such as dehydration that can cause Acute kidney injury Acidosis Management: keeping CO2 > 20-21 with plant based eating, Bicarbonate supplementation. Use of medications,on the basis of reduced GFR Importance of ongoing exercise Importance of regular follow up with primary gamma facilities operator Should renal function deteriorate, we can expand our discussion to: Transplant as a method of treating kidney failure vs living donor transplant Techniques to reduce waiting time: (1) Living donor search; (2) acceptance of KDPI >85% kidneys; (3) acceptance of HCV+ kidneys; (4) listing out of region. Postponing dialysis Pro's and con's of different forms of dialysis Indications to start dialysis Avoiding crash dialysis Incremental dialysis: twice a week vs three times per week Importance of preserving renal function even after dialysis starts Conservative management of advanced CKD, without dialysis Value of Support Groups Annamarie Valdes MD Plan Of Treatment No Information Insurance Providers Payer Name Payer Address Payer Phone Subscriber Number Group Number Insured Name Patient Relationship to Insured Coverage Start Date Coverage End Date [facility] Medicare Advantage [id number] [place] [address] [id number] KIRBY MCCRAY Self - patient is the insured
--- OUTSIDE RECORDS SUMMARY | 2024-04-30 17:35 | XMS_ITS ---
Author Organization [facility] [facility] Address [address] [place] [phone] Care Team Providers Care College Administrator Name Role Phone Noris, Ruth Primary Care Provider ANNAMARIE Smith Unavailable [phone] Dionisio Gonzáles Unavailable Unavailable Encounters Encounter Location Date Provider Diagnosis [facility] [address] [phone] 04/27/2024 ANNAMARIE CAMPBELL Plan Of Treatment No Information Progress Notes * GHASSAN MCCRAYOB:1945 (78 yo F)Acc No.[id number]:04/27/2024 Patient:?SHAZIA, KIRBY :1945???Age:78 Y???Sex:Female Address:[address] [place] [address] , [place] [address] * true * Date:? Generated for Jaime keenan/Jon/eTransmitting on:?04/30/2024 05:35 PM EDT
--- OUTSIDE RECORDS SUMMARY | 2024-04-30 17:35 | XMS_ITS ---
Author Organization [facility] [employer] [facility] Address [address] [place] [phone] Care Team Providers Care Yarn Weight And Strength Tester Name Role Phone Noris, Ruth Primary Care Provider ANNAMARIE Smith Unavailable [phone] Dionisio Gonzáles Unavailable Unavailable Encounters Encounter Location Date Provider Diagnosis [facility] [address] [phone] 04/23/2024 ANNAMARIE CAMPBELL Plan Of Treatment No Information Progress Notes * GHASSAN MCCRAYOB:1945 (78 yo F)Acc No.[id number]:04/23/2024 Patient:?SHAZIA, KIRBY :1945???Age:78 Y???Sex:Female Address:[address] [place] [address] , [place] [address] * true * Date:? Generated for Jaime keenan/Jon/eTransmitting on:?04/30/2024 05:35 PM EDT
--- OUTSIDE RECORDS SUMMARY | 2024-04-30 17:35 | XMS_ITS | Encounter Summary ---
Author Organization [facility] Address [address] [place] [address] Phone Care Team Providers Care Disaster Director Name Role Phone NorisIsaias marshallsadiq STONE Primary Care Provider [phone] Reason for Visit * Reason Onset Date Comments Med Refill 04/09/2024 Encounter Details Date Type Department Care Team (Late st Contact Info) Description 04/09/2024 Refill [facility] [address] [place] [address] [place] [address] [place] [phone] Social History Tobacco Use Types Packs/Day Years [...] Visit [facility] [address] [place] [address] Dionisio Gonzáles MD [address] [facility] [place] [address] documented as of this encounter Visit Diagnoses Not on filedocumented in this encounter Care Teams Disaster Director Relationship Specialty Start Date End Date Ruth Hamm NP [address] [place] [phone] PCP - General Nurse Practitioner 02/28/22 documented as of this encounter
--- OUTSIDE RECORDS SUMMARY | 2024-04-30 17:35 | XMS_ITS | Encounter Summary ---
Author Organization [facility] Address [address] [place] [address] Phone Care Team Providers Care Barrel Cooper Name Role Phone Ruth Hamm NP Primary Care Provider [phone] Encounter Details Date Type Department Care Team ([facility] Contact Info) Description 09/25/2023 Documentation Only [facility] [address] [place] [address] Izzy Dorado [place] [address] [place] [address] Social History Tobacco Use Types Packs/Day [...] Encounters Date Type Department Care Team (Late Contact Info) Description 07/08/2024 10:20 AM EDT Office Visit [facility] [address] [place] [place] [address] Dionisio Gonzáles MD [address] [place] [address] documented as of this encounter Visit Diagnoses Not on filedocumented in this encounter Care Teams Barrel Cooper Relationship Specialty Start Date End Date Ruth Hamm NP [address] [place] [phone] PCP - General Nurse Practitioner 02/28/22 documented as of this encounter
--- OUTSIDE RECORDS SUMMARY | 2024-04-30 17:35 | XMS_ITS | Encounter Summary ---
Author Organization [facility] [place], Address [address] [place] [address] Phone Care Team Providers Care Sheriff Detective Name Role Phone Ruth Hamm WAREHOUSE ASSOCIATE Primary Care Provider [phone] Encounter Details Date Type Department Care Team (Late st Contact Info) Description 04/08/2024 10:30 AM EST Office Visit [facility] [place], [address] [place] [phone] Dionisio Gonzáles MD [address] [place] [address] [place] [phone] Stage 3b chronic kidney disease (HCC) (Primary Dx) Social History Tobacco Use Types Packs/Day Years [...] on file documented as of this encounter Progress Notes * Dionisio Gonzáles MD - 04/08/2024 10:30 AM EST Images from the original note were not included. PATIENT: Lindsey Cotto : 1945 ENCOUNTER: 04/08/2024 PCP: Ruth Hamm NP CHIEF COMPLAINT: Kidney Problem HPI: Lindsey Cotto is a 78 y.o. year old female with a history of Chronic kidney disease stage IIIb secondary to hypertensive nephrosclerosis who now presents for further evaluation. Overall the patient has been quite stable without any new complaints. Her appetites been fine. Her kidney function is stable. Her energy level is excellent. ROS: Constitutional: No fever. Respiratory: No shortness of breath. Cardiovascular: No chest pain. Gastrointestinal: No abdominal pain, nausea or vomiting. Genitourinary: No hematuria. All other systems reviewed and are negative. 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 02/27/2022 Simple renal cyst 02/27/2022 Tubular adenoma of colon 02/27/2022 Vertigo 02/27/2022 Diverticular disease of colon 02/13/2022 Epigastric pain 02/13/2022 Gastro-esophageal reflux disease without esophagitis 02/13/2022 Irritable bowel syndrome characterized by constipation 02/13/2022 Harper's esophagus 03/17/2019 Stage 3b chronic kidney disease (HCC) 03/17/2019 Essential hypertension 03/17/2019 Hypothyroidism 03/17/2019 Rheumatoid arthritis (HCC) 03/17/2019 History of syncope 12/09/2017 Mixed hyperlipidemia 12/09/2017 Acquired disorder of keratinization 08/01/2011 Osteopenia 12/25/2010 PAST SURGICAL HISTORY: Past Surgical History: Procedure Laterality Date OTHER SURGICAL HISTORY colonoscopy SOCIAL HISTORY: Social History Tobacco Use Smoking status: Never Smokeless tobacco: Never Substance Use Topics Alcohol use: No FAMILY HISTORY: Family History Family history unknown: Yes MEDICATIONS: Outpatient Encounter Medications as of 04/08/2024 Medication Sig Dispense Refill amitriptyline (ELAVIL) 10 MG tablet Take 1 tablet by mouth busPIRone (BUSPAR) 5 MG tablet TAKE ONE TABLET BY MOUTH TWICE A DAY WITH BREAKFAST AND DINNER 60 tablet 11 ergocalciferol (VITAMIN D2) 1.25 MG (79956 UT) capsule Take 1.25 mg by mouth per week lansoprazole (PREVACID) [address] capsule Take 30 mg by mouth 1 (one) time each day levothyroxine (SYNTHROID, LEVOTHROID) 75 MCG tablet Take 75 mcg by mouth 1 (one) time each day lisinopril (PRINIVIL,ZESTRIL) 30 MG tablet Take 30 mg by mouth 1 (one) time each day LORazepam (ATIVAN) 0.5 MG tablet Take 0.5 mg by mouth 1 (one) time each day rosuvastatin (CRESTOR) 5 MG tablet Take 5 mg by mouth 1 (one) time each day No facility-administered encounter medications on file as of 04/08/2024. ALLERGIES: is allergic to indapamide, omeprazole, amlodipine, amoxicillin, atorvastatin, beta adrenergic blockers, clarithromycin, iodinated contrast media, iodine, lovastatin, pravastatin, and shellfish allergy. ASSESSMENT: 1. Stage 3b chronic kidney disease (HCC) Kind 78-year-old female with a history of longstanding hypertension and chronic kidney disease stage IIIb secondary to hypertensive nephrosclerosis who now presents for further evaluation. At this point her current medical issues include 1. Abdominal pain-The patient continues to be asymptomatic and will be followed expectantly. 2. Hypertension Acceleration-unclear as to the etiology but I do not believe there is an underlyinghormonal excess state or evidence of renovascular disease. The patient's blood pressure control is excellent and at this point does not require any further antihypertensive medication manipulation. 3. CKD stage IIIb secondary to ischemia and hypertension-The patient continues to do extremely welland at this point does not require any additional intervention given her excellent renoprotective regimen her wonderful blood pressure control and her stable renal function. We again discussed the utility of sodium glucose Co. transport inhibition. I hope all is well. No orders of the defined types were placed in this encounter. documented in this encounter Plan of Treatment Upcoming Encounters Date Type Department Care Team (Late st Contact Info) Description 07/08/2024 10:20 AM EDT Office Visit [facility] [place], [address] [place] [address] Dionisio Gonzáles MD [address] [place] [address] documented as of this encounter Visit Diagnoses Diagnosis Stage 3b chronic kidney disease (HCC)- Primary documented in this encounter Care Teams Sheriff Detective Relationship Specialty Start Date End Date Ruth Hamm NP [address] [place] [phone] PCP - General Nurse Practitioner 02/28/22 documented as of this encounter
--- OUTSIDE RECORDS SUMMARY | 2024-04-30 17:35 | XMS_ITS | Encounter Summary ---
Author Organization [facility] Address [address] [place] [address] Phone Care Team Providers Care Gum Machine Operator Name Role Phone Ruth Hamm NP Primary Care Provider [phone] Encounter Details Date Type Department Care Team ([facility] Contact Info) Description 05/29/2023 Documentation Only [facility] [address] [place] [address] Izzy Dorado [place] [address] [place] [phone] Social History Tobacco Use Types Packs/Day Years [...] Visit [facility] [address] [place] [address] Dionisio Gonzáles MD [address] [place] [address] documented as of this encounter Visit Diagnoses Not on filedocumented in this encounter Care Teams Gum Machine Operator Relationship Specialty Start Date End Date Ruth Hamm NP [address] [place] [phone] PCP - General Nurse Practitioner 02/28/22 documented as of this encounter
--- OUTSIDE RECORDS SUMMARY | 2024-04-30 17:35 | XMS_ITS | Encounter Summary ---
Author Organization [facility] Address [address] [place] [address] Phone Care Team Providers Care Sous Chef Kitchen Manager Name Role Phone NorisIsaias marshallsadiq STONE Primary Care Provider [phone] Reason for Visit * Reason Onset Date Comments Med Refill 04/09/2024 Encounter Details Date Type Department Care Team (Late st Contact Info) Description 04/09/2024 Refill [facility] [address] [place] [address] [place] [address] [place] [phone] Social History Tobacco Use Types Packs/Day [...] Visit [facility] [address] [place] [address] Dionisio Gonzáles MD [address] [place] [address] documented as of this encounter Visit Diagnoses Not on filedocumented in this encounter Care Teams Sous Chef Kitchen Manager Relationship Specialty Start Date End Date Ruth Hamm NP [address] [place] [phone] PCP - General Nurse Practitioner 02/28/22 documented as of this encounter
--- OUTSIDE RECORDS SUMMARY | 2024-04-30 17:35 | XMS_ITS ---
Author Organization [facility] Address [address] [place] [address] Care Team Providers Care Horseback Riding Instructor Name Role Phone Noris Ruth EISENBERG Primary Care Provider Deandre Vega Jr Unavailable [phone] Allergies Allergen (clinical drug ingredient) Drug/Non Drug Allergy documented on EMR Reaction Allergy Type Onset Date Status Shellfish (FN) Shellfish-derived Products Unknown Drug Allergy Active Substance with beta adrenergic receptor antagonist mechanism of action (substance) beta wyatt (uncoded) Unknown Allergy Active IVP Dye (uncoded) Unknown Allergy Ac tive omeprazole prilosec (uncoded) Unknown Allergy Active REASON FOR VISIT Patient presents today for garcia's Medications Medication SIG (Take, Route, Fr equency, Duration) Notes Start Date End Date Status Amitriptyline HCl 10 MG TAKE ONE TABLET BY MOUTH AT BEDTIME Oral for 90 Active Lansoprazole 15 MG 1 capsule before a m eal Orally Once a day for 30 day(s) 11/17/2020 Active hydrALAZINE HCl 50 MG 1 tablet with food Orally once a day Active busPIRone HCl 5 MG 1/2 tablet Orally once a day Active Synthroid 75 MCG 1 tablet on an empty stomach in the morning Orally Once a day Active Lisinopril 30 MG 1 tablet Orally Once a day Active Immunizations Vaccine Route Administration Date Status Comme nts Influenza Unknown 05/13/2023 Refused Vital Signs Temperature 96.0 degrees Fahrenheit 05/13/19 24 Blood pressure systolic 000 mm Hg 05/13/19 24 Blood pressure diastolic 00 mm Hg 024 Height 62.50 in 05/13/2023 Weight 183 lb 6 oz lbs 05/13/2023 BMI 33.00 kg/m2 05/13/2023 Encounters Encounter Location Date Provider Diagnosis [facility] [address] [place] [address] 05/13/2023 Deandre Brown Jr 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 We discussed diet and lifestyle modifications regarding the treatment of reflux. We also discussed diverticulitis. We recommended follow a high-fiber diet. She'll continue her present medical regimen. Followup will be in one year. 05/13/2023 Diverticulitis of large intestine without perforation or abscess without bleeding (ICD-10 - K57.32) Currently she is doing well. We discussed diet and lifestyle modifications regarding the treatment of reflux. We also discussed diverticulitis. We recommended follow a high-fiber diet. She'll continue her present medical regimen. Followup will be in one year. 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 Patient presents today for garcia's. * HPI: ???New symptom(s):? Kristie is a 77-year-old woman seen today in followup of Garcia's esophagus and diverticulitis. She reports reflux symptoms are well-controlled on lansoprazole 15 mg daily. She has no dysphagia, hematemesis, or melena. She's also using amitriptyline at night which he thinks helps her stomach problems. She takes Metamucil and MiraLax as needed to regulate her bowels. She did have an episode of uncomplicated diverticulitis around 's and was hospitalized for 2 days. She finished antibiotics uneventfully. * Medical History:?Colonoscopy 07/10/19, tubular adenomas x2, diverticulosis, normal random sigmoid biopsies, followup as needed, Hypertension, Hypothyroidism, Garcia's esophagus, EGD 07/10/19, 2 cm segment of Garcia's, no dysplasia, followup p.r.n., Stage 3 kidney disease, ER in march for diverticulitis, was in hospital for 2 days. Diverticulitis. * Surgical History:?gallstones status post ERCP with stone extraction and followup cholecystectomy 2017. * Hospitalization/Major Diagno stic Procedure:?hospital stay for diverticulitis for 2 days 04/13. * Family History:?Father: dece ased.?Mother: 67 yrs, diagnosed with Heart disease.? She has a negative family history for colon cancer but has a maternal aunt that of stomach cancer. no family history of liver cancer. * Social History:?Tobacco Use:?Tobacco Use/Smoking?Are you a: nonsmoker.?Drugs/Alcohol:?Alcohol Screen?Points: 0, Interpretation: Negative.?Miscellaneous:?Marital status: Single. Occupation: Retired from [employer] 2017. * Medications:?Taking Synthroi d 75 MCG Tablet 1 tablet on an empty stomach in the morning Orally Once a day, Taking Lisinopril 30 MG Tablet 1 tablet Orally Once a day, Taking busPIRone HCl 5 MG Tablet 1/2 tablet Orally once a day, Taking hydrALAZINE HCl 50 MG Tablet 1 tablet with food Orally once a day, Taking Lansoprazole 15 MG Capsule Delayed Release 1 capsule before a meal Orally Once a day, Taking Amitriptyline HCl 10 MG Tablet TAKE ONE TABLET BY MOUTH AT BEDTIME Oral , Discontinued Aspirin Adult Low Dose 81 MG Tablet Delayed Release 1 tablet Orally Once a day, Medication List reviewed and reconciled with the patient * Allergies:?prilosec, IVP Dye , beta wyatt, Shellfish-derived Products. Objective: * Vitals:?Wt: 183 lb 6 oz, Ht: 62.50 in, BMI:33.00 Index, BP: 000/00 mm Hg, Temp: 96.0. * Examination: ???General Examination: ???On examination today, she appears well. Skin is anicteric. Lungs are clear. Heart shows regular rate and rhythm. Abdomen is soft without focal mass or tenderness. Extremities are without edema. Assessment: * Assessment: 1.?Garcia's esophagus witho ut dysplasia - K22.70 (Primary)?2.?Diverticulitis of large intestine without perforation or abscess without bleeding - K57.32? Currently she is doing well. We discussed diet and lifestyle modifications regarding the treatment of reflux. We also discussed diverticulitis. We recommended follow a high-fiber diet. She'll continue her present medical regimen. Followup will be in one year. Plan: * Treatment: * Immunizations:? Influenza (Not administered - Refused: Patient decision) * Procedure Codes:?G9903 Pt sc rn tbco id as non user, G9744 PATIENT NOT ELIG D/T ACTIVE DX HTN * Preventive Medicine:? ??Counseling:?Care goal follow-up plan:?Above Normal BMI Follow-up?Giving encouragement to exercise,?BMI management provided?Yes.? ??Urinary Incontinence:?Urinary Incontinence?Assessment:?Absent,?Plan of care documented:?No, reason not specified.? * Follow Up:?1 Year * * Sign off status: Completed true * Provider:?Deandre Brown MD Date:?0 05/13/2023 Generated for Jaime keenan/Jon/Perryitting on:?04/30/2024 05:34 PM EDT History and Physical Notes * HPI (History of Present Illness) Category Sub-Category Detail Notes Category Not es New symptom(s) Kristie is a [age]-year-old woman seen today in followup of Garcia's esophagus and diverticulitis. She reports reflux symptoms are well-controlled on lansoprazole 15 mg daily. She has no dysphagia, hematemesis, or melena. She's also using amitriptyline at night which he thinks helps her stomach problems. She takes Metamucil and MiraLax as needed to regulate her bowels. She did have an episode of uncomplicated diverticulitis around 's day and was hospitalized for 2 days. She finished antibiotics uneventfully. Examination Category Sub-Category Detail Notes Category Not es General Examination On exami nation today, she appears well. Skin is anicteric. Lungs are clear. Heart shows regular rate and rhythm. Abdomen is soft without focal mass or tenderness. Extremities are without edema.
--- OUTSIDE RECORDS SUMMARY | 2024-04-30 17:35 | XMS_ITS | Encounter Summary ---
Author Organization [facility] Address [address] [place] [address] Phone Care Team Providers Care Paraoptometric Name Role Phone Ruth Hamm NP Primary Care Provider [phone] Encounter Details Date Type Department Care Team ([facility] Contact Info) Description 01/03/2024 Documentation Only [facility] [address] [place] [address] Izzy Dorado [place] [address] [place] [phone] Social History Tobacco Use Types Packs/Day Years [...] Visit [facility] [address] [place] [address] Dionisio Gonzáles MD [address] [place] [address] documented as of this encounter Visit Diagnoses Not on filedocumented in this encounter Care Teams Paraoptometric Relationship Specialty Start Date End Date Ruth Hamm NP [address] [place] [phone] PCP - General Nurse Practitioner 02/28/22 documented as of this encounter
--- OUTSIDE RECORDS SUMMARY | 2024-04-30 17:35 | XMS_ITS ---
Author Organization [facility] Address [address] [place] [address] Care Team Providers Care Graphic Illustrator Name Role Phone Ruth Hamm CNP Primary Care Provider Margret Brown Jr, Deandre Bhakta [phone] REASON FOR VISIT Patient presents today for garcia's Encounters Encounter Location Date Provider Diagnosis [facility] [address] [facility] [address] [place] [address] 01/24/2023 Deandre Brown Jr Plan Of Treatment Next Appt Details Provider Name:Deandre ambrosio Jr, 07/15/2024 09:00:00 AM, [address] [facility], [address], [place], [address], Progress Notes * KIRBY MCCRAY MDOB: (78 yo F)Acc No.[id number]:01/24/2023 Progress Notes Patient:?KIRBY MCCRAY Provider:?Deandre Brown MD :1945???Age:77 Y???Sex:Female D ate:01/24/2023 Address:[address], [id number] Pcp:Ruth Hamm CNP Subjective: * Chief Complaints: * ???1. Patient presents today for garcia's. * Medical History:? Objective: * Vitals:? Assessment: Plan: * Treatment: * * The named appointment provid er may or may not be the originator of this progress note, and it is not deemed complete until electronically signed by the appointment provider. Sign off status: Pending * Provider:?Deandre Brown MD Date:?1 03/27/2022 Generated for Jaime keenan/Jon/Chi on:?04/30/2024 05:34 PM EDT
--- OUTSIDE RECORDS SUMMARY | 2024-04-30 17:36 | XMS_ITS | Encounter Summary ---
Author Organization [facility] Address [address] [place] [address] Phone Care Team Providers Care Participant Administrator Name Role Phone Ruth Hamm NP Primary Care Provider [phone] Encounter Details Date Type Department Care Team (Late Contact Info) Description 02/13/2022 Documentation Only [facility] [address] [place] [address] Dionisio Gonzáles MD [address] [place] [address] [place] [address] Social History Tobacco Use Types [...] Visit [facility] [address] [place] [address] Dionisio Gonzáles MD [address] [place] [address] documented as of this encounter Visit Diagnoses Not on filedocumented in this encounter Care Teams Participant Administrator Relationship Specialty Start Date End Date Ruth Hamm NP [address] [place] [phone] PCP - General Nurse Practitioner 02/28/22 documented as of this encounter
--- OUTSIDE RECORDS SUMMARY | 2024-04-30 17:36 | XMS_ITS | Encounter Summary ---
Author Organization [facility] Address [address] [place] [address] Phone Care Team Providers Care Fuel System Maintenance Supervisor Name Role Phone Ruth Hamm BERTHA Primary Care Provider [phone] Reason for Visit * Reason Comments Med Refill Encounter Details Date Type Department Care Team (Late st Contact Info) Description 06/13/2022 Refill [facility] [address] [place] [address] Dionisio Gonzáles MD [address] [place] [address] [place] [address] Social History Tobacco Use Types [...] Visit [facility] [address] [place] [address] Dionisio Gonzáles MD [address] [place] [address] documented as of this encounter Visit Diagnoses Not on filedocumented in this encounter Care Teams Fuel System Maintenance Supervisor Relationship Specialty Start Date End Date Ruth Hamm NP [address] [place] [phone] PCP - General Nurse Practitioner 02/28/22 documented as of this encounter
--- OUTSIDE RECORDS SUMMARY | 2024-04-30 17:36 | XMS_ITS ---
Author Organization [facility] Address [address] [place] [address] Care Team Providers Care Stores Assistant Name Role Phone Noris, Ruth Primary Care Provider ANNAMARIE Smith Unavailable [phone] Dionisio Gonzáles Unavailable Unavailable REASON FOR VISIT Check in/follow up call Encounters Encounter Location Date Provider Diagnosis [facility] [address] [address] 11/14/2023 ANNAMARIE CAMPBELL Plan Of Treatment No Information Progress Notes * GHASSAN MCCRAYOB:1945 (78 yo F)Acc No.[id number]:11/14/2023 Patient:?KIRBY MCCRAY :1945???Age:78 Y???Sex:Female Address:[address] [place] [address] , [place] [address] * true * Date:? Generated for Matteoi ree/Jon/eTransmitting on:?04/30/2024 05:35 PM EDT
--- OUTSIDE RECORDS SUMMARY | 2024-04-30 17:36 | XMS_ITS | Encounter Summary ---
Author Organization [facility] Address [address] [place] [address] Phone Care Team Providers Care Care Transitions Manager Name Role Phone Ruth Hamm NP Primary Care Provider [phone] Encounter Details Date Type Department Care Team (Late Contact Info) Description 04/09/2022 Documentation Only [facility] [address] [place] [address] Dionisio Gonzáles MD [address] [place] [address] [place] [address] Social History Tobacco Use Types [...] Visit [facility] [address] [place] [address] Dionisio Gonzáles MD [address] [place] [address] documented as of this encounter Visit Diagnoses Not on filedocumented in this encounter Care Teams Care Transitions Manager Relationship Specialty Start Date End Date Ruth Hamm NP [address] [place] [phone] PCP - General Nurse Practitioner 02/28/22 documented as of this encounter
--- OUTSIDE RECORDS SUMMARY | 2024-04-30 17:36 | XMS_ITS | Encounter Summary ---
Author Organization [facility] Address [address] [place] [address] Phone Care Team Providers Care Seasonal Package Handler Name Role Phone Ruth Hamm NP Primary Care Provider [phone] Encounter Details Date Type Department Care Team (Late Contact Info) Description 04/09/2022 Documentation Only [facility] [address] [place] [address] Dionisio Gonzáles MD [address] [place] [address] [place] [address] Social History Tobacco Use Types [...] Visit [facility] [address] [place] [address] Dionisio Gonzáles MD [address] [place] [address] documented as of this encounter Visit Diagnoses Not on filedocumented in this encounter Care Teams Seasonal Package Handler Relationship Specialty Start Date End Date Ruth Hamm NP [address] [place] [phone] PCP - General Nurse Practitioner 02/28/22 documented as of this encounter
--- OUTSIDE RECORDS SUMMARY | 2024-04-30 17:36 | XMS_ITS | Encounter Summary ---
Author Organization [facility] Address [address] [place] [address] Phone Care Team Providers Care Meteorological Engineer Name Role Phone Ruth Hamm NP Primary Care Provider [phone] Encounter Details Date Type Department Care Team (Late Contact Info) Description 04/09/2022 Documentation Only [facility] [address] [place] [address] Dionisio Gonzáles MD [address] [place] [address] [place] [address] Social History Tobacco Use Types [...] Visit [facility] [address] [place] [address] Dionisio Gonzáles MD [address] [place] [address] documented as of this encounter Visit Diagnoses Not on filedocumented in this encounter Care Teams Meteorological Engineer Relationship Specialty Start Date End Date Ruth Hamm NP [address] [place] [phone] PCP - General Nurse Practitioner 02/28/22 documented as of this encounter
--- OUTSIDE RECORDS SUMMARY | 2024-04-30 17:36 | XMS_ITS | Patient Health Record ---
Author Organization [facility] Address [address] [place] [address] Care Team Providers Care Collections Specialist Name Role Phone Noris Ruth EISENBERG Primary Care Provider Deandre Vega Jr Unavailable Allergies Allergen (clinical drug ingredient) Drug/Non Drug Allergy documented on EMR Reaction Allergy Type Onset Date Status Shellfish (FN) Shellfish-derived Products Unknown Drug Allergy Active Substance with beta adrenergic receptor antagonist mechanism of action (substance) beta wyatt (uncoded) Unknown Allergy Active IVP Dye (uncoded) Unknown Allergy Ac tive omeprazole prilosec (uncoded) Unknown Allergy Active Reason For Referral No Information Medications Medication SIG (Take, Route, Fr equency, Duration) Notes Start Date End Date Status Amitriptyline HCl 10 MG TAKE ONE TABLET BY MOUTH AT BEDTIME Oral for 90 Active Lansoprazole 15 MG 1 capsule before a m eal Orally Once a day for 30 day(s) 11/17/2020 Active hydrALAZINE HCl 50 MG 1 tablet with food Orally once a day Active Synthroid 75 MCG 1 tablet on an empty stomach in the morning Orally Once a day Active busPIRone HCl 5 MG 1/2 tablet Orally once a day Active Lisinopril 30 MG 1 tablet Orally Once a day Active Immunizations Vaccine Route Administration Date Status Comme nts Influenza Unknown 09/24/2018 Refused Influenza Unknown 11/16/2020 Refused Influenza Unknown 01/22/2022 Refused Influenza Unknown 05/13/2023 Refused Problems Problem Type SNOMED Code ICD Code Onset Dates Problem Status W/U Status Risk Notes Problem 759756624 Colon cancer screening (Z12.11) Active confirmed Problem 89795272 Epigastric pain (R10.13) Active confirmed Problem 4064467 Diverticulitis o f large intestine without perforation or abscess without bleeding (K57.32) Active confirmed Problem 832751364 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) Active confirmed Problem 704973827 Elevated liver function tests (R79.89) Active confirmed Problem 411306592 Gastroesophageal reflux disease without esophagitis (K21.9) Active confirmed Problem 724822074 Diverticulosis o f colon without hemorrhage (K57.30) Active confirmed Problem 960128989 Irritable bowel syndrome with constipation (K58.1) Active confirmed Problem 67673358 Hypertension, unspecified type (I10) Active confirmed Vital Signs Temperature 96.0 degrees Fahrenheit 05/13/2023 Blood pressure diastolic 00 mm Hg 05/13/2023 Height 62.50 in 05/13/2023 Blood pressure systolic 000 mm Hg 05/13/2023 Weight 183 lb 6 oz lbs 05/13/2023 BMI 33.00 kg/m2 05/13/2023 Encounters Encounter Location Date Provider Diagnosis [facility] [address] [place] [address] 05/13/2023 Deandre Brown Jr Harper's esophagus without dysplasia K22.70 and Diverticulitis of large intestine without perforation or abscess without bleeding K57.32 Assessments Encounter Date Diagnosis (ICD Code) Assessment Notes Treatment Notes Treatment Clinical Notes Section Notes 05/13/2023 Diverticulitis of large intestine without perforation or abscess without bleeding (ICD-10 - K57.32) Currently she is doing well. We discussed diet and lifestyle modifications regarding the treatment of reflux. We also discussed diverticulitis. We recommended follow a high-fiber diet. She'll continue her present medical regimen. Followup will be in one year. 05/13/2023 Harper's esophagus without dysplasia (ICD-10 - K22.70) Diverticulitis - what to ask your doctor material was printed Currently she is doing well. We discussed diet and lifestyle modifications regarding the treatment of reflux. We also discussed diverticulitis. We recommended follow a high-fiber diet. She'll continue her present medical regimen. Followup will be in one year. Plan Of Treatment Future Test Test Name Order Date UPPER GI ENDOSCOPY 06/25/2012 UPPER GI ENDOSCOPY 04/27/2015 UPPER GI ENDOSCOPY 07/01/2019 COLONOSCOPY 07/01/2019 UPPER GI ENDOSCOPY 08/13/2022 Next Appt Details Provider Name:Deandre Gonzalez Nicolas ambrosio Jr, 07/15/2024 09:00:00 AM, [address] [facility], [address], [place], [address], Insurance Providers Payer Name Payer Address Payer Phone Subscriber Number Group Number Insured Name Patient Relationship to Insured Coverage Start Date Coverage End Date [facility] [address] [place], [place] [id number] [phone] [id number] KIRBY MCCRAY Self - patient is the insured Medical (General) History Medical History History ICD Code Colonoscopy 07/10/19, tubular adenomas x2, diverticulosis, normal random sigmoid biopsies, followup as needed hypertension hypothyroidism Harper's esophagus, EGD 06/19 04/09, 2 cm segment of Harper's, no dysplasia, followup p.r.n. stage 3 kidney disease ER in march for diverticu litis, was in hospital for 2 days. Diverticulitis Surgical History Surgery Date(Month/Year) gallstones status post ERCP with stone extraction and followup cholecystectomy 2017 Hospitalization History Reason Date(Month/Year) hospital stay for diverticulitis for 2 d ays 04/13
--- OUTSIDE RECORDS SUMMARY | 2024-04-30 17:36 | XMS_ITS | Encounter Summary ---
Author Organization [facility] Address [address] [place] [address] Phone Care Team Providers Care Panelbeater Name Role Phone Ruth Hamm NP Primary Care Provider [phone] Encounter Details Date Type Department Care Team (Late Contact Info) Description 02/13/2022 Documentation Only [facility] [address] [place] [address] Dionisio Gonzáles MD [address] [place] [address] [place] [address] Social History Tobacco Use Types [...] Visit [facility] [address] [place] [address] Dionisio Gonzáles MD [address] [facility] [address] [place] [address] documented as of this encounter Visit Diagnoses Not on filedocumented in this encounter Care Teams Panelbeater Relationship Specialty Start Date End Date Ruth Hamm NP [address] [place] [phone] PCP - General Nurse Practitioner 02/28/22 documented as of this encounter
--- OUTSIDE RECORDS SUMMARY | 2024-04-30 17:36 | XMS_ITS | Clinical Summary ---
Author Organization [facility], Address [address] [place] [address] [place] [address] Phone Care Team Providers Care Rope Coiling Machine Operator Name Role Phone Ruth Hamm NP Primary Care Provider [phone] Allergies Active Allergy Reactions Criticality Noted Date Comments Amlodipine 02/27/2022 Other reaction(s): shaking, vomiting and chest pain Amoxicillin 09/30/2020 Atorvastatin 09/12/2011 myalgia Beta Adrenergic Blockers Other (see comments) 1 03/25/2021 Other reaction(s): bradycardia, rash Clarithromycin 09/30/2020 Indapamide High 03/29/2020 Other reaction(s): Syncope Iodinated Contrast Media Other (see comments) 0 11/17/2020 Iodine Other (see comments) 02/01/2016 Lovastatin Other (see comments) 02/01/2016 Omeprazole Anaphylaxis High 02/01/2016 Pravastatin Other (see comments) 02/01/2016 Shellfish Allergy 02/21/2021 Other reaction(s): FAMILY ALLERGY Medications ergocalciferol (VITAMIN D2) 1.25 MG (60821 UT) capsule Take 1.25 mg by mouth per week Active lansoprazole (PREVACID) [address] capsule Take 30 mg by mouth 1 (one) time each day 7 Active levothyroxine (SYNTHROID, LEVOTHROID) 75 MCG tablet Take 75 mcg by mouth 1 (one) time each day 8 Active lisinopril (PRINIVIL,ZESTR IL) 30 MG tablet Take 30 mg by mouth 1 (one) time each day 9 Active LORazepam (ATIVAN) 0.5 MG tablet Take 0.5 mg by mouth 1 (one) time each day Active rosuvastatin (CRESTOR) 5 MG tablet Take 5 mg by mouth 1 (one) time each day Active amitriptyline (ELAVIL) 10 MG tablet Take 1 tablet by mouth 3 Active busPIRone (BUSPAR) 5 MG tablet TAKE ONE TABLET BY MOUTH TWICE A DAY WITH BREAKFAST AND DINNER 60 tablet 11 4 Active amoxicillin-cla vulanate (Augmentin) 500-125 MG per tablet Take 1 tablet by mouth in the morning and 1 tablet in the evening. Do all this for 14 days. 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 Mixed hyperlipidemia 12/09/2017 Overview (03/17/2019): Last Assessment & Plan: Continue rosuvastatin. Acquired disorder of keratinization 08/01/2011 Osteopenia 12/25/2010 Resolved Problems Problem Noted Date Diagnosed Date Resolved Date Disturbance in speech 12/09/20172019 Overview (03/17/2019): Last Assessment & Plan: Her echocardiogram was normal. Her carotid duplex showed no significant stenosis. Her event monitor showed PVCs and PACs. She did have 3 atrial runs ranging from 7-9 beats. She was asymptomatic. Of course, this does not warrant anticoagulation. I have suggested that she consider an implantable loop recorder placement. She still believes that her symptoms were due to the BuSpar. She would like to hold off on any invasive diagnostics at this time. I have asked her to come in for follow-up in 3 months. If there is a recurrence of any symptoms that are concerning for TIA she should strongly consider having the implantable loop. For now, we will just closely follow-up. She knows to call our office if she develops any symptoms. Encounters Date Type Department Care Team Description 04/09/2024 [facility]ill [facility] [address] [place] [address] Izzy Dorado MA 04/09/2024 [facility]ill [facility] [address] [place] [address] Izzy Dorado MA 04/09/2024 [facility]ill [facility] [address] [place] [address] Dionisio Gonzáles MD 04/08/2024 10:30 AM EST Office [facility] [address] [place] [address] Dionisio Gonzáles MD Stage 3b chronic kidney disease (HCC) (Primary Dx) from Last 3 Months Immunizations Name Administration Dates Next Due conXt SARS-COV-2 04/30/2020 [place] Iron Oxides (PIROX) SARS-COV-2 02/14/2021 Pneumococcal Conjugate 13-Valent 11/18/2016 Pneumococcal Polysaccharide 11/19/2015, 6,02/18/2003 Td 02/18/2007 Td, Unspecified 02/18/2007 Family History Relation Status Comments Father Mother Social History Tobacco Use Types Packs/Day Years Used Date Smoking Tobacco: Never Smokeless Tobacco: Never Alcohol Use Standard Drinks/Week Comments No 0 (1 standard drink = 0.6 oz pur e alcohol) Comments Unknown Sex and Gender Information Value Date Recorded Sex Assigned at Not on file Legal Sex Female 4:30 PM EST Gender Identity Not on file Sexual Orientation Not on file Last Filed Vital Signs Vital Sign Reading Time Taken Comments Blood Pressure 140/84 05/16/2022 10:40 AM EDT Pulse - - Temperature - - Respiratory Rate - - Oxygen Saturation - - Inhaled Oxygen Concentration - - Weight 78.5 kg (173 lb) 11/06/2017 12:00 PM EDT Height 154.9 cm (5' 1 ) 10/15/2018 12:00 PM EDT Body Mass Index 32.69 11/06/2017 12:00 PM EDT Plan of Treatment Upcoming Encounters Date Type Department Care Team (Late st Contact Info) Description 07/08/2024 10:20 AM EDT Office Visit [facility], [address] [facility] [facility] [place] [address] Dionisio Gonzáles MD [address] [place] [phone] Health Maintenance Due Date Last Done Comments Influenza Vaccine (#1) 2023 Pneumococcal Vaccine: 65+ Years Completed 11/18/2016, 11/19/2015, 06/19/2015, Additional history exists Hepatitis B Vaccine Aged Out No longe r eligible based on patient's age to complete this topic Insurance [facility] Care Teams Rope Coiling Machine Operator Relationship Specialty Start Date End Date Ruth Hamm NP [address] [place] [phone] PCP - General Nurse Practitioner 02/28/22
== END 2024-04-30 14:46 | disposition home or self-care (01) ==
LOC: HO.HCS 13:52
PROVIDERS: PCP Nurse Practitioner Family; Visit Provider Nurse Practitioner Family
DX: R06.02 Shortness of breath (principal); R00.0 Tachycardia, unspecified; I49.1 Atrial premature depolarization; I10 Essential (primary) hypertension
CPT/HCPCS: 93010; 99214; G2211

== ENCOUNTER → 2024-04-30 13:52 | Outpatient (BNVA) | payer MEDICARE, SELFPAY | PROVIDERS: PCP Nurse Practitioner Family; Visit Provider Nurse Practitioner Family | DX: I12.9 Hypertensive chronic kidney disease with stage 1 through stage 4 chronic kidney disease, or unspecified chronic kidney disease (principal); N18.9 Chronic kidney disease, unspecified; E78.5 Hyperlipidemia, unspecified; R06.02 Shortness of breath; R00.0 Tachycardia, unspecified; I49.1 Atrial premature depolarization; I10 Essential (primary) hypertension | CPT/HCPCS: 93005; 99212 ==

== ENCOUNTER 2024-09-15 23:33 | Emergency (ER) | payer MEDICARE, SELFPAY ==
--- NOTE | ~2024-09-15 | CT_ITS ---
CLINICAL HISTORY: LLQ pain, diverticulitis CT abdomen and pelvis without contrast Comparison: CT/REG/SR - CT ABDOMEN PELVIS WO IV CON - 04/03/23 19:47 EST US/ID/SR - US PELVIS TRANSABDOMINAL AND TRANSVAGINAL - 02/15/22 13:48 EST Findings: The lung bases are clear. There is mild coronary artery calcification. There is a very small hiatal hernia. Patient is status post cholecystectomy. There is pneumobilia similar to the prior CT. There is no focal hepatic lesion. The pancreas, spleen, adrenal glands, and kidneys are unremarkable. There is colonic diverticulosis. There is acute diverticulitis of the mid descending colon. There is no abscess or free air. There is a simple appearing right ovarian cyst stable from the prior pelvic ultrasound consistent with benignity. The bladder is unremarkable. There are no enlarged lymph nodes. The aorta is normal in diameter. There is multilevel lumbar facet osteoarthritis. There is moderate to severe bilateral hip osteoarthritis. There is no acute fracture or suspicious lytic or sclerotic lesion. IMPRESSION: 1. Acute uncomplicated diverticulitis of the descending colon. 2. Chronic findings as above. This document has been electronically signed by: Cayden Nichole MD on 09/16/2024 03:53:26
[2024-09-15 23:38] VITALS: BP 169/75; PULSE 89; RESP 18; TEMP 37.1; O2SAT 94; BMI 33.6
[2024-09-16 00:47] LABS: Hematocrit 37.4 % (37.0-47.0); Hemoglobin 12.7 g/dl (12.0-16.0); Imm Gran Abs Auto 0.03 X10*3/uL (0.00-0.03); Imm Gran Pct Auto 0.2 % (0.0-0.4); Lymphocytes Absolute Auto 1.6 X10*3/uL (1.2-4.9); MANUAL DIFF FLAG NO; Mean Corpuscular HGB Conc 34.0 g/dl (31.0-35.0); Mean Corpuscular Hemoglobin 29.2 pg (27.0-33.0); Mean Corpuscular Volume 86.0 fL (80.0-98.0); NRBC Abs Auto 0.000 X10*3/uL (0.0-0.012); NRBC Pct Auto 0.0 /100WBC (0.0-0.2); Platelet Count 176 X10*3/uL (160-400); Red Blood Count 4.35 X10*6/uL (4.20-5.50); White Blood Count 12.6 X10*3/uL (4.8-10.8)
[2024-09-16 01:00] LABS: Alanine Aminotransferase 10 U/L (0-31); Albumin Level 3.7 g/dL (3.5-5.0); Alkaline Phosphatase 76 U/L (39-117); Anion Gap 13 (12-20); Aspartate Amino Transferase 23 U/L (5-31); Blood Urea Nitrogen 15 mg/dL (9-16); Calcium 9.2 mg/dL (8.4-10.2); Carbon Dioxide 23 mmol/L (22-29); Chloride 109 mmol/L (96-108); Creatinine Clr Calc Pharmacy 34.5; Estimated Glomerular Filt Rate 41; Potassium 4.4 mmol/L (3.3-5.1); Sodium 141 mmol/L (135-145); Total Protein 6.6 g/dL (6.5-8.0)
[2024-09-16 01:50] LABS: Appearance Urine Clear; Glucose Urine UA Negative (Negative); PH 7.0 (5.0-9.0); Specific Gravity - Urine <= 1.005 (1.005-1.025); UMIC TRIGGER UACC YES
[2024-09-16 02:03] LABS: UACC Culture Trigger YES
[2024-09-16 03:46] VITALS: BP 132/74; PULSE 76; RESP 18; TEMP 36.8; O2SAT 94
--- NOTE | 2024-09-16 04:31 | ED.GENADULT ---
HPI - General Adult General Chief complaint: Abdominal Pain Stated complaint: fever/diverticulitis Time Seen by Provider: 09/16/24 02:34 Source: patient Limitations: no limitations History of Present Illness ED Provider: Jeni Arteaga PA-C HPI narrative: 79-year-old female with a history of prior diverticulitis, hypothyroidism, hypertension, hyperlipidemia who presents with left lower quadrant pain since earlier today. Patient is currently admits physical therapy for right-sided sciatica, while attending therapy today, she developed left lower abdominal discomfort. Patient states the pain is described as a dull ache, with sharp severe features at times. The pain is nonradiating. Associated nausea. Denies active vomiting, fever or diarrhea. Denies dysuria, hematuria or history of kidney stones. Related Data Home Medications ?Medication ?Instructions ?Recorded ?Confirmed levothyroxine 75 mcg tablet 75 mcg PO DAILY@0600 02/08/21 04/30/24 (Levoxyl) lisinopril 30 mg tablet 30 mg PO DAILY 02/08/21 04/30/24 Probiotic 1 cap PO DAILY 04/03/23 04/30/24 amitriptyline 10 mg tablet 5 mg PO BEDTIME 04/03/23 04/30/24 buspirone 5 mg tablet 2.5 mg PO DAILY 04/03/23 04/30/24 lansoprazole 15 mg capsule,delayed 15 mg PO DAILY@1630 04/03/23 04/30/24 release multivitamin 1 tab PO DAILY 04/03/23 04/30/24 hydralazine 25 mg tablet 25 mg PO BID 08/01/23 04/30/24 rosuvastatin 20 mg tablet 20 mg PO BEDTIME 08/01/23 04/30/24 Previous Rx's ?Medication ?Instructions ?Recorded amoxicillin 875 mg-potassium 1 tab PO Q12H #19 tabs 09/16/24 clavulanate 125 mg tablet ondansetron 4 mg disintegrating 4 mg PO Q8H PRN nausea and 09/16/24 tablet vomiting #15 tabs Allergies Allergy/AdvReac Type Severity Reaction Status Date / Time Iodinated Contrast Media (IV Allergy Severe TACHYCARDIA,DIFFICULTY Verified 09/15/24 23:42 CONTRAST) BREATHING amoxicillin (Prevpac) Allergy Unknown Unknown Verified 09/15/24 23:42 clarithromycin (Prevpac) Allergy Unknown Unknown Verified 09/15/24 23:42 escitalopram (From LEXAPRO) Allergy Unknown CHEST PAIN Verified 09/15/24 23:42 lansoprazole (Prevpac) Allergy Unknown unknown Verified 09/15/24 23:42 lovastatin Allergy Unknown myalgia Verified 09/15/24 23:42 omeprazole (From Prilosec) Allergy Unknown CHEST Verified 09/15/24 23:42 PAIN,DIFFICULTY BREATHING pravastatin Allergy Unknown myalgia Verified 09/15/24 23:42 shellfish derived (SHELLFISH Allergy Unknown UNKOWN Verified 09/15/24 23:42 DERIVED) iv contrast dye Allergy Unknown unknown Uncoded 09/15/24 23:42 iv dye/ shellfish Allergy Unknown unknown Uncoded 09/15/24 23:42 Prilosec Allergy Unknown Chest pain Uncoded 09/15/24 23:42 Review of Systems Review of Systems: Yes all other systems are reviewed and are negative Constitutional: Constitutional: Denies fatigue and Denies fever(s) Cardiovascular: Cardiovascular: Denies chest pain and Denies dyspnea Respiratory: Respiratory: Denies dyspnea Gastrointestinal: Gastrointestinal: Reports abdominal pain, Denies constipation, Denies diarrhea, Reports nausea and Denies vomiting Genitourinary: Genitourinary: Denies hematuria, Denies dysuria and Denies flank pain Endocrine: Endocrine: Denies fatigue PMFSH Past Medical History Attestation statement: The following information was validated with the patient. Medical History Hypertensive urgency Harper esophagus Non-toxic multinodular goiter Barretts esophagus Allergies Chronic GERD Lipid disorder Hypertension, essential Anxiety, generalized Surgical History H/O LEEP (2007) Family History Family History Father Heart disease Mother Heart disease Maternal Uncle Colon cancer Heart failure Social History Social History Household Members: Children Housing: Apartment Do you presently have visiting nurse or other home services: No Alcohol intake: never Patient Tobacco Use Status: Never used Tobacco Advance Directives: Yes Advance Directives Information Provided: Yes Advance Directives on File: No service: No Current occupational status: retired Physical Exam ED Vital Signs: Vital Signs - 24 hr 09/15/24 23:38 09/16/24 03:46 Temperature 98.8 F 98.3 F Pulse Rate 89 76 Respiratory Rate 18 18 Blood Pressure 169/75 H 132/74 Pulse Oximetry 94 94 Oxygen Delivery Method Room Air Room Air BMI result Body Mass Index 33.6 Const Other: Alert well-appearing Orientation/consciousness: patient oriented x3 Resp Effort & Inspection: normal respiratory effort Cardio Other: Normal peripheral perfusion GI Other: Abdomen is soft, nondistended, moderate tenderness left lower quadrant, with mild involuntary guarding Skin Other: Warm dry no rash Neuro General: patient oriented x3, gait normal, no focal motor deficits and CN's II-XI intact bilaterally Psych Other: Cooperative Medications Administered Discontinued Medications Generic Name Dose Route Start Last Admin Trade Name Freq PRN Reason Stop Dose Admin Ondansetron HCl 4 mg 09/16/24 02:56 09/16/24 03:22 Ondansetron Odt 4 Mg Tab.Rapdis TRANSLINGU 09/16/24 02:57 4 mg ONCE ONE Administration Medical Decision Making Medical Decision Making MDM Narrative: 79-year-old female with a history of prior diverticulitis, hypothyroidism, hypertension, hyperlipidemia who presents with left lower quadrant pain since earlier today. Patient is currently admits physical therapy for right-sided sciatica, while attending therapy today, she developed left lower abdominal discomfort. Patient states the pain is described as a dull ache, with sharp severe features at times. The pain is nonradiating. Associated nausea. Denies active vomiting, fever or diarrhea. Denies dysuria, hematuria or history of kidney stones. Problem: Prior diverticulitis History: Per patient I have considered the following differential diagnoses: Diverticulitis, UTI, musculoskeletal strain, renal colic Plan: Patient has had diverticulitis in the past, her symptoms are consistent with the prior episodes, we will be obtaining a CT scan of the abdomen and pelvis. She is declining analgesia, we will be giving Zofran for her nausea. Screening labs already obtained from triage including a urinalysis, no UTI. She has not had any flank pain, active vomiting or back pain to suggest renal colic, and she has no history. She was performing physical therapy today, she thought perhaps she pulled a muscle, however her symptoms progressed, this is likely not abdominal wall strain. I have independently reviewed the following tests: Labs: Leukocytosis, left shift noted, not anemic, no electrolyte abnormality, urine not infected CT abdomen and pelvis:Findings: The lung bases are clear. There is mild coronary artery calcification. There is a very small hiatal hernia. Patient is status post cholecystectomy. There is pneumobilia similar to the prior CT. There is no focal hepatic lesion. The pancreas, spleen, adrenal glands, and kidneys are unremarkable. There is colonic diverticulosis. There is acute diverticulitis of the mid descending colon. There is no abscess or free air. There is a simple appearing right ovarian cyst stable from the prior pelvic ultrasound consistent with benignity. The bladder is unremarkable. There are no enlarged lymph nodes. The aorta is normal in diameter. There is multilevel lumbar facet osteoarthritis. There is moderate to severe bilateral hip osteoarthritis. There is no acute fracture or suspicious lytic or sclerotic lesion. IMPRESSION: 1. Acute uncomplicated diverticulitis of the descending colon. 2. Chronic findings as above. Patient has an allergy to ciprofloxacin, she has used Augmentin in the past with good effect Lab Data 09/16/24 00:43 09/16/24 00:43 Labs: Lab Results 09/16/24 09/16/24 Range/Units 00:43 01:36 WBC 12.6 H (4.8-10.8) X10*3/uL RBC 4.35 (4.20-5.50) X10*6/uL Hgb 12.7 (12.0-16.0) g/dl Hct 37.4 (37.0-47.0) % MCV 86.0 (80.0-98.0) fL MCH 29.2 (27.0-33.0) pg MCHC 34.0 (31.0-35.0) g/dl RDW 13.2 (11.0-16.0) % Plt Count 176 (160-400) X10*3/uL MPV 10.0 (9.4-12.3) fL Immature Gran % (Auto) 0.2 (0.0-0.4) % Neut % (Auto) 75.9 H (45-73) % Lymph % (Auto) 12.9 L (20-40) % Baxter % (Auto) 10.5 (2-11) % Eos % (Auto) 0.2 (0-4) % Baso % (Auto) 0.3 (0-2) % Lymph # (Auto) 1.6 (1.2-4.9) X10*3/uL Baxter # (Auto) 1.3 H (0.1-1.2) X10*3/uL Eos # (Auto) 0.0 (0.0-0.4) X10*3/uL Baso # (Auto) 0.0 (0.0-0.2) X10*3/uL Abs Immat Gran (auto) 0.03 (0.00-0.03) X10*3/uL Absolute Neuts (auto) 9.6 H (2.0-8.3) x10*3/uL Absolute Nucleated RBC 0.000 (0.0-0.012) X10*3/uL Nucleated RBC % (auto) 0.0 (0.0-0.2) /100WBC Sodium 141 (135-145) mmol/L Potassium 4.4 (3.3-5.1) mmol/L Chloride 109 H (96-108) mmol/L Carbon Dioxide 23 (22-29) mmol/L Anion Gap 13 (12-20) BUN 15 (9-16) mg/dL Creatinine 1.27 (0.5-1.4) mg/dL Estim Creat Clear Calc 34.5 Estimated GFR 41 Random Glucose 112 (60-115) mg/dL Calcium 9.2 D (8.4-10.2) mg/dL Total Bilirubin 0.5 (0.0-1.0) mg/dL AST 23 (5-31) U/L ALT 10 (0-31) U/L Alkaline Phosphatase 76 (39-117) U/L Total Protein 6.6 (6.5-8.0) g/dL Albumin 3.7 (3.5-5.0) g/dL Urine Color Yellow Urine Appearance Clear Urine pH 7.0 (5.0-9.0) Ur Specific L[place] <= 1.005 (1.005-1.025) Urine Protein Negative (Neg-Trace) mg/dL Urine Glucose (UA) Negative (Negative) mg/dL Urine Ketones Negative (Negative) mg/dL Urine Blood Negative (Negative) Urine Nitrite Negative (Negative) Ur Leukocyte Esterase Small (1+) H (Negative) Urine RBC 0-2 (0-2) /HPF Urine WBC 0-5 (0-5) /HPF Ur Squamous Epith Cells 0-2 (0-2) /HPF Urine Bacteria None Seen (None Seen) Hyaline Casts 0-2 (0-2) /LPF Discharge Plan Discharge Clinical Impression: Diverticulitis Patient Disposition: Home, Self-Care Instructions: Diverticulitis (ED) Additional Instructions: You were found to have uncomplicated diverticulitis. See home care instructions. Take the Augmentin as directed, be sure to complete the course of antibiotics. Uses Zofran as needed for nausea. Follow up with your primary care provider as needed. Prescriptions: New amoxicillin-pot clavulanate 875-125 mg tablet 1 tab PO Q12H Qty: 19 0RF ondansetron 4 mg tablet,disintegrating 4 mg PO Q8H PRN (Reason: nausea and vomiting) Qty: 15 0RF No Action levothyroxine [Levoxyl] 75 mcg tablet 75 mcg PO DAILY@0600 lisinopril 30 mg tablet 30 mg PO DAILY amitriptyline 10 mg tablet 5 mg PO BEDTIME multivitamin Tablet 1 tab PO DAILY buspirone 5 mg tablet 2.5 mg PO DAILY lansoprazole 15 mg Capsule,Delayed Release(Dr/Ec) 15 mg PO DAILY@1630 Rx Instructions: TAKE BEFORE DINNER Probiotic 1 cap PO DAILY hydralazine 25 mg tablet 25 mg PO BID rosuvastatin 20 mg tablet 20 mg PO BEDTIME Print Language: Wolof
[2024-09-16 04:57] VITALS: BP 132/74; PULSE 76; RESP 18; TEMP 36.8; O2SAT 94
== END 2024-09-16 04:57 | disposition home or self-care (01) ==
PROVIDERS: Emergency Provider Emergency Medicine; PCP Nurse Practitioner Family
DX: K57.92 Diverticulitis of intestine, part unspecified, without perforation or abscess without bleeding (principal); R10.32 Left lower quadrant pain; E78.5 Hyperlipidemia, unspecified; E03.9 Hypothyroidism, unspecified; I10 Essential (primary) hypertension; Z79.899 Other long term (current) drug therapy
CPT/HCPCS: 36415; 74176; 80053; 81001; 85025; 87086; 99284

== ENCOUNTER → 2024-09-16 02:56 | Outpatient (BNV) | payer MEDICARE, SELFPAY | PROVIDERS: Emergency Provider Emergency Medicine; PCP Nurse Practitioner Family; Visit Provider Radiology Diagnostic Radiology | DX: K57.32 Diverticulitis of large intestine without perforation or abscess without bleeding (principal) | CPT/HCPCS: 74176 ==

== ENCOUNTER 2024-11-10 13:14 | Outpatient (AMB) | payer MEDICARE, SELFPAY ==
--- NOTE | 2024-11-10 13:35 | A.OFFVIS_ITS ---
Vital Signs 11/10/24 13:37 Height 5 ft 1 in Weight 176 lb 5.917 oz BMI 33.3 BP 118/60 Blood Pressure Location Lt brachial Position Sitting Pulse 78 Pulse Source Pulse Oximeter Intake Visit Reasons: 6m follow up Allergies Iodinated Contrast Media (IV CONTRAST) Allergy (Severe, Verified 09/15/24 23:42) TACHYCARDIA,DIFFICULTY BREATHING amoxicillin (Prevpac) Allergy (Unknown, Verified 09/15/24 23:42) Unknown clarithromycin (Prevpac) Allergy (Unknown, Verified 09/15/24 23:42) Unknown escitalopram (From LEXAPRO) Allergy (Unknown, Verified 09/15/24 23:42) CHEST PAIN lansoprazole (Prevpac) Allergy (Unknown, Verified 09/15/24 23:42) unknown lovastatin Allergy (Unknown, Verified 09/15/24 23:42) myalgia omeprazole (From Prilosec) Allergy (Unknown, Verified 09/15/24 23:42) CHEST PAIN,DIFFICULTY BREATHING pravastatin Allergy (Unknown, Verified 09/15/24 23:42) myalgia shellfish derived (SHELLFISH DERIVED) Allergy (Unknown, Verified 09/15/24 23:42) UNKOWN iv contrast dye Allergy (Unknown, Uncoded 09/15/24 23:42) unknown iv dye/ shellfish Allergy (Unknown, Uncoded 09/15/24 23:42) unknown Prilosec Allergy (Unknown, Uncoded 09/15/24 23:42) Chest pain Medication List - Last Reconciled 11/10/24 by Charlee Hamm, [employer]-C amitriptyline 5 mg PO BEDTIME buspirone 2.5 mg PO DAILY hydralazine 25 mg PO BID lansoprazole 15 mg PO DAILY@1630 levothyroxine (Levoxyl) 75 mcg PO DAILY@0600 lisinopril 30 mg PO DAILY multivitamin 1 tab PO DAILY ondansetron 4 mg PO Q8H PRN [Probiotic 1 cap PO DAILY] rosuvastatin 20 mg PO BEDTIME HPI HPI 6m follow up: Details: Lindsey is a 78-year-old female with past medical history of hypertension, hyperlipidemia, chronic kidney disease, atypical chest discomfort, shortness of breath with activity who presents for follow up. Today she reports that she has been feeling well overall. She has not been experiencing shortness of breath like she had previously reported. She has no PND, orthopnea or edema. No chest discomfort at rest or with activity. No PND, orthopnea or edema. No concerning heart palpitations. She has been experiencing abdominal discomfort and follows with GI. She is tolerating hydralazine without issues. She says she is intolerant to many other blood pressure medications including beta-blockers, calcium channel blockers. She follows with Nephrology for her blood pressure. Takes meds as directed. Does not engage in routine exercise. [facility] Medical History Hypertensive urgency Harper esophagus Non-toxic multinodular goiter Barretts esophagus Allergies Chronic GERD Lipid disorder Hypertension, essential Anxiety, generalized Surgical History H/O LEEP (2007) Family History Father Heart disease Mother Heart disease Maternal Uncle Colon cancer Heart failure Social History Household Members: Children Housing: Apartment Do you presently have visiting nurse or other home services: No Alcohol intake: never Patient Tobacco Use Status: Never used Tobacco service: No Current occupational status: retired Review of Systems Const All systems reviewed & are unremarkable except as noted in HPI and below Denies weakness ENT Denies dizziness Card Denies chest pain, Denies chest pain with activity, Denies syncope, Denies rapid heart rate, Denies pedal edema, Denies edema, Denies leg edema, Denies lightheadedness, Denies palpitations, Denies dyspnea, Denies dyspnea on exertion and Denies orthopnea Resp Denies cough, Denies dyspnea and Denies dyspnea on exertion GI Denies hematochezia and Denies change in stool character Musc Denies abnormal gait, Denies muscle cramps, Denies muscle weakness, Denies numbness, Denies radiating pain into limb and Denies tingling Neuro Denies abnormal gait, Denies dizziness, Denies syncope, Denies numbness, Denies tingling and Denies weakness Endo Denies palpitations Physical Exam Vital Signs: Last Vital Signs Pulse 78 11/10/24 13:37 BP 118/60 11/10/24 13:37 BMI result Body Mass Index 33.3 Const General: cooperative, healthy appearing, comfortable and no acute distress Orientation/consciousness: patient oriented x3 Neck Neck: Yes normal visual inspection Resp Effort & Inspection: normal respiratory effort Auscultation: clear to auscultation bilaterally, no crackles, no rales, no rhonchi and no wheezes Cardio Jugular venous distension: no JVD Rate: regular rate Rhythm: regular rhythm Heart sounds: S1 normal heart sound present, S2 normal heart sound present, no murmurs and no rubs Neuro General: patient oriented x3 Extrem General: Yes normal to inspection Psych Appearance: grossly normal Mental Status: mental status grossly normal Speech and movement: Normal speech and movement present Assessment & Plan Assessment & Plan (1) Sinus tachycardia: Code(s): R00.0 - Tachycardia, unspecified Category: Medical Plan: EKG done prior visit showed sinus tachycardia with PACs. Echocardiogram showed normal EF. Labs show normal TSH, no anemia, creatinine 1.26. Holter monitor done 08/08/2023 for 3 days shows sinus rhythm with average heart rate 68, frequent PACs, 3%, rare VE. EKG done last visit showing sinus rhythm with PACs and 1 PVC, rate 97. She has no heart palpitations. She does not drink caffeinated beverages. She is intolerant to beta-blockers and calcium channel blockers. Pulse rate today 78 and feeling good. No changes made (2) Shortness of breath: Code(s): R06.02 - Shortness of breath Category: Medical Plan: Prior reports of shortness of breath with activity. She previously had normal nuclear stress test 04/18/2021. Echocardiogram 04/12/2021 showed EF 65 %,. Repeat echocardiogram done 06/11/2023 showing EF 55-60%, mild aortic regurgitation, normal RV. She has no known CAD. Labs were done showing normal BNP, hematocrit. Her shortness of breath symptom has since resolved. Unclear what caused her to feel that way previously. Currently no concerning shortness of breath at rest or with activity. She has no signs of heart failure on examination. Continue with risk factor modification. (3) PAC (premature atrial contraction): Code(s): I49.1 - Atrial premature depolarization Category: Medical Plan: Frequent PACs as above. Last echo shows atria are normal size. Instructed to notify this office if she has any concerning heart Palpitations. (4) Hypertension, essential: Code(s): I10 - Essential (primary) hypertension Category: Medical Plan: Blood pressure goal less than 130/80. Well controlled at this time. She follows with Nephrology for kidneys and blood pressure. No med changes made today Plan Time spent on chart review, documentation, interview and assessment Coding Level of Care Code Est Pt Level 3 (05357) Complex EM visit Add On G2211 Diagnoses Sinus tachycardia R00.0 Shortness of breath R06.02 PAC (premature atrial contraction) I49.1 Hypertension, essential I10 Time Spent (min) 24
[2024-11-10 13:37] VITALS: BP 118/60; PULSE 78; BMI 33.3
--- OUTSIDE RECORDS SUMMARY | 2024-11-10 16:17 | XMS_ITS | Patient Health Record ---
Author Organization [facility] Address [address] [place] [address] Care Team Providers Care Producer Name Role Phone Noris Ruth EISENBERG Primary Care Provider Deandre Vega Jr Unavailable [phone] Allergies Allergen (clinical drug ingredient) Drug/Non Drug [...] Duration) Notes Start Date End Date Status hydrALAZINE HCl 50 MG 1 tablet with food Orally once a day Active busPIRone HCl 5 MG 1/2 tablet Orally once a day Active Amitriptyline HCl 10 MG TAKE ONE TABLET BY MOUTH AT BEDTIME Oral for 90 Active Lansoprazole 15 MG 1 capsule before a m eal Orally Once a day for 30 day(s) 11/17/2020 Active Lisinopril 30 MG 1 tablet Orally Once a day Active Synthroid 75 MCG 1 tablet on an empty stomach in the morning Orally Once a day Active Immunizations Vaccine Route Administration Date Status Comme nts Influenza Unknown 09/24/2018 Refused Influenza Unknown 11/16/2020 Refused Influenza Unknown 01/22/2022 Refused Influenza Unknown 05/13/2023 Refused Problems Problem Type SNOMED Code ICD Code Onset Dates Problem Status W/U Status Risk Notes Problem 755333022 Colon cancer screening (Z12.11) Active confirmed Problem 08429073 Epigastric pain (R10.13) Active confirmed Problem 7471576 Diverticulitis o f large intestine without perforation or abscess without bleeding (K57.32) Active confirmed Problem 269562392 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) Active confirmed Problem 363520910 Elevated liver function tests (R79.89) Active confirmed Problem 859998326 Gastroesophageal reflux disease without esophagitis (K21.9) Active confirmed Problem 611101367 Diverticulosis o f colon without hemorrhage (K57.30) Active confirmed Problem 320188429 Irritable bowel syndrome with constipation (K58.1) Active confirmed Problem 14797959 Hypertension, unspecified type (I10) Active confirmed Vital Signs Temperature 97.3 degrees Fahrenheit 07/15/2024 Blood pressure diastolic 01 mm Hg 07/15/2024 Height 62.50 in 07/15/2024 Blood pressure systolic 001 mm Hg 07/15/2024 Weight 181.6 lbs 07/15/2024 BMI 32.68 kg/m2 07/15/2024 Encounters Encounter Location Date Provider Diagnosis [facility] [address] [place] [address] 07/15/2024 Deandre Brown Jr Harper's esophagus without dysplasia K22.70 and Irritable bowel syndrome with constipation K58.1 Assessments Encounter Date Diagnosis (ICD Code) Assessment Notes Treatment Notes Treatment Clinical Notes Section Notes 07/15/2024 Harper's esophagus without dysplasia (ICD-10 - K22.70) She is doing well currently. We discussed diet, lifestyle modifications, and weight management regarding the treatment of reflux. She will continue lansoprazole. Constipation symptoms are doing well on her present regimen of MiraLAX and she will continue this. She is up-to-date on colorectal cancer screening. We discussed this today. We discussed that further endoscopies for Harper's esophagus are optional based on her age. Today's visit was 30 minutes. Follow-up will be in 1 year. 07/15/2024 Irritable bowel syndrome with constipation (ICD-10 - K58.1) She is doing well currently. We discussed diet, lifestyle modifications, and weight management regarding the treatment of reflux. She will continue lansoprazole. Constipation symptoms are doing well on her present regimen of MiraLAX and she will continue this. She is up-to-date on colorectal cancer screening. We discussed this today. We discussed that further endoscopies for Harper's esophagus are optional based on her age. Today's visit was 30 minutes. Follow-up will be in 1 year. Plan Of Treatment Future Test Test Name Order Date UPPER GI ENDOSCOPY 06/25/2012 UPPER GI ENDOSCOPY 04/27/2015 UPPER GI ENDOSCOPY 07/01/2019 COLONOSCOPY 07/01/2019 UPPER GI ENDOSCOPY 08/13/2022 Next Appt Details Provider Name:Deandrejayda ambrosio Jr, 07/14/2025 11:10:00 AM, [address], [address], [place], [address], Insurance Providers Payer Name Payer Address Payer Phone Subscriber Number Group Number Insured Name Patient Relationship to Insured Coverage Start Date Coverage End Date [facility] [id number] [place], [place] [id number] KIRBY MCCRAY Self - patient is the [...]
--- OUTSIDE RECORDS SUMMARY | 2024-11-10 16:17 | XMS_ITS | Encounter Summary ---
Author Organization [facility] Address [address] [facility] [address] [place] [address] Phone Care Team Providers Care Lamp Cleaner Street Light Name Role Phone Myriam Pachecojcjulio Dmitry SERVICE DESK ANALYST Unavailable [phone] Ruth Hamm NP Primary Care Provider [phone] Encounter Details Date Type Department Care Team (Late st Contact Info) Description 07/20/2022 Procedure Pass [facility], Ct Scan - [address] [address] Social History Tobacco Use Types Packs/Day Years Used Date Smoking Tobacco: Never Smokeless Tobacco: Never Alcohol Use Standard Drinks/Week Comments Not Currently 0 (1 standard drink = 0.6 oz pur e alcohol) Education Answer Date Recorded Are you interested in more education? Not on kal e 06/15/2022 Are you concerned about learning? Not on file 06/15/2022 No 06/15/2022 No 06/15/2022 Digital Access Answer Date Recorded No 07/16/2022 No 07/16/2022 Reliable internet access at home? Not on file 07/16/2022 Device with a working camera? Not on file Intimate Partner Violence Answer Date R ecorded Are you denied basic needs s uch as food, clothing, or medical care? No 07/20/2022 In the past 12 months have y ou been in a relationship with a person who hurts, threatens, or tries to control you? No 07/20/2022 Are you denied basic needs s uch as food, clothing, or medical care? No 07/20/2022 In the past 12 months have y ou been in a relationship with a person who hurts, threatens, or tries to control you? No 07/20/2022 Comments Unknown Sex and Gender Information Value Date Recorded Sex Assigned at Female 07/20/2022 8:29 AM EDT Legal Sex Female 10:08 PM EDT Gender Identity Female 07/20/2022 8:29 AM EDT Sexual Orientation Not on file documented as of this encounter Functional Status * Calculated C-SSRS Risk Score (Lifetime/Recent) Answer Date of Assessment Author No Risk Indicated 07/20/2022 8:27 AM EDT Lora Dixon, MARILU * [place] Suicide Severity Rating Scale (Screener/Recent Self-Report) Question Answer Date of Assessment Author 1. Wish to be (Past 1 Month) No 07/20/2022 8:27 AM EDT Lora Dixon, MARILU 2. Non-Specific Active Suici william Thoughts (Past 1 Month) No 07/20/2022 8:27 AM EDT Lora Dixon, MARILU 6. Suicidal Behavior (Lifetime) No 8:27 AM EDT Lora Dixon RN documented as of this encounter Plan of Treatment Not on file documented as of this encounter Visit Diagnoses Not on filedocumented in this encounter Care Teams Lamp Cleaner Street Light Relationship Specialty Start Date End Date Ruth Hamm NP [address] [place] [address] PCP - General Nurse Practitioner 04/21/22 Rodney Pacheco CNP Historical LMR Provider 12/06/16 documented as of this encounter Additional Source Comments The information contained in this document represents components of the legal health record. It is not the complete legal health record.[facility]
--- OUTSIDE RECORDS SUMMARY | 2024-11-10 16:17 | XMS_ITS | Patient Health Record ---
Author Organization [facility] Address [address] [place] [phone] Care Team Providers Care Department Secretary Name Role Phone Noris, Ruth Primary Care Provider ANNAMARIE Smith Unavailable [phone] Dionisio Gonzáles Unavailable Unavailable Reason For Referral No Information Problems Problem Type SNOMED Code ICD Code Onset Dates Problem Status W/U Status Risk Notes Problem Chronic kidney disease stage 3A (disorder) (765768566) Chronic kidney disease, stage 3a (N18.31) Active confirmed Encounters Encounter Location Date Provider Diagnosis [employer] [facility] [address] [place] [phone] 11/14/2023 ANNAMARIE Knock Knock [employer] [facility] [address] [place] [phone] 04/23/2024 ANNAMARIE Knock Knock [employer] [facility] [address] [place] [phone] 04/27/2024 ANNAMARIE Knock Knock [employer] [facility] [address] [place] [phone] 05/01/2024 ANNAMARIE Knock Knock [employer] [facility] [address] [place] [phone] 07/21/2024 ANNAMARIE Knock Knock [employer] [facility] [address] [place] [phone] 08/07/2024 ANNAMARIE HE [employer] [facility] [address] [place] [phone] 08/24/2024 ANNAMARIE CAMPBELL Plan Of Treatment No Information Insurance Providers Payer Name Payer Address Payer Phone Subscriber Number Group Number Insured Name Patient Relationship to Insured Coverage Start Date Coverage End Date [facility] Medicare Advantage [id number] [place] [address] [id number] KIRBY MCCRAY Self - patient is the insured
--- OUTSIDE RECORDS SUMMARY | 2024-11-10 16:17 | XMS_ITS | Clinical Summary ---
Author Organization [facility] Address [address] [place], [place] [id number] Phone Care Team Providers Care Twisting Press Operator Name Role Phone Rodney Pacheco [employer] REFINERY OPERATOR REFORMING UNIT Unavailable [phone] Ruth Hamm NP Primary Care Provider [phone] Allergies Active Allergy Reactions Criticality Noted Date Comments Amoxicillin 09/30/2020 Atorvastatin 09/12/2011 myalgia Clarithromycin 09/30/2020 Escitalopram 09/30/2020 Indapamide Syncope High 03/29/2020 Other reaction(s): Syncope Iodine Unknown,Other (See Comments) 02/01/2016 Lovastatin Unknown,Other (See Comments) 02/01/2016 Omeprazole Anaphylaxis High 02/01/2016 Omeprazole Magnesium Anaphylaxis High 02/01/2016 Pravastatin Other (See Comments) 02/01/2016 Pravastatin Sodium Unknown 02/01/2016 Shellfish Containing Products 02/21/2021 Medications lansoprazole (PREVACID) 15 MG capsule 1 capsule before a meal Orally Once a day Active levothyroxine (SYNTHROID, LEVOTHROID) 75 MCG tablet Take 75 mcg by mouth every morning. Active busPIRone (BUSPAR) 5 MG tablet Take 5 mg by mouth. 9 Active rosuvastatin (CRESTOR) 10 MG tabletIndications:M ixed hyperlipidemia Take 1 tablet (10 mg total) by mouth daily. 90 tablet 1 1 Active lisinopril (PRINIVIL,ZESTRIL) 30 MG tablet Take 30 mg by mouth daily. 1 Active multivitamins capsule Daily, 0 Refills, Maintenance, 10/05/20 9:51:00 EDT 1 Active Active Problems Problem Noted Date Diagnosed Date Episode of change in speech 04/21/2022 Assessment & Plan (04/21/2022 10:48 PM EST): -Patient presented with an episode of word finding difficulties. Her symptoms began around 12 after lunch, she first noticed decreased hearing as if her ears were blocked, she had difficulty speaking fluently and finding the correct words she wanted to say, she also developed some generalized blurry vision. Her symptoms lasted for about 3 hours have now completely resolved except for a persistent right- sided headache -CT head showed no acute pathology -Follow up MRI/MRA -Monitor on tele -BUSINESS OPERATIONS COORDINATOR eval -Follow up HbA1c, TSH, ESR, CRP, lipid panel -Start aspirin and high-dose statin Diverticulitis 04/21/2022 Assessment & Plan (04/21/2022 10:45 PM EST): - Patient was diagnosed with subsequent episode of diverticulitis and as of today has completed 7 days of Augmentin -She wishes to continue a clear liquid diet. CKD (chronic kidney disease) 04/21/2022 Assessment & Plan (04/21/2022 10:47 PM EST): -Creatinine at baseline Benign essential hypertension 01/07/2020 Assessment & Plan (04/21/2022 10:42 PM EST): -Blood pressures currently controlled, hold lisinopril for permissive hypertension Assessment & Plan (01/07/2020 4:57 PM EST): Blood pressure in the office today 118/64, well controlled. Patient also reports checking her blood pressures at home which are also at goal. Her current medication regimen consists of lisinopril 10 mg daily, hydralazine 25 mg daily, atenolol 25 mg daily and indapamide 2.5 mg daily which was just added by nephrology. Since this addition, the patient has been reporting symptomatic bradycardia with pulses in the 40s and dizziness so she has not been continuing with the indapamide. We will discontinue her atenolol today and have her continue with indapamide per nephrology recommendation. I have asked her to check her pulses and blood pressures at home for the next few weeks to months and see us in follow-up. If discontinuing the beta-wyatt helps combat her bradycardia and her blood pressures remain at goal with the other medications, we can continue ongoing. Otherwise, we can adjust differently. I asked her to pay attention to her symptoms and vitals at home and call us sooner if something changes. We also may need to consider repeating a monitor to assess her rate and rhythm if she continues to be symptomatic to ensure there is not an arrhythmia playing into her dizziness symptoms and low HR. Mixed hyperlipidemia 12/09/2017 Assessment & Plan (01/07/2020 2:39 PM EST): Most recent lipid panel showing total cholesterol 175, HDL 48, LDL 104. Patient states that this was drawn around the same week that she reinitiated rosuvastatin 5 mg. I have ordered her a repeat lipid panel for her to obtain prior to her next 3-month follow-up so we can reassess her cholesterol with a fasting panel and after she has been on Crestor for a few months. This has been ordered for her. Assessment & Plan (02/25/2018 10:35 AM EST): Continue rosuvastatin. Assessment & Plan (12/09/2017 2:32 PM EDT): Continue current dose of rosuvastatin. History of syncope 12/09/2017 Assessment & Plan (02/25/2018 10:35 AM EST): No recurrence of syncope. Assessment & Plan (12/09/2017 2:31 PM EDT): No recurrence of syncope. Transient speech disturbance 12/09/2017 Assessment & Plan (02/25/2018 10:35 AM EST): Her echocardiogram was normal. Her carotid duplex [...] our office if she develops any symptoms. Assessment & Plan (12/09/2017 2:31 PM EDT): She was admitted for an hour long episode of memory impairment and speech disturbance. Her CT scan and MRI were negative. She had a Holter monitor that showed no significant arrhythmias (reportedly). I am concerned that her symptoms were due to a TIA but just did not show up on imaging. I would like her to have an echocardiogram, event monitor to rule out A. fib, and a carotid ultrasound. I will follow-up with her after the testing is been completed. Dizziness and giddiness 12/09/2017 Immunizations Immunization Administration Dates Next Due COVID-19 (Pre-12/10) Addi Vaccine, rS-Ad26, P F 04/30/2020 Pneumococcal polysaccharide PPSV23 06/22/2015, Td (adult),2 Lf Tetanus Toxoid, PF, Adsorbed 02/2007 Family History Medical History Relation Comments CV disease Father Coronary artery disease Father Stroke Father Stroke Maternal Grandmother CV disease Mother Coronary artery disease Mother Stroke Mother CV disease Sibling Relation Status Comments Father Maternal Grandmother Mother Sibling Social History Tobacco Use Types Packs/Day Years [...] AM EDT Sexual Orientation Not on file Last Filed Vital Signs Vital Sign Reading Time Taken Comments Blood Pressure 189/75 07/20/2022 1:14 PM EDT Pulse 93 07/20/2022 8:26 AM EDT Temperature 36.2 C (97.1 F) 07/20/2022 1:14 PM EDT Respiratory Rate 18 07/20/2022 1:14 PM EDT Oxygen Saturation 94% 07/20/2022 1:14 PM EDT Inhaled Oxygen Concentration - - Weight 81.6 kg (180 lb) 07/20/2022 8:26 AM EDT Height 154.9 cm (5' 1 ) 07/20/2022 8:26 AM EDT Body Mass Index 34.01 07/20/2022 8:26 AM EDT Plan of Treatment Health Maintenance Due Date Last Done Comments BLOOD PRESSURE 1945 DEPRESSION SCREENING 1957 HEPATITIS C SCREENING 08/05/1963 ZOSTER VACCINES (1 of 2) 08/05/1995 OSTEOPOROSIS SCREENING INITIAL (ONE-TIME) 2010 Adult Td,Tdap Booster 02/18/2017 02/18/2007 RSV VACCINE (1 - 1-dose 75+ series) 2020 TSH LEVEL 04/23/2023 04/22/2022 CREATININE LEVEL 07/21/2023 07/20/2022, 05/2022, 09/30/2020, Additional history exists POTASSIUM LEVEL 07/21/2023 07/20/2022, 05/2022, 09/30/2020, Additional history exists INFLUENZA VACCINE (#1) 2024 COVID-19 VACCINE (2024- season) 2024 02/14/2021, 04/30/2020 LIPID PANEL 04/23/2027 04/22/2022, 04/2020, 06/24/2015 PNEUMOCOCCAL VACCINES (50+ years) Completed 11/18/2016, 11/19/2015, 06/22/2015, Additional history exists SMOKING STATUS SCREENING (Once After 26 Yrs) Completed 07/20/2022 HEPATITIS A VACCINES Aged Out No long er eligible based on patient's age to complete this topic HIB VACCINES Aged Out No longer eligi ble based on patient's age to complete this topic MENINGOCOCCAL VACCINES (ACWY) Aged Out No longer eligible based on patient's age to complete this topic MENINGOCOCCAL VACCINES (B) Aged Out N o longer eligible based on patient's age to complete this topic Medical Devices Not on file Procedures Procedure Name Priority Date/Time Associated Diagnosis Comments BASIC METABOLIC PANEL STAT 07/20/2022 9:18 AM EDT LIPID PANEL Routine 04/22/2022 6:22 AM EST TSH Routine 04/22/2022 6:22 AM EST from Last 3 Months or Most Recently Relevant to Health Maintenance Results * (ABNORMAL) Basic metabolic panel (07/20/2022 9:18 AM EDT) SODIUM 141 133 - 146 mmol/L [facility] CHLORIDE 105 96 - 108 mmol/L [facility] POTASSIUM 4.1 3.3 - 5.1 mmol/L [facility] CO2 25 21 - 35 mmol/L [facility] BUN 19 6 - 19 mg/dL [facility] CREATININE 1.30 0.5 - 1.5 mg/dL [facility] GLUCOSE 99 70 - 99 mg/dL [facility] CALCIUM 9.5 8.4 - 10.3 mg/dL [facility] EGFR 43(L) >59 mL/min/1.7 3m2 [facility] Comment:Estimated glomerular filtration rate calculated using the CKD-EPI refit equation. ANION GAP 15 10 - 20 mmol/L [facility] Blood 07/20/2022 9:18 AM EDT 07/20/2022 9:22 AM EDT us Neris Alfonso PA-C LAB BLOOD ORDERA BLES Final Result Performing Organization Address [facility]/ZIP Co de Phone Number [address] [address] * TSH (04/22/2022 6:22 AM EST) TSH 1.26 0.27 - 4.20 uIU/mL [facility] Blood 04/22/2022 6:22 AM EST 04/22/2022 6:44 AM EST us Marion Schreiber DO LAB BLOOD ORDERABLES Final Re sult Performing Organization Address [facility] Co de Phone Number [address] [address] * Lipid panel (04/22/2022 6:22 AM EST) HDL 45 mg/dL [facility] Comment: Interpretation <40 mg/dL: Low HDL cholesterol (major risk factor for CHD) Greater than or equal to 60 mg/dL: High HDL cholesterol ( negative risk factor for CHD) HDL - cholesterol is affected by a number of factors, e.g. smoking, excerise, hormones, sex and age. CHOLESTEROL 176 0 - 240 mg/dL [facility] TRIGLYCERIDES 95 30 - 160 mg/dL [facility] LDL 112 50 - 129 mg/dL [facility] Comment: LDL levels in terms of risk for coronary heart disease: <100 mg/dL: Optimal 100-129 mg/dL: Near or above optimal 130-159 mg/dL: Borderline high 160-189 mg/dL: High >190 mg/dL: Very High CARDIAC RISK RATIO 3.9 3.3 - 4.4 C [facility] Blood 04/22/2022 6:22 AM EST 04/22/2022 6:44 AM EST us Marion Schreiber DO LAB BLOOD ORDERABLES Final Re sult [facility] [address] [place] [address] from Last 3 Months or Most Recently Relevant to Health Maintenance Insurance MEDICARE PPO BLUE REPLACEMENT MEDICARE PPO BLUE REPLACEMENT MEDICARE PPO BLUE REPLACEMENT MEDICARE PPO BLUE REPLACEMENT MEDICARE PPO BLUE [place]PLAC[place] [address] [place] [address] MEDICARE PPO BLUE REPLACEMENT MEDICARE PPO BLUE REPLACEMENT MEDICARE PPO BLUE REPLAC[place] [address] [place] [address] MEDICARE PPO BLUE REPLACEMENT Advance Directives For more information, please contact: [phone] (9AM - 5PM [facility], Saturday-Saturday) * DNR/DNI (No CPR/No Intubation) (Latest Code Status on File) Date Activated Date Inactivated Comments 04/21/2022 10:38 PM Question Answer Comments Code Status Confirmed With: Patient Care Teams Twisting Press Operator Relationship Specialty Start Date End Date Ruth Hamm NP [address] [place] [address] PCP - General Nurse Practitioner 04/21/22 Rodney Pacheco CNP [email or web address] Historical LMR Provider 12/06/16 Additional Source Comments The information contained in this document represents components of the legal health record. It is not the complete legal health record.[facility]
--- OUTSIDE RECORDS SUMMARY | 2024-11-10 16:17 | XMS_ITS | Encounter Summary ---
Author Organization [facility] Address [address] [facility] [address] [place] [address] Phone Care Team Providers Care Tower Hand Name Role Phone Rodney Pacheco Leightiffanielissette SANE RN Unavailable Ruth Hamm NP Primary Care Provider [phone] Encounter Details Date Type Department Care Team (Late st Contact Info) Description 04/21/2022 Procedure Pass [facility], Ct Scan - [address] [address] Social History Tobacco Use Types Packs/Day Years [...] Date of Assessment Author No Risk Indicated 04/21/2022 4:12 PM Jemima Mckeon RN * [place] Suicide Severity Rating Scale (Screener/Recent Self-Report) Question Answer Date of Assessment Author 1. Wish to be (Past 1 Month) No 04/21/2022 4:12 PM Jemima Mckeon RN 2. Non-Specific Active Suici william Thoughts (Past 1 Month) No 04/21/2022 4:12 PM Ana Mckeon RN 6. Suicidal Behavior (Lifetime) No 3 4:12 PM EST Jemima Barajas RN documented as of this encounter Plan of Treatment Not on file documented as of this encounter Visit Diagnoses Not on filedocumented in this encounter Care Teams Tower Hand Relationship Specialty Start Date End Date Ruth Hamm NP [address] [place] [address] PCP - General Nurse Practitioner 04/21/22 Rodney Pacheco CNP [email or web address] Historical LMR Provider 12/06/16 documented as of this encounter Additional Source Comments The information contained in this document represents components of the legal health record. It is not the complete legal health record.[facility]
--- OUTSIDE RECORDS SUMMARY | 2024-11-10 16:17 | XMS_ITS | Encounter Summary ---
Author Organization [facility] Address [address] [facility] [address] [place] [address] Phone Care Team Providers Care Anesthesiologist Assistant Certified Name Role Phone Lisa Pachecokattjulio Dmitry MAINTENANCE MANAGER Unavailable Ruth Hamm NP Primary Care Provider [phone] Encounter Details Date Type Department Care Team (Late st Contact Info) Description 04/21/2022 Procedure Pass , [address] [address] Social History Tobacco Use Types Packs/Day Years [...] 04/21/2022 4:12 PM Jemima Mckeon RN * [place] Suicide Severity Rating Scale (Screener/Recent Self-Report) Question Answer Date of Assessment Author 1. Wish to be (Past 1 Month) No 04/21/2022 4:12 PM Jemima Mckeon RN 2. Non-Specific Active Suici william Thoughts (Past 1 Month) No 04/21/2022 4:12 PM Ana Mckeon RN 6. Suicidal Behavior (Lifetime) No 3 4:12 PM Jemima Mckeon RN documented as of this encounter Plan of Treatment Not on file documented as of this encounter Visit Diagnoses Not on filedocumented in this encounter Care Teams Anesthesiologist Assistant Certified Relationship Specialty Start Date End Date Ruth Hamm NP [address] [place] [address] PCP - General Nurse Practitioner 04/21/22 Rodney Pacheco CNP [email or web address] Historical LMR Provider 12/06/16 documented as of this encounter Additional Source Comments The information contained in this document represents components of the legal health record. It is not the complete legal health record.[facility]
--- OUTSIDE RECORDS SUMMARY | 2024-11-10 16:17 | XMS_ITS | Encounter Summary ---
Author Organization [facility] Address [address] [facility] [address] [place] [address] Phone Care Team Providers Care Document Coordinator Name Role Phone Lisa Pachecokattjulio Dmitry PHARMACY SALESPERSON Unavailable Ruth Hamm NP Primary Care Provider [phone] Encounter Details Date Type Department Care Team (Late st Contact Info) Description 04/21/2022 Procedure Pass [facility], [address] [address] Social History Tobacco Use Types Packs/Day Years [...] 04/21/2022 4:12 PM Jemima Mckeon RN * [place] Suicide Severity Rating Scale (Screener/Recent Self-Report) Question [...] on filedocumented in this encounter Care Teams Document Coordinator Relationship Specialty Start Date End Date Ruth Hamm NP [address] [place] [address] PCP - General Nurse Practitioner 04/21/22 Rodney Pacheco CNP [email or web address] Historical LMR Provider 12/06/16 documented as of this encounter Additional Source Comments The information contained in this document represents components of the legal health record. It is not the complete legal health record.[facility]
--- OUTSIDE RECORDS SUMMARY | 2024-11-10 16:17 | XMS_ITS | Encounter Summary ---
Author Organization [facility] Address [address] [facility] [address] [place] [address] Phone Care Team Providers Care Glue Jointer Operator Name Role Phone Lisa Pachecokattjulio Dmitry USER EXPERIENCE RESEARCHER Unavailable Ruth Hamm NP Primary Care Provider [phone] Encounter Details Date Type Department Care Team (Late st Contact Info) Description 04/21/2022 Procedure Pass [facility], [address] [address] Social History Tobacco Use Types Packs/Day Years [...] 04/21/2022 4:12 PM Jemima Mckeon RN * [place] Suicide Severity Rating Scale (Screener/Recent Self-Report) Question [...] on filedocumented in this encounter Care Teams Glue Jointer Operator Relationship Specialty Start Date End Date Ruth Hamm NP [address] [place] [address] PCP - General Nurse Practitioner 04/21/22 Rodney Pacheco CNP [email or web address] Historical LMR Provider 12/06/16 documented as of this encounter Additional Source Comments The information contained in this document represents components of the legal health record. It is not the complete legal health record.[facility]
== END 2024-11-10 14:07 | disposition home or self-care (01) ==
LOC: HO.HCS 13:15
PROVIDERS: PCP Nurse Practitioner Family; Visit Provider Nurse Practitioner Family
DX: R00.0 Tachycardia, unspecified (principal); R06.02 Shortness of breath; I49.1 Atrial premature depolarization; I10 Essential (primary) hypertension
CPT/HCPCS: 99213; G2211

== ENCOUNTER → 2024-11-10 13:14 | Outpatient (BNVA) | payer MEDICARE, SELFPAY | PROVIDERS: PCP Nurse Practitioner Family; Visit Provider Nurse Practitioner Family | DX: R06.02 Shortness of breath (principal); R00.0 Tachycardia, unspecified; I49.1 Atrial premature depolarization; I10 Essential (primary) hypertension | CPT/HCPCS: 99212 ==

== ENCOUNTER 2025-01-14 11:22 | Emergency (ER) | payer MEDICARE, SELFPAY ==
[2025-01-14 11:22] VITALS: BP 143/91; PULSE 77; RESP 18; TEMP 36; O2SAT 99; BMI 33.1
--- NOTE | 2025-01-14 11:23 | ED.GENADULT ---
HPI - General Adult General Chief complaint: General Medical Stated complaint: body pain Time Seen by Provider: 01/14/25 11:35 Source: patient Mode of arrival: ambulatory Limitations: no limitations History of Present Illness ED Provider: HPI narrative: 79-year-old woman presenting with bilateral shoulder pain this is chronic, she states she has chronic kidney disease, it is not supposed to take either steroid shots or medications such as Motrin on regular basis, and she did have some prednisone left at home and she took 5 mg and really helped her, no fevers or chills no chest pain or shortness of breath, she is awaiting PCP visit and physical therapy. Related Data Home Medications ?Medication ?Instructions ?Recorded ?Confirmed levothyroxine 75 mcg tablet 75 mcg PO DAILY@0600 02/08/21 11/10/24 (Levoxyl) lisinopril 30 mg tablet 30 mg PO DAILY 02/08/21 11/10/24 Probiotic 1 cap PO DAILY 04/03/23 11/10/24 amitriptyline 10 mg tablet 5 mg PO BEDTIME 04/03/23 11/10/24 buspirone 5 mg tablet 2.5 mg PO DAILY 04/03/23 11/10/24 lansoprazole 15 mg capsule,delayed 15 mg PO DAILY@1630 04/03/23 11/10/24 release multivitamin 1 tab PO DAILY 04/03/23 11/10/24 hydralazine 25 mg tablet 25 mg PO BID 08/01/23 11/10/24 rosuvastatin 20 mg tablet 20 mg PO BEDTIME 08/01/23 11/10/24 Previous Rx's ?Medication ?Instructions ?Recorded ondansetron 4 mg disintegrating 4 mg PO Q8H PRN nausea and 09/16/24 tablet vomiting #15 tabs dexamethasone 2 mg tablet 2 mg PO DAILY #10 tabs 01/14/25 Allergies Allergy/AdvReac Type Severity Reaction Status Date / Time Iodinated Contrast Media (IV Allergy Severe TACHYCARDIA,DIFFICULTY Verified 01/14/25 11:26 CONTRAST) BREATHING amoxicillin (Prevpac) Allergy Unknown Unknown Verified 01/14/25 11:26 clarithromycin (Prevpac) Allergy Unknown Unknown Verified 01/14/25 11:26 escitalopram (From LEXAPRO) Allergy Unknown CHEST PAIN Verified 01/14/25 11:26 lansoprazole (Prevpac) Allergy Unknown unknown Verified 01/14/25 11:26 lovastatin Allergy Unknown myalgia Verified 01/14/25 11:26 omeprazole (From Prilosec) Allergy Unknown CHEST Verified 01/14/25 11:26 PAIN,DIFFICULTY BREATHING pravastatin Allergy Unknown myalgia Verified 01/14/25 11:26 shellfish derived (SHELLFISH Allergy Unknown UNKOWN Verified 01/14/25 11:26 DERIVED) iv contrast dye Allergy Unknown unknown Uncoded 09/15/24 23:42 iv dye/ shellfish Allergy Unknown unknown Uncoded 09/15/24 23:42 Prilosec Allergy Unknown Chest pain Uncoded 09/15/24 23:42 Review of Systems Constitutional: Constitutional: Reports as per [facility] Past Medical History Medical History Hypertensive urgency Harper esophagus Non-toxic multinodular goiter Barretts esophagus Allergies Chronic GERD Lipid disorder Hypertension, essential Anxiety, generalized Surgical History H/O YAMILKAP (2007) Family History Family History Father Heart disease Mother Heart disease Maternal Uncle Colon cancer Heart failure Social History Social History Household Members: Children Housing: Apartment Do you presently have visiting nurse or other home services: No Alcohol intake: never Patient Tobacco Use Status: Never used Tobacco Advance Directives: No Advance Directives Information Provided: Yes service: No Current occupational status: retired Physical Exam ED Exam Exam: ?General: ??looks age appropriate ?PERRLA, EOMI, MMM, Neck: Supple, no LAD ?CV: RRR, no obvious murmurs appreciated ?Resp: ?No wheezing rales rhonchi no stridor moving air well Abd: ?Bowel sounds are present, no tenderness no rebound no rigidity MSK: Decreased range of motion forward flexion and ab duction, positive impingement signs bilateral shoulders, no erythema no effusion of the shoulders noted distal pulses intact, distal motor sensory radial ulnar median intact Skin: Warm, dry, intact, ?Neuro: ?Alert and oriented x3, moving upper and lower extremities symmetrically, no obvious facial asymmetry noted, cranial nerves 2-12 intact Vital Signs: Vital Signs - 24 hr 01/14/25 11:22 Temperature 96.8 F Pulse Rate 77 Respiratory Rate 18 Blood Pressure 143/91 H Pulse Oximetry 99 Oxygen Delivery Method Room Air BMI result Body Mass Index 33.1 Course Course Course Narrative: This is a rapid medical exam performed by Alan Zimmerman NP: Additional HPI, ROS, PE not included below will be deferred to primary provider. Patient is a 79y/o F with pmhx of CKD 3, hypothyroidism, HTN, GERD, Menieres disease pain in both arms for the past few days. Today pain has been unbearable. Has been having this pain for months, saw PCP, nursing instructor, smokehouse operator, told sxs are musculoskeletal. Nephro advised she d/c her statin and start Co-Q 10 but pain has not improved. Plan: EKG, labs Medical Decision Making Medical Decision Making [facility] Narrative: 12:24 PM 01/14/2025 (Dr. Renny De): I evaluated patient has, reviewed her prior renal function, her renal function has been stable for many years, she is in discomfort unable to sleep I think it is very reasonable to start her on some steroids until she is able to see her PCP, she does not need physical therapy there was no evidence for dislocation fracture or effusion, she had cardiac workup that was unremarkable Differential Diagnosis Differential Diagnoses: The differential diagnosis associated with the presentation includes (Adhesive capsulitis, impingement, rotator cuff tear, dislocation, arthritis, ACS) Admission/Observation Consideration of admission/observation: Escalation of care including admission/observation considered Lab Data [facility] Lab Attestation statement: I reviewed the patient's lab results. 01/14/25 11:37 01/14/25 11:37 Labs: Lab Results 01/14/25 Range/Units 11:37 WBC 8.3 (4.8-10.8) X10*3/uL RBC 4.57 (4.20-5.50) X10*6/uL Hgb 13.2 (12.0-16.0) g/dl Hct 40.0 (37.0-47.0) % MCV 87.5 (80.0-98.0) fL MCH 28.9 (27.0-33.0) pg MCHC 33.0 (31.0-35.0) g/dl RDW 13.1 (11.0-16.0) % Plt Count 177 (160-400) X10*3/uL MPV 10.0 (9.4-12.3) fL Immature Gran % (Auto) 0.2 (0.0-0.4) % Neut % (Auto) 65.2 (45-73) % Lymph % (Auto) 24.1 (20-40) % Metcalfe % (Auto) 8.4 (2-11) % Eos % (Auto) 1.4 (0-4) % Baso % (Auto) 0.7 (0-2) % Lymph # (Auto) 2.0 (1.2-4.9) X10*3/uL Metcalfe # (Auto) 0.7 (0.1-1.2) X10*3/uL Eos # (Auto) 0.1 (0.0-0.4) X10*3/uL Baso # (Auto) 0.1 (0.0-0.2) X10*3/uL Abs Immat Gran (auto) 0.02 (0.00-0.03) X10*3/uL Absolute Neuts (auto) 5.4 (2.0-8.3) x10*3/uL Absolute Nucleated RBC 0.000 (0.0-0.012) X10*3/uL Nucleated RBC % (auto) 0.0 (0.0-0.2) /100WBC Independent Interpretation I performed an independent interpretation of an: EKG (85 beats per minute otherwise normal ECG without dysrhythmia, AV giuliana blocks or ST-T changes to suspect underlying ACS, my independent interpretation) External Record Review External record reviewed: Office record Prescription Management I considered prescription management with: Pain Medication Chronic Conditions Patient?s care impacted by: Other (Chronic kidney disease) Discharge Plan Discharge Clinical Impression: Chronic pain of both shoulders, CKD (chronic kidney disease) stage 2, GFR 60-89 ml/min Patient Disposition: Home, Self-Care Additional Instructions: Try using capsaicin ointment patches I find them to be very effective versus Nino-Banuelos or you can use capsaicin ointment, it is very hot but I find her to be very effective, heat packs ice packs to his shoulders, and continue with steroids starting tomorrow, follow up with the PCP, your blood work, EKG today has been reassuring I am providing you with a very low dose of steroids dexamethasone 2 mg you can try using 2 mg daily starting tomorrow, if 2 mg not helping you with a you can increase to 4 mg and just finish off the prescription Prescriptions: New dexamethasone 2 mg tablet 2 mg PO DAILY Qty: 10 0RF No Action levothyroxine [Levoxyl] 75 mcg tablet 75 mcg PO DAILY@0600 lisinopril 30 mg tablet 30 mg PO DAILY amitriptyline 10 mg tablet 5 mg PO BEDTIME multivitamin Tablet 1 tab PO DAILY buspirone 5 mg tablet 2.5 mg PO DAILY lansoprazole 15 mg Capsule,Delayed Release(Dr/Ec) 15 mg PO DAILY@1630 Rx Instructions: TAKE BEFORE DINNER Probiotic 1 cap PO DAILY hydralazine 25 mg tablet 25 mg PO BID ondansetron 4 mg tablet,disintegrating 4 mg PO Q8H PRN (Reason: nausea and vomiting) Qty: 15 0RF rosuvastatin 20 mg tablet 20 mg PO BEDTIME Print Language: Cymraes
--- NOTE | 2025-01-14 11:26 | ECG_ITS ---
Test Reason : BILATERAL ARM PAIN Blood Pressure : */* mmHG Vent. Rate : 85 BPM Atrial Rate : 85 BPM P-R Int : 152 ms QRS Dur : 80 ms QT Int : 354 ms P-R-T Axes : * 123 126 degrees QTcB Int : 421 ms Suspect limb lead reversal, interpretation assumes no reversal Sinus rhythm with Premature supraventricular complexes Low voltage QRS Left posterior fascicular block Cannot rule out Anterior infarct , age undetermined Abnormal ECG When compared with ECG of 24-Sep-2023 15:38, Left posterior fascicular block is now Present Nonspecific T wave abnormality, worse in Inferior leads Nonspecific T wave abnormality now evident in Lateral leads Referred By: Lizzette Zimmerman Electronically Signed By: Sukh Handy
[2025-01-14 11:45] LABS: MANUAL DIFF FLAG NO
--- OUTSIDE RECORDS SUMMARY | 2025-01-14 11:45 | XMS_ITS | Encounter Summary ---
Author Organization [facility], Address [address] [place] [address] Phone Care Team Providers Care Email Marketing Manager Name Role Phone NorisRuth NP Primary Care Provider [phone] Encounter Details Date Type Department Care Team (Late st Contact Info) Description 01/03/2024 Documentation Only [facility], [address] [place] [address] [place] [address] [place] [phone] Social History Tobacco Use Types Packs/Day [...] Care Team (Late st Contact Info) Description 04/14/2025 10:00 AM EST Office Visit [facility] [address] [place] [address] Dionisio Gonzáles MD [address] [place] [address] documented as of this encounter Visit Diagnoses Not on filedocumented in this encounter Care Teams Email Marketing Manager Relationship Specialty Start Date End Date Ruth Hamm NP [address] [place] [phone] PCP - General Nurse Practitioner 02/28/22 documented as of this encounter
--- OUTSIDE RECORDS SUMMARY | 2025-01-14 11:45 | XMS_ITS | Clinical Summary ---
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 Simple renal cyst 02/27/2022 Tubular adenomatous polyp of colon 02/27/2022 Vertigo 02/27/2022 Diverticular disease of colon 02/13/2022 Epigastric pain 02/13/2022 Gastro-esophageal reflux disease without esophag itis 02/13/2022 Irritable bowel syndrome characterized by espinoza goncalves 02/13/2022 Harper's esophagus 03/17/2019 Stage 3b chronic [...] Encounters Date Type Department Care Team Description 01/06/2025 9:40 AM EST Office Visit [facility] [address] [place] [address] Dionisio Gonzáles MD Stage 3b chronic kidney disease (HCC) (Primary Dx) 12/15/2024 Refill [facility] [address] [place] [address] Dionisio Gonzáles MD from Last 3 Months Immunizations Immunization Administration Dates Next Due Textic SARS-COV-2 04/30/2020 Pfizer SARS-COV-2 02/14/2021 Pneumococcal Conjugate 13-Valent 11/18/2016 Pneumococcal [...] Office Visit [facility] [address] [place] [address] Dionisio Gonzáles MD [address] [facility] [place] [address] Health Maintenance Due Date Last Done Comments Influenza Vaccine (#1) 2024 Pneumococcal Vaccine: 50+ Years Completed 11/18/2016, 11/19/2015, 06/19/2015, Additional history exists Pneumococcal Vaccine: Peds (0 to 5 Years) and At-Risk Patients (6 to 49 Years) Discontinued 11/18/2016, 11/19/2015, 06/19/2015, Additional history exists Hepatitis B Vaccine Aged Out No longe r eligible based on patient's age to complete this topic Procedures Procedure Name Priority Date/Time Associated Diagnosis Comments URINE ALBUMIN / CREATININE RATIO Routine 12/24/2024 12:29 PM EST BASIC METABOLIC PANEL Routine 12/24/2024 12:29 PM EST from Last 3 Months Results * Urine Albumin / Creatinine Ratio (12/24/2024 12:29 PM EST) Creatinine, Ur 83.3 Not Estab. mg/dL [facility] Albumin, Urine 4.2 Not Estab. ug/mL [facility] Albumin/Creatin ine Ratio 5 0 - 29 mg/g creat [facility] Comment: Normal: 0 - 29 Moderately increased: 30 - 300 Severely increased: >300 12/24/2024 12:2 9 PM EST 12/24/2024 us Dionisio Gonzáles MD LAB URINE ORDERABLES Final Re sult [facility] [address] [place] [address] * (ABNORMAL) Basic Metabolic Panel (12/24/2024 12:29 PM EST) Glucose 91 70 - 99 mg/dL [facility] BUN 15 8 - 27 mg/dL [facility] Creatinine 1.19(H) 0.57 - 1.00 mg/dL [facility] eGFR CKD-EPI CR 2020 47(L) >59 mL/min/1.7 3 [facility] BUN/Creatinine Ratio 13 12 - 28 [facility] Sodium 142 134 - 144 mmol/L [facility] Potassium 4.8 3.5 - 5.2 mmol/L [facility] Comment: Specimen received hemolyzed. Value may be increased by hemolysis. Clinical correlation indicated. Chloride 105 96 - 106 mmol/L [facility] Bicarbonate (CO2) 19(L) 20 - 29 mmol/L [facility] Calcium 9.3 8.7 - 10.3 mg/dL [facility] 12/24/2024 12:2 9 PM EST 12/24/2024 us Dionisio Gonzáles MD LAB BLOOD ORDERABLES Final Re sult [facility] [address] [place] [address] from Last 3 Months Insurance [facility] Care Teams Hydraulic Hammer Operator Relationship Specialty Start Date End Date Ruth Hamm NP [address] [place] [phone] PCP - General Nurse Practitioner 02/28/22
--- OUTSIDE RECORDS SUMMARY | 2025-01-14 11:45 | XMS_ITS | Encounter Summary ---
Author Organization [facility] [place], Address [address] [place] [address] Phone Care Team Providers Care Package Clerk Name Role Phone NorisRuth NP Primary Care Provider [phone] Encounter Details Date Type Department Care Team (Late st Contact Info) Description 04/09/2022 Documentation Only [facility] [address] [place] [address] Dionisio Gonzáles MD [address] [facility] [address] [place] [address] Social History Tobacco Use Types [...] Department Care Team (Late Contact Info) Description 04/14/2025 10:00 AM EST Office Visit [facility] [address] [place] [address] Dionisio Gonzáles MD [address] [facility] [address] [place] [address] documented as of this encounter Visit Diagnoses Not on filedocumented in this encounter Care Teams Package Clerk Relationship Specialty Start Date End Date Ruth Hamm NP [address] [place] [phone] PCP - General Nurse Practitioner 02/28/22 documented as of this encounter
--- OUTSIDE RECORDS SUMMARY | 2025-01-14 11:45 | XMS_ITS | Encounter Summary ---
Author Organization [facility] [place], Address [address] [place] [address] Phone Care Team Providers Care Warp Picker Name Role Phone NorisRuth NP Primary Care Provider [phone] Encounter Details Date Type Department Care Team (Late st Contact Info) Description 09/07/2024 Documentation Only [facility] [place], [address] [place] [address] [place] [address] [place] [phone] Social History Tobacco Use Types Packs/Day [...] Visit [facility] [address] [place] [address] Dionisio Gonzáles MD [address] [facility] [address] [place] [address] documented as of this encounter Visit Diagnoses Not on filedocumented in this encounter Care Teams Warp Picker Relationship Specialty Start Date End Date Ruth Hamm NP [address] [place] [phone] PCP - General Nurse Practitioner 02/28/22 documented as of this encounter
--- OUTSIDE RECORDS SUMMARY | 2025-01-14 11:45 | XMS_ITS | Encounter Summary ---
Author Organization [facility] [place], Address [address] [place] [address] Phone Care Team Providers Care Mold Capper Helper Name Role Phone NorisRuth NP Primary Care Provider [phone] Encounter Details Date Type Department Care Team (Late st Contact Info) Description 04/09/2022 Documentation Only [facility] [address] [place] [address] Dionisio Gonzáles MD [address] [facility] [address] [place] [address] Social History Tobacco Use Types [...] Visit [facility] [address] [place] [address] Dionisio Gonzáles MD [address] [facility] [address] [place] [address] documented as of this encounter Visit Diagnoses Not on filedocumented in this encounter Care Teams Mold Capper Helper Relationship Specialty Start Date End Date Ruth Hamm NP [address] [place] [phone] PCP - General Nurse Practitioner 02/28/22 documented as of this encounter
--- OUTSIDE RECORDS SUMMARY | 2025-01-14 11:45 | XMS_ITS | Patient Health Record ---
Author Organization [facility] Address [address] [place] [phone] Care Team Providers Care Irrigationist Designer Name Role Phone Noris, Ruth Primary Care Provider ANNAMARIE Smith Unavailable [phone] Dionisio Gonzáles Unavailable Unavailable Reason For Referral No Information Problems Problem Type SNOMED Code ICD Code Onset Dates Problem Status W/U Status Risk Notes Problem Chronic kidney disease stage 3A (disorder) (158101849) Chronic kidney disease, stage 3a (N18.31) Active confirmed Encounters Encounter Location Date Provider Diagnosis [employer] [facility] [address] [place] [phone] 04/23/2024 ANNAMARIE [employer] [facility] [address] [place] [phone] 04/27/2024 ANNAMARIE [employer] [facility] [address] [place] [phone] 05/01/2024 ANNAMARIE [employer] [facility] [address] [place] [phone] 07/21/2024 ANNAMARIE [employer] [facility] [address] [place] [phone] 08/07/2024 ANNAMARIE [employer] [facility] [address] [place] [phone] 08/24/2024 ANNAMARIE HE [employer] [facility] [address] [place] [phone] 12/02/2024 ANNAMARIE CAMPBELL Plan Of Treatment No Information Insurance Providers Payer Name Payer Address Payer Phone Subscriber Number Group Number Insured Name Patient Relationship to Insured Coverage Start Date Coverage End Date [facility] Medicare Advantage [id number] [place] [address] [id number] KIRBY MCCRAY Self - patient is the insured
--- OUTSIDE RECORDS SUMMARY | 2025-01-14 11:45 | XMS_ITS | Encounter Summary ---
Author Organization [facility] [place], Address [address] [place] [address] Phone Care Team Providers Care Drafter Geophysical Name Role Phone NorisRuth NP Primary Care Provider Encounter Details Date Type Department Care Team (Late st Contact Info) Description 09/07/2024 Documentation Only [facility] [place], [address] [address] [place] [address] [place] [phone] Social History Tobacco Use Types Packs/Day [...] Visit [facility] [address] [address] Dionisio Gonzáles MD [address] [address] [place] [address] documented as of this encounter Visit Diagnoses Not on filedocumented in this encounter Care Teams Drafter Geophysical Relationship Specialty Start Date End Date Ruth Hamm NP [address] [place] [phone] PCP - General Nurse Practitioner 02/28/22 documented as of this encounter
--- OUTSIDE RECORDS SUMMARY | 2025-01-14 11:45 | XMS_ITS | Encounter Summary ---
Author Organization [facility] [place], Address [address] [place] [address] Phone Care Team Providers Care Clinical Support Manager Name Role Phone NorisRuth NP Primary Care Provider [phone] Encounter Details Date Type Department Care Team (Late st Contact Info) Description 04/09/2022 Documentation Only [facility] [address] [facility] [place] [address] Dionisio Gonzáles MD [address] [facility] [place] [address] Social History Tobacco Use Types [...] Visit [facility] [address] [facility] [place] [address] Dionisio Gonzáles MD [address] [facility] [place] [address] documented as of this encounter Visit Diagnoses Not on filedocumented in this encounter Care Teams Clinical Support Manager Relationship Specialty Start Date End Date Ruth Hamm NP [address] [place] [phone] PCP - General Nurse Practitioner 02/28/22 documented as of this encounter
--- OUTSIDE RECORDS SUMMARY | 2025-01-14 11:45 | XMS_ITS | Encounter Summary ---
Author Organization [facility] [place], Address [address] [place] [address] Phone Care Team Providers Care Supervisor Benzene Refining Name Role Phone NorisRuth NP Primary Care Provider [phone] Encounter Details Date Type Department Care Team (Late Contact Info) Description 09/21/2024 Documentation Only [facility] [place], [address] [place] [address] Carola Pablo [address] [place] [phone] Social History Tobacco Use Types Packs/Day [...] Visit [facility] [address] [address] Dionisio Gonzáles MD [address] [facility] [place] [address] documented as of this encounter Visit Diagnoses Not on filedocumented in this encounter Care Teams Supervisor Benzene Refining Relationship Specialty Start Date End Date Ruth Hamm NP [address] [place] [phone] PCP - General Nurse Practitioner 02/28/22 documented as of this encounter
--- OUTSIDE RECORDS SUMMARY | 2025-01-14 11:45 | XMS_ITS | Clinical Summary ---
Author Organization [facility] Address [address] [place], [place] [id number] Phone Care Team Providers Care Drug Counselor Name Role Phone Tara, Rodney Andres DOG WALKER Unavailable [phone] Ruth Hamm NP Primary Care Provider [phone] Allergies Active Allergy Reactions Criticality Noted Date [...] pathology -Follow up MRI/MRA -Monitor on tele -STATISTICAL PROGRAMMER eval -Follow up HbA1c, TSH, ESR, CRP, [...] Date/Time Associated Diagnosis Comments BASIC METABOLIC PANEL (BMP) STAT 07/20/2022 9:18 AM EDT LIPID PANEL Routine 04/22/2022 6:22 AM EST THYROID STIMULATING HORMONE (TSH) Routine 04/22/2022 6:22 AM EST from Last 3 Months or Most Recently Relevant to Health Maintenance Results * (ABNORMAL) Basic metabolic panel (07/20/2022 9:18 AM EDT) SODIUM 141 133 - 146 mmol/L [facility] CHLORIDE 105 96 - 108 mmol/L [facility] POTASSIUM 4.1 3.3 - 5.1 mmol/L [facility] CO2 25 21 - 35 mmol/L [facility] BUN 19 6 - 19 mg/dL [facility] CREATININE 1.30 0.5 - 1.5 mg/dL [facility] GLUCOSE 99 70 - 99 mg/dL [facility] CALCIUM 9.5 8.4 - 10.3 mg/dL [facility] EGFR 43(L) >59 mL/min/1.7 3m2 [facility] Comment:Estimated glomerular filtration rate calculated using the CKD-EPI refit equation. ANION GAP 15 10 - 20 mmol/L [facility] Blood 07/20/2022 9:18 AM EDT 07/20/2022 9:22 AM EDT us Neris Alfonso PA-C LAB BLOOD BKR OR DERABLES Final Result Performing Organization Address [facility]/ZIP Co de Phone Number [address] [address] * TSH (04/22/2022 6:22 AM EST) TSH 1.26 0.27 - 4.20 uIU/mL [facility] Blood 04/22/2022 6:22 AM EST 04/22/2022 6:44 AM EST us Marion Schreiber DO LAB BLOOD BKR ORDERABLES Ayesha l Result Performing Organization Address [facility] Co de Phone Number [address] [address] * Lipid panel (04/22/2022 6:22 AM EST) HDL 45 mg/dL [facility] Comment: Interpretation <40 mg/dL: Low HDL cholesterol (major risk factor for CHD) Greater than or equal to 60 mg/dL: High HDL cholesterol ( negative risk factor for CHD) HDL - cholesterol is affected by a number of factors, e.g. smoking, excerise, hormones, sex and age. CHOLESTEROL 176 0 - 240 mg/dL [facility] TRIGLYCERIDES 95 30 - 160 mg/dL [facility] LDL 112 50 - 129 mg/dL [facility] Comment: LDL levels in terms of risk for coronary heart disease: <100 mg/dL: Optimal 100-129 mg/dL: Near or above optimal 130-159 mg/dL: Borderline high 160-189 mg/dL: High >190 mg/dL: Very High CARDIAC RISK RATIO 3.9 3.3 - 4.4 C [facility] Blood 04/22/2022 6:22 AM EST 04/22/2022 6:44 AM EST us Marion Schreiber DO LAB BLOOD BKR ORDERABLES Ayesha shiva Result [facility] [address] [place] [address] from Last 3 Months or Most Recently Relevant to Health Maintenance Insurance MEDICARE PPO BLUE REPLACEMENT MEDICARE PPO [place]UE [place] [address] [place] [address] MEDICARE PPO BLUE REPLACEMENT MEDICARE PPO [place] [address] [place] [address] MEDICARE PPO BLUE REPLACEMENT MEDICARE PPO BLUE REPLACEMENT MEDICARE PPO BLUE REPLACEMENT MEDICARE PPO BLUE REPLACEMENT MEDICARE PPO BLUE REPLACEMENT Advance Directives For more information, please contact: [phone] (9AM - 5PM [facility], Saturday-Saturday) * DNR/DNI (No CPR/No Intubation) (Latest Code Status on File) Date Activated Date Inactivated Comments 04/21/2022 10:38 PM Question Answer Comments Code Status Confirmed With: Patient Care Teams Drug Counselor Relationship Specialty Start Date End Date Ruth Hamm NP [address] [place] [address] PCP - General Nurse Practitioner 04/21/22 Rodney Pacheco NP [email or web address] Historical LMR Provider 12/06/16 Additional Source Comments The information contained in this document represents components of the legal health record. It is not the complete legal health record.[facility]
--- OUTSIDE RECORDS SUMMARY | 2025-01-14 11:45 | XMS_ITS | Encounter Summary ---
Author Organization [facility], Address [address] [place] [address] Phone Care Team Providers Care Television Writer Name Role Phone NorisRuth NP Primary Care Provider [phone] Encounter Details Date Type Department Care Team (Late st Contact Info) Description 02/13/2022 Documentation Only [facility] [address] [place] [address] Dionisio Gonzáles MD [address] [place] [address] Social History Tobacco Use Types [...] Visit [facility] [address] [place] [address] Dionisio Gonzáles MD [address] [place] [address] documented as of this encounter Visit Diagnoses Not on filedocumented in this encounter Care Teams Television Writer Relationship Specialty Start Date End Date Ruth Hamm NP [address] [place] [phone] PCP - General Nurse Practitioner 02/28/22 documented as of this encounter
--- OUTSIDE RECORDS SUMMARY | 2025-01-14 11:45 | XMS_ITS | Encounter Summary ---
Author Organization [facility] [place], Address [address] [place] [address] Phone Care Team Providers Care Mud Trucker Name Role Phone NorisRuth NP Primary Care Provider [phone] Encounter Details Date Type Department Care Team (Late st Contact Info) Description 05/29/2023 Documentation Only [facility] [place], [address] [facility] [address] [place] [address] [place] [address] [place] [address] Social History Tobacco Use Types Packs/Day [...] Visit [facility] [address] [place] [address] Dionisio Gonzáles MD [address] [place] [address] documented as of this encounter Visit Diagnoses Not on filedocumented in this encounter Care Teams Mud Trucker Relationship Specialty Start Date End Date Ruth Hamm NP [address] [place] [phone] PCP - General Nurse Practitioner 02/28/22 documented as of this encounter
--- OUTSIDE RECORDS SUMMARY | 2025-01-14 11:45 | XMS_ITS | Encounter Summary ---
Author Organization [facility] [place], Address [address] [place] [address] Phone Care Team Providers Care Cell Inspector Name Role Phone NorisRuth NP Primary Care Provider [phone] Encounter Details Date Type Department Care Team (Late st Contact Info) Description 02/13/2022 Documentation Only [facility] [address] [place] [address] Dionisio Gonzáles MD [address] [place] [address] Social History Tobacco Use Types [...] Visit [facility] [address] [place] [place] [address] Dionisio Gonzáles MD [address] [place] [address] documented as of this encounter Visit Diagnoses Not on filedocumented in this encounter Care Teams Cell Inspector Relationship Specialty Start Date End Date Ruth Hamm NP [address] [place] [phone] PCP - General Nurse Practitioner 02/28/22 documented as of this encounter
--- OUTSIDE RECORDS SUMMARY | 2025-01-14 11:45 | XMS_ITS | Encounter Summary ---
Author Organization [facility] [place], Address [address] [place] [address] Phone Care Team Providers Care Nitroglycerin Separator Operator Name Role Phone NorisRuth NP Primary Care Provider [phone] Encounter Details Date Type Department Care Team (Late st Contact Info) Description 09/07/2024 Documentation Only [facility] [place], [address] [place] [address] [place] [address] [place] [address] Social History Tobacco Use Types Packs/Day [...] Visit [facility] [address] [place] [address] Dionisio Gonzáles MD [address] [facility] [place] [address] documented as of this encounter Visit Diagnoses Not on filedocumented in this encounter Care Teams Nitroglycerin Separator Operator Relationship Specialty Start Date End Date Ruth Hamm NP [address] [place] [phone] PCP - General Nurse Practitioner 02/28/22 documented as of this encounter
--- OUTSIDE RECORDS SUMMARY | 2025-01-14 11:45 | XMS_ITS | Encounter Summary ---
Author Organization [facility] Address [address] [place] [address] Phone Care Team Providers Care Rotary Swaging Machine Operator Name Role Phone NorisRuth NP Primary Care Provider [phone] Reason for Visit * Reason Onset Date Comments Med Refill 04/09/2024 Encounter Details Date Type Department Care Team (Late st Contact Info) Description 04/09/2024 Refill [facility] [address] [place] [phone] Dionisio Gonzáles MD [address] [place] [address] Social History Tobacco Use Types [...] Visit [facility] [address] [place] [phone] Dionisio Gonzáles MD [address] [place] [address] documented as of this encounter Visit Diagnoses Not on filedocumented in this encounter Care Teams Rotary Swaging Machine Operator Relationship Specialty Start Date End Date Ruth Hamm NP [address] [place] [phone] PCP - General Nurse Practitioner 02/28/22 documented as of this encounter
--- OUTSIDE RECORDS SUMMARY | 2025-01-14 11:45 | XMS_ITS | Encounter Summary ---
Author Organization [facility] [place], Address [address] [place] [address] Phone Care Team Providers Care Pipeline Integrity Engineer Name Role Phone NorisRuth NP Primary Care Provider Encounter Details Date Type Department Care Team (Late st Contact Info) Description 09/25/2023 Documentation Only [facility] [place], [address] [place] [address] [place] [address] [place] [phone] Social History Tobacco Use Types Packs/Day [...] Visit [facility] [address] [place] [address] Dionisio Gonzáles MD [address] [place] [address] documented as of this encounter Visit Diagnoses Not on filedocumented in this encounter Care Teams Pipeline Integrity Engineer Relationship Specialty Start Date End Date Ruth Hamm NP [address] [place] [phone] PCP - General Nurse Practitioner 02/28/22 documented as of this encounter
--- OUTSIDE RECORDS SUMMARY | 2025-01-14 11:45 | XMS_ITS | Encounter Summary ---
Author Organization [facility] [place], Address [address] [place] [address] Phone Care Team Providers Care Health Center Associate Name Role Phone NorisRuth NP Primary Care Provider [phone] Encounter Details Date Type Department Care Team (Late st Contact Info) Description 09/07/2024 Documentation Only [facility] [place], [address] [facility] [address] [place] [address] [place] [address] Social History Tobacco Use Types Packs/Day [...] [facility] [address] [address] Dionisio Gonzáles MD [address] [facility] [place] [address] documented as of this encounter Visit Diagnoses Not on filedocumented in this encounter Care Teams Health Center Associate Relationship Specialty Start Date End Date Ruth Hamm NP [address] [place] [phone] PCP - General Nurse Practitioner 02/28/22 documented as of this encounter
--- OUTSIDE RECORDS SUMMARY | 2025-01-14 11:45 | XMS_ITS | Encounter Summary ---
Author Organization [facility] Address [address] [place] [address] Phone Care Team Providers Care Docket Clerk Name Role Phone NorisRuth NP Primary Care Provider [phone] Reason for Visit * Reason Comments Med Refill Encounter Details Date Type Department Care Team (Late st Contact Info) Description 06/13/2022 Refill [facility] [address] [place] [address] Dionisio Gonzáles MD [address] [facility] [place] [address] Social History Tobacco Use Types [...] [facility] [address] [place] [address] Dionisio Gonzáles MD [address] [facility] [place] [address] documented as of this encounter Visit Diagnoses Not on filedocumented in this encounter Care Teams Docket Clerk Relationship Specialty Start Date End Date Ruth Hamm NP [address] [place] [phone] PCP - General Nurse Practitioner 02/28/22 documented as of this encounter
--- OUTSIDE RECORDS SUMMARY | 2025-01-14 11:46 | XMS_ITS | Encounter Summary ---
Author Organization [facility] Address [address] [facility] [address] [place] [address] Phone Care Team Providers Care Release Of Information Clerk Name Role Phone Rodney Pacheco GOLD PLATER Unavailable [phone] Ruth Hamm NP Primary Care Provider [phone] Encounter Details Date Type Department Care Team (Late st Contact Info) Description 04/21/2022 Procedure Pass [facility], [address] [address] Social History Tobacco Use Types Packs/Day Years [...] 04/21/2022 4:12 PM Jemima Mckeon RN * Medicine [place] Suicide Severity Rating Scale (Screener/Recent Self-Report) Question [...] on filedocumented in this encounter Care Teams Release Of Information Clerk Relationship Specialty Start Date End Date Ruth Hamm NP [address] [place] [address] PCP - General Nurse Practitioner 04/21/22 Rodney Pacheco NP [email or web address] Historical LMR Provider 12/06/16 documented as of this encounter Additional Source Comments The information contained in this document represents components of the legal health record. It is not the complete legal health record.[facility]
--- OUTSIDE RECORDS SUMMARY | 2025-01-14 11:46 | XMS_ITS | Encounter Summary ---
Author Organization [facility] Address [address] [facility] [address] [place] [address] Phone Care Team Providers Care Molded Goods Spot Picker Name Role Phone Rodney Pacheco MANAGER ACCOUNT MANAGEMENT Unavailable [phone] Ruth Hamm NP Primary Care Provider [phone] Encounter Details Date Type Department Care Team (Late st Contact Info) Description 04/21/2022 Procedure Pass [facility], [address] [address] Social History Tobacco Use Types Packs/Day Years [...] 04/21/2022 4:12 PM Jemima Mckeon RN * [place] Suicide Severity Rating Scale (Screener/Recent Self-Report) Question [...] on filedocumented in this encounter Care Teams Molded Goods Spot Picker Relationship Specialty Start Date End Date Ruth Hamm NP [address] [place] [address] PCP - General Nurse Practitioner 04/21/22 Rodney Pacheco NP [email or web address] Historical LMR Provider 12/06/16 documented as of this encounter Additional Source Comments The information contained in this document represents components of the legal health record. It is not the complete legal health record.[facility]
--- OUTSIDE RECORDS SUMMARY | 2025-01-14 11:46 | XMS_ITS | Encounter Summary ---
Author Organization [facility] Address [address] [facility] [address] [place] [address] Phone Care Team Providers Care Electronics Scale Tester Name Role Phone Rodney Pacheco COSTUME MAKER Unavailable + [phone] Ruth Hamm NP Primary Care Provider [phone] Encounter Details Date Type Department Care Team (Late st Contact Info) Description 04/21/2022 Procedure Pass [facility], [facility] - [address] [address] Social History Tobacco Use Types Packs/Day Years [...] 04/21/2022 4:12 PM Jemima Mckeon RN * [place] Suicide Severity Rating Scale (Screener/Recent Self-Report) Question [...] on filedocumented in this encounter Care Teams Electronics Scale Tester Relationship Specialty Start Date End Date Ruth Hamm NP [address] [place] [address] PCP - General Nurse Practitioner 04/21/22 Rodney Pacheco NP [email or web address] Historical LMR Provider 12/06/16 documented as of this encounter Additional Source Comments The information contained in this document represents components of the legal health record. It is not the complete legal health record.[facility]
--- OUTSIDE RECORDS SUMMARY | 2025-01-14 11:46 | XMS_ITS | Patient Health Record ---
Author Organization [facility] Address [address] [place] [address] Care Team Providers Care Crabber Name Role Phone Noris Ruth EISENBERG Primary Care Provider Deandre Vega Jr Unavailable [phone] Allergies Allergen (clinical drug ingredient) Drug/Non Drug Allergy documented on EMR Reaction Allergy Type Onset Date Status Substance with beta adrenergic receptor antagonist mechanism of action (substance) beta wyatt (uncoded) Unknown Allergy Active IVP Dye (uncoded) Unknown Allergy Ac tive omeprazole prilosec (uncoded) Unknown Allergy Active Shellfish (FN) Shellfish-derived Products Unknown Drug Allergy Active Reason For Referral No Information Medications Medication SIG (Take, Route, Frequency, Duration) Notes Start Date End Date Status hydrALAZINE HCl 50 MG Tablet 1 tablet wi th food Orally once a day Active busPIRone HCl 5 MG Tablet 1/2 tablet Ora lly once a day Active Amitriptyline HCl 10 MG Tablet TAKE ONE TABLET BY MOUTH AT BEDTIME Oral; Duration: 90 Active Lansoprazole 15 MG Capsule Delayed Release 1 capsule before a meal Orally Once a day; Duration: 30 day(s) 11/17/2020 Active Lisinopril 30 MG Tablet 1 tablet Orally Once a day Active Synthroid 75 MCG Tablet 1 tablet on an e mpty stomach in the morning Orally Once a day Active Immunizations Vaccine Route Administration Date Status Comme nts Influenza Unknown 09/24/2018 Refused Influenza Unknown 11/16/2020 Refused Influenza Unknown 01/22/2022 Refused Influenza Unknown 05/13/2023 Refused Social History Social History Additional Details Category Social Info Options Details Miscellaneous: Marital status: Single Occupation: Retired from 2017 Problems Problem Type SNOMED Code ICD Code Onset Dates Problem Status W/U Status Risk Notes Problem Colon cancer screening (811040555) Colon cancer screening (Z12.11) Active confirmed Problem Epigastric pain (64484461) Epigastric pain (R10.13) Active confirmed Problem Diverticulitis of colon (114659088) Diverticulitis of large intestine without perforation or abscess without bleeding (K57.32) Active confirmed Problem Harper's esophagus (489610861) 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) Active confirmed Problem Elevated liver enzymes level (997383492) Elevated liver function tests (R79.89) Active confirmed Problem Gastroesophageal reflux disease without esophagitis (610487487) Gastroesophageal reflux disease without esophagitis (K21.9) Active confirmed Problem Diverticular disease of colon (769684799) Diverticulosis of colon without hemorrhage (K57.30) Active confirmed Problem Irritable bowel syndrome characterized by constipation (982327283) Irritable bowel syndrome with constipation (K58.1) Active confirmed Problem Essential hypertension (83886795) Hypertension, unspecified type (I10) Active confirmed Vital Signs Temperature 97.3 degrees Fahrenheit 07/15/2024 Blood pressure diastolic 01 mm Hg 07/15/2024 Height 62.50 in 07/15/2024 Blood pressure systolic 001 mm Hg 07/15/2024 Weight 181.6 lbs 07/15/2024 BMI 32.68 kg/m2 07/15/2024 Encounters Encounter Location Date Provider Diagnosis [facility] [address] [facility] [address] [place] [phone] 07/15/2024 Deandre Brown Jr Harper's esophagus without [...] ENDOSCOPY 08/13/2022 Next Appt Details Provider Name:Deandre Carlos ambrosio , 07/14/2025 11:10:00 AM, [address] [place] [address], [address], [place], [address], Insurance Providers Payer Name Payer Address Payer Phone Subscriber Number Group Number Insured Name Patient Relationship to Insured Coverage Start Date Coverage End Date [facility] [address] [place], [place] [id number] KIRBY MCCRAY Self - patient is the [...]
--- OUTSIDE RECORDS SUMMARY | 2025-01-14 11:46 | XMS_ITS | Encounter Summary ---
Author Organization [facility] Address [address] [facility] [address] [place] [address] Phone Care Team Providers Care Pipeline Maintenance Supervisor Name Role Phone Rodney Pacheco MEDICAL ORDERLY Unavailable + [phone] Ruth Hamm NP Primary Care Provider [phone] Encounter Details Date Type Department Care Team (Late st Contact Info) Description 04/21/2022 Procedure Pass [facility], [address] [address] Social History Tobacco Use Types Packs/Day Years [...] 04/21/2022 4:12 PM Jemima Mckeon RN * [place] Suicide Severity Rating Scale (Screener/Recent Self-Report) Question [...] filedocumented in this encounter Care Teams Pipeline Maintenance Supervisor Relationship Specialty Start Date End Date Ruth Hamm NP [address] [place] [address] PCP - General Nurse Practitioner 04/21/22 Rodney Pacheco NP [email or web address] Historical LMR Provider 12/06/16 documented as of this encounter Additional Source Comments The information contained in this document represents components of the legal health record. It is not the complete legal health record.[facility]
--- OUTSIDE RECORDS SUMMARY | 2025-01-14 11:46 | XMS_ITS | Encounter Summary ---
Author Organization [facility] Address [address] [place] [id number] Phone Care Team Providers Care Outside Cutter Hand Name Role Phone Rodney Pacheco AIR TESTER Unavailable + [phone] Ruth Hamm NP Primary Care Provider [phone] Encounter Details Date Type Department Care Team (Late st Contact Info) Description 07/20/2022 Procedure Pass [facility], Ct Scan - [address] [address] Social History Tobacco Use Types Packs/Day Years [...] 8:27 AM EDT Lora Dixon, MARILU * [place] Suicide Severity Rating Scale (Screener/Recent Self-Report) Question [...] on filedocumented in this encounter Care Teams Outside Cutter Hand Relationship Specialty Start Date End Date Ruth Hamm NP [address] [place] [address] PCP - General Nurse Practitioner 04/21/22 Rodney Pacheco NP [email or web address] LMR Provider 12/06/16 documented as of this encounter Additional Source Comments The information contained in this document represents components of the legal health record. It is not the complete legal health record.[facility]
[2025-01-14 11:48] LABS: Hematocrit 40.0 % (37.0-47.0); Hemoglobin 13.2 g/dl (12.0-16.0); Imm Gran Abs Auto 0.02 X10*3/uL (0.00-0.03); Imm Gran Pct Auto 0.2 % (0.0-0.4); Lymphocytes Absolute Auto 2.0 X10*3/uL (1.2-4.9); Mean Corpuscular HGB Conc 33.0 g/dl (31.0-35.0); Mean Corpuscular Hemoglobin 28.9 pg (27.0-33.0); Mean Corpuscular Volume 87.5 fL (80.0-98.0); NRBC Abs Auto 0.000 X10*3/uL (0.0-0.012); NRBC Pct Auto 0.0 /100WBC (0.0-0.2); Platelet Count 177 X10*3/uL (160-400); Red Blood Count 4.57 X10*6/uL (4.20-5.50); White Blood Count 8.3 X10*3/uL (4.8-10.8)
[2025-01-14 12:13] LABS: Troponin-I High Sensitivity 3.1 ng/L (<3.5-17.0)
[2025-01-14 12:23] LABS: Alanine Aminotransferase 16 U/L (0-31); Albumin Level 3.7 g/dL (3.5-5.0); Alkaline Phosphatase 80 U/L (39-117); Anion Gap 16 (12-20); Aspartate Amino Transferase 34 U/L (5-31); Blood Urea Nitrogen 15 mg/dL (9-16); Calcium 9.8 mg/dL (8.4-10.2); Carbon Dioxide 20 mmol/L (22-29); Chloride 111 mmol/L (96-108); Creatinine Clr Calc Pharmacy 35.0; Estimated Glomerular Filt Rate 42; Magnesium 1.9 mg/dL (1.6-2.6); Potassium 5.1 mmol/L (3.3-5.1); Sodium 142 mmol/L (135-145); Total Protein 6.7 g/dL (6.5-8.0)
[2025-01-14 12:23] LABS: Resp Syncy Virus RNA Qual PCR NEGATIVE (Negative); SARS COV2 PCR INHOUSE NEGATIVE (Negative)
[2025-01-14 12:34] VITALS: BP 153/81; PULSE 79; RESP 16; TEMP 36; O2SAT 94
== END 2025-01-14 12:41 | disposition home or self-care (01) ==
PROVIDERS: Physician Assistant; Registered Nurse Emergency; Emergency Provider Emergency Medicine; PCP Nurse Practitioner Family
DX: M25.511 Pain in right shoulder (principal); M25.512 Pain in left shoulder; I12.9 Hypertensive chronic kidney disease with stage 1 through stage 4 chronic kidney disease, or unspecified chronic kidney disease; N18.2 Chronic kidney disease, stage 2 (mild); K21.9 Gastro-esophageal reflux disease without esophagitis; Z03.818 Encounter for observation for suspected exposure to other biological agents ruled out
CPT/HCPCS: 36415; 80053; 83735; 84443; 84484; 85025; 87637; 93005; 99283; J8540

== ENCOUNTER → 2025-01-14 11:26 | Outpatient (BNV) | payer MEDICARE, SELFPAY | PROVIDERS: Emergency Provider Emergency Medicine; PCP Nurse Practitioner Family; Visit Provider Internal Medicine Cardiovascular Disease | DX: I49.3 Ventricular premature depolarization (principal); I44.5 Left posterior fascicular block | CPT/HCPCS: 93010 ==